=== PATIENT | male | born 1935 | race Caucasian/White ===

== ENCOUNTER 2016-09-17 16:28 | Inpatient (IN) | payer OTHER, MEDICARE ==
[~2016-09-17] VITALS: Ht 180.3 cm; Wt 75.0 kg
[~2016-09-17 16:28] MED LIST: ALLO100T PO; AMLO10TA2 PO; ATOR20TA15 PO; GLIP5 PO; HYDR50TA15 PO; ISOS30TA3 PO; OMEP20TA PO; POTA10TA2 PO; ULTR50TA5 PO
[2016-09-17 16:30] VITALS: BP 171/84; PULSE 65; RESP 15; TEMP 98.4; O2SAT 97
[2016-09-17] MEDS ORDERED: SODIUM CHLORID 0.9% 500 ML INJ 500 ML IV ONE (16:45)
[2016-09-17] MEDS ORDERED: ONDANSETRON HCL 4 MG/2 ML VIAL IVP ONE (16:45)
[2016-09-17] MEDS ORDERED: SODIUM CHLORIDE 0.9% FLUSH 5 ML FLUSH IVF PRN (16:45)
--- NOTE | 2016-09-17 16:53 | PD ---
HPI Chief Complaint: General Weakness Time Seen by Provider: 16:49 Travel History International Travel<30 days: No Contact w/Intl Traveler<30days: No Traveled to known affect area: No History of Present Illness HPI 80-year-old male presents to the emergency department via EMS for generalized weakness. He reports nausea, vomiting for the past week. However for the past 2 days, he has been so weak that he has been unable to get up. His states that he was able to get up use the bathroom this morning, but otherwise has been laying in bed for the past 3 days. 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 She states he has not vomited today was able to drink a boost shake this morning. However , he had vomiting yesterday and the day before. He did have one loose stool this morning. She states there was no blood in his stool. Patient also has a history of diabetes and is on glipizide. The patient denies any fevers. No headache. No chest pain or abdominal pain. No shortness of breath. Patient is hard of hearing. No syncope. No trauma. Patient has a PMH of HTN, DM, HLD , CKD, unilateral atrophic kidney, PAD with femoropopliteal bypass. PFSH Past Medical History Arthritis: Yes Blood Disorders: No Anxiety: No Depression: No Heart Rhythm Problems: No Cancer: No Cardiovascular Problems: Yes High Cholesterol: Yes Chemotherapy: No Chest Pain: No Cerebrovascular Accident: No Diabetes: Yes Diminished Hearing: No Endocrine: Yes Gastrointestinal Disorders: No Glaucoma: No Genitourinary: No Headaches: No Hepatitis: No Hiatal Hernia: No Hypertension: Yes Immune Disorder: No Implanted Vascular Access Dvce: Yes Musculoskeletal: No Neurologic: No Psychiatric: No Reproductive: No Respiratory: Yes (SOB THIS ADMISSION, DENIES PRIOR HX) Radiation Therapy: No Seizures: No Thyroid Disease: No Past Surgical History Abdominal Surgery: Yes AICD: No Arteriovenous Shunt: No Cardiac Surgery: No Cholecystectomy: Yes Ear Surgery: No Endocrine Surgery: No Eye Surgery: No Genitourinary Surgery: No Gynecologic Surgery: No Insulin Pump: No Joint Replacement: No Neurologic Surgery: No Oral Surgery: No Pacemaker: Yes Thoracic Surgery: No Other Surgery: Yes (Parish filters) Social History Alcohol Use: No Tobacco Use: Yes (QUIT 2 MONTHS) Substance Use: No Allergies-Medications (Allergen,Severity, Reaction): Coded Allergies: Hctz (Verified Allergy, Severe, Rash, 07/02/16) Lasix (Verified Allergy, Severe, RASH, 07/02/16) Nonsteroidal Anti-Inflammatory Agts (Verified Adverse Reaction, Severe, GI BLEED, 07/02/16) Reported Meds & Prescriptions Reported Meds & Active Scripts Active Glucotrol (Glipizide) 5 Mg Tab 5 Mg PO DAILYAC 30 Days Hydralazine (Hydralazine HCl) 50 Mg Tab 50 Mg PO Q8HR 30 Days Reported B-12 (Cyanocobalamin) Unknown Strength Tab Unknown Dose PO DAILY Vitamin D3 (Cholecalciferol) 5,000 Unit Cap 5,000 Units PO DAILY Aspirin 81 Mg Tabdr 81 Mg PO DAILY Isosorbide Mononitrate ER (Isosorbide Mononitrate) 30 Mg Jennifer 30 Mg PO DAILY Atorvastatin (Atorvastatin Calcium) 20 Mg Tab 20 Mg PO HS Amlodipine (Amlodipine Besylate) 10 Mg Tab 10 Mg PO DAILY Omeprazole 20 Mg Tab 20 Mg PO BID Allopurinol 100 Mg Tab 100 Mg PO DAILY Review of Systems Except as stated in HPI: all other systems reviewed are Neg Physical Exam Narrative GENERAL: Well-developed well-nourished elderly male patient, afebrile. SKIN: Warm and dry. HEAD: Normocephalic. Atraumatic. EYES: No scleral icterus. No injection or drainage. NECK: Supple, trachea midline. No JVD or lymphadenopathy. CARDIOVASCULAR: Regular rate and rhythm without murmurs, gallops, or rubs. RESPIRATORY: Breath sounds equal bilaterally. No accessory muscle use. Lungs sounds are clear to auscultation. GASTROINTESTINAL: Abdomen soft, non-tender, nondistended. MUSCULOSKELETAL: No cyanosis, or edema. Bilateral upper and lower extremity strength 5/5. All extremities are neurovascularly intact. BACK: Nontender without obvious deformity. No CVA tenderness. Data Data Last Documented VS Vital Signs Date Time Temp Pulse Resp B/P Pulse Ox O2 Delivery O2 Flow Rate FiO2 09/17/16 19:08 53 18 183/99 97 Room Air 09/17/16 16:30 98.4 Orders Electrocardiogram (09/17/16 16:39) Complete Blood Count With Diff (09/17/16 16:39) Comprehensive Metabolic Panel (09/17/16 16:39) Magnesium (Mg) (09/17/16 16:39) Ckmb (Isoenzyme) Profile (09/17/16 16:39) Troponin I (09/17/16 16:39) Act Partial Throm Time (Ptt) (09/17/16 16:39) Prothrombin Time / Inr (Pt) (09/17/16 16:39) Urinalysis - C+S If Indicated (09/17/16 16:39) Chest, Single Ap (09/17/16 16:39) Ecg Monitoring (09/17/16 16:39) Iv Access Insert/Monitor (09/17/16 16:39) Oximetry (09/17/16 16:39) Ondansetron Inj (Zofran Inj) (09/17/16 16:45) Sodium Chloride 0.9% Flush (Ns Flush) (09/17/16 16:45) Sodium Chlorid 0.9% 500 Ml Inj (Ns 500 M (09/17/16 16:45) Ct Abd/Pel W Iv Contrast(Rout) (09/17/16 ) Blood Culture (09/17/16 17:26) Lactic Acid Sepsis Protocol (09/17/16 17:26) Influenzae A/B Antigen (09/17/16 17:26) CKMB (09/17/16 16:50) CKMB% (09/17/16 16:50) Calcium Gluconate Inj (Calcium Gluconate (09/17/16 17:45) Magnesium Sulfate 1 Gm Premix (Magnesium (09/17/16 18:00) Cath For Specimen (09/17/16 17:54) Iohexol 350 Inj (Omnipaque 350 Inj) (09/17/16 18:40) Magnesium Sulfate 4 Gm Premix (Magnesium (09/17/16 19:30) Labs Laboratory Tests Test 09/17/16 09/17/16 16:50 17:43 White Blood Count 19.6 TH/MM3 Red Blood Count 3.79 MIL/MM3 Hemoglobin 10.5 GM/DL Hematocrit 31.8 % Mean Corpuscular Volume 84.0 FL Mean Corpuscular Hemoglobin 27.8 PG Mean Corpuscular Hemoglobin 33.1 % Concent Red Cell Distribution Width 17.2 % Platelet Count 247 TH/MM3 Mean Platelet Volume 7.8 FL Neutrophils (%) (Auto) 82.2 % Lymphocytes (%) (Auto) 12.9 % Monocytes (%) (Auto) 4.5 % Eosinophils (%) (Auto) 0.1 % Basophils (%) (Auto) 0.3 % Neutrophils # (Auto) 16.1 TH/MM3 Lymphocytes # (Auto) 2.5 TH/MM3 Monocytes # (Auto) 0.9 TH/MM3 Eosinophils # (Auto) 0.0 TH/MM3 Basophils # (Auto) 0.1 TH/MM3 CBC Comment DIFF FINAL Differential Comment Prothrombin Time 14.7 SEC Prothromb Time International 1.3 RATIO Ratio Activated Partial 33.3 SEC Thromboplast Time Sodium Level 139 MEQ/L Potassium Level 4.1 MEQ/L Chloride Level 104 MEQ/L Carbon Dioxide Level 26.6 MEQ/L Anion Gap 8 MEQ/L Blood Urea Nitrogen 24 MG/DL Creatinine 1.65 MG/DL Estimat Glomerular Filtration 41 ML/MIN Rate Random Glucose 179 MG/DL Calcium Level 5.5 MG/DL Protein Corrected Calcium 5.6 MG/DL Magnesium Level LESS THAN 0.3 MG/DL Total Bilirubin 0.4 MG/DL Aspartate Amino Transf 11 U/L (AST/SGOT) Alanine Aminotransferase 13 U/L (ALT/SGPT) Alkaline Phosphatase 85 U/L Total Creatine Kinase 156 U/L Creatine Kinase MB 1.5 NG/ML Troponin I 0.04 NG/ML Total Protein 7.0 GM/DL Albumin 2.2 GM/DL Lactic Acid Level 1.4 mmol/L [facility] Medical Decision Making Medical Screen Exam Complete: Yes Emergency Medical Condition: Yes Medical Record Reviewed: Yes Interpretation(s) Last Impressions Chest X-Ray 09/17/16 1639 Signed Impressions: Service Date/Time: September 16:56 - CONCLUSION: Normal examination. Myke De Leon MD Abdomen/Pelvis CT 09/17/16 0000 Signed Impressions: Service Date/Time: September 18:36 - CONCLUSION: 1. 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 2. 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 3. Right lower lung parenchymal density may be scar, repeat noncontrast chest CT is suggested in 6 months as a conservative follow up. KJono Gutierrez MD Differential Diagnosis Electrolyte abnormality versus urinary tract infection versus pneumonia versus ACS Narrative Course 80-year-old male presents to the emergency department for evaluation of generalized weakness, nausea, vomiting. EKG, CBC, CMP, magnesium, CK, troponin , PTT, PTT/INR, UA, chest x-ray are ordered and pending. Patient is given normal saline 500 bolus, Zofran 4 mg IV. CBC of the abdomen/pelvis, lactic acid , blood cultures 2, and influenza were added. EKG shows sinus rhythm with first-degree AV block, no acute ST changes. CBC shows leukocytosis of 19.6, hemoglobin 10.5, hematocrit 31.8. CMP shows B and 24, creatinine 1.65, protein corrected calcium 5.6. Magnesium is less than 0.3. CK is 156. Troponin is 0.04. Lactic acid is 1.4. PT is 14.7, INR 1.3, PTT 33.3. Influenza is negative. Chest x-ray is normal. CT abdomen/pelvis shows shrunken left kidney chronic in nature with an area of diminished enhancement involving the upper pole of the right kidney may be an infarction, however underlying mass is difficult to exclude; bosniak 3 cystic mass in the right kidney; 3. Right lower lung parenchymal density may be scar, repeat noncontrast chest CT is suggested in 6 months as a conservative follow up. [facility] is paged for admission. Dr. Sampson accepted admission. Diagnosis Primary Impression: Hypomagnesemia Additional Impressions: Hypocalcemia Leukocytosis Qualified Code: D72.829 - Leukocytosis, unspecified type Admitting Information Admitting Physician Requests: Admit Suzan Amaya Sep 17, 2016 16:52
--- NOTE | 2016-09-17 17:05 | RADRPT ---
EXAM DATE/TIME: 09/17/2016 16:56 [facility] COMPARISON: CHEST SINGLE AP, July 02, 2016, 10:54. INDICATIONS : Short of breath and weakness. MEDICAL HISTORY : Unobtainable. SURGICAL HISTORY : Unobtainable. ENCOUNTER: Initial ACUITY: 1 day PAIN SCORE: 0/10 LOCATION: Bilateral chest FINDINGS: A single view of the chest demonstrates the lungs to be symmetrically aerated without evidence of mas s, infiltrate or effusion. The cardiomediastinal contours are unremarkable. Osseous structures are intact. CONCLUSION: Normal examination. Myke De Leon MD on September 17, 2016 at 17:03 Board Certified Radiologist. This report was verified electronically.
[2016-09-17 17:16] LABS: AUTOMATED NEUTROPHIL # 16.1 TH/MM3 (1.8-7.7); BASOPHIL # 0.1 TH/MM3 (0-0.2); BASOPHIL % 0.3 % (0.0-2.0); EOSINOPHIL % 0.1 % (0.0-4.0); HEMATOCRIT 31.8 % (39.0-51.0); HEMO FLAGS DIFF FINAL; LYMPH % 12.9 % (9.0-44.0); LYMPHOCYTE # 2.5 TH/MM3 (1.0-4.8); MEAN CORPUSCULAR HEMOGLOBIN 27.8 PG (27.0-34.0); MEAN CORPUSCULAR HGB CONC 33.1 % (32.0-36.0); MONO % 4.5 % (0.0-8.0); NEUT % 82.2 % (16.0-70.0); PLATELET COUNT 247 TH/MM3 (150-450); RED BLOOD COUNT 3.79 MIL/MM3 (4.50-5.90); RED CELL DISTRIBUTION WIDTH 17.2 % (11.6-17.2); WHITE BLOOD COUNT 19.6 TH/MM3 (4.0-11.0)
[2016-09-17 17:26] VITALS: BP 173/81; PULSE 67; RESP 15; O2SAT 98
[2016-09-17 17:40] LABS: ALKALINE PHOSPHATASE 85 U/L (45-117); ALT (GPT) 13 U/L (12-78); ANION GAP 8 MEQ/L (5-15); AST (GOT) 11 U/L (15-37); BICARBONATE 26.6 MEQ/L (21.0-32.0); BLOOD UREA NITROGEN 24 MG/DL (7-18); CHLORIDE 104 MEQ/L (98-107); CREATINE KINASE 156 U/L (39-308); GLOMERULAR FILTRATION RATE 41 ML/MIN (>89); MAGNESIUM LESS THAN 0.3 MG/DL (1.5-2.5); POTASSIUM 4.1 MEQ/L (3.5-5.1); SODIUM (NA) 139 MEQ/L (136-145); TOTAL BILIRUBIN ADULT 0.4 MG/DL (0.2-1.0)
[2016-09-17 17:42] LABS: APTT (PATIENT) 33.3 SEC (24.3-30.1); INTERNATIONAL NORMALIZED RATIO 1.3 RATIO; PROTHROMBIN TIME - PATIENT 14.7 SEC (9.8-11.6)
[2016-09-17 17:43] LABS: CALCIUM-PROTEIN CORRECTED 5.6 MG/DL (8.5-10.1)
[2016-09-17] MEDS ORDERED: CALCIUM GLUCONATE INJ 1 GM in SODIUM CHLORIDE 0.9% INJ 100 ML IV ONE ×2 (17:45→22:15)
[2016-09-17] MEDS ORDERED: ASPI1TAB69 PO (18:03)
[2016-09-17] MEDS ORDERED: CHOL5000 PO (18:03)
[2016-09-17] MEDS ORDERED: [UNRECOGNIZED DRUG - CODE] PO (18:03)
[2016-09-17 18:13] LABS: CKMB 1.5 NG/ML (0.5-3.6)
[2016-09-17] MEDS ORDERED: IOHEXOL 350 MG/ML 10 ML VIAL (for RAD DIAG) IV ONE (18:40)
--- NOTE | 2016-09-17 19:00 | RADRPT ---
EXAM DATE/TIME: 09/17/2016 18:36 [facility] COMPARISON: No previous studies available for comparison. INDICATIONS : Abdominal pain with weakness. IV CONTRAST: 70 cc Omnipaque 350 (iohexol) IV ORAL CONTRAST: No oral contrast ingested. RADIATION DOSE: 9.37 CTDIvol (mGy) MEDICAL HISTORY : Cardiovascular disease. Hypertension. Congestive heart failure.Renal disease, DM SURGICAL HISTORY : Cholecystectomy. ENCOUNTER: Initial ACUITY: 1 week PAIN SCALE: 7/10 LOCATION: abdomen TECHNIQUE: Volumetric scanning of the abdomen and pelvis was performed. Using automated exposure control and ad justment of the mA and/or kV according to patient size, radiation dose was kept as low as reasonably achievable to obtain optimal diagnostic quality images. FINDINGS: CT Abdomen: The left kidney is small and shrunken chronic in nature and there is an approximate 3.1 c m many septated partially cystic mass in the right kidney measuring 3.1 cm in size. There is an area of diminished enhancement involving the right upper pole kidney medially maximum diameter of 3.2 cm c ould be a mass, however infarction could have this appearance. The liver, spleen, pancreas, adrenals are unremarkable. There is no evidence for any appreciable pathological adenopathy, free fluid, or shailesh wel obstruction. Approximate 1.8 cm parenchymal density is present in the right lower lobe laterally nonspecific could be scar, however early neoplasm is not excluded. CT pelvis: There is no evidence for mass, abscess formation, or any significant adenopathy within the pelvis. The prostate gland is inhomogeneous and measures 4.4 x 5.6 cm in AP and transverse diameters and nonspecific. There is an approximate 1.7 cm bone island in the left sacrum and a tiny one involv ing the L2 vertebrae. Aortobifem graft is identified and appears patent. CONCLUSION: 1. 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 2. 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 3. Right lower lung parenchymal density may be scar, repeat noncontrast chest CT is suggested in 6 mo nths as a conservative follow up. Jeimy Gutierrez MD on September 17, 2016 at 18:52 Board Certified Radiologist. This report was verified electronically.
[2016-09-17 19:08] VITALS: BP 183/99; PULSE 53; RESP 18; O2SAT 97
[2016-09-17] MEDS ORDERED: MAGNESIUM SULFATE 4 GM PREMIX 100 ML IV ONE (19:30)
[2016-09-17] MEDS: MAGNESIUM SULFATE 1 GM PREMIX 100 ML IV SCH ×2 (19:39→20:44)
[2016-09-17] MEDS ORDERED: NALOXONE HCL 0.4 MG/ML AMP IV PRN (19:45)
[2016-09-17] MEDS ORDERED: SODIUM CHLORIDE 0.9% FLUSH 5 ML FLUSH FLUSH PRN (19:45)
[2016-09-17 20:00] VITALS: BP 188/77; PULSE 58; RESP 18; TEMP 97.6; O2SAT 97
[2016-09-17 20:28] VITALS: BP_SYST 148; BP_SYST 178; BP_DIAS 78; BP_DIAS 86; PULSE 53; PULSE 76; RESP 18; O2SAT 98
[2016-09-17] MEDS ORDERED: CALCIUM GLUCONATE INJ 2 GM in DEXTROSE 5% IN WATER 100ML INJ 100 ML IV ONE ×2 (21:00)
--- NOTE | 2016-09-17 21:44 | HHI.HP ---
[facility] Service [facility] Primary [facility] Physician Rivera Frazier MD Admission Diagnosis hypocalcemia, hypomagnesia, leukocytosis, generalized weakness Diagnoses: Chief Complaint: Very weak, nausea, vomited Travel History International Travel<30 Days: No Contact w/Intl Traveler <30 Da: No Traveled to Known Affected Are: No History of Present Illness History from patient, ER physician communication, and review of medical records. Patient is extremely hard of hearing. However when I speak to him mild, he is able to understand and comprehend. He is able to give history. When asked about why he came to hospital, he stated that he was just extremely very weak at home. He just could not understand why he was weak. He denies any falling down episodes. Denies any syncope. Denies any associated chest pain/shortness of breath/palpitations/. Did report of some dizziness and nausea. He states he vomited about 3 times a day for the past 2 days. No blood in it. Also denies any blood in his stool or urine. Denies diarrhea. Denies fever. In the emergency room, patient's workup reveals severe hypocalcemia and hypomagnesemia. Patient denies drinking alcohol on a daily basis. Review of Systems Except as stated in HPI: all other systems reviewed are Neg Past Family Social History Past Medical History Hypertension Diabetes Hyperlipidemia CVAs 2 Denies history of COPD. However is a chronic smoker. Still smoking. PADwith aortofemoral bypass Past Surgical History Aortofemoral bypass Left wrist surgery Cholecystectomy and lysis of adhesions Reported Medications Patient's medications listed on EMRreviewed Allergies: Coded Allergies: Hctz (Verified Allergy, Severe, Rash, 07/02/16) Lasix (Verified Allergy, Severe, RASH, 07/02/16) Nonsteroidal Anti-Inflammatory Agts (Verified Adverse Reaction, Severe, GI BLEED, 07/02/16) Family History Patient denies any family history of any medical conditions Social History Denies alcohol abuse/drug abuse. However states that he still smoking. A pack a week or so. Physical Exam Vital Signs Vital Signs Date Time Temp Pulse Resp B/P Pulse Ox O2 Delivery O2 Flow Rate FiO2 09/17/16 20:28 76 18 148/78 98 09/17/16 19:08 53 18 183/99 97 Room Air 09/17/16 17:26 67 15 173/81 98 Room Air 09/17/16 16:36 15 98 09/17/16 16:30 98.4 65 15 171/84 97 Physical Exam GENERAL: This is a well-nourished, well-developed patient, in no apparent distress. Elderly gentleman, extremely hard of hearing. SKIN: No rashes, ecchymoses or lesions. Cool and dry. HEAD: Atraumatic. Normocephalic. No temporal or scalp tenderness. EYES: No scleral icterus. No injection or drainage. ENT: Nose without bleeding, purulent drainage or septal hematoma.. Airway patent. NECK: Trachea midline. No JVD CARDIOVASCULAR: Regular rate and rhythm without murmurs, gallops, or rubs. RESPIRATORY: Clear to auscultation. Breath sounds equal bilaterally. No wheezes , rales, or rhonchi. GASTROINTESTINAL: Abdomen soft, non-tender, nondistended. No guarding. MUSCULOSKELETAL: Extremities without clubbing, cyanosis, or edema. No calf tenderness. NEUROLOGICAL: Awake and alert. Motor and sensory grossly within normal limits. Normal speech. Laboratory Laboratory Tests Test 09/17/16 09/17/16 16:50 17:43 White Blood Count 19.6 Red Blood Count 3.79 Hemoglobin 10.5 Hematocrit 31.8 Mean Corpuscular Volume 84.0 Mean Corpuscular Hemoglobin 27.8 Mean Corpuscular Hemoglobin 33.1 Concent Red Cell Distribution Width 17.2 Platelet Count 247 Mean Platelet Volume 7.8 Neutrophils (%) (Auto) 82.2 Lymphocytes (%) (Auto) 12.9 Monocytes (%) (Auto) 4.5 Eosinophils (%) (Auto) 0.1 Basophils (%) (Auto) 0.3 Neutrophils # (Auto) 16.1 Lymphocytes # (Auto) 2.5 Monocytes # (Auto) 0.9 Eosinophils # (Auto) 0.0 Basophils # (Auto) 0.1 CBC Comment DIFF FINAL Differential Comment Prothrombin Time 14.7 Prothromb Time International 1.3 Ratio Activated Partial 33.3 Thromboplast Time Sodium Level 139 Potassium Level 4.1 Chloride Level 104 Carbon Dioxide Level 26.6 Anion Gap 8 Blood Urea Nitrogen 24 Creatinine 1.65 Estimat Glomerular Filtration 41 Rate Random Glucose 179 Calcium Level 5.5 Protein Corrected Calcium 5.6 Magnesium Level LESS THAN 0.3 Total Bilirubin 0.4 Aspartate Amino Transf 11 (AST/SGOT) Alanine Aminotransferase 13 (ALT/SGPT) Alkaline Phosphatase 85 Total Creatine Kinase 156 Creatine Kinase MB 1.5 Troponin I 0.04 Total Protein 7.0 Albumin 2.2 Lactic Acid Level 1.4 Date/Time Procedure Status Source Growth 09/17/16 17:45 Aerobic Blood Culture Received Blood Peripheral Pending 09/17/16 17:45 Anaerobic Blood Culture Received Blood Peripheral Pending 09/17/16 17:40 Influenza Types A,B Antigen ([facility]UCKY) - Final Complete Nasal Aspirate NEGATIVE FOR FLU A AND B ANTIGEN.... Result Diagram: 09/17/16 1650 09/17/16 1650 Imaging Last 48 hours Impressions Chest X-Ray 09/17/16 1639 Signed Impressions: Service Date/Time: September 16:56 - CONCLUSION: Normal examination. Myke De Leon MD Abdomen/Pelvis CT 09/17/16 0000 Signed Impressions: Service Date/Time: September 18:36 - CONCLUSION: 1. 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 2. 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 3. Right lower lung parenchymal density may be scar, repeat noncontrast chest CT is suggested in 6 months as a conservative follow up. Jeimy Gutierrez MD Assessment and Plan Problem List: (1) Hypocalcemia ICD Code: E83.51 Status: Acute (2) Hypomagnesemia ICD Code: E83.42 Status: Acute Assessment and Plan Impression: Generalized weaknesslikely due to severe electrolyte impairments. Severe electrolyte impairmentpossibly from nausea and vomiting. Although the frequency and the amount does not sound so severe. Severe hypocalcemia Severe hypomagnesemia UTI Hypertension Diabetes Hyperlipidemia CVAs 2 Denies history of COPD. However is a chronic smoker. Still smoking. PADwith aortofemoral bypass Plan: Give additional 2 g IV calcium gluconate. Also gave additional 4 g total of mag sulfate. We'll follow up the repeat labs now after the calcium is finished. We'll be drawing BMP, magnesium, every 4 hours and follow up during the night and replace as needed. Telemetry monitoring. From patient and nursing staff advised to be careful with ambulation in case patient is bradycardic from these severe electrolyte abnormalities. Monitor for episodes of nausea/vomiting/diarrhea. Patient was started on Rocephin 1 g IV every 24 hours for UTI. Will follow-up urine culture results. Physical therapy consult. Resume home meds. Hold hypoglycemic medications. We'll monitor fingersticks and cover with sliding scale coverage. DVT prophylaxiswith Lovenox. GI prophylaxison pantoprazole. Suspect lab error at 3:35 AM lab-drawwith hyper magnesium. Suspect customer account technician nellie blood from IV line where magnesium was being infused. Repeat labs pending. Discussed Condition With Patient, ER physician, patient's nurse Physician Certification 2 Midnight Certification Type: Admission for Inpatient Services Order for Inpatient Services The services are ordered in accordance with Medicare regulations or non- Medicare payer requirements, as applicable. In the case of services not specified as inpatient-only, they are appropriately provided as inpatient services in accordance with the 2-midnight benchmark. Estimated LOS (days): 2 days is the estimated time the patient will need to remain in the hospital, assuming treatment plan goals are met and no additional complications. Post-Hospital Plan: Home Tahir Sampson MD Sep 17, 2016 21:44
[2016-09-17] MEDS ORDERED: CALCIUM CARBONATE 1.25 GM (CA 500 MG) TAB PO ONE (22:00)
[2016-09-17] MEDS ORDERED: CALCIUM GLUCONATE 10% 1 GM/10 ML VIAL IV PUSH ONE (22:00)
[2016-09-17] MEDS ORDERED: MAGNESIUM OXIDE 400 MG TAB PO ONE (22:00)
[2016-09-17] MEDS: hydrALAZINE HCL 50 MG TAB PO SCH (22:07)
[2016-09-17] MEDS: SODIUM CHLORIDE 0.9% FLUSH 5 ML FLUSH FLUSH SCH (22:10)
[2016-09-17] MEDS: MAGNESIUM SULFAT 1 GM PREMIX 100 ML x2 bags IV SCH ×2 (22:10→23:16)
[2016-09-17 22:50] LABS: BICARBONATE 23.3 MEQ/L (21.0-32.0); MAGNESIUM 0.9 MG/DL (1.5-2.5)
[2016-09-17 23:32] LABS: CALCIUM-PROTEIN CORRECTED 6.3 MG/DL (8.5-10.1)
[2016-09-18] VITALS (7 sets, daily range): BP systolic 145–172; BP diastolic 67–84; PULSE 56–68; RESP 14–20; TEMP 97–98.2; O2SAT 94–97
[2016-09-18] MEDS: MAGNESIUM SULFAT 1 GM PREMIX 100 ML x2 bags IV SCH ×2 (00:50→02:19)
[2016-09-18 01:12] LABS: BICARBONATE 23.8 MEQ/L (21.0-32.0); MAGNESIUM 1.5 MG/DL (1.5-2.5); POTASSIUM 3.7 MEQ/L (3.5-5.1)
[2016-09-18 01:20] LABS: BACTERIA, URINE MOD /hpf; BLOOD, URINE TRACE (NEG); COMMENT (UR) CULTURE INDICATED; CULTURE IF INDICATED CULTURE INDICATED; GLUCOSE,URINE NEG (NEG); KETONE, URINE NEG (NEG); MUCUS URINE FEW /lpf (OCC); NITRITE,URINE NEG (NEG); PH, URINE 5.5 (5.0-8.5); URINE COLOR YELLOW (YELLW/STRAW)
[2016-09-18 01:45] LABS: CALCIUM-PROTEIN CORRECTED 6.8 MG/DL (8.5-10.1)
[2016-09-18] MEDS ORDERED: MAGNESIUM SULFATE 1 GM PREMIX 100 ML IV ONE (02:00)
[2016-09-18] MEDS ORDERED: CALCIUM GLUCONATE 10% 1 GM/10 ML VIAL IV PUSH ONE (02:00)
[2016-09-18] MEDS: cefTRIAXone INJ 1,000 MG in SODIUM CHLORIDE 0.9% INJ 100 ML IV SCH (02:19)
[2016-09-18] MEDS ORDERED: CALCIUM GLUCONATE INJ 2 GM in DEXTROSE 5% IN WATER 100ML INJ 100 ML IV ONE ×2 (03:30)
[2016-09-18 03:47] LABS: AUTOMATED NEUTROPHIL # 10.4 TH/MM3 (1.8-7.7); BASOPHIL % 0.4 % (0.0-2.0); EOSINOPHIL % 0.1 % (0.0-4.0); HEMO FLAGS DIFF FINAL; LYMPH % 13.6 % (9.0-44.0); LYMPHOCYTE # 1.7 TH/MM3 (1.0-4.8); MEAN CELL VOLUME 83.6 FL (80.0-100.0); MEAN CORPUSCULAR HEMOGLOBIN 27.6 PG (27.0-34.0); MONO % 3.9 % (0.0-8.0); PLATELET COUNT 232 TH/MM3 (150-450); RED BLOOD COUNT 3.35 MIL/MM3 (4.50-5.90); WHITE BLOOD COUNT 12.7 TH/MM3 (4.0-11.0)
[2016-09-18 04:12] LABS: MAGNESIUM 6.1 MG/DL (1.5-2.5); POTASSIUM 3.6 MEQ/L (3.5-5.1)
[2016-09-18] MEDS: hydrALAZINE HCL 50 MG TAB PO SCH ×3 (05:43→23:13)
[2016-09-18] MEDS: ISOSORBIDE MONONITRATE 30 MG TAB PO SCH (05:44)
[2016-09-18 07:55] LABS: BICARBONATE 23.5 MEQ/L (21.0-32.0); MAGNESIUM 2.5 MG/DL (1.5-2.5)
[2016-09-18 07:57] LABS: POTASSIUM 3.7 MEQ/L (3.5-5.1)
[2016-09-18] MEDS ORDERED: GLUCAGON 1 MG/ML VIAL OTHER PRN (08:00)
[2016-09-18] MEDS ORDERED: DEXTROSE 50% IN WATER 50 ML VIAL(D50) IV PUSH PRN (08:00)
--- NOTE | 2016-09-18 08:00 | HHI.PR ---
Subjective Remarks This is a pleasant 80 y/o Male who was admitted with Hypocalcemia, Hypomagnesemia, Leukocytosis Generalized weakness, Nausea and vomit, hard of hearing, has Hypertension, DM II , Hyperlipidemia CVA x 2, chronic smoker still smoking, Peripheral Artery disease, with diagnosis of Generalized weakness, Electrolyte derangement, Intractable nausea and vomit, Patient stable seen in the room in the presence of nurse Miss Rebekah herrera, no complaints, eating in the room , no shortness of breath walking in the room. Objective Vital Signs Date Time Temp Pulse Resp B/P Pulse Ox O2 Delivery O2 Flow Rate FiO2 09/18/16 04:00 97.4 56 20 160/72 97 09/18/16 00:00 97.8 61 18 158/75 97 09/17/16 20:28 76 18 148/78 98 09/17/16 20:00 97.6 58 18 188/77 97 09/17/16 19:08 53 18 183/99 97 Room Air 09/17/16 17:26 67 15 173/81 98 Room Air 09/17/16 16:36 15 98 09/17/16 16:30 98.4 65 15 171/84 97 I/O 09/17/16 09/17/16 09/17/16 09/18/16 09/18/16 09/18/16 07:00 15:00 23:00 07:00 15:00 23:00 Intake Total 754 ml 1023 ml Output Total 350 ml 400 ml Balance 404 ml 623 ml Intake Oral 360 ml 240 ml IV Total 394 ml 783 ml Output Urine Total 350 ml 400 ml # Bowel Movements 0 0 Result Diagram: 09/18/16 0335 09/18/16 0335 Imaging Last Impressions Chest X-Ray 09/17/16 1639 Signed Impressions: Service Date/Time: September 16:56 - CONCLUSION: Normal examination. Myke De Leon MD Abdomen/Pelvis CT 09/17/16 0000 Signed Impressions: Service Date/Time: September 18:36 - CONCLUSION: 1. 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 2. 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 3. Right lower lung parenchymal density may be scar, repeat noncontrast chest CT is suggested in 6 months as a conservative follow up. Jeimy Gutierrez MD Procedures No procedures performed to the patient. Other Results Laboratory Tests Test 09/17/16 09/17/16 09/18/16 09/18/16 16:50 17:43 00:45 03:35 Prothrombin Time 14.7 SEC Prothromb Time International 1.3 RATIO Ratio Activated Partial 33.3 SEC Thromboplast Time Total Bilirubin 0.4 MG/DL Aspartate Amino Transf 11 U/L (AST/SGOT) Alanine Aminotransferase 13 U/L (ALT/SGPT) Alkaline Phosphatase 85 U/L Total Creatine Kinase 156 U/L Creatine Kinase MB 1.5 NG/ML Troponin I 0.04 NG/ML Albumin 2.2 GM/DL Lactic Acid Level 1.4 mmol/L Urine Color YELLOW Urine Turbidity HAZY Urine pH 5.5 Urine Specific [place] 1.034 Urine Protein 100 mg/dL Urine Glucose (UA) NEG mg/dL Urine Ketones NEG mg/dL Urine Occult Blood TRACE Urine Nitrite NEG Urine Bilirubin NEG Urine Urobilinogen 2.0 MG/DL Urine Leukocyte Esterase LARGE Urine RBC 8 /hpf Urine WBC /hpf Urine WBC Clumps FEW Urine Bacteria MOD /hpf Urine Mucus FEW /lpf Microscopic Urinalysis Comment CULTURE INDICATED White Blood Count 12.7 TH/MM3 Red Blood Count 3.35 MIL/MM3 Hemoglobin 9.3 GM/DL Hematocrit 28.0 % Mean Corpuscular Volume 83.6 FL Mean Corpuscular Hemoglobin 27.6 PG Mean Corpuscular Hemoglobin 33.0 % Concent Red Cell Distribution Width 17.0 % Platelet Count 232 TH/MM3 Mean Platelet Volume 7.6 FL Neutrophils (%) (Auto) 82.0 % Lymphocytes (%) (Auto) 13.6 % Monocytes (%) (Auto) 3.9 % Eosinophils (%) (Auto) 0.1 % Basophils (%) (Auto) 0.4 % Neutrophils # (Auto) 10.4 TH/MM3 Lymphocytes # (Auto) 1.7 TH/MM3 Monocytes # (Auto) 0.5 TH/MM3 Eosinophils # (Auto) 0.0 TH/MM3 Basophils # (Auto) 0.0 TH/MM3 CBC Comment DIFF FINAL Differential Comment Sodium Level 133 MEQ/L Potassium Level 3.6 MEQ/L Chloride Level 98 MEQ/L Carbon Dioxide Level 24.0 MEQ/L Anion Gap 11 MEQ/L Blood Urea Nitrogen 22 MG/DL Creatinine 1.46 MG/DL Estimat Glomerular Filtration 47 ML/MIN Rate Random Glucose 317 MG/DL Calcium Level 6.5 MG/DL Protein Corrected Calcium 7.0 MG/DL Magnesium Level 6.1 MG/DL Total Protein 6.1 GM/DL Objective Remarks GENERAL: This is a well-nourished, well-developed patient, in no apparent distress. Elderly gentleman, extremely hard of hearing. SKIN: No rashes, ecchymoses on arms. HEAD: Atraumatic. Normocephalic. EYES: No scleral icterus. No injection or drainage. ENT: Nose without bleeding. NECK: Trachea midline. No JVD CARDIOVASCULAR: Regular rate and rhythm without murmurs, gallops, or rubs. RESPIRATORY: Clear to auscultation. Breath sounds equal bilaterally. No wheezes , rales, or rhonchi. GASTROINTESTINAL: Abdomen soft, non-tender, nondistended. No guarding. MUSCULOSKELETAL: Extremities without clubbing, cyanosis, or edema. No calf tenderness. NEUROLOGICAL: Awake and alert. Motor and sensory grossly within normal limits. Normal speech. Medications and IVs Current Medications Medications (Trade) Dose Ordered Sig/Fox Route Start Time Stop Time Status Last Admin (NS Flush) 2 ml UNSCH PRN FLUSH 09/17/16 19:45 (NS Flush) 2 ml BID FLUSH 09/17/16 21:00 09/17/16 22:10 (Lovenox Inj) 40 mg Q24H SQ 09/18/16 09:00 (Narcan Inj) 0.4 mg UNSCH PRN IV 09/17/16 19:45 (Zyloprim) 100 mg DAILY PO 09/18/16 09:00 (Norvasc) 10 mg DAILY PO 09/18/16 09:00 (Ecotrin Ec) 81 mg DAILY PO 09/18/16 09:00 (Lipitor) 20 mg HS PO 09/18/16 21:00 (Vitamin D3) 5,000 units DAILY PO 09/18/16 09:00 (Apresoline) 50 mg Q8HR PO 09/17/16 22:00 09/18/16 05:43 (Imdur) 30 mg DAILY@07 PO 09/18/16 07:00 09/18/16 05:44 (Protonix) 20 mg BID PO 09/18/16 09:00 Calcium Carbonate 1000 mg 1,000 mg Q12HR PO 09/18/16 09:00 (Rocephin Inj/NS Inj) 100 ml @ 200 mls/hr Q24H IV 09/18/16 02:00 09/18/16 02:19 A/P Assessment and Plan 1. Electrolyte derangement replaced and following, replace potassium today. today Potassium 3.7 given 20 meq now follow, asked for Ionized calcium continue present care. 2. Generalized weakness secondary to #1 Physical therapy consulted. 3. UTI continue Ceftriaxone. 4. Hypertension Uncontrolled anti hypertensives just given. 5. Hyperlipidemia continue statins 6. CVA x 2 no focal deficits. 7. Tobacco dependency strongly recommended to stop smoking. 8. PAD status post Aortofemoral bypass. 9. DM II uncontrolled. continue sliding scale. Hemoglobin A1C DVT prophylaxiswith Lovenox. GI prophylaxison pantoprazole. Discharge Planning expected in the next 24 hours. Attending Attestation Patient seen in the room in the presence of nurse Miss Rebekah herrera. Cody Nuñez MD Sep 18, 2016 08:00
[2016-09-18 08:26] LABS: CALCIUM-PROTEIN CORRECTED 7.1 MG/DL (8.5-10.1)
[2016-09-18] MEDS: PANTOPRAZOLE SOD 20 MG DELAYED RELEASE TAB PO SCH ×2 (08:31→23:11)
[2016-09-18] MEDS: CHOLECALCIFEROL (VIT D3) 5000 UNIT CAP PO SCH (08:31)
[2016-09-18] MEDS: CALCIUM CARBONATE 1.25 GM (CA 500 MG) TAB PO SCH ×2 (08:31→23:11)
[2016-09-18] MEDS: ASPIRIN EC 81 MG TABEC PO SCH (08:31)
[2016-09-18] MEDS: ALLOPURINOL 100 MG TAB PO SCH (08:31)
[2016-09-18] MEDS: ENOXAPARIN SODIUM 40 MG/0.4 ML SYRINGE SQ SCH (08:31)
[2016-09-18] MEDS: SODIUM CHLORIDE 0.9% FLUSH 5 ML FLUSH FLUSH SCH ×2 (08:32→23:10)
[2016-09-18] MEDS ORDERED: MAGNESIUM OXIDE 400 MG TAB PO SCH (09:00)
[2016-09-18] MEDS ORDERED: POTASSIUM CHLORIDE 20 MEQ CONTROLLED RELEASE TAB PO ONE (09:45)
[2016-09-18 11:07] LABS: BICARBONATE 25.4 MEQ/L (21.0-32.0); MAGNESIUM 2.1 MG/DL (1.5-2.5); POTASSIUM 3.9 MEQ/L (3.5-5.1)
[2016-09-18] MEDS: INSULIN ASPART SUPPLEMENTAL SCALE SQ SCH ×3 (11:24→21:00)
[2016-09-18 11:47] LABS: CALCIUM-PROTEIN CORRECTED 7.4 MG/DL (8.5-10.1)
[2016-09-18 12:52] LABS: BICARBONATE 24.4 MEQ/L (21.0-32.0); MAGNESIUM 2.1 MG/DL (1.5-2.5); POTASSIUM 3.7 MEQ/L (3.5-5.1)
[2016-09-18 13:09] LABS: CALCIUM-PROTEIN CORRECTED 7.1 MG/DL (8.5-10.1)
[2016-09-18 19:03] LABS: BICARBONATE 23.4 MEQ/L (21.0-32.0); MAGNESIUM 2.1 MG/DL (1.5-2.5); POTASSIUM 3.9 MEQ/L (3.5-5.1)
[2016-09-18 20:50] LABS: CALCIUM-PROTEIN CORRECTED 7.1 MG/DL (8.5-10.1)
[2016-09-18] MEDS ORDERED: CALCIUM GLUCONATE INJ 2 GM in SODIUM CHLORIDE 0.9% INJ 100 ML IV ONE (23:00)
[2016-09-18] MEDS: ATORVASTATIN 20 MG TAB PO SCH (23:10)
[2016-09-18 23:18] LABS: MAGNESIUM 1.8 MG/DL (1.5-2.5); POTASSIUM 4.1 MEQ/L (3.5-5.1)
--- NOTE | 2016-09-18 23:25 | EKG ---
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
[2016-09-18 23:34] LABS: CALCIUM-PROTEIN CORRECTED 7.3 MG/DL (8.5-10.1)
[2016-09-19] VITALS: BP 130/63; PULSE 57; RESP 18; TEMP 97.5; O2SAT 94
[2016-09-19] MEDS: cefTRIAXone INJ 1,000 MG in SODIUM CHLORIDE 0.9% INJ 100 ML IV SCH (01:48)
[2016-09-19 04:00] VITALS: BP 121/55; PULSE 59; RESP 18; TEMP 97.7; O2SAT 97
[2016-09-19] MEDS: hydrALAZINE HCL 50 MG TAB PO SCH ×3 (04:43→21:58)
[2016-09-19] MEDS: ISOSORBIDE MONONITRATE 30 MG TAB PO SCH (04:43)
[2016-09-19 06:13] LABS: BICARBONATE 22.3 MEQ/L (21.0-32.0)
[2016-09-19] MEDS: INSULIN ASPART SUPPLEMENTAL SCALE SQ SCH ×4 (07:00→21:57)
[2016-09-19 08:00] VITALS: BP 133/82; PULSE 67; RESP 16; TEMP 96.4; O2SAT 99
[2016-09-19] MEDS: ALLOPURINOL 100 MG TAB PO SCH (09:00)
[2016-09-19] MEDS: CALCIUM CARBONATE 1.25 GM (CA 500 MG) TAB PO SCH ×2 (09:49→21:56)
[2016-09-19] MEDS: ENOXAPARIN SODIUM 40 MG/0.4 ML SYRINGE SQ SCH (09:50)
[2016-09-19] MEDS: ASPIRIN EC 81 MG TABEC PO SCH (09:50)
[2016-09-19] MEDS: SODIUM CHLORIDE 0.9% FLUSH 5 ML FLUSH FLUSH SCH ×2 (09:50→21:56)
[2016-09-19] MEDS: CHOLECALCIFEROL (VIT D3) 5000 UNIT CAP PO SCH (09:50)
[2016-09-19] MEDS: PANTOPRAZOLE SOD 20 MG DELAYED RELEASE TAB PO SCH ×2 (09:50→21:56)
[2016-09-19 12:00] VITALS: BP 155/70; PULSE 66; RESP 18; TEMP 97.1; O2SAT 95
--- NOTE | 2016-09-19 14:32 | HHI.PR ---
Subjective Remarks This is a pleasant 80 y/o Male who was admitted with Hypocalcemia, Hypomagnesemia, Leukocytosis Generalized weakness, Nausea and vomit, hard of hearing, has Hypertension, DM II , Hyperlipidemia CVA x 2, chronic smoker still smoking, Peripheral Artery disease, with diagnosis of Generalized weakness, Electrolyte derangement, Intractable nausea and vomit, at this time asymptomatic patient improving condition. as per Physical therapy to discharge Home with [facility] for [facility]. Objective Vital Signs Date Time Temp Pulse Resp B/P Pulse Ox O2 Delivery O2 Flow Rate FiO2 09/19/16 12:00 97.1 66 18 155/70 95 09/19/16 08:00 96.4 67 16 133/82 99 09/19/16 04:00 97.7 59 18 121/55 97 09/19/16 00:00 97.5 57 18 130/63 94 09/18/16 21:15 66 09/18/16 20:00 98.2 63 18 154/79 94 09/18/16 16:00 97.9 68 14 152/76 96 I/O 09/18/16 09/18/16 09/18/16 09/19/16 09/19/16 09/19/16 07:00 15:00 23:00 07:00 15:00 23:00 Intake Total 1023 ml 800 ml 440 ml 480 ml Output Total 400 ml 450 ml 250 ml 300 ml Balance 623 ml 350 ml 190 ml 180 ml Intake Oral 240 ml 800 ml 240 ml 480 ml IV Total 783 ml 0 ml 200 ml Output Urine Total 400 ml 450 ml 250 ml 300 ml # Bowel Movements 0 0 Result Diagram: 09/18/16 0335 09/19/16 0407 Imaging Last Impressions Chest X-Ray 09/17/16 1639 Signed Impressions: Service Date/Time: September 16:56 - CONCLUSION: Normal examination. Myke De Leon MD Abdomen/Pelvis CT 09/17/16 0000 Signed Impressions: Service Date/Time: September 18:36 - CONCLUSION: 1. 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 2. 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 3. Right lower lung parenchymal density may be scar, repeat noncontrast chest CT is suggested in 6 months as a conservative follow up. Jeimy Gutierrez MD Procedures No procedures performed to the patient. Other Results Laboratory Tests Test 09/17/16 09/17/16 09/18/16 09/18/16 16:50 17:43 00:45 03:35 Prothrombin Time 14.7 SEC Prothromb Time International 1.3 RATIO Ratio Activated Partial 33.3 SEC Thromboplast Time Total Bilirubin 0.4 MG/DL Aspartate Amino Transf 11 U/L (AST/SGOT) Alanine Aminotransferase 13 U/L (ALT/SGPT) Alkaline Phosphatase 85 U/L Total Creatine Kinase 156 U/L Creatine Kinase MB 1.5 NG/ML Troponin I 0.04 NG/ML Albumin 2.2 GM/DL Lactic Acid Level 1.4 mmol/L Urine Color YELLOW Urine Turbidity HAZY Urine pH 5.5 Urine Specific [place] 1.034 Urine Protein 100 mg/dL Urine Glucose (UA) NEG mg/dL Urine Ketones NEG mg/dL Urine Occult Blood TRACE Urine Nitrite NEG Urine Bilirubin NEG Urine Urobilinogen 2.0 MG/DL Urine Leukocyte Esterase LARGE Urine RBC 8 /hpf Urine WBC /hpf Urine WBC Clumps FEW Urine Bacteria MOD /hpf Urine Mucus FEW /lpf Microscopic Urinalysis Comment CULTURE INDICATED White Blood Count 12.7 TH/MM3 Red Blood Count 3.35 MIL/MM3 Hemoglobin 9.3 GM/DL Hematocrit 28.0 % Mean Corpuscular Volume 83.6 FL Mean Corpuscular Hemoglobin 27.6 PG Mean Corpuscular Hemoglobin 33.0 % Concent Red Cell Distribution Width 17.0 % Platelet Count 232 TH/MM3 Mean Platelet Volume 7.6 FL Neutrophils (%) (Auto) 82.0 % Lymphocytes (%) (Auto) 13.6 % Monocytes (%) (Auto) 3.9 % Eosinophils (%) (Auto) 0.1 % Basophils (%) (Auto) 0.4 % Neutrophils # (Auto) 10.4 TH/MM3 Lymphocytes # (Auto) 1.7 TH/MM3 Monocytes # (Auto) 0.5 TH/MM3 Eosinophils # (Auto) 0.0 TH/MM3 Basophils # (Auto) 0.0 TH/MM3 CBC Comment DIFF FINAL Differential Comment Test 09/18/16 09/19/16 22:16 04:07 Protein Corrected Calcium 7.3 MG/DL Magnesium Level 1.8 MG/DL Total Protein 6.4 GM/DL Sodium Level 138 MEQ/L Potassium Level 4.0 MEQ/L Chloride Level 105 MEQ/L Carbon Dioxide Level 22.3 MEQ/L Anion Gap 11 MEQ/L Blood Urea Nitrogen 21 MG/DL Creatinine 1.52 MG/DL Estimat Glomerular Filtration 45 ML/MIN Rate Random Glucose 106 MG/DL Calcium Level 7.5 MG/DL Objective Remarks GENERAL: This is a well-nourished, well-developed patient, in no apparent distress. Elderly gentleman, extremely hard of hearing. SKIN: No rashes, ecchymoses on arms. HEAD: Atraumatic. Normocephalic. EYES: No scleral icterus. No injection or drainage. ENT: Nose without bleeding. NECK: Trachea midline. No JVD CARDIOVASCULAR: Regular rate and rhythm without murmurs, gallops, or rubs. RESPIRATORY: Clear to auscultation. Breath sounds equal bilaterally. No wheezes , rales, or rhonchi. GASTROINTESTINAL: Abdomen soft, non-tender, nondistended. No guarding. MUSCULOSKELETAL: Extremities without clubbing, cyanosis, or edema. No calf tenderness. NEUROLOGICAL: Awake and alert. Motor and sensory grossly within normal limits. Normal speech. Medications and IVs Current Medications Medications (Trade) Dose Ordered Sig/Fox Route Start Time Stop Time Status Last Admin (NS Flush) 2 ml UNSCH PRN FLUSH 09/17/16 19:45 (NS Flush) 2 ml BID FLUSH 09/17/16 21:00 09/19/16 09:50 (Lovenox Inj) 40 mg Q24H SQ 09/18/16 09:00 09/19/16 09:50 (Narcan Inj) 0.4 mg UNSCH PRN IV 09/17/16 19:45 (Zyloprim) 100 mg DAILY PO 09/18/16 09:00 09/19/16 09:00 (Norvasc) 10 mg DAILY PO 09/18/16 09:00 09/19/16 09:50 (Ecotrin Ec) 81 mg DAILY PO 09/18/16 09:00 09/19/16 09:50 (Lipitor) 20 mg HS PO 09/18/16 21:00 09/18/16 23:10 (Vitamin D3) 5,000 units DAILY PO 09/18/16 09:00 09/19/16 09:50 (Apresoline) 50 mg Q8HR PO 09/17/16 22:00 09/19/16 04:43 (Imdur) 30 mg DAILY@07 PO 09/18/16 07:00 09/19/16 04:43 (Protonix) 20 mg BID PO 09/18/16 09:00 09/19/16 09:50 Calcium Carbonate 1000 mg 1,000 mg Q12HR PO 09/18/16 09:00 09/19/16 09:49 (Rocephin Inj/NS Inj) 100 ml @ 200 mls/hr Q24H IV 09/18/16 02:00 09/19/16 01:48 (D50w (Vial) Inj) 25 ml UNSCH PRN IV PUSH 09/18/16 08:00 (Glucagon Inj) 1 mg UNSCH PRN OTHER 09/18/16 08:00 A/P Assessment and Plan 1. Electrolyte derangement replaced 2. Generalized weakness secondary to #1 Physical therapy consulted. recommended to discharge Home with [facility] for PT. 3. UTI continue Ceftriaxone. Microbiology giving Gram Negative Rods 4. Hypertension Mild uncontrol continue anti hypertensives. 5. Hyperlipidemia continue statins 6. CVA x 2 no focal deficits. 7. Tobacco dependency strongly recommended to stop smoking. 8. PAD status post Aortofemoral bypass. 9. DM II uncontrolled. continue sliding scale. Hemoglobin A1C DVT prophylaxiswith Lovenox. GI prophylaxison pantoprazole. Discharge Planning expected in the next 24 hours. Cody Nuñez MD Sep 19, 2016 14:32
[2016-09-19 16:00] VITALS: BP 173/75; PULSE 64; RESP 16; TEMP 97.8; O2SAT 96
[2016-09-19 20:00] VITALS: BP 145/68; PULSE 61; RESP 18; TEMP 97.2; O2SAT 96
[2016-09-19] MEDS: ATORVASTATIN 20 MG TAB PO SCH (21:56)
[2016-09-20] VITALS: BP 142/61; PULSE 67; RESP 18; TEMP 98.2; O2SAT 98
[2016-09-20] MEDS: cefTRIAXone INJ 1,000 MG in SODIUM CHLORIDE 0.9% INJ 100 ML IV SCH (01:23)
[2016-09-20 04:00] VITALS: BP 160/76; PULSE 62; RESP 18; TEMP 97.9; O2SAT 98
[2016-09-20] MEDS: ISOSORBIDE MONONITRATE 30 MG TAB PO SCH (06:05)
[2016-09-20] MEDS: INSULIN ASPART SUPPLEMENTAL SCALE SQ SCH ×2 (06:06→12:38)
[2016-09-20] MEDS: hydrALAZINE HCL 50 MG TAB PO SCH ×2 (06:06→12:37)
[2016-09-20 07:09] LABS: AUTOMATED NEUTROPHIL # 4.5 TH/MM3 (1.8-7.7); BASOPHIL # 0.1 TH/MM3 (0-0.2); BASOPHIL % 0.9 % (0.0-2.0); EOSINOPHIL % 0.2 % (0.0-4.0); HEMATOCRIT 27.3 % (39.0-51.0); HEMO FLAGS DIFF FINAL; LYMPH % 27.2 % (9.0-44.0); MEAN CELL VOLUME 84.2 FL (80.0-100.0); MEAN CORPUSCULAR HEMOGLOBIN 27.8 PG (27.0-34.0); MONO % 8.2 % (0.0-8.0); NEUT % 63.5 % (16.0-70.0); PLATELET COUNT 236 TH/MM3 (150-450); RED BLOOD COUNT 3.24 MIL/MM3 (4.50-5.90); RED CELL DISTRIBUTION WIDTH 17.1 % (11.6-17.2); WHITE BLOOD COUNT 7.2 TH/MM3 (4.0-11.0)
[2016-09-20 08:00] VITALS: BP 151/68; PULSE 64; RESP 17; TEMP 96.6; O2SAT 97
[2016-09-20] MEDS: ALLOPURINOL 100 MG TAB PO SCH (09:00)
[2016-09-20] MEDS: SODIUM CHLORIDE 0.9% FLUSH 5 ML FLUSH FLUSH SCH (09:00)
[2016-09-20 09:15] VITALS: PULSE 59
[2016-09-20] MEDS: ASPIRIN EC 81 MG TABEC PO SCH (09:16)
[2016-09-20] MEDS: CALCIUM CARBONATE 1.25 GM (CA 500 MG) TAB PO SCH (09:17)
[2016-09-20] MEDS: CHOLECALCIFEROL (VIT D3) 5000 UNIT CAP PO SCH (09:17)
[2016-09-20] MEDS: PANTOPRAZOLE SOD 20 MG DELAYED RELEASE TAB PO SCH (09:17)
[2016-09-20] MEDS: ENOXAPARIN SODIUM 40 MG/0.4 ML SYRINGE SQ SCH (09:17)
[2016-09-20 09:18] VITALS: BP 137/65; PULSE 68; RESP 18; TEMP 96.9; O2SAT 98
--- NOTE | 2016-09-20 10:52 | HHI.PR ---
Subjective Remarks This is a pleasant 80 y/o Male who was admitted with Hypocalcemia, Hypomagnesemia, Leukocytosis Generalized weakness, Nausea and vomit, hard of hearing, has Hypertension, DM II , Hyperlipidemia CVA x 2, chronic smoker still smoking, Peripheral Artery disease, with diagnosis of Generalized weakness, Electrolyte derangement replaced, no new Nausea vomit or diarrhea, asymptomatic as per Physical therapy to discharge Home with [facility] for PT. Seen and discussed with nurse Miss Jackson patient received antibiotic today and okay for discharge Home with [facility]. Objective Vital Signs Date Time Temp Pulse Resp B/P Pulse Ox O2 Delivery O2 Flow Rate FiO2 09/20/16 09:18 96.9 68 18 137/65 98 09/20/16 08:00 96.6 64 17 151/68 97 09/20/16 04:00 97.9 62 18 160/76 98 09/20/16 00:00 98.2 67 18 142/61 98 09/19/16 20:00 97.2 61 18 145/68 96 09/19/16 16:00 97.8 64 16 173/75 96 09/19/16 12:00 97.1 66 18 155/70 95 I/O 09/19/16 09/19/16 09/19/16 09/20/16 09/20/16 09/20/16 07:00 15:00 23:00 07:00 15:00 23:00 Intake Total 480 ml 1200 ml 368 ml 340 ml Output Total 300 ml 800 ml 250 ml 450 ml Balance 180 ml 400 ml 118 ml -110 ml Intake Oral 480 ml 1200 ml 240 ml 240 ml IV Total 128 ml 100 ml Output Urine Total 300 ml 800 ml 250 ml 450 ml # Bowel Movements 0 Result Diagram: 09/20/16 0627 09/19/16 0407 Imaging Last Impressions Chest X-Ray 09/17/16 1639 Signed Impressions: Service Date/Time: September 16:56 - CONCLUSION: Normal examination. Myke De Leon MD Abdomen/Pelvis CT 09/17/16 0000 Signed Impressions: Service Date/Time: September 18:36 - CONCLUSION: 1. 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 2. 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 3. Right lower lung parenchymal density may be scar, repeat noncontrast chest CT is suggested in 6 months as a conservative follow up. Jeimy Gutierrez MD Procedures No procedures performed to the patient. Other Results Laboratory Tests Test 09/17/16 09/17/16 09/18/16 09/18/16 16:50 17:43 00:45 10:04 Prothrombin Time 14.7 SEC Prothromb Time International 1.3 RATIO Ratio Activated Partial 33.3 SEC Thromboplast Time Total Bilirubin 0.4 MG/DL Aspartate Amino Transf 11 U/L (AST/SGOT) Alanine Aminotransferase 13 U/L (ALT/SGPT) Alkaline Phosphatase 85 U/L Total Creatine Kinase 156 U/L Creatine Kinase MB 1.5 NG/ML Troponin I 0.04 NG/ML Albumin 2.2 GM/DL Lactic Acid Level 1.4 mmol/L Urine Color YELLOW Urine Turbidity HAZY Urine pH 5.5 Urine Specific [place] 1.034 Urine Protein 100 mg/dL Urine Glucose (UA) NEG mg/dL Urine Ketones NEG mg/dL Urine Occult Blood TRACE Urine Nitrite NEG Urine Bilirubin NEG Urine Urobilinogen 2.0 MG/DL Urine Leukocyte Esterase LARGE Urine RBC 8 /hpf Urine WBC /hpf Urine WBC Clumps FEW Urine Bacteria MOD /hpf Urine Mucus FEW /lpf Microscopic Urinalysis Comment CULTURE INDICATED Ionized Calcium 4.0 mg/dL Test 09/18/16 09/19/16 09/20/16 22:16 04:07 06:27 Protein Corrected Calcium 7.3 MG/DL Magnesium Level 1.8 MG/DL Total Protein 6.4 GM/DL Sodium Level 138 MEQ/L Potassium Level 4.0 MEQ/L Chloride Level 105 MEQ/L Carbon Dioxide Level 22.3 MEQ/L Anion Gap 11 MEQ/L Blood Urea Nitrogen 21 MG/DL Creatinine 1.52 MG/DL Estimat Glomerular Filtration 45 ML/MIN Rate Random Glucose 106 MG/DL Calcium Level 7.5 MG/DL White Blood Count 7.2 TH/MM3 Red Blood Count 3.24 MIL/MM3 Hemoglobin 9.0 GM/DL Hematocrit 27.3 % Mean Corpuscular Volume 84.2 FL Mean Corpuscular Hemoglobin 27.8 PG Mean Corpuscular Hemoglobin 33.0 % Concent Red Cell Distribution Width 17.1 % Platelet Count 236 TH/MM3 Mean Platelet Volume 7.6 FL Neutrophils (%) (Auto) 63.5 % Lymphocytes (%) (Auto) 27.2 % Monocytes (%) (Auto) 8.2 % Eosinophils (%) (Auto) 0.2 % Basophils (%) (Auto) 0.9 % Neutrophils # (Auto) 4.5 TH/MM3 Lymphocytes # (Auto) 2.0 TH/MM3 Monocytes # (Auto) 0.6 TH/MM3 Eosinophils # (Auto) 0.0 TH/MM3 Basophils # (Auto) 0.1 TH/MM3 CBC Comment DIFF FINAL Differential Comment Objective Remarks GENERAL: This is a well-nourished, well-developed patient, in no apparent distress. Elderly gentleman, extremely hard of hearing. SKIN: No rashes, ecchymoses on arms. HEAD: Atraumatic. Normocephalic. EYES: No scleral icterus. No injection or drainage. ENT: Nose without bleeding. NECK: Trachea midline. No JVD CARDIOVASCULAR: Regular rate and rhythm without murmurs, gallops, or rubs. RESPIRATORY: Clear to auscultation. Breath sounds equal bilaterally. No wheezes , rales, or rhonchi. GASTROINTESTINAL: Abdomen soft, non-tender, nondistended. No guarding. MUSCULOSKELETAL: Extremities without clubbing, cyanosis, or edema. No calf tenderness. NEUROLOGICAL: Awake and alert. Motor and sensory grossly within normal limits. Normal speech. Medications and IVs Current Medications Medications (Trade) Dose Ordered Sig/Fox Route Start Time Stop Time Status Last Admin (NS Flush) 2 ml UNSCH PRN FLUSH 09/17/16 19:45 (NS Flush) 2 ml BID FLUSH 09/17/16 21:00 09/20/16 09:00 (Lovenox Inj) 40 mg Q24H SQ 09/18/16 09:00 09/20/16 09:17 (Narcan Inj) 0.4 mg UNSCH PRN IV 09/17/16 19:45 (Zyloprim) 100 mg DAILY PO 09/18/16 09:00 09/20/16 09:00 (Norvasc) 10 mg DAILY PO 09/18/16 09:00 09/20/16 09:17 (Ecotrin Ec) 81 mg DAILY PO 09/18/16 09:00 09/20/16 09:16 (Lipitor) 20 mg HS PO 09/18/16 21:00 09/19/16 21:56 (Vitamin D3) 5,000 units DAILY PO 09/18/16 09:00 09/20/16 09:17 (Apresoline) 50 mg Q8HR PO 09/17/16 22:00 09/20/16 06:06 (Imdur) 30 mg DAILY@07 PO 09/18/16 07:00 09/20/16 06:05 (Protonix) 20 mg BID PO 09/18/16 09:00 09/20/16 09:17 Calcium Carbonate 1000 mg 1,000 mg Q12HR PO 09/18/16 09:00 09/20/16 09:17 (Rocephin Inj/NS Inj) 100 ml @ 200 mls/hr Q24H IV 09/18/16 02:00 09/20/16 01:23 (D50w (Vial) Inj) 25 ml UNSCH PRN IV PUSH 09/18/16 08:00 (Glucagon Inj) 1 mg UNSCH PRN OTHER 09/18/16 08:00 A/P Problem List: (1) Hypokalemia ICD Code: E87.6 Assessment and Plan 1. Electrolyte derangement replaced new follow up within normal limits. 2. Generalized weakness secondary to #1 Physical therapy consulted. recommended to discharge Home with [facility] for PT. 3. UTI continue Ceftriaxone. Microbiology giving Gram Negative Rods, will continue Ciprofloxacin at home Not yet sensitivities will need to follow with PCP in two to three days. 4. Hypertension controlled continue home medicines. 5. Hyperlipidemia continue statins 6. CVA x 2 no focal deficits. 7. Tobacco dependency strongly recommended to stop smoking. 8. PAD status post Aortofemoral bypass. 9. DM II uncontrolled. continue sliding scale. continue Home medicines, last Hemoglobin A1C 7.9 Renny will need to follow with PCP 10. Rule out kidney neoplasia will need new CT scan in six months. Discussed with patient and his Mrs. Sandi Mcmahan, all questions answered to the best of my abilities. DVT prophylaxiswith Lovenox. GI prophylaxison pantoprazole. Discharge Planning Discharge home on [facility] for PT and skilled nurse. Cody Nuñez MD Sep 20, 2016 10:52
[2016-09-20] MEDS ORDERED: CIPR-9 PO (10:55)
--- NOTE | 2016-09-20 10:57 | HHI.DS ---
Discharge Summary Admission Date Sep 17, 2016 at 19:26 Discharge Date: Sep 20, 2016 Admitting Diagnosis hypocalcemia, hypomagnesia, leukocytosis, generalized weakness (1) Hypocalcemia ICD Code: E83.51 Diagnosis: Principal (2) Hypomagnesemia ICD Code: E83.42 Diagnosis: Principal (3) UTI (urinary tract infection) ICD Code: N39.0 Diagnosis: Principal Procedures No procedures performed to the patient Brief History - From Admission History from patient, ER physician communication, and review of medical records. Patient is extremely hard of hearing. However when I speak to him mild, he is able to understand and comprehend. He is able to give history. When asked about why he came to hospital, he stated that he was just extremely very weak at home. He just could not understand why he was weak. He denies any falling down episodes. Denies any syncope. Denies any associated chest pain/shortness of breath/palpitations/. Did report of some dizziness and nausea. He states he vomited about 3 times a day for the past 2 days. No blood in it. Also denies any blood in his stool or urine. Denies diarrhea. Denies fever. In the emergency room, patient's workup reveals severe hypocalcemia and hypomagnesemia. Patient denies drinking alcohol on a daily basis. CBC/BMP: 09/20/16 0627 09/19/16 0407 Significant Findings Laboratory Tests Test 09/17/16 09/17/16 09/18/16 09/18/16 16:50 21:43 00:30 00:45 Prothrombin Time 14.7 SEC (9.8-11.6) Activated Partial 33.3 SEC Thromboplast Time (24.3-30.1) Blood Urea Nitrogen 24 MG/DL (7-18) 25 MG/DL (7-18) 24 MG/DL (7-18) Creatinine 1.65 MG/DL 1.51 MG/DL 1.57 MG/DL (0.60-1.30) (0.60-1.30) (0.60-1.30) Estimat Glomerular Filtration 41 ML/MIN (>89) 45 ML/MIN (>89) 43 ML/MIN (>89) Rate Random Glucose 179 MG/DL 170 MG/DL 216 MG/DL (74-106) (74-106) (74-106) Calcium Level 5.5 MG/DL 6.1 MG/DL 6.4 MG/DL (8.5-10.1) (8.5-10.1) (8.5-10.1) Protein Corrected Calcium 5.6 MG/DL 6.3 MG/DL 6.8 MG/DL (8.5-10.1) (8.5-10.1) (8.5-10.1) Magnesium Level LESS THAN 0.3 0.9 MG/DL MG/DL (1.5-2.5) (1.5-2.5) Aspartate Amino Transf 11 U/L (15-37) (AST/SGOT) Albumin 2.2 GM/DL (3.4-5.0) White Blood Count 19.6 TH/MM3 (4.0-11.0) Red Blood Count 3.79 MIL/MM3 (4.50-5.90) Hemoglobin 10.5 GM/DL (13.0-17.0) Hematocrit 31.8 % (39.0-51.0) Neutrophils (%) (Auto) 82.2 % (16.0-70.0) Neutrophils # (Auto) 16.1 TH/MM3 (1.8-7.7) Total Protein 6.2 GM/DL (6.4-8.2) Urine Turbidity HAZY (CLEAR) Urine Protein 100 mg/dL (NEG-TRACE) Urine Occult Blood TRACE (NEG) Urine Leukocyte Esterase LARGE (NEG) Urine RBC 8 /hpf (0-3) Urine WBC Clumps FEW (NONE) Urine Bacteria MOD /hpf (NONE) Urine Mucus FEW /lpf (OCC) Test 09/18/16 09/18/16 09/18/16 09/18/16 03:35 05:36 10:04 12:20 White Blood Count 12.7 TH/MM3 (4.0-11.0) Red Blood Count 3.35 MIL/MM3 (4.50-5.90) Hemoglobin 9.3 GM/DL (13.0-17.0) Hematocrit 28.0 % (39.0-51.0) Neutrophils (%) (Auto) 82.0 % (16.0-70.0) Neutrophils # (Auto) 10.4 TH/MM3 (1.8-7.7) Sodium Level 133 MEQ/L 135 MEQ/L (136-145) (136-145) Blood Urea Nitrogen 22 MG/DL (7-18) 21 MG/DL (7-18) 20 MG/DL (7-18) 21 MG/DL (7- 18) Creatinine 1.46 MG/DL 1.52 MG/DL 1.53 MG/DL 1.74 MG/DL (0.60-1.30) (0.60-1.30) (0.60-1.30) (0.60-1.30) Estimat Glomerular Filtration 47 ML/MIN (>89) 45 ML/MIN (>89) 44 ML/MIN (>89) 38 ML/MIN (>89) Rate Random Glucose 317 MG/DL 173 MG/DL 188 MG/DL 204 MG/DL (74-106) (74-106) (74-106) (74-106) Calcium Level 6.5 MG/DL 6.7 MG/DL 7.1 MG/DL 7.1 MG/DL (8.5-10.1) (8.5-10.1) (8.5-10.1) (8.5-10.1) Protein Corrected Calcium 7.0 MG/DL 7.1 MG/DL 7.4 MG/DL 7.1 MG/DL (8.5-10.1) (8.5-10.1) (8.5-10.1) (8.5-10.1) Magnesium Level 6.1 MG/DL (1.5-2.5) Total Protein 6.1 GM/DL 6.3 GM/DL (6.4-8.2) (6.4-8.2) Ionized Calcium 4.0 mg/dL (4.8-5.6) Test 09/18/16 09/18/16 09/19/16 09/20/16 17:28 22:16 04:07 06:27 Sodium Level 135 MEQ/L 135 MEQ/L (136-145) (136-145) Blood Urea Nitrogen 23 MG/DL (7-18) 22 MG/DL (7-18) 21 MG/DL (7-18) Creatinine 1.83 MG/DL 1.63 MG/DL 1.52 MG/DL (0.60-1.30) (0.60-1.30) (0.60-1.30) Estimat Glomerular Filtration 36 ML/MIN (>89) 41 ML/MIN (>89) 45 ML/MIN (>89) Rate Random Glucose 124 MG/DL 110 MG/DL (74-106) (74-106) Calcium Level 7.1 MG/DL 6.9 MG/DL 7.5 MG/DL (8.5-10.1) (8.5-10.1) (8.5-10.1) Protein Corrected Calcium 7.1 MG/DL 7.3 MG/DL (8.5-10.1) (8.5-10.1) Red Blood Count 3.24 MIL/MM3 (4.50-5.90) Hemoglobin 9.0 GM/DL (13.0-17.0) Hematocrit 27.3 % (39.0-51.0) Monocytes (%) (Auto) 8.2 % (0.0-8.0) Imaging Last Impressions Chest X-Ray 09/17/16 1639 Signed Impressions: Service Date/Time: September 16:56 - CONCLUSION: Normal examination. Myke De Leon MD Abdomen/Pelvis CT 09/17/16 0000 Signed Impressions: Service Date/Time: September 18:36 - CONCLUSION: 1. 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 2. 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 3. Right lower lung parenchymal density may be scar, repeat noncontrast chest CT is suggested in 6 months as a conservative follow up. Jeimy Gutierrez MD PE at Discharge GENERAL: This is a well-nourished, well-developed patient, in no apparent distress. Elderly gentleman, extremely hard of hearing. SKIN: No rashes, ecchymoses on arms. HEAD: Atraumatic. Normocephalic. EYES: No scleral icterus. No injection or drainage. ENT: Nose without bleeding. NECK: Trachea midline. No JVD CARDIOVASCULAR: Regular rate and rhythm without murmurs, gallops, or rubs. RESPIRATORY: Clear to auscultation. Breath sounds equal bilaterally. No wheezes , rales, or rhonchi. GASTROINTESTINAL: Abdomen soft, non-tender, nondistended. No guarding. MUSCULOSKELETAL: Extremities without clubbing, cyanosis, or edema. No calf tenderness. NEUROLOGICAL: Awake and alert. Motor and sensory grossly within normal limits. Normal speech. GENERAL: This is a well-nourished, well-developed patient, in no apparent distress. Elderly gentleman, extremely hard of hearing. SKIN: No rashes, ecchymoses on arms. HEAD: Atraumatic. Normocephalic. EYES: No scleral icterus. No injection or drainage. ENT: Nose without bleeding. NECK: Trachea midline. No JVD CARDIOVASCULAR: Regular rate and rhythm without murmurs, gallops, or rubs. RESPIRATORY: Clear to auscultation. Breath sounds equal bilaterally. No wheezes , rales, or rhonchi. GASTROINTESTINAL: Abdomen soft, non-tender, nondistended. No guarding. MUSCULOSKELETAL: Extremities without clubbing, cyanosis, or edema. No calf tenderness. NEUROLOGICAL: Awake and alert. Motor and sensory grossly within normal limits. Normal speech Hospital Course This is a pleasant 80 y/o Male who was admitted with Hypocalcemia, Hypomagnesemia, Leukocytosis Generalized weakness, Nausea and vomit, hard of hearing, has Hypertension, DM II , Hyperlipidemia CVA x 2, chronic smoker still smoking, Peripheral Artery disease, with diagnosis of Generalized weakness, Electrolyte derangement replaced, no new Nausea vomit or diarrhea, asymptomatic as per Physical therapy to discharge Home with [facility] for PT. Seen and discussed with nurse Miss Jackson patient received antibiotic today and okay for discharge Home with C. A/P Problem List: (1) Hypokalemia ICD Code: E87.6 Assessment and Plan 1. Electrolyte derangement replaced new follow up within normal limits. 2. Generalized weakness secondary to #1 Physical therapy consulted. recommended to discharge Home with [facility] for PT. 3. UTI continue Ceftriaxone. Microbiology giving Gram Negative Rods, will continue Ciprofloxacin at home Not yet sensitivities will need to follow with PCP in two to three days. 4. Hypertension controlled continue home medicines. 5. Hyperlipidemia continue statins 6. CVA x 2 no focal deficits. 7. Tobacco dependency strongly recommended to stop smoking. 8. PAD status post Aortofemoral bypass. 9. DM II uncontrolled. continue sliding scale. continue Home medicines, last Hemoglobin A1C 7.9 June will need to follow with PCP 10. Rule out kidney neoplasia will need new CT scan in six months. Discussed with patient and his Mrs. Sandi Mcmahan, all questions answered to the best of my abilities. DVT prophylaxiswith Lovenox. GI prophylaxison pantoprazole. Discharge Planning Discharge home on [facility] for PT and skilled nurse. Pt Condition on Discharge: Good Discharge Disposition: Disch w/ Home Health Serv Discharge Time: <= 30 minutes Discharge Instructions DIET: Follow Instructions for: Heart Healthy Diet, Diabetic Diet Activities you can perform: Regular-No Restrictions Cody Nuñez MD Sep 20, 2016 10:57
--- NOTE | 2016-09-20 11:30 | HHI.FF ---
Face to Face Verification Diagnosis: (1) UTI (urinary tract infection) (2) Physical deconditioning Physical Therapy Order: Evaluate and Treat Home Health Nursing Order: Medical education Nursing assessment with vital signs I have seen patient Lee McmahanJr on 09/20/16. My clinical findings support the need for the requested home health care services because: Ltd mobility - disease progression Deconditioned w/ increased weakness I certify that my clinical findings support that this patient is homebound because: Unsafe to leave home unassisted Cody Nuñez MD Sep 20, 2016 11:30
[2016-09-20 12:00] VITALS: BP 143/68; PULSE 72; RESP 17; TEMP 97.2; O2SAT 98
== END 2016-09-20 14:57 | disposition home health service (06) | DRG 641 ==
LOC: NEPC 16:28 → NEDA 19:26 → N07A 20:54
PROVIDERS: ADMIT Internal Medicine; ATTEND Internal Medicine
DX: E83.42 Hypomagnesemia (principal); E11.65 Type 2 diabetes mellitus with hyperglycemia; N39.0 Urinary tract infection, site not specified; I10 Essential (primary) hypertension; H91.90 Unspecified hearing loss, unspecified ear; E83.51 Hypocalcemia; E78.5 Hyperlipidemia, unspecified; F17.210 Nicotine dependence, cigarettes, uncomplicated; I73.9 Peripheral vascular disease, unspecified; I44.0 Atrioventricular block, first degree; Z79.84 Long term (current) use of oral hypoglycemic drugs
CPT/HCPCS: 71010; 74177; 80048; 80053; 81001; 82330; 82550; 82552; 82948; 83605; 83735; 84155; 84484; 85025; 85610; 85730; 87040; 87077; 87086; 87186; 87804; 93005; 96365; 96375; J0610; J0696; J1650; J1815; J2405; J3475; J7040; Q9967

== ENCOUNTER 2017-03-12 18:37 | Inpatient (IN) | payer OTHER, MEDICARE ==
[2017-03-12] VITALS (7 sets, daily range): BP systolic 171–215; BP diastolic 77–99; PULSE 42–47; RESP 16–20; TEMP 98.5; O2SAT 96–99
[~2017-03-12] VITALS: Ht 172.7 cm; Wt 80.5 kg
[~2017-03-12 18:37] MED LIST changes: +ASPI1TAB69 PO; +CHOL5000 PO; +CIPR-9 PO; -POTA10TA2 PO; -ULTR50TA5 PO; +[UNRECOGNIZED DRUG - CODE] PO
[2017-03-12 19:46] LABS: AUTOMATED NEUTROPHIL # 5.8 TH/MM3 (1.8-7.7); BASOPHIL # 0.1 TH/MM3 (0-0.2); BASOPHIL % 0.8 % (0.0-2.0); EOSINOPHIL # 0.2 TH/MM3 (0-0.4); EOSINOPHIL % 1.8 % (0.0-4.0); HEMATOCRIT 39.6 % (39.0-51.0); HEMO FLAGS DIFF FINAL; LYMPH % 26.6 % (9.0-44.0); LYMPHOCYTE # 2.4 TH/MM3 (1.0-4.8); MEAN CELL VOLUME 91.3 FL (80.0-100.0); MEAN CORPUSCULAR HEMOGLOBIN 29.5 PG (27.0-34.0); MEAN CORPUSCULAR HGB CONC 32.3 % (32.0-36.0); MONO % 6.9 % (0.0-8.0); NEUT % 63.9 % (16.0-70.0); PLATELET COUNT 135 TH/MM3 (150-450); RED BLOOD COUNT 4.33 MIL/MM3 (4.50-5.90); RED CELL DISTRIBUTION WIDTH 16.1 % (11.6-17.2)
--- NOTE | 2017-03-12 19:55 | RADRPT ---
EXAM DATE/TIME: 03/12/2017 19:33 [facility] COMPARISON: CT BRAIN W/O CONTRAST, July 02, 2016, 11:18. INDICATIONS : Syncope. RADIATION DOSE: 56.35 CTDIvol (mGy) MEDICAL HISTORY : Cerebrovascular disease. Cardiovascular disease Hypertension.Congestive heart failure. SURGICAL HISTORY : None. ENCOUNTER: Initial ACUITY: 1 day PAIN SCALE: 0/10 LOCATION: cranial TECHNIQUE: Multiple contiguous axial images were obtained of the head. Using automated exposure control and adj ustment of the mA and/or kV according to patient size, radiation dose was kept as low as reasonably a chievable to obtain optimal diagnostic quality images. DICOM format image data is available electro nically for review and comparison. FINDINGS: CEREBRUM: The ventricles are normal for age. No evidence of midline shift, mass lesion, hemorrhage or acute in farction. No extra-axial fluid collections are seen. Old subcentimeter lacunar infarcts again seen o f the bilateral basal ganglia. Chronic low attenuation again noted in the periventricular white matte r. POSTERIOR FOSSA: The cerebellum and brainstem are intact. The 4th ventricle is midline. The cerebellopontine angle i s unremarkable. EXTRACRANIAL: The visualized portion of the orbits is intact. SKULL: The calvaria is intact. No evidence of skull fracture. CONCLUSION: No acute intracranial abnormality. Chronic ischemic changes of the basal ganglia and periventricular white matter. Ko Martines MD on March 12, 2017 at 19:52 Board Certified Radiologist. This report was verified electronically.
--- NOTE | 2017-03-12 19:57 | RADRPT ---
EXAM DATE/TIME: 03/12/2017 19:36 [facility] COMPARISON: CT ABDOMEN & PELVIS W CONTRAST, September 17, 2016, 18:36. CHEST SINGLE AP, September 17, 2016, 16:56. INDICATIONS : Patient fainted today. MEDICAL HISTORY : Cardiovascular disease. Hypertension Congestive heart failure. SURGICAL HISTORY : Cholecystectomy. ENCOUNTER: Initial ACUITY: 1 day PAIN SCORE: 0/10 LOCATION: Bilateral chest FINDINGS: Mild scarring seen of the left lung base. No infiltrate, effusion or pneumothorax demonstrated. Heart size stable, upper limits of normal. CONCLUSION: No evidence of acute cardiopulmonary disease. Ko Martines MD on March 12, 2017 at 19:54 Board Certified Radiologist. This report was verified electronically.
[2017-03-12 20:12] LABS: PROTHROMBIN TIME - PATIENT 11.6 SEC (9.8-11.6)
[2017-03-12 20:24] LABS: ALKALINE PHOSPHATASE 94 U/L (45-117); ALT (GPT) 27 U/L (12-78); ANION GAP 6 MEQ/L (5-15); AST (GOT) 17 U/L (15-37); BICARBONATE 19.1 MEQ/L (21.0-32.0); BLOOD UREA NITROGEN 52 MG/DL (7-18); CHLORIDE 113 MEQ/L (98-107); GLOMERULAR FILTRATION RATE 23 ML/MIN (>89); MAGNESIUM 1.7 MG/DL (1.5-2.5); SODIUM (NA) 138 MEQ/L (136-145); TOTAL BILIRUBIN ADULT 0.4 MG/DL (0.2-1.0)
[2017-03-12 20:25] LABS: CREATINE KINASE 61 U/L (39-308)
[2017-03-12 20:27] LABS: POTASSIUM 6.9 MEQ/L (3.5-5.1)
[2017-03-12] MEDS ORDERED: SODIUM CHLOR 0.9% 1000 ML INJ 1,000 ML IV SCH (20:29)
[2017-03-12] MEDS ORDERED: SODIUM BICARBONATE 8.4% SOLN 50 MEQ/50 ML VIAL SLOW IVP ONE (20:30)
[2017-03-12] MEDS ORDERED: CALCIUM GLUCONATE 10% 1 GM/10 ML VIAL SLOW IVP ONE (20:30)
[2017-03-12] MEDS ORDERED: SODIUM POLYSTYRENE SULFONATE SUSP 15 GM/60 ML CUP PO ONE (20:30)
--- NOTE | 2017-03-12 21:18 | PD ---
HPI Chief Complaint: Cardiac Complaint Time Seen by Provider: 19:14 Travel History International Travel<30 days: No Contact w/Intl Traveler<30days: No Traveled to known affect area: No History of Present Illness HPI 81-year-old male that presents to the ED for evaluation of possible syncope. Patient apparently had a syncopal episode today. Per patient he was at a restaurant he possibly passed off for a couple of minutes. He does not remember what happened but he continue his normal routine. Per patient his and himself when home and at home they noticed that his blood pressure was erratic and so his called the ambulance to bring him here. Patient denies any chest pain or shortness of breath. Patient states that he has no symptoms at this time other than his blood pressure being high. Ambulance reported that the patient was bradycardic. He appears to be asymptomatic at this time. Unclear if this is new or old as patient is really not a good historian. He doesn't really know what medications he takes. He tells me that he has a " heart Dr." but he cannot really tell me what the name of such doctor. He does not take any blood thinners. He denies any other medical issues. He states that his blood pressure usually is very stable in the 150s and this is the first time he has been going erratic. He does have a history of hypertension and diabetes and also high cholesterol PFSH Past Medical History Arthritis: Yes Blood Disorders: No Anxiety: No Depression: No Heart Rhythm Problems: No Cancer: No Cardiovascular Problems: Yes (bradycardia 8-25-17) High Cholesterol: Yes Chemotherapy: No Chest Pain: No Cerebrovascular Accident: Yes (07/03) Diabetes: Yes Patient Takes Glucophage: No Diminished Hearing: No Endocrine: Yes Gastrointestinal Disorders: No Glaucoma: No Genitourinary: No Headaches: No Hepatitis: No Hiatal Hernia: No Hypertension: Yes Immune Disorder: No Implanted Vascular Access Dvce: Yes Medical other: No Musculoskeletal: No Neurologic: No Psychiatric: No Reproductive: No Respiratory: Yes (SOB THIS ADMISSION, DENIES PRIOR HX) Radiation Therapy: No Seizures: No Thyroid Disease: No ?: Not Past Surgical History Abdominal Surgery: Yes AICD: No Arteriovenous Shunt: No Cardiac Surgery: No Cholecystectomy: Yes Ear Surgery: No Endocrine Surgery: No Eye Surgery: No Genitourinary Surgery: No Gynecologic Surgery: No Insulin Pump: No Joint Replacement: No Neurologic Surgery: No Oral Surgery: No Pacemaker: Yes Thoracic Surgery: No Other Surgery: Yes (Parish filters) Social History Alcohol Use: No Tobacco Use: Yes (1 pack every 3 days) Substance Use: No Allergies-Medications (Allergen,Severity, Reaction): Coded Allergies: furosemide (Unverified Allergy, Severe, RASH, 03/02/17) hydrochlorothiazide (Unverified Allergy, Severe, Rash, 03/02/17) diclofenac (Unverified Adverse Reaction, Severe, GI BLEED, 03/02/17) etodolac (Unverified Adverse Reaction, Severe, GI BLEED, 03/02/17) flurbiprofen (Unverified Adverse Reaction, Severe, GI BLEED, 03/02/17) ibuprofen (Unverified Adverse Reaction, Severe, GI BLEED, 03/02/17) indomethacin (Unverified Adverse Reaction, Severe, GI BLEED, 03/02/17) ketoprofen (Unverified Adverse Reaction, Severe, GI BLEED, 03/02/17) ketorolac (Unverified Adverse Reaction, Severe, GI BLEED, 03/02/17) naproxen (Unverified Adverse Reaction, Severe, GI BLEED, 03/02/17) oxaprozin (Unverified Adverse Reaction, Severe, GI BLEED, 03/02/17) Reported Meds & Prescriptions Reported Meds & Active Scripts Active Glucotrol (Glipizide) 5 Mg Tab 5 Mg PO DAILYAC 30 Days Hydralazine (Hydralazine HCl) 50 Mg Tab 50 Mg PO Q8HR 30 Days Reported Vitamin D3 (Cholecalciferol) 5,000 Unit Cap 5,000 Units PO DAILY Aspirin 81 Mg Tabdr 81 Mg PO DAILY Isosorbide Mononitrate ER (Isosorbide Mononitrate) 30 Mg Jennifer 30 Mg PO DAILY Atorvastatin (Atorvastatin Calcium) 20 Mg Tab 20 Mg PO HS Amlodipine (Amlodipine Besylate) 10 Mg Tab 10 Mg PO DAILY Omeprazole 20 Mg Tab 20 Mg PO BID Allopurinol 100 Mg Tab 100 Mg PO DAILY Review of Systems Except as stated in HPI: all other systems reviewed are Neg Physical Exam Narrative GENERAL: SKIN: Warm and dry. HEAD: Atraumatic. Normocephalic. EYES: Pupils equal and round. No scleral icterus. No injection or drainage. ENT: No nasal bleeding or discharge. Mucous membranes pink and moist. Tongue is midline. No Uvula deviation. NECK: Trachea midline. No JVD. CARDIOVASCULAR: bradycardic rate and rhythm. No murmurs, S3, S4. RESPIRATORY: No accessory muscle use. Clear to auscultation. Breath sounds equal bilaterally. GASTROINTESTINAL: Abdomen soft, non-tender, nondistended. Hepatic and splenic margins not palpable. MUSCULOSKELETAL: Extremities without clubbing, cyanosis, or edema. No obvious deformities. Full range of motion of the upper and lower extremity is bilaterally. 2+ pulses bilaterally. NEUROLOGICAL: Awake and alert. No obvious cranial nerve deficits. Motor grossly within normal limits. Five out of 5 muscle strength in the arms and legs. Normal speech. PSYCHIATRIC: Appropriate mood and affect; insight and judgment normal. Data Data Last Documented VS Vital Signs Date Time Temp Pulse Resp B/P (MAP) Pulse Ox O2 Delivery O2 Flow Rate FiO2 03/12/17 21:08 43 20 204/91 (128) 98 Room Air 03/12/17 19:04 2.00 03/12/17 19:03 98.5 Orders Orders Electrocardiogram (03/12/17 19:20) Complete Blood Count With Diff (03/12/17 19:20) Comprehensive Metabolic Panel (03/12/17 19:20) Ckmb (Isoenzyme) Profile (03/12/17 19:20) Troponin I (03/12/17 19:20) Prothrombin Time / Inr (Pt) (03/12/17 19:20) Act Partial Throm Time (Ptt) (03/12/17 19:20) Magnesium (Mg) (03/12/17 19:20) Thyroid Stimulating Hormone (03/12/17 19:20) Chest, Single Ap (03/12/17 19:20) Ct Brain W/O Iv Contrast(Rout) (03/12/17 19:20) Iv Access Insert/Monitor (03/12/17 19:20) Ecg Monitoring (03/12/17 19:20) Oximetry (03/12/17 19:20) Orthostatic Vital Signs (03/12/17 19:20) Potassium, Serum (K) (03/12/17 23:27) Ecg Monitoring (03/12/17 20:27) Oximetry (03/12/17 20:27) Calcium Gluconate Inj (Calcium Gluconate (03/12/17 20:30) Sodium Bicarbonate 8.4% Inj (Sodium Bica (03/12/17 20:30) Sodium Polysty Sulfate Liq (Kayexalate L (03/12/17 20:30) Sodium Chlor 0.9% 1000 Ml Inj (Ns 1000 M (03/12/17 20:29) Admit Order (Ed Use Only) (03/12/17 21:08) Labs Laboratory Tests Test 03/12/17 19:30 White Blood Count 9.0 TH/MM3 Red Blood Count 4.33 MIL/MM3 Hemoglobin 12.8 GM/DL Hematocrit 39.6 % Mean Corpuscular Volume 91.3 FL Mean Corpuscular Hemoglobin 29.5 PG Mean Corpuscular Hemoglobin Concent 32.3 % Red Cell Distribution Width 16.1 % Platelet Count 135 TH/MM3 Mean Platelet Volume 7.3 FL Neutrophils (%) (Auto) 63.9 % Lymphocytes (%) (Auto) 26.6 % Monocytes (%) (Auto) 6.9 % Eosinophils (%) (Auto) 1.8 % Basophils (%) (Auto) 0.8 % Neutrophils # (Auto) 5.8 TH/MM3 Lymphocytes # (Auto) 2.4 TH/MM3 Monocytes # (Auto) 0.6 TH/MM3 Eosinophils # (Auto) 0.2 TH/MM3 Basophils # (Auto) 0.1 TH/MM3 CBC Comment DIFF FINAL Differential Comment Prothrombin Time 11.6 SEC Prothromb Time International Ratio 1.0 RATIO Activated Partial Thromboplast Time 27.0 SEC Blood Urea Nitrogen 52 MG/DL Creatinine 2.68 MG/DL Random Glucose 188 MG/DL Total Protein 6.5 GM/DL Albumin 3.2 GM/DL Calcium Level 8.4 MG/DL Magnesium Level 1.7 MG/DL Alkaline Phosphatase 94 U/L Aspartate Amino Transf (AST/SGOT) 17 U/L Alanine Aminotransferase (ALT/SGPT) 27 U/L Total Bilirubin 0.4 MG/DL Sodium Level 138 MEQ/L Potassium Level 6.9 MEQ/L Chloride Level 113 MEQ/L Carbon Dioxide Level 19.1 MEQ/L Anion Gap 6 MEQ/L Estimat Glomerular Filtration Rate 23 ML/MIN Total Creatine Kinase 61 U/L Troponin I 0.02 NG/ML Thyroid Stimulating Hormone 3rd Gen 0.948 uIU/ML MDM Medical Decision Making Medical Screen Exam Complete: Yes Emergency Medical Condition: Yes Medical Record Reviewed: Yes Interpretation(s) CBC & BMP Diagram 03/12/17 19:30 Total Protein 6.5, Albumin 3.2 L, Calcium Level 8.4 L, Magnesium Level 1.7, Alkaline Phosphatase 94, Aspartate Amino Transf (AST/SGOT) 17, Alanine Aminotransferase (ALT/SGPT) 27, Total Bilirubin 0.4 EKG shows sinus bradycardia with 1st degree heart block. No sign of acute ischemia or arrhythmia. Last Impressions Head CT 03/12/17 1920 Signed Impressions: Service Date/Time: Sunday, March 12, 2017 19:33 - CONCLUSION: No acute intracranial abnormality. Chronic ischemic changes of the basal ganglia and periventricular white matter. Ko Martines MD Chest x-ray negative. Troponin and CK-MB negative. Differential Diagnosis Syncope versus electrolyte abnormality versus hyperkalemia versus ACS versus stroke versus diabetes versus kidney failure Narrative Course 81-year-old male that presents to the ED for evaluation of syncope. Patient was properly examined and was found to have signs and symptoms consistent with bradycardia. Labs and imaging were ordered. Labs and imaging show hyperkalemia as well as what appears to be acute kidney injury. Case was discussed with my attending Dr. Kumar who recommends that we treat the hyperkalemia with calcium, insulin, dextrose, bicarbonate, Kayexalate. Patient was told need for admission for further evaluation of the syncope as well as the arrhythmia and the hyperkalemia. Patient is in agreement with plan. Patient was admitted to Dr. Belle who agrees to admission. Diagnosis Primary Impression: Syncope Qualified Codes: R55 - Syncope and collapse Additional Impressions: Acute hyperkalemia SHAINA (acute kidney injury) Bradycardia Admitting Information Admitting Physician Requests: Admit Lee Garber Mar 12, 2017 21:18
[2017-03-12] MEDS ORDERED: BISACODYL 10 MG SUPP RECTAL PRN (21:30)
[2017-03-12] MEDS ORDERED: MAGNESIUM HYDROXIDE SUSP 30 ML CUP PO PRN (21:30)
[2017-03-12] MEDS ORDERED: ONDANSETRON HCL 4 MG/2 ML VIAL IVP PRN (21:30)
[2017-03-12] MEDS ORDERED: SODIUM CHLORIDE 0.9% FLUSH 10 ML FLUSH IV FLUSH PRN (21:30)
[2017-03-12] MEDS ORDERED: LACTULOSE SYRUP 20 GM/30 ML CUP PO PRN (21:30)
[2017-03-12] MEDS ORDERED: ACETAMINOPHEN 325 MG TAB PO PRN (21:30)
[2017-03-12] MEDS ORDERED: SENNOSIDES 8.6 MG TAB PO PRN (21:30)
--- NOTE | 2017-03-12 21:34 | HHI.HP ---
[facility] Rivera Frazier MD Admission Diagnosis syncope, severe hyperkalemia, acute kidney injury Diagnoses: (1) Syncope Diagnosis: Principal (2) Symptomatic bradycardia Diagnosis: Principal (3) Hyperkalemia Diagnosis: Principal (4) SHAINA (acute kidney injury) Diagnosis: Principal (5) HTN (hypertension) Diagnosis: Principal (6) DM (diabetes mellitus) Diagnosis: Principal (7) Tobacco abuse Diagnosis: Principal Travel History International Travel<30 Days: No Contact w/Intl Traveler <30 Da: No Traveled to Known Affected Are: No History of Present Illness This is a 81-year-old male with a PMH of HTN, Hyperlipidemia, DM and Tobacco Abuse who was brought to the ER secondary to syncopal event. Per 's report , patient had syncopal episode while out for dinner at a restaurant, states episode lasted approximately 1-2 min. Pt returned home following event, however reports BP elevated at which time she called EMS. Upon EMS arrival , pt noted to be bradycardic w/ HR 40's. Unclear if acute or chronic. On arrival, BP 230/93, HR 42, O2 sat 99% on 2L seek, Afebrile. CBC essentially unremarkable except for thrombocytopenia, platelets 135, previously 236 on . K+ 6.9, s/p Ca/Insulin/D50/Kayexalate in ER. Creatinine 2.68, previously 1.52 on 09/19/16. Trop negative. INR 1.0. CXR with no acute findings. CT Head with no acute findings. Review of Systems Except as stated in HPI: all other systems reviewed are Neg ROS: 14 point review of systems otherwise negative. Past Family Social History Past Medical History PMH: HTN, Hyperlipidemia, DM and Tobacco Abuse Past Surgical History PAST SURGICAL HISTORY: Cholecystectomy Allergies: Coded Allergies: furosemide (Unverified Allergy, Severe, RASH, 03/02/17) hydrochlorothiazide (Unverified Allergy, Severe, Rash, 03/02/17) diclofenac (Unverified Adverse Reaction, Severe, GI BLEED, 03/02/17) etodolac (Unverified Adverse Reaction, Severe, GI BLEED, 03/02/17) flurbiprofen (Unverified Adverse Reaction, Severe, GI BLEED, 03/02/17) ibuprofen (Unverified Adverse Reaction, Severe, GI BLEED, 03/02/17) indomethacin (Unverified Adverse Reaction, Severe, GI BLEED, 03/02/17) ketoprofen (Unverified Adverse Reaction, Severe, GI BLEED, 03/02/17) ketorolac (Unverified Adverse Reaction, Severe, GI BLEED, 03/02/17) naproxen (Unverified Adverse Reaction, Severe, GI BLEED, 03/02/17) oxaprozin (Unverified Adverse Reaction, Severe, GI BLEED, 03/02/17) Family History PAST FAMILY HISTORY: Reviewed. No h/o DM or CAD Social History PAST SOCIAL HISTORY: Negative for alcohol or drugs. Positive for tobacco. Physical Exam Vital Signs Vital Signs Date Time Temp Pulse Resp B/P (MAP) Pulse Ox O2 Delivery O2 Flow Rate FiO2 03/12/17 21:08 43 20 204/91 (128) 98 Room Air 03/12/17 20:05 42 16 185/82 (116) 49 16 171/77 (108) 46 16 187/78 (114) 03/12/17 19:34 96 Room Air 03/12/17 19:04 43 18 99 Nasal Cannula 2.00 03/12/17 19:03 98.5 42 18 213/93 (133) 99 Nasal Cannula 2.00 Physical Exam PE: GENERAL: Very pleasant elderly white male in no acute distress. HEENT: PERRLA, EOMI. No scleral icterus or conjunctival pallor. No lid lag or facial droop. CARDIOVASCULAR: Regular rate and rhythm. No obvious murmurs to auscultation. No chest tenderness to palpation. RESPIRATORY: No obvious rhonchi or wheezing. Clear to auscultation. Breath sounds equal bilaterally. GASTROINTESTINAL: Abdomen soft, non-tender, nondistended. BS normal. MUSCULOSKELETAL: Extremities without clubbing, cyanosis, or edema. No obvious deformities. NEUROLOGICAL: Awake, alert and oriented x4. No focal neurologic deficits. Moving both upper and lower extremities spontaneously. Laboratory Laboratory Tests Test 03/12/17 19:30 White Blood Count 9.0 Red Blood Count 4.33 Hemoglobin 12.8 Hematocrit 39.6 Mean Corpuscular Volume 91.3 Mean Corpuscular Hemoglobin 29.5 Mean Corpuscular Hemoglobin Concent 32.3 Red Cell Distribution Width 16.1 Platelet Count 135 Mean Platelet Volume 7.3 Neutrophils (%) (Auto) 63.9 Lymphocytes (%) (Auto) 26.6 Monocytes (%) (Auto) 6.9 Eosinophils (%) (Auto) 1.8 Basophils (%) (Auto) 0.8 Neutrophils # (Auto) 5.8 Lymphocytes # (Auto) 2.4 Monocytes # (Auto) 0.6 Eosinophils # (Auto) 0.2 Basophils # (Auto) 0.1 CBC Comment DIFF FINAL Differential Comment Prothrombin Time 11.6 Prothromb Time International Ratio 1.0 Activated Partial Thromboplast Time 27.0 Blood Urea Nitrogen 52 Creatinine 2.68 Random Glucose 188 Total Protein 6.5 Albumin 3.2 Calcium Level 8.4 Magnesium Level 1.7 Alkaline Phosphatase 94 Aspartate Amino Transf (AST/SGOT) 17 Alanine Aminotransferase (ALT/SGPT) 27 Total Bilirubin 0.4 Sodium Level 138 Potassium Level 6.9 Chloride Level 113 Carbon Dioxide Level 19.1 Anion Gap 6 Estimat Glomerular Filtration Rate 23 Total Creatine Kinase 61 Troponin I 0.02 Thyroid Stimulating Hormone 3rd Gen 0.948 Result Diagram: 03/12/17192903/12/171929 Caprini VTE Risk Assessment Caprini VTE Risk Assessment: Mod/High Risk (score >= 2) VTE Pharm Contraindication: High risk for bleeding Caprini Risk Assessment Model Point Value = 1 Point Value = 2 Point Value = 3 Point Value = 5 Age 41-60 Minor surgery BMI > 25 kg/m2 Swollen legs Varicose veins or History of unexplained or recurrent spontaneous Oral contraceptives or hormone replacement Sepsis (< 1 month) Serious lung disease, including pneumonia (< 1 month) Abnormal pulmonary function Acute myocardial infarction Congestive heart failure (< 1 month) History of inflammatory bowel disease Medical patient at bed rest Age 61-74 Arthroscopic surgery Major open surgery (> 45 min) Laparoscopic surgery (> 45 min) Malignancy Confined to bed (> 72 hours) Immobilizing plaster cast Central venous access Age >= 75 History of VTE Family history of VTE Factor V Leiden Prothrombin [id number] Lupus anticoagulant Anticardiolipin antibodies Elevated serum homocysteine Heparin-induced thrombocytopenia Other congenital or acquired thrombophilia Stroke (< 1 month) Elective arthroplasty Hip, pelvis, or leg fracture Acute spinal cord injury (< 1 month) Prophylaxis Regimen Total Risk Factor Score Risk Level Prophylaxis Regimen 0-1 Low Early ambulation 2 Moderate Order ONE of the following: *Sequential Compression Device (SCD) *Heparin 5000 units SQ BID 3-4 Higher Order ONE of the following medications: *Heparin 5000 units SQ TID *Enoxaparin/Lovenox 40 mg SQ daily (WT < 150 kg, CrCl > 30 mL/min) *Enoxaparin/Lovenox 30 mg SQ daily (WT < 150 kg, CrCl > 10-29 mL/min) *Enoxaparin/Lovenox 30 mg SQ BID (WT < 150 kg, CrCl > 30 mL/min) AND/OR *Sequential Compression Device (SCD) 5 or more Highest Order ONE of the following medications: *Heparin 5000 units SQ TID (Preferred with Epidurals) *Enoxaparin/Lovenox 40 mg SQ daily (WT < 150 kg, CrCl > 30 mL/min) *Enoxaparin/Lovenox 30 mg SQ daily (WT < 150 kg, CrCl > 10-29 mL/min) *Enoxaparin/Lovenox 30 mg SQ BID (WT < 150 kg, CrCl > 30 mL/min) AND *Sequential Compression Device (SCD) Physician Certification 2 Midnight Certification Type: Admission for Inpatient Services Order for Inpatient Services The services are ordered in accordance with Medicare regulations or non- Medicare payer requirements, as applicable. In the case of services not specified as inpatient-only, they are appropriately provided as inpatient services in accordance with the 2-midnight benchmark. Estimated LOS (days): 2 days is the estimated time the patient will need to remain in the hospital, assuming treatment plan goals are met and no additional complications. Post-Hospital Plan: Not yet determined Problem Qualifiers (1) Syncope: Qualified Codes: R55 - Syncope and collapse Hilda Belle MD Mar 12, 2017 21:34
[2017-03-12] MEDS ORDERED: hydrALAZINE HCL 20 MG/ML VIAL IV PUSH ONE (21:45)
[2017-03-12] MEDS: SODIUM CHLOR 0.9% 1000 ML INJ 1,000 ML IV SCH (22:32)
[2017-03-13] VITALS (24 sets, daily range): BP systolic 115–215; BP diastolic 67–91; PULSE 36–93; RESP 16–20; TEMP 97.6–98.4; O2SAT 94–99
[2017-03-13 00:06] LABS: POTASSIUM 5.7 MEQ/L (3.5-5.1)
[2017-03-13] MEDS ORDERED: ISOSORBIDE MONONITRATE 60 MG TAB PO ONE ×2 (00:15→02:30)
[2017-03-13] MEDS ORDERED: DEXTROSE 50% IN WATER 50 ML VIAL(D50) IV PRN (02:00)
[2017-03-13] MEDS ORDERED: GLUCAGON 1 MG/ML VIAL OTHER PRN (02:00)
[2017-03-13] MEDS ORDERED: hydrALAZINE HCL 20 MG/ML VIAL IV PUSH ONE (02:30)
[2017-03-13] MEDS: INSULIN ASPART SUPPLEMENTAL SCALE SQ SCH ×4 (05:55→21:00)
[2017-03-13] MEDS: SODIUM CHLOR 0.9% 1000 ML INJ 1,000 ML IV SCH ×3 (06:08→19:39)
[2017-03-13 08:37] LABS: AUTOMATED NEUTROPHIL # 6.1 TH/MM3 (1.8-7.7); BASOPHIL # 0.1 TH/MM3 (0-0.2); BASOPHIL % 0.8 % (0.0-2.0); EOSINOPHIL # 0.2 TH/MM3 (0-0.4); EOSINOPHIL % 1.8 % (0.0-4.0); HEMATOCRIT 37.4 % (39.0-51.0); HEMO FLAGS DIFF FINAL; LYMPH % 20.5 % (9.0-44.0); LYMPHOCYTE # 1.8 TH/MM3 (1.0-4.8); MEAN CELL VOLUME 90.5 FL (80.0-100.0); MEAN CORPUSCULAR HEMOGLOBIN 29.8 PG (27.0-34.0); MONO % 7.3 % (0.0-8.0); NEUT % 69.6 % (16.0-70.0); PLATELET COUNT 120 TH/MM3 (150-450); RED BLOOD COUNT 4.13 MIL/MM3 (4.50-5.90); RED CELL DISTRIBUTION WIDTH 16.4 % (11.6-17.2); WHITE BLOOD COUNT 8.8 TH/MM3 (4.0-11.0)
[2017-03-13] MEDS: SODIUM CHLORIDE 0.9% FLUSH 10 ML FLUSH IV FLUSH SCH ×2 (08:53→21:00)
[2017-03-13 09:00] LABS: ANION GAP 7 MEQ/L (5-15); AST (GOT) 12 U/L (15-37); BICARBONATE 18.7 MEQ/L (21.0-32.0); BLOOD UREA NITROGEN 42 MG/DL (7-18); CHLORIDE 112 MEQ/L (98-107); GLOMERULAR FILTRATION RATE 30 ML/MIN (>89); POTASSIUM 5.5 MEQ/L (3.5-5.1); SODIUM (NA) 138 MEQ/L (136-145)
[2017-03-13] MEDS: DOCUSATE SODIUM 50 MG/SENNA 8.6 MG TAB PO SCH ×2 (09:00→21:00)
[2017-03-13 09:07] LABS: ALKALINE PHOSPHATASE 88 U/L (45-117); ALT (GPT) 24 U/L (12-78); TOTAL BILIRUBIN ADULT 0.6 MG/DL (0.2-1.0)
--- NOTE | 2017-03-13 10:27 | PD.CONS ---
HPI Consult Requested By Primary Care Physician Rivera Frazier MD History of Present Illness 81-year-old male with a PMH of HTN, Hyperlipidemia, DM and Tobacco Abuse who was brought to the ER secondary to syncopal event. Per 's report, patient had syncopal episode while out for dinner at a restaurant, states episode lasted approximately 1-2 min. Upon EMS arrival, pt noted to be bradycardic w/ HR 40's. On arrival, BP 230/93, HR 42, O2 sat 99% on 2L seek, Afebrile. K+ 6.9 , s/p Ca/Insulin/D50/Kayexalate in ER. Creatinine 2.68, previously 1.52 on . Trop negative. INR 1.0. CXR with no acute findings. CT Head with no acute findings. He denies chest pain, palpitations, SOB, PND or leg edema. No hx of CAD. Cardiology consulted for bradycardia. Review of Systems Consitutional: DENIES: Fatigue, Fever, Chills, Weight gain, Weight loss Eyes: DENIES: Amaurosis Fugax, Change in vision HEENT: DENIES: Lightheadedness, Change in hearing Respiratory: DENIES: See HPI, Cough, Snoring, Shortness of breath, Wheezing, Sputum production Cardiovascular: DENIES: See HPI, Chest pain, Palpitations, Syncope, Tachycardia Gastrointestinal: DENIES: Nausea, Vomiting, Change in bowel habits, Reflux, Bloody stools, Melena Genitourinary: DENIES: Urinary incontinence, Difficulty voiding Integumentary: DENIES: Rash Neurologic: DENIES: Tingling or numbness, Memory problems, Poor Balance, Stroke symptoms Musculoskeletal: DENIES: Joint pain, Muscle pain, Limited range of motion, Back pain Psychiatric: DENIES: Anxiety, Depression, Sleep disturbances Hematologic: DENIES: Bruising tendencies, Bleeding tendencies Endocrine: DENIES: Weight gain, Weight loss, Thyroid disease Past Family Social History Allergies: Coded Allergies: furosemide (Unverified Allergy, Severe, RASH, 03/02/17) hydrochlorothiazide (Unverified Allergy, Severe, Rash, 03/02/17) diclofenac (Unverified Adverse Reaction, Severe, GI BLEED, 03/02/17) etodolac (Unverified Adverse Reaction, Severe, GI BLEED, 03/02/17) flurbiprofen (Unverified Adverse Reaction, Severe, GI BLEED, 03/02/17) ibuprofen (Unverified Adverse Reaction, Severe, GI BLEED, 03/02/17) indomethacin (Unverified Adverse Reaction, Severe, GI BLEED, 03/02/17) ketoprofen (Unverified Adverse Reaction, Severe, GI BLEED, 03/02/17) ketorolac (Unverified Adverse Reaction, Severe, GI BLEED, 03/02/17) naproxen (Unverified Adverse Reaction, Severe, GI BLEED, 03/02/17) oxaprozin (Unverified Adverse Reaction, Severe, GI BLEED, 03/02/17) Past Medical History HTN, Hyperlipidemia, DM Tobacco Abuse Past Surgical History Cholecystectomy Reported Medications Reported Meds & Active Scripts Active Glucotrol (Glipizide) 5 Mg Tab 5 Mg PO DAILYAC 30 Days Hydralazine (Hydralazine HCl) 50 Mg Tab 50 Mg PO Q8HR 30 Days Reported Vitamin D3 (Cholecalciferol) 5,000 Unit Cap 5,000 Units PO DAILY Aspirin 81 Mg Tabdr 81 Mg PO DAILY Isosorbide Mononitrate ER (Isosorbide Mononitrate) 30 Mg Jennifer 30 Mg PO DAILY Atorvastatin (Atorvastatin Calcium) 20 Mg Tab 20 Mg PO HS Amlodipine (Amlodipine Besylate) 10 Mg Tab 10 Mg PO DAILY Omeprazole 20 Mg Tab 20 Mg PO BID Allopurinol 100 Mg Tab 100 Mg PO DAILY Active Ordered Medications Current Medications Medications (Trade) Dose Ordered Sig/Fox Route Start Time Stop Time Status Last Admin Sodium Chloride 1,000 ml @ 100 mls/hr Q10H IV 03/12/17 21:27 03/12/17 22:32 (NS Flush) 2 ml UNSCH PRN IV FLUSH 03/12/17 21:30 (NS Flush) 2 ml BID IV FLUSH 03/13/17 09:00 (Zofran Inj) 4 mg Q6H PRN IVP 03/12/17 21:30 (Tylenol) 650 mg Q6H PRN PO 03/12/17 21:30 (Roxicodone) 10 mg Q4H PRN PO 03/12/17 21:30 (Roxicodone) 5 mg Q4H PRN PO 8/25/17 21:30 (Jina-Colace) 1 tab BID PO 03/13/17 09:00 (Milk Of Magnesia Liq) 30 ml Q12H PRN PO 03/12/17 21:30 (Senokot) 17.2 mg Q12H PRN PO 03/12/17 21:30 (Dulcolax Supp) 10 mg DAILY PRN RECTAL 03/12/17 21:30 (Lactulose Liq) 30 ml DAILY PRN PO 03/12/17 21:30 (D50w (Vial) Inj) 50 ml UNSCH PRN IV 03/13/17 02:00 (Glucagon Inj) 1 mg UNSCH PRN OTHER 03/13/17 02:00 (NovoLOG SUPPLEMENTAL SCALE) 1 ACHS SLIDING SCALE SQ 03/13/17 07:00 Physical Exam Vital Signs Vital Signs Date Time Temp Pulse Resp B/P (MAP) Pulse Ox O2 Delivery O2 Flow Rate FiO2 03/13/17 09:18 53 03/13/17 08:40 53 03/13/17 08:40 97.7 53 18 187/73 (111) 99 03/13/17 07:30 03/13/17 06:06 46 03/13/17 05:00 47 03/13/17 04:53 97.9 54 179/67 (104) 95 03/13/17 03:30 03/13/17 03:08 52 20 181/80 (113) 97 Room Air 03/13/17 02:00 49 18 215/91 (132) 98 03/13/17 01:00 55 20 206/91 (129) 98 Room Air 03/12/17 23:00 47 20 215/93 (133) 98 03/12/17 22:37 44 18 208/97 (134) 98 Room Air 03/12/17 22:00 47 20 215/99 (137) 97 Room Air 03/12/17 21:08 43 20 204/91 (128) 98 Room Air 03/12/17 20:05 42 16 185/82 (116) 49 16 171/77 (108) 46 16 187/78 (114) 03/12/17 19:34 96 Room Air 03/12/17 19:04 43 18 99 Nasal Cannula 2.00 03/12/17 19:03 98.5 42 18 213/93 (133) 99 Nasal Cannula 2.00 Physical Exam GENERAL: Well-nourished, well-developed patient. SKIN: Warm and dry. HEAD: Normocephalic. EYES: No scleral icterus. No injection or drainage. NECK: Supple, trachea midline. No JVD or lymphadenopathy. CARDIOVASCULAR: Regular rate and rhythm without murmurs, gallops, or rubs. RESPIRATORY: Breath sounds equal bilaterally. No accessory muscle use. GASTROINTESTINAL: Abdomen soft, non-tender, nondistended. EXTREMITIES: No cyanosis, or edema. NEUROLOGICAL: Awake, alert, and oriented x 3. Non-focal. Laboratory Laboratory Tests Test 03/12/17 19:30 03/12/17 23:25 03/13/17 08:15 White Blood Count 9.0 8.8 Red Blood Count 4.33 4.13 Hemoglobin 12.8 12.3 Hematocrit 39.6 37.4 Mean Corpuscular Volume 91.3 90.5 Mean Corpuscular Hemoglobin 29.5 29.8 Mean Corpuscular Hemoglobin Concent 32.3 33.0 Red Cell Distribution Width 16.1 16.4 Platelet Count 135 120 Mean Platelet Volume 7.3 6.8 Neutrophils (%) (Auto) 63.9 69.6 Lymphocytes (%) (Auto) 26.6 20.5 Monocytes (%) (Auto) 6.9 7.3 Eosinophils (%) (Auto) 1.8 1.8 Basophils (%) (Auto) 0.8 0.8 Neutrophils # (Auto) 5.8 6.1 Lymphocytes # (Auto) 2.4 1.8 Monocytes # (Auto) 0.6 0.6 Eosinophils # (Auto) 0.2 0.2 Basophils # (Auto) 0.1 0.1 CBC Comment DIFF FINAL DIFF FINAL Differential Comment Prothrombin Time 11.6 Prothromb Time International Ratio 1.0 Activated Partial Thromboplast Time 27.0 Blood Urea Nitrogen 52 42 Creatinine 2.68 2.15 Random Glucose 188 174 Total Protein 6.5 6.0 Albumin 3.2 2.9 Calcium Level 8.4 8.6 Magnesium Level 1.7 Alkaline Phosphatase 94 88 Aspartate Amino Transf (AST/SGOT) 17 12 Alanine Aminotransferase (ALT/SGPT) 27 24 Total Bilirubin 0.4 0.6 Sodium Level 138 138 Potassium Level 6.9 5.7 5.5 Chloride Level 113 112 Carbon Dioxide Level 19.1 18.7 Anion Gap 6 7 Estimat Glomerular Filtration Rate 23 30 Total Creatine Kinase 61 Troponin I 0.02 0.02 0.03 Thyroid Stimulating Hormone 3rd Gen 0.948 Result Diagram: 03/13/1715 03/13/17814 Imaging Last Impressions Head CT 03/12/171919 Signed Impressions: Service Date/Time: Sunday, March 12, 2017 19:33 - CONCLUSION: No acute intracranial abnormality. Chronic ischemic changes of the basal ganglia and periventricular white matter. Ko Martines MD Chest X-Ray 03/12/171919 Signed Impressions: Service Date/Time: Sunday, March 12, 2017 19:36 - CONCLUSION: No evidence of acute cardiopulmonary disease. Ko Martines MD Assessment and Plan Problem List: (1) Bradycardia ICD Codes: R00.1 - Bradycardia, unspecified Status: Acute Plan: 81 y/o M s/p syncope in the setting of bradycardia. EKG shows Mobitz I AV block in the setting of electrolytes abnormalities hyperkalemia and acute on chronic renal failure. Reversible causes must be excluded prior to PPM recommendation. TSH- WNL. CE negative. 2Decho pending. In no AV blocking agents at home. Recommendations: 1. Telemetry monitoring 2. 2Decho 3. MPI 4. ASA 81 mg PO daily 5. BP control 6. Lipid Profile 7. Avoid electrolytes abnormalities Thank you for the opportunity to participate in the care of this patient. Further management to be determine (2) Acute worsening of stage 3 chronic kidney disease ICD Codes: N18.3 - Chronic kidney disease, stage 3 (moderate) Status: Acute (3) Renal insufficiency ICD Codes: N28.9 - Disorder of kidney and ureter, unspecified Status: Acute (4) Acute on chronic renal failure ICD Codes: N17.9 - Acute kidney failure, unspecified; N18.9 - Chronic kidney disease, unspecified Status: Resolved (5) Acute hyperkalemia ICD Codes: E87.5 - Hyperkalemia Status: Acute (6) Syncope ICD Codes: R55 - Syncope and collapse Status: Acute (7) HTN (hypertension) ICD Codes: I10 - Essential (primary) hypertension (8) DM (diabetes mellitus) ICD Codes: E11.9 - Type 2 diabetes mellitus without complications Status: Chronic (9) Tobacco abuse ICD Codes: Z72.0 - Tobacco use Status: Chronic (10) Hypertension ICD Codes: I10 - Essential (primary) hypertension Status: Chronic Problem Qualifiers (1) Syncope: Qualified Codes: R55 - Syncope and collapse Lance Burnham MD Mar 13, 2017 10:27
--- NOTE | 2017-03-13 15:26 | EKG ---
Date Performed: 03/13/2017 Time Performed: 09:42:10 PTAGE: 81 years EKG: Sinus rhythm Type 1 second degree AV block Left anterior fascicular block Possible anteroseptal infarct - age und etermined Abnormal ECG PREVIOUS TRACING : 03/12/2017 18.48 Compared to the previous tracing second degree AV block pre sent DOCTOR: Sanjeev Harper Interpretating Date/Time 03/13/2017 15:24:54
--- NOTE | 2017-03-13 17:36 | ECHRPT ---
Indication: Cardiomyopathy, unspecified CONCLUSIONS The left ventricular systolic function is low normal with an estimated ejection fraction in the rang e of 50- 55%. Mild concentric left ventricular hypertrophy. Normal left ventricular size. Mild to moderate mitral valve regurgitation. No aortic valve regurgitation. No aortic valve stenosis. There is mild tricuspid valve regurgitation. There is estimated moderate pulmonary hypertension present (range 50-60 mmHg). The pulmonary valve is not well visualized. BP: / HR: Rhythm: MEASUREMENTS (Male / Female) Normal Values Technical Quality:Good 2D ECHO LV Diastolic Diameter PLAX 4.6 cm 4.2 - 5.9 / 3.9 - 5.3 cm LV Systolic Diameter PLAX 3.6 cm IVS Diastolic Thickness 1.3 cm 0.6 - 1.0 / 0.6 - 0.9 cm LVPW Diastolic Thickness 1.3 cm 0.6 - 1.0 / 0.6 - 0.9 cm LV Relative Wall Thickness 0.6 RV Internal Dim ED PLAX 3.4 cm M-MODE Aortic Root Diameter MM 3.4 cm LA Systolic Diameter MM 4.1 cm LA Ao Ratio MM 1.2 AV Cusp Separation MM 1.6 cm DOPPLER MV Area PHT 2.3 cm TR Peak Velocity 332.0 cm/s TR Peak Gradient 44.1 mmHg FINDINGS LEFT VENTRICLE The left ventricular systolic function is low normal with an estimated ejection fraction in the rang e of 50- 55%. Mild concentric left ventricular hypertrophy. Normal left ventricular size. RIGHT VENTRICLE Normal right ventricular size and systolic function. LEFT ATRIUM The left atrial size is normal. RIGHT ATRIUM The right atrial size is normal. ATRIAL SEPTUM Normal atrial septal thickness without atrial level shunting by limited color doppler interrogation. AORTA The aortic root and proximal ascending aorta are normal in size on limited imaging. MITRAL VALVE Structurally normal mitral valve. Mild mitral valve regurgitation. AORTIC VALVE Trileaflet aortic valve. No aortic valve regurgitation. No aortic valve stenosis. TRICUSPID VALVE Structurally normal tricuspid valve. There is mild tricuspid valve regurgitation. There is estimated moderate pulmonary hypertension present (range 50-60 mmHg). PULMONARY VALVE The pulmonary valve is not well visualized. VESSELS The inferior vena cava is normal in size. PERICARDIUM No pericardial effusion. Vernon Carballo MD, FACC, [facility] [place] (Electronically Signed) Final Date:13 March 2017 17:35
--- NOTE | 2017-03-13 18:26 | EKG ---
Date Performed: 03/12/2017 Time Performed: 18:48:49 PTAGE: 81 years EKG: SINUS BRADYCARDIA WITH FIRST DEGREE AV BLOCK LEFT ANTERIOR FASCICULAR BLOCK POSSIBLE ANTERI OR MYOCARDIAL INFARCTION ABNORMAL ECG Compared to the PREVIOUS TRACING rate slower and Q waves present DOCTOR: Sanjeev Harper Interpretating Date/Time 03/13/2017 18:25:57
[2017-03-13] MEDS: hydrALAZINE HCL 20 MG/ML VIAL IV PUSH PRN (18:30)
--- NOTE | 2017-03-13 19:16 | HHI.PR ---
Subjective Remarks Patient sitting on the edge of the bed he denied any dizziness or lightheadedness, no chest pain or short of breath No fever or chills, heart rate has been stable Objective Vitals Vital Signs Date Time Temp Pulse Resp B/P (MAP) Pulse Ox O2 Delivery O2 Flow Rate FiO2 03/13/17 18:03 39 03/13/17 17:13 45 03/13/17 16:00 46 03/13/17 15:54 97.6 50 18 182/78 (112) 98 03/13/17 15:54 38 03/13/17 14:23 57 03/13/17 13:01 42 03/13/17 12:00 46 03/13/17 11:42 46 03/13/17 11:42 97.8 54 18 150/70 (96) 99 Automatic Cuff 03/13/17 10:20 48 03/13/17 09:18 53 03/13/17 08:40 53 03/13/17 08:40 97.7 53 18 187/73 (111) 99 03/13/17 07:30 03/13/17 06:06 46 03/13/17 05:00 47 03/13/17 04:53 97.9 54 179/67 (104) 95 03/13/17 03:30 03/13/17 03:08 52 20 181/80 (113) 97 Room Air 03/13/17 02:00 49 18 215/91 (132) 98 03/13/17 01:00 55 20 206/91 (129) 98 Room Air 03/12/17 23:00 47 20 215/93 (133) 98 03/12/17 22:37 44 18 208/97 (134) 98 Room Air 03/12/17 22:00 47 20 215/99 (137) 97 Room Air 03/12/17 21:08 43 20 204/91 (128) 98 Room Air 03/12/17 20:05 42 16 185/82 (116) 49 16 171/77 (108) 46 16 187/78 (114) 03/12/17 19:34 96 Room Air I/O 03/12/17 03/12/17 03/12/17 03/13/17 03/13/17 03/13/17 06:59 14:59 22:59 06:59 14:59 22:59 Intake Total 1000 ml 540 ml 1600 ml Output Total 450 ml 710 ml Balance 1000 ml 90 ml 890 ml Intake Oral 240 ml 600 ml IV Total 1000 ml 300 ml 1000 ml Output Urine Total 450 ml 710 ml # Bowel Movements 1 Result Diagram: 03/13/1715 03/13/1715 Imaging Last Impressions Head CT 03/12/171919 Signed Impressions: Service Date/Time: Sunday, March 12, 2017 19:33 - CONCLUSION: No acute intracranial abnormality. Chronic ischemic changes of the basal ganglia and periventricular white matter. Ko Martines MD Chest X-Ray 03/12/171919 Signed Impressions: Service Date/Time: Sunday, March 12, 2017 19:36 - CONCLUSION: No evidence of acute cardiopulmonary disease. Ko Martines MD Objective Remarks GENERAL: This is a well-nourished, well-developed patient, in no apparent distress. SKIN: No rashes, warm and dry HEAD: Atraumatic. Normocephalic. EYES: Pupils equal round and reactive. Extraocular motions intact. No scleral icterus. ENT: Nose without bleeding, or drainage, Airway patent. NECK: Trachea midline. Supple CARDIOVASCULAR: Regular rate and rhythm without murmurs, gallops, or rubs. RESPIRATORY: Fair air entry bilaterally. No wheezes, rales, or rhonchi. GASTROINTESTINAL: Abdomen soft, non-tender, nondistended. Positive bowel sounds MUSCULOSKELETAL: Extremities without clubbing, cyanosis, or edema. Pedal pulses appreciated NEUROLOGICAL: Awake and alert. Moves all extremity. Normal speech.no focal neurological deficit A/P Problem List: (1) Syncope ICD Code: R55 - Syncope and collapse Status: Acute (2) Symptomatic bradycardia ICD Code: R00.1 - Bradycardia, unspecified (3) Hyperkalemia ICD Code: E87.5 - Hyperkalemia (4) SHAINA (acute kidney injury) ICD Code: N17.9 - Acute kidney failure, unspecified Status: Acute (5) HTN (hypertension) ICD Code: I10 - Essential (primary) hypertension (6) DM (diabetes mellitus) ICD Code: E11.9 - Type 2 diabetes mellitus without complications Status: Chronic (7) Tobacco abuse ICD Code: Z72.0 - Tobacco use Status: Chronic Assessment and Plan Syncopal episode Bradycardia with AV block Mobitz 1 Hyperkalemia>> trending down SHAINA>> creatinine trending down Diabetes mellitus type 2 Hypertension Tobacco abuse Plan: Continue telemetry monitoring Reviewed EKG and cardiac enzymes Appreciate cardiology consultation, continue Holter monitor Resume home at 4 hypertension diabetes mellitus Monitor electrolyte, avoid nephrotoxin BMP in a.m. Problem Qualifiers (1) Syncope: Qualified Codes: R55 - Syncope and collapse Melba Shaw MD Mar 13, 2017 19:15
[2017-03-13] MEDS: PANTOPRAZOLE SOD 20 MG DELAYED RELEASE TAB PO SCH (21:37)
[2017-03-13] MEDS: ATORVASTATIN 20 MG TAB PO SCH (21:38)
[2017-03-13 22:55] LABS: BACTERIA, URINE MOD /hpf; BLOOD, URINE TRACE (NEG); COMMENT (UR) CULTURE INDICATED; CULTURE IF INDICATED CULTURE INDICATED; GLUCOSE,URINE NEG (NEG); KETONE, URINE NEG (NEG); NITRITE,URINE NEG (NEG); SQUAMOUS EPITHELIAL CELL URINE <1 /hpf (0-5); URINE COLOR LIGHT-YELLOW (YELLW/STRAW)
[2017-03-13] MEDS: hydrALAZINE HCL 50 MG TAB PO SCH (23:39)
[2017-03-14] VITALS (23 sets, daily range): BP systolic 153–209; BP diastolic 51–96; PULSE 45–80; RESP 18; TEMP 98.2–99.3; O2SAT 94–98
[2017-03-14] MEDS: hydrALAZINE HCL 20 MG/ML VIAL IV PUSH PRN ×2 (04:00→21:45)
[2017-03-14] MEDS: SODIUM CHLOR 0.9% 1000 ML INJ 1,000 ML IV SCH (06:09)
[2017-03-14] MEDS: hydrALAZINE HCL 50 MG TAB PO SCH ×3 (06:15→21:41)
[2017-03-14] MEDS: INSULIN ASPART SUPPLEMENTAL SCALE SQ SCH ×4 (06:17→21:00)
[2017-03-14] MEDS: glipiZIDE 5 MG TAB PO SCH (08:00)
[2017-03-14] MEDS: DOCUSATE SODIUM 50 MG/SENNA 8.6 MG TAB PO SCH ×2 (08:32→21:00)
[2017-03-14] MEDS: PANTOPRAZOLE SOD 20 MG DELAYED RELEASE TAB PO SCH ×2 (08:32→21:41)
[2017-03-14] MEDS: SODIUM CHLORIDE 0.9% FLUSH 10 ML FLUSH IV FLUSH SCH ×2 (08:32→21:00)
[2017-03-14] MEDS: ALLOPURINOL 100 MG TAB PO SCH (08:32)
[2017-03-14] MEDS: ISOSORBIDE MONONITRATE 30 MG TAB PO SCH (08:32)
[2017-03-14] MEDS ORDERED: REGADENOSON INJ 0.4 MG/5 ML SYR ONE (09:50)
--- NOTE | 2017-03-14 10:43 | RADRPT ---
EXAM DATE/TIME: 03/14/2017 09:07 [place] COMPARISON: No previous studies available for comparison. INDICATIONS : Bradycardic. Coronary atherosclerosis. DOSE: 25.8 mCi Tc99m Myoview at stress. 8.1 mCi Tc99m Myoview at rest. 0.4 mg Lexiscan STRESS SYMPTOMS: Short of breath. EJECTION FRACTION: > 70% MEDICAL HISTORY : Diabetes mellitus type 2. Hypertension. Smoker. SURGICAL HISTORY : Pacemaker. Cholecystectomy. ENCOUNTER: Initial ACUITY: 1 day PAIN SCALE: 3/10 LOCATION: Bilateral chest TECHNIQUE: The patient underwent pharmacologic stress with infusion of prescribed dose. Continuous ECG tracing was monitored during stress. Gated SPECT imaging was performed after stress and conventional SPECT i maging was performed at rest. The examination was performed on a SPECT/CT scanner, both attenuation and non-corrected datasets were reviewed. FINDINGS: DISTRIBUTION: The maximum perfused segment at stress is in the anterior wall. PERFUSION STUDY: The pattern of perfusion at stress is within normal limits. GATED STUDY: There is intact wall motion and thickening without hypokinetic or dyskinetic segments. CONCLUSION: Normal examination. RISK CATEGORY: Normal risk Carolina Esteves MD on March 14, 2017 at 10:40 Board Certified Radiologist. This report was verified electronically.
--- NOTE | 2017-03-14 12:10 | PD.CARD.PN ---
Subjective Subjective Remarks No CV complaints Nausea/Vomiting overnight MPI unremarkable ECHO unremarkable Telemetry to tachy or bradyarrhythmias Objective Medications Current Medications Medications (Trade) Dose Ordered Sig/Fox Route Start Time Stop Time Status Last Admin Sodium Chloride 1,000 ml @ 100 mls/hr Q10H IV 03/12/17 21:27 03/14/17 06:09 (NS Flush) 2 ml UNSCH PRN IV FLUSH 03/12/17 21:30 (NS Flush) 2 ml BID IV FLUSH 03/13/17 09:00 (Zofran Inj) 4 mg Q6H PRN IVP 03/12/17 21:30 03/14/17 04:02 (Tylenol) 650 mg Q6H PRN PO 03/12/17 21:30 (Roxicodone) 10 mg Q4H PRN PO 03/12/17 21:30 (Roxicodone) 5 mg Q4H PRN PO 03/12/17 21:30 (Jina-Colace) 1 tab BID PO 03/13/17 09:00 03/14/17 08:32 (Milk Of Magnesia Liq) 30 ml Q12H PRN PO 03/12/17 21:30 (Senokot) 17.2 mg Q12H PRN PO 03/12/17 21:30 (Dulcolax Supp) 10 mg DAILY PRN RECTAL 03/12/17 21:30 (Lactulose Liq) 30 ml DAILY PRN PO 03/12/17 21:30 (D50w (Vial) Inj) 50 ml UNSCH PRN IV 03/13/17 02:00 (Glucagon Inj) 1 mg UNSCH PRN OTHER 03/13/17 02:00 (NovoLOG SUPPLEMENTAL SCALE) 1 ACHS SLIDING SCALE SQ 03/13/17 07:00 (Zyloprim) 100 mg DAILY PO 03/14/17 09:00 03/14/17 08:32 (Norvasc) 10 mg DAILY PO 03/14/17 09:00 03/14/17 08:32 (Lipitor) 20 mg HS PO 03/13/17 21:00 03/13/17 21:38 (Glucotrol) 5 mg DAILYAC PO 03/14/17 08:00 (Apresoline) 50 mg Q8HR PO 03/13/17 22:00 03/14/17 06:15 (Imdur) 30 mg DAILY PO 03/14/17 09:00 03/14/17 08:32 (Protonix) 20 mg BID PO 03/13/17 21:00 03/14/17 08:32 (Apresoline Inj) 10 mg Q4H PRN IV PUSH 03/13/17 18:00 03/14/17 04:00 Vital Signs / I&O Vital Signs Date Time Temp Pulse Resp B/P (MAP) Pulse Ox O2 Delivery O2 Flow Rate FiO2 03/14/17 12:04 71 03/14/17 11:26 72 03/14/17 11:26 98.2 66 18 157/67 (97) 96 03/14/17 08:09 65 03/14/17 08:09 98.8 70 18 190/77 (114) 96 Manual Cuff/Auscultation 03/14/17 06:26 67 03/14/17 05:10 68 03/14/17 04:15 77 03/14/17 03:25 99.3 77 18 209/96 (133) 94 03/14/17 03:25 71 03/14/17 02:17 80 03/14/17 01:14 80 03/14/17 00:52 69 03/13/17 23:40 98.3 64 18 153/80 (104) 96 03/13/17 23:02 53 03/13/17 22:00 47 03/13/17 21:05 36 03/13/17 20:15 45 03/13/17 19:20 98.3 58 16 170/72 (104) 98 03/13/17 19:20 47 03/13/17 18:03 39 03/13/17 17:13 45 03/13/17 16:00 46 03/13/17 15:54 97.6 50 18 182/78 (112) 98 03/13/17 15:54 38 03/13/17 14:23 57 03/13/17 13:01 42 I/O 03/13/17 03/13/17 03/13/17 03/14/17 03/14/17 03/14/17 07:00 15:00 23:00 07:00 15:00 23:00 Intake Total 540 ml 1600 ml 2158 ml Output Total 450 ml 710 ml 1025 ml Balance 90 ml 890 ml 1133 ml Intake Oral 240 ml 600 ml 240 ml IV Total 300 ml 1000 ml 1918 ml Output Urine Total 450 ml 710 ml 1025 ml # Bowel Movements 1 Physical Exam GENERAL: Well-nourished, well-developed patient. SKIN: Warm and dry. HEAD: Normocephalic. EYES: No scleral icterus. No injection or drainage. NECK: Supple, trachea midline. No JVD or lymphadenopathy. CARDIOVASCULAR: Regular rate and rhythm without murmurs, gallops, or rubs. RESPIRATORY: Breath sounds equal bilaterally. No accessory muscle use. GASTROINTESTINAL: Abdomen soft, non-tender, nondistended. EXTREMITIES: No cyanosis, or edema. NEUROLOGICAL: Awake, alert, and oriented x 3. Non-focal. Laboratory Laboratory Tests Test 03/13/17 21:52 Urine Color LIGHT-YELLOW Urine Turbidity HAZY Urine pH 6.0 Urine Specific [place] 1.011 Urine Protein TRACE mg/dL Urine Glucose (UA) NEG mg/dL Urine Ketones NEG mg/dL Urine Occult Blood TRACE Urine Nitrite NEG Urine Bilirubin NEG Urine Urobilinogen LESS THAN 2.0 MG/DL Urine Leukocyte Esterase LARGE Urine RBC 5 /hpf Urine WBC /hpf Urine Squamous Epithelial Cells <1 /hpf Urine Bacteria MOD /hpf Microscopic Urinalysis Comment CULTURE INDICATED Imaging Last Impressions Myocardial Perfusion Scan Nuc Med 03/14/17 0000 Signed Impressions: Service Date/Time: Tuesday, March 14, 2017 09:07 - CONCLUSION: Normal examination. RISK CATEGORY: Normal risk Carolina Esteves MD Head CT 03/12/171919 Signed Impressions: Service Date/Time: Sunday, March 12, 2017 19:33 - CONCLUSION: No acute intracranial abnormality. Chronic ischemic changes of the basal ganglia and periventricular white matter. Ko Martines MD Chest X-Ray 03/12/171919 Signed Impressions: Service Date/Time: Sunday, March 12, 2017 19:36 - CONCLUSION: No evidence of acute cardiopulmonary disease. Ko Martines MD Assessment and Plan Problem List: (1) Bradycardia ICD Codes: R00.1 - Bradycardia, unspecified Status: Acute Plan: 81 y/o M s/p syncope in the setting of bradycardia. EKG shows Mobitz I AV block in the setting of electrolytes abnormalities hyperkalemia and acute on chronic renal failure and UT. TSH- WNL. CE negative. 2Decho and Lexiscan Stress Test unremarkable. In no AV blocking agents at home. Recommendations: 1. Telemetry monitoring 2. Cont ASA 81 mg PO daily 3. BP control 4. Avoid electrolytes abnormalities 5. Tx UTI per primary team (2) Acute worsening of stage 3 chronic kidney disease ICD Codes: N18.3 - Chronic kidney disease, stage 3 (moderate) Status: Acute (3) Renal insufficiency ICD Codes: N28.9 - Disorder of kidney and ureter, unspecified Status: Acute (4) Acute on chronic renal failure ICD Codes: N17.9 - Acute kidney failure, unspecified; N18.9 - Chronic kidney disease, unspecified Status: Resolved (5) Acute hyperkalemia ICD Codes: E87.5 - Hyperkalemia Status: Acute (6) Syncope ICD Codes: R55 - Syncope and collapse Status: Acute (7) HTN (hypertension) ICD Codes: I10 - Essential (primary) hypertension (8) DM (diabetes mellitus) ICD Codes: E11.9 - Type 2 diabetes mellitus without complications Status: Chronic (9) Tobacco abuse ICD Codes: Z72.0 - Tobacco use Status: Chronic (10) Hypertension ICD Codes: I10 - Essential (primary) hypertension Status: Chronic Problem Qualifiers (1) Syncope: Qualified Codes: R55 - Syncope and collapse Lance Burnham MD Mar 14, 2017 12:10
[2017-03-14 13:28] LABS: ALKALINE PHOSPHATASE 89 U/L (45-117); ALT (GPT) 20 U/L (12-78); ANION GAP 9 MEQ/L (5-15); AST (GOT) 12 U/L (15-37); BLOOD UREA NITROGEN 31 MG/DL (7-18); CHLORIDE 114 MEQ/L (98-107); GLOMERULAR FILTRATION RATE 29 ML/MIN (>89); POTASSIUM 5.1 MEQ/L (3.5-5.1); SODIUM (NA) 142 MEQ/L (136-145)
--- NOTE | 2017-03-14 14:57 | HHI.PR ---
Subjective Remarks Patient resting in bed denied dizziness or lightheadedness, denied chest pain He also denied dysuria but he told me he had UTI in the past, he is not aware of having problem with his prostate Objective Vitals Vital Signs Date Time Temp Pulse Resp B/P (MAP) Pulse Ox O2 Delivery O2 Flow Rate FiO2 03/14/17 14:06 63 03/14/17 13:15 53 03/14/17 12:04 71 03/14/17 11:26 72 03/14/17 11:26 98.2 66 18 157/67 (97) 96 03/14/17 08:09 65 03/14/17 08:09 98.8 70 18 190/77 (114) 96 Manual Cuff/Auscultation 03/14/17 06:26 67 03/14/17 05:10 68 03/14/17 04:15 77 03/14/17 03:25 99.3 77 18 209/96 (133) 94 03/14/17 03:25 71 03/14/17 02:17 80 03/14/17 01:14 80 03/14/17 00:52 69 03/13/17 23:40 98.3 64 18 153/80 (104) 96 03/13/17 23:02 53 03/13/17 22:00 47 03/13/17 21:05 36 03/13/17 20:15 45 03/13/17 19:20 98.3 58 16 170/72 (104) 98 03/13/17 19:20 47 03/13/17 18:03 39 03/13/17 17:13 45 03/13/17 16:00 46 03/13/17 15:54 97.6 50 18 182/78 (112) 98 03/13/17 15:54 38 I/O 03/13/17 03/13/17 03/13/17 03/14/17 03/14/17 03/14/17 07:00 15:00 23:00 07:00 15:00 23:00 Intake Total 540 ml 1600 ml 2158 ml Output Total 450 ml 710 ml 1025 ml Balance 90 ml 890 ml 1133 ml Intake Oral 240 ml 600 ml 240 ml IV Total 300 ml 1000 ml 1918 ml Output Urine Total 450 ml 710 ml 1025 ml # Bowel Movements 1 Result Diagram: 03/13/17 0815 03/14/17 1152 Objective Remarks GENERAL: This is a well-nourished, well-developed patient, in no apparent distress. SKIN: No rashes, warm and dry HEAD: Atraumatic. Normocephalic. EYES: Pupils equal round and reactive. Extraocular motions intact. No scleral icterus. ENT: Nose without bleeding, or drainage, Airway patent. NECK: Trachea midline. Supple CARDIOVASCULAR: Regular rate and rhythm without murmurs, gallops, or rubs. RESPIRATORY: Fair air entry bilaterally. No wheezes, rales, or rhonchi. GASTROINTESTINAL: Abdomen soft, non-tender, nondistended. Positive bowel sounds MUSCULOSKELETAL: Extremities without clubbing, cyanosis, or edema. Pedal pulses appreciated NEUROLOGICAL: Awake and alert. Moves all extremity. Normal speech.no focal neurological deficit A/P Problem List: (1) Syncope ICD Code: R55 - Syncope and collapse Status: Acute (2) Symptomatic bradycardia ICD Code: R00.1 - Bradycardia, unspecified (3) Hyperkalemia ICD Code: E87.5 - Hyperkalemia (4) SHAINA (acute kidney injury) ICD Code: N17.9 - Acute kidney failure, unspecified Status: Acute (5) HTN (hypertension) ICD Code: I10 - Essential (primary) hypertension (6) DM (diabetes mellitus) ICD Code: E11.9 - Type 2 diabetes mellitus without complications Status: Chronic (7) Tobacco abuse ICD Code: Z72.0 - Tobacco use Status: Chronic Assessment and Plan Syncopal episode Bradycardia with AV block Mobitz 1 Positive UA, nonsymptomatic except for the syncope Hyperkalemia SHAINA>> creatinine trending down Diabetes mellitus type 2 Hypertension Tobacco abuse Plan: We'll start Rocephin Kayexalate and monitor BMP, get a set in a.m. Continue telemetry monitoring Reviewed EKG and cardiac enzymes, negative Appreciate cardiology consultation, continue Holter monitor, replace electrolytes Resume home at 4 hypertension diabetes mellitus Monitor electrolyte, avoid nephrotoxin Problem Qualifiers (1) Syncope: Qualified Codes: R55 - Syncope and collapse Melba Shaw MD Mar 14, 2017 14:56
[2017-03-14] MEDS ORDERED: SODIUM POLYSTYRENE SULFONATE SUSP 15 GM/60 ML CUP PO ONE (15:00)
[2017-03-14] MEDS: cefTRIAXone INJ 1,000 MG in SODIUM CHLORIDE 0.9% INJ 100 ML IV SCH (15:05)
[2017-03-14] MEDS: ATORVASTATIN 20 MG TAB PO SCH (21:41)
[2017-03-15] VITALS (22 sets, daily range): BP systolic 143–208; BP diastolic 57–85; PULSE 55–87; RESP 17–20; TEMP 96.6–100.2; O2SAT 95–97
[2017-03-15] MEDS: SODIUM CHLOR 0.9% 1000 ML INJ 1,000 ML IV SCH ×2 (03:26→09:50)
[2017-03-15] MEDS: hydrALAZINE HCL 20 MG/ML VIAL IV PUSH PRN ×2 (03:26→09:50)
[2017-03-15] MEDS: hydrALAZINE HCL 50 MG TAB PO SCH (06:33)
[2017-03-15] MEDS: INSULIN ASPART SUPPLEMENTAL SCALE SQ SCH ×3 (06:34→16:00)
[2017-03-15 07:30] LABS: BICARBONATE 17.8 MEQ/L (21.0-32.0); POTASSIUM 4.2 MEQ/L (3.5-5.1)
[2017-03-15] MEDS: ALLOPURINOL 100 MG TAB PO SCH (08:25)
[2017-03-15] MEDS: ISOSORBIDE MONONITRATE 30 MG TAB PO SCH (08:25)
[2017-03-15] MEDS: glipiZIDE 5 MG TAB PO SCH (08:26)
[2017-03-15] MEDS: PANTOPRAZOLE SOD 20 MG DELAYED RELEASE TAB PO SCH (08:26)
[2017-03-15] MEDS: SODIUM CHLORIDE 0.9% FLUSH 10 ML FLUSH IV FLUSH SCH (08:26)
[2017-03-15] MEDS: DOCUSATE SODIUM 50 MG/SENNA 8.6 MG TAB PO SCH (08:26)
[2017-03-15] MEDS ORDERED: CEFU1TAB20 PO (13:03)
[2017-03-15] MEDS ORDERED: CLON.1 PO (13:03)
--- NOTE | 2017-03-15 13:14 | HHI.DS ---
Discharge Summary Admission Date Mar 12, 2017 at 21:10 Discharge Date: Mar 15, 2017 Admitting Diagnosis syncope, severe hyperkalemia, acute kidney injury (1) Syncope ICD Code: R55 - Syncope and collapse Diagnosis: Principal Status: Acute (2) Symptomatic bradycardia ICD Code: R00.1 - Bradycardia, unspecified Diagnosis: Principal (3) Hyperkalemia ICD Code: E87.5 - Hyperkalemia Diagnosis: Principal (4) SHAINA (acute kidney injury) ICD Code: N17.9 - Acute kidney failure, unspecified Diagnosis: Principal Status: Acute (5) HTN (hypertension) ICD Code: I10 - Essential (primary) hypertension Diagnosis: Principal (6) DM (diabetes mellitus) ICD Code: E11.9 - Type 2 diabetes mellitus without complications Diagnosis: Principal Status: Chronic (7) Tobacco abuse ICD Code: Z72.0 - Tobacco use Diagnosis: Principal Status: Chronic Procedures Stress test Brief History - From Admission This is a 81-year-old male with a PMH of HTN, Hyperlipidemia, DM and Tobacco Abuse who was brought to the ER secondary to syncopal event. Per 's report , patient had syncopal episode while out for dinner at a restaurant, states episode lasted approximately 1-2 min. Pt returned home following event, however reports BP elevated at which time she called EMS. Upon EMS arrival , pt noted to be bradycardic w/ HR 40's. Unclear if acute or chronic. On arrival, BP 230/93, HR 42, O2 sat 99% on 2L seek, Afebrile. CBC essentially unremarkable except for thrombocytopenia, platelets 135, previously 236 on . K+ 6.9, s/p Ca/Insulin/D50/Kayexalate in ER. Creatinine 2.68, previously 1.52 on 09/19/16. Trop negative. INR 1.0. CXR with no acute findings. CT Head with no acute findings. CBC/BMP: 03/13/17 0815 03/15/17 0620 Significant Findings Laboratory Tests Test 03/12/17 19:30 03/12/17 23:25 03/13/17 08:15 03/13/17 21:52 Red Blood Count 4.33 MIL/MM3 (4.50-5.90) 4.13 MIL/MM3 (4.50-5.90) Hemoglobin 12.8 GM/DL (13.0-17.0) 12.3 GM/DL (13.0-17.0) Platelet Count 135 TH/MM3 (150-450) 120 TH/MM3 (150-450) Blood Urea Nitrogen 52 MG/DL (7-18) 42 MG/DL (7-18) Creatinine 2.68 MG/DL (0.60-1.30) 2.15 MG/DL (0.60-1.30) Random Glucose 188 MG/DL (74-106) 174 MG/DL (74-106) Albumin 3.2 GM/DL (3.4-5.0) 2.9 GM/DL (3.4-5.0) Calcium Level 8.4 MG/DL (8.5-10.1) Potassium Level 6.9 MEQ/L (3.5-5.1) 5.7 MEQ/L (3.5-5.1) 5.5 MEQ/L (3.5-5.1) Chloride Level 113 MEQ/L (98-107) 112 MEQ/L (98-107) Carbon Dioxide Level 19.1 MEQ/L (21.0-32.0) 18.7 MEQ/L (21.0-32.0) Estimat Glomerular Filtration Rate 23 ML/MIN (>89) 30 ML/MIN (>89) Hematocrit 37.4 % (39.0-51.0) Mean Platelet Volume 6.8 FL (7.0-11.0) Total Protein 6.0 GM/DL (6.4-8.2) Aspartate Amino Transf (AST/SGOT) 12 U/L (15-37) Urine Turbidity HAZY (CLEAR) Urine Occult Blood TRACE (NEG) Urine Leukocyte Esterase LARGE (NEG) Urine RBC 5 /hpf (0-3) Urine Bacteria MOD /hpf (NONE) Test 03/14/17 11:52 03/15/17 06:20 Blood Urea Nitrogen 31 MG/DL (7-18) 25 MG/DL (7-18) Creatinine 2.22 MG/DL (0.60-1.30) 1.94 MG/DL (0.60-1.30) Random Glucose 193 MG/DL (74-106) 114 MG/DL (74-106) Albumin 2.7 GM/DL (3.4-5.0) Calcium Level 8.3 MG/DL (8.5-10.1) 8.1 MG/DL (8.5-10.1) Aspartate Amino Transf (AST/SGOT) 12 U/L (15-37) Chloride Level 114 MEQ/L (98-107) 115 MEQ/L (98-107) Carbon Dioxide Level 19.0 MEQ/L (21.0-32.0) 17.8 MEQ/L (21.0-32.0) Estimat Glomerular Filtration Rate 29 ML/MIN (>89) 34 ML/MIN (>89) PE at Discharge GENERAL: This is a well-nourished, well-developed patient, in no apparent distress. SKIN: No rashes, warm and dry HEAD: Atraumatic. Normocephalic. EYES: Pupils equal round and reactive. Extraocular motions intact. No scleral icterus. ENT: Nose without bleeding, or drainage, Airway patent. NECK: Trachea midline. Supple CARDIOVASCULAR: Regular rate and rhythm without murmurs, gallops, or rubs. RESPIRATORY: Fair air entry bilaterally. No wheezes, rales, or rhonchi. GASTROINTESTINAL: Abdomen soft, non-tender, nondistended. Positive bowel sounds MUSCULOSKELETAL: Extremities without clubbing, cyanosis, or edema. Pedal pulses appreciated NEUROLOGICAL: Awake and alert. Moves all extremity. Normal speech.no focal neurological deficit Hospital Course 81 years old male admitted with syncopal episode bradycardia hyperkalemia, acute on chronic kidney injury, diabetes mellitus and hypertension, cardiology consulted patient was found to have AV block Mobitz 1, adjusting medication, stress test has been done was normal, 2-D echo also has been done showed ejection fraction 50-55% mild LVH mild to moderate MR, TR, moderate P hypertension 55 mmHg. Patient also found to have asymptomatic bacteriuria Patient cleared by cardio to be discharged and follow up as an outpatient Pt Condition on Discharge: Fair Discharge Disposition: Discharge Home Discharge Time: <= 30 minutes Discharge Instructions DIET: Follow Instructions for: Heart Healthy Diet, Diabetic Diet Activities you can perform: Weight Bearing as Rich Other Activity Instructions: no driving till seeing cardio Follow up Referrals: Cardiology - 1 Week with Cristobal Spears MD PCP Follow-up - 1 Week New Medications: Cefuroxime (Cefuroxime) 500 Mg Tab 500 MG PO BID for Infection, #10 TAB 0 Refills Clonidine (Catapres) 0.1 Mg Tab 0.1 MG PO Q8HR for htn, #90 TAB Continued Medications: Allopurinol (Allopurinol) 100 Mg Tab 100 MG PO DAILY for Gout, #30 TAB 0 Refills Amlodipine (Amlodipine) 10 Mg Tab 10 MG PO DAILY for Blood Pressure Management, #30 TAB 0 Refills Aspirin (Aspirin) 81 Mg Tabdr 81 MG PO DAILY, TAB Atorvastatin (Atorvastatin) 20 Mg Tab 20 MG PO HS for Cholesterol Management, #30 TAB 0 Refills Cholecalciferol (Vitamin D3) 5,000 Unit Cap 5000 UNITS PO DAILY for Nutritional Supplement, #1 BOTTLE 0 Refills Glipizide (Glucotrol) 5 Mg Tab 5 MG PO DAILYAC for 30 Days, TAB Hydralazine (Hydralazine) 50 Mg Tab 50 MG PO Q8HR for 30 Days, TAB Isosorbide Mononitrate ER (Isosorbide Mononitrate ER) 30 Mg Jennifer 30 MG PO DAILY for Prevent Chest Pain, #30 TAB 0 Refills Melba Shaw MD Mar 15, 2017 13:14
--- NOTE | 2017-03-15 13:30 | HHI.PR ---
Subjective Remarks Patient sitting on the edge of the bed denied chest pain or short of breath Blood pressure systolic still at the 200s I discussed with the nurse will increase hydralazine to every 6 hours and I will add clonidine 0.1 every 8 hours and monitor blood pressure I discussed with PT OT to assist the patient however he is refusing rehabilitation anyway Will plan on discharging him later on today blood pressure got under control Objective Vitals Vital Signs Date Time Temp Pulse Resp B/P (MAP) Pulse Ox O2 Delivery O2 Flow Rate FiO2 03/15/17 11:00 99.0 69 20 95 166/58 (94) 03/15/17 11:00 67 03/15/17 10:05 170/66 (100) 03/15/17 10:00 190/76 (114) 03/15/17 10:00 70 03/15/17 09:50 208/85 (126) 03/15/17 09:00 72 03/15/17 08:00 84 03/15/17 08:00 99.5 75 20 205/82 (123) 97 03/15/17 07:00 71 03/15/17 06:37 73 03/15/17 05:37 66 03/15/17 04:09 67 03/15/17 03:34 96.6 70 18 163/69 (100) 97 03/15/17 03:34 69 03/15/17 02:31 76 03/15/17 01:34 68 03/15/17 00:22 55 03/15/17 00:21 98.3 69 17 143/57 (85) 95 03/14/17 23:32 55 03/14/17 22:00 54 03/14/17 21:00 57 03/14/17 20:00 60 03/14/17 19:20 56 03/14/17 19:20 98.6 56 18 177/74 (108) 96 03/14/17 18:13 153/51 (85) 03/14/17 18:08 45 03/14/17 17:25 166/68 (100) 03/14/17 17:00 56 03/14/17 16:12 70 03/14/17 15:45 98.2 60 18 178/73 (108) 98 03/14/17 15:45 58 03/14/17 14:06 63 I/O 03/14/17 03/14/17 03/14/17 03/15/17 03/15/17 03/15/17 07:00 15:00 23:00 07:00 15:00 23:00 Intake Total 2158 ml 1640 ml 1280 ml Output Total 1025 ml 600 ml 425 ml Balance 1133 ml 1040 ml 855 ml Intake Oral 240 ml 540 ml 360 ml IV Total 1918 ml 1100 ml 920 ml Output Urine Total 1025 ml 600 ml 425 ml # Bowel Movements 1 Result Diagram: 03/13/17 0815 03/15/17 0620 Objective Remarks GENERAL: This is a well-nourished, well-developed patient, in no apparent distress. SKIN: No rashes, warm and dry HEAD: Atraumatic. Normocephalic. EYES: Pupils equal round and reactive. Extraocular motions intact. No scleral icterus. ENT: Nose without bleeding, or drainage, Airway patent. NECK: Trachea midline. Supple CARDIOVASCULAR: Regular rate and rhythm without murmurs, gallops, or rubs. RESPIRATORY: Fair air entry bilaterally. No wheezes, rales, or rhonchi. GASTROINTESTINAL: Abdomen soft, non-tender, nondistended. Positive bowel sounds MUSCULOSKELETAL: Extremities without clubbing, cyanosis, or edema. Pedal pulses appreciated NEUROLOGICAL: Awake and alert. Moves all extremity. Normal speech.no focal neurological deficit Procedures Stress test A/P Problem List: (1) Syncope ICD Code: R55 - Syncope and collapse Status: Acute (2) Symptomatic bradycardia ICD Code: R00.1 - Bradycardia, unspecified (3) Hyperkalemia ICD Code: E87.5 - Hyperkalemia (4) SHAINA (acute kidney injury) ICD Code: N17.9 - Acute kidney failure, unspecified Status: Acute (5) HTN (hypertension) ICD Code: I10 - Essential (primary) hypertension (6) DM (diabetes mellitus) ICD Code: E11.9 - Type 2 diabetes mellitus without complications Status: Chronic (7) Tobacco abuse ICD Code: Z72.0 - Tobacco use Status: Chronic Assessment and Plan Syncopal episode Bradycardia with AV block Mobitz 1 Accelerated hypertension systolic blood pressure 200 Positive UA, nonsymptomatic except for the syncope Hyperkalemia SHAINA>> creatinine trending down Diabetes mellitus type 2 Blood pressure Tobacco abuse Plan: Increase hydralazine to every 6 hours, will add clonidine 0.1 every 8 hours, monitor blood pressure, added to his amlodipine and isosorbide PT OT Continue Rocephin will switch to cefuroxime and discharged Kayexalate and monitor BMP, get a set in a.m. Stress test negative 2-D echo 50-55% with mild MR Continue telemetry monitoring Reviewed EKG and cardiac enzymes, negative Appreciate cardiology consultation, continue Holter monitor, replace electrolytes Resume diabetes mellitus Monitor electrolyte, avoid nephrotoxin Discharge Planning Later today blood pressure got under control, Problem Qualifiers (1) Syncope: Qualified Codes: R55 - Syncope and collapse Melba Shaw MD Mar 15, 2017 13:30
[2017-03-15] MEDS: cefTRIAXone INJ 1,000 MG in SODIUM CHLORIDE 0.9% INJ 100 ML IV SCH (13:47)
[2017-03-15] MEDS ORDERED: cloNIDine HCL 0.1 MG TAB PO SCH (14:00)
--- NOTE | 2017-03-15 15:14 | PD.CARD.PN ---
Subjective Subjective Remarks no complaints Objective Medications Current Medications Medications (Trade) Dose Ordered Sig/Fox Route Start Time Stop Time Status Last Admin Sodium Chloride 1,000 ml @ 100 mls/hr Q10H IV 03/12/17 21:27 03/15/17 09:50 (NS Flush) 2 ml UNSCH PRN IV FLUSH 03/12/17 21:30 (NS Flush) 2 ml BID IV FLUSH 03/13/17 09:00 (Zofran Inj) 4 mg Q6H PRN IVP 03/12/17 21:30 03/14/17 04:02 (Tylenol) 650 mg Q6H PRN PO 03/12/17 21:30 (Roxicodone) 10 mg Q4H PRN PO 03/12/17 21:30 (Roxicodone) 5 mg Q4H PRN PO 03/12/17 21:30 (Jina-Colace) 1 tab BID PO 03/13/17 09:00 03/15/17 08:26 (Milk Of Magnesia Liq) 30 ml Q12H PRN PO 03/12/17 21:30 (Senokot) 17.2 mg Q12H PRN PO 03/12/17 21:30 (Dulcolax Supp) 10 mg DAILY PRN RECTAL 03/12/17 21:30 (Lactulose Liq) 30 ml DAILY PRN PO 03/12/17 21:30 (D50w (Vial) Inj) 50 ml UNSCH PRN IV 03/13/17 02:00 (Glucagon Inj) 1 mg UNSCH PRN OTHER 03/13/17 02:00 (NovoLOG SUPPLEMENTAL SCALE) 1 ACHS SLIDING SCALE SQ 03/13/17 07:00 03/14/17 21:00 (Zyloprim) 100 mg DAILY PO 03/14/17 09:00 03/15/17 08:25 (Norvasc) 10 mg DAILY PO 03/14/17 09:00 03/15/17 08:26 (Lipitor) 20 mg HS PO 03/13/17 21:00 03/14/17 21:41 (Glucotrol) 5 mg DAILYAC PO 03/14/17 08:00 03/15/17 08:26 (Imdur) 30 mg DAILY PO 03/14/17 09:00 03/15/17 08:25 (Protonix) 20 mg BID PO 03/13/17 21:00 03/15/17 08:26 (Apresoline Inj) 10 mg Q4H PRN IV PUSH 03/13/17 18:00 03/15/17 09:50 Ceftriaxone Sodium 1000 mg/ Sodium Chloride 100 ml @ 200 mls/hr Q24H IV 03/14/17 15:00 03/15/17 13:47 (Catapres) 0.1 mg Q8HR PO 03/15/17 14:00 03/15/17 13:47 (Apresoline) 50 mg Q6HR PO 03/15/17 18:00 Vital Signs / I&O Vital Signs Date Time Temp Pulse Resp B/P (MAP) Pulse Ox O2 Delivery O2 Flow Rate FiO2 03/15/17 14:00 73 03/15/17 13:00 87 03/15/17 12:00 70 03/15/17 11:00 99.0 69 20 95 166/58 (94) 03/15/17 11:00 67 03/15/17 10:05 170/66 (100) 03/15/17 10:00 190/76 (114) 03/15/17 10:00 70 03/15/17 09:50 208/85 (126) 03/15/17 09:00 72 03/15/17 08:00 84 03/15/17 08:00 99.5 75 20 205/82 (123) 97 03/15/17 07:00 71 03/15/17 06:37 73 03/15/17 05:37 66 03/15/17 04:09 67 03/15/17 03:34 96.6 70 18 163/69 (100) 97 03/15/17 03:34 69 03/15/17 02:31 76 03/15/17 01:34 68 03/15/17 00:22 55 03/15/17 00:21 98.3 69 17 143/57 (85) 95 03/14/17 23:32 55 03/14/17 22:00 54 03/14/17 21:00 57 03/14/17 20:00 60 03/14/17 19:20 56 03/14/17 19:20 98.6 56 18 177/74 (108) 96 03/14/17 18:13 153/51 (85) 03/14/17 18:08 45 03/14/17 17:25 166/68 (100) 03/14/17 17:00 56 03/14/17 16:12 70 03/14/17 15:45 98.2 60 18 178/73 (108) 98 03/14/17 15:45 58 I/O 03/14/17 03/14/17 03/14/17 03/15/17 03/15/17 03/15/17 07:00 15:00 23:00 07:00 15:00 23:00 Intake Total 2158 ml 1640 ml 1280 ml 1000 ml Output Total 1025 ml 600 ml 425 ml Balance 1133 ml 1040 ml 855 ml 1000 ml Intake Oral 240 ml 540 ml 360 ml IV Total 1918 ml 1100 ml 920 ml 1000 ml Output Urine Total 1025 ml 600 ml 425 ml # Bowel Movements 1 Physical Exam GENERAL: Well-nourished, well-developed patient. SKIN: Warm and dry. HEAD: Normocephalic. EYES: No scleral icterus. No injection or drainage. NECK: Supple, trachea midline. No JVD or lymphadenopathy. CARDIOVASCULAR: Regular rate and rhythm without murmurs, gallops, or rubs. RESPIRATORY: Breath sounds equal bilaterally. No accessory muscle use. GASTROINTESTINAL: Abdomen soft, non-tender, nondistended. EXTREMITIES: No cyanosis, or edema. NEUROLOGICAL: Awake, alert, and oriented x 3. Non-focal. Laboratory Laboratory Tests Test 03/15/17 06:20 Blood Urea Nitrogen 25 MG/DL Creatinine 1.94 MG/DL Random Glucose 114 MG/DL Calcium Level 8.1 MG/DL Sodium Level 144 MEQ/L Potassium Level 4.2 MEQ/L Chloride Level 115 MEQ/L Carbon Dioxide Level 17.8 MEQ/L Anion Gap 11 MEQ/L Estimat Glomerular Filtration Rate 34 ML/MIN Imaging Last Impressions Myocardial Perfusion Scan Nuc Med 03/14/17 0000 Signed Impressions: Service Date/Time: Tuesday, March 14, 2017 09:07 - CONCLUSION: Normal examination. RISK CATEGORY: Normal risk Carolina Esteves MD Head CT 03/12/17 1920 Signed Impressions: Service Date/Time: Sunday, March 12, 2017 19:33 - CONCLUSION: No acute intracranial abnormality. Chronic ischemic changes of the basal ganglia and periventricular white matter. Ko Martines MD Chest X-Ray 03/12/17 1920 Signed Impressions: Service Date/Time: Sunday, March 12, 2017 19:36 - CONCLUSION: No evidence of acute cardiopulmonary disease. Ko Martines MD Assessment and Plan Problem List: (1) Bradycardia ICD Codes: R00.1 - Bradycardia, unspecified Status: Acute Plan: 81 y/o M s/p syncope in the setting of bradycardia. EKG shows Mobitz I AV block in the setting of electrolytes abnormalities hyperkalemia and acute on chronic renal failure and UT. TSH- WNL. CE negative. 2Decho and Lexiscan Stress Test unremarkable. In no AV blocking agents at home. Recommendations: 1. Telemetry monitoring 2. Cont ASA 81 mg PO daily 3. BP control 4. Avoid electrolytes abnormalities 5. BP control 5. Tx UTI per primary team Sign off (2) Acute worsening of stage 3 chronic kidney disease ICD Codes: N18.3 - Chronic kidney disease, stage 3 (moderate) Status: Acute (3) Renal insufficiency ICD Codes: N28.9 - Disorder of kidney and ureter, unspecified Status: Acute (4) Acute on chronic renal failure ICD Codes: N17.9 - Acute kidney failure, unspecified; N18.9 - Chronic kidney disease, unspecified Status: Resolved (5) Acute hyperkalemia ICD Codes: E87.5 - Hyperkalemia Status: Acute (6) Syncope ICD Codes: R55 - Syncope and collapse Status: Acute (7) HTN (hypertension) ICD Codes: I10 - Essential (primary) hypertension (8) DM (diabetes mellitus) ICD Codes: E11.9 - Type 2 diabetes mellitus without complications Status: Chronic (9) Tobacco abuse ICD Codes: Z72.0 - Tobacco use Status: Chronic (10) Hypertension ICD Codes: I10 - Essential (primary) hypertension Status: Chronic Problem Qualifiers (1) Syncope: Qualified Codes: R55 - Syncope and collapse Lance Burnham MD Mar 15, 2017 15:14
[2017-03-15] MEDS ORDERED: hydrALAZINE HCL 50 MG TAB PO SCH (18:00)
== END 2017-03-15 18:51 | disposition home or self-care (01) | DRG 309 ==
LOC: NEPE 18:37 → NEDA 21:10 → HCIN 03-13 03:51
PROVIDERS: ADMIT Hospitalist; ATTEND Hospitalist
DX: I44.30 Unspecified atrioventricular block (principal); N17.9 Acute kidney failure, unspecified; E87.5 Hyperkalemia; E11.22 Type 2 diabetes mellitus with diabetic chronic kidney disease; R00.1 Bradycardia, unspecified; R55 Syncope and collapse; F17.210 Nicotine dependence, cigarettes, uncomplicated; E78.00 Pure hypercholesterolemia, unspecified; M19.90 Unspecified osteoarthritis, unspecified site; N18.3 Chronic kidney disease, stage 3 (moderate); I12.9 Hypertensive chronic kidney disease with stage 1 through stage 4 chronic kidney disease, or unspecified chronic kidney disease; R82.71 Bacteriuria; Z79.84 Long term (current) use of oral hypoglycemic drugs; Z95.0 Presence of cardiac pacemaker; Z86.73 Personal history of transient ischemic attack (TIA), and cerebral infarction without residual deficits
CPT/HCPCS: 70450; 71010; 78452; 80048; 80053; 81001; 82550; 82948; 83735; 84132; 84443; 84484; 85025; 85610; 85730; 87077; 87086; 87186; 93005; 93017; 93306; 99285; A9502; J0360; J0610; J0696; J1815; J2405; J2785; J7030

== ENCOUNTER 2017-05-11 10:22 | Inpatient (IN) | payer OTHER, MEDICARE ==
[2017-05-11] VITALS (8 sets, daily range): BP systolic 162–223; BP diastolic 82–100; PULSE 47–60; RESP 16–18; TEMP 98.2–99.3; O2SAT 92–97
[~2017-05-11] VITALS: Ht 180.3 cm; Wt 86.5 kg
[~2017-05-11 10:22] MED LIST changes: +CEFU1TAB20 PO; -CIPR-9 PO; +CLON.1 PO; -[UNRECOGNIZED DRUG - CODE] PO
[2017-05-11] MEDS ORDERED: LISI10TA3 PO (10:43)
[2017-05-11] MEDS ORDERED: CARV6.252 PO (10:43)
--- NOTE | 2017-05-11 10:46 | PD ---
HPI Chief Complaint: Respiratory Symptoms Time Seen by Provider: 10:43 Travel History International Travel<30 days: No Contact w/Intl Traveler<30days: No Traveled to known affect area: No History of Present Illness HPI c/o sob, for several weeks, has been taking his medications and despite that continues to noticed gradual worsening of sob over the last 2 DAYS. STATES THAT IN PAST HIS SOB IS FROM PLEURAL EFFUSION AND HE GETS CHEST TUBES ON HIS BACK TO DRAIN FLUID. PATIENT BELIEVES THAT HE IS HAVING SIMILAR SYMPTOMS. PT STATES HE HAS HAD A DRY NONPROD COUGH, NO FEVER, NO SWEATS, AND DOES NOT USE OXYGEN AT HOME. pcp carlos enrique araiza) cardio:NONE kidney specialist:NONE chart and rn note reviewed pmhx: chf, ckd, htn, PLEURAL EFFUSION PFSH Past Medical History Arthritis: Yes Blood Disorders: No Anxiety: No Depression: No Heart Rhythm Problems: No Cancer: No Cardiovascular Problems: Yes High Cholesterol: Yes Chemotherapy: No Chest Pain: No Cerebrovascular Accident: Yes (07/03) Diabetes: Yes Diminished Hearing: No Endocrine: Yes Gastrointestinal Disorders: No Glaucoma: No Genitourinary: No Headaches: No Hepatitis: No Hiatal Hernia: No Hypertension: Yes Immune Disorder: No Implanted Vascular Access Dvce: Yes Musculoskeletal: No Neurologic: No Psychiatric: No Reproductive: No Respiratory: Yes Radiation Therapy: No Seizures: No Thyroid Disease: No Past Surgical History Abdominal Surgery: Yes AICD: No Arteriovenous Shunt: No Cardiac Surgery: No Cholecystectomy: Yes Ear Surgery: No Endocrine Surgery: No Eye Surgery: No Genitourinary Surgery: No Gynecologic Surgery: No Insulin Pump: No Joint Replacement: No Neurologic Surgery: No Oral Surgery: No Pacemaker: Yes Thoracic Surgery: No Other Surgery: Yes (Parish filters) Social History Alcohol Use: No Tobacco Use: Yes (1 pack every 3 days) Substance Use: No Allergies-Medications (Allergen,Severity, Reaction): Coded Allergies: furosemide (Unverified Allergy, Severe, RASH, 05/11/17) hydrochlorothiazide (Unverified Allergy, Severe, Rash, 05/11/17) diclofenac (Unverified Adverse Reaction, Severe, GI BLEED, 05/11/17) etodolac (Unverified Adverse Reaction, Severe, GI BLEED, 05/11/17) flurbiprofen (Unverified Adverse Reaction, Severe, GI BLEED, 05/11/17) ibuprofen (Unverified Adverse Reaction, Severe, GI BLEED, 05/11/17) indomethacin (Unverified Adverse Reaction, Severe, GI BLEED, 05/11/17) ketoprofen (Unverified Adverse Reaction, Severe, GI BLEED, 05/11/17) ketorolac (Unverified Adverse Reaction, Severe, GI BLEED, 05/11/17) naproxen (Unverified Adverse Reaction, Severe, GI BLEED, 05/11/17) oxaprozin (Unverified Adverse Reaction, Severe, GI BLEED, 05/11/17) Reported Meds & Prescriptions Reported Meds & Active Scripts Active Catapres (Clonidine) 0.1 Mg Tab 0.1 Mg PO Q8HR Glucotrol (Glipizide) 5 Mg Tab 5 Mg PO DAILYAC 30 Days Hydralazine (Hydralazine HCl) 50 Mg Tab 50 Mg PO Q8HR 30 Days Reported Lisinopril 10 Mg Tab 10 Mg PO DAILY Carvedilol 6.25 Mg Tab 6.25 Mg PO BID Vitamin D3 (Cholecalciferol) 5,000 Unit Cap 5,000 Units PO DAILY Isosorbide Mononitrate ER (Isosorbide Mononitrate) 30 Mg Jennifer 30 Mg PO DAILY Atorvastatin (Atorvastatin Calcium) 20 Mg Tab 20 Mg PO HS Omeprazole 20 Mg Tab 20 Mg PO BID Allopurinol 100 Mg Tab 100 Mg PO DAILY Review of Systems Except as stated in HPI: all other systems reviewed are Neg General / Constitutional: No: Fever Eyes: No: Visual changes HENT: No: Headaches Cardiovascular: No: Chest Pain or Discomfort Respiratory: Positive: Shortness of Breath Gastrointestinal: No: Abdominal Pain Genitourinary: No: Dysuria Musculoskeletal: No: Pain Skin: No Rash Neurologic: No: Weakness Psychiatric: No: Depression Endocrine: No: Polydipsia Hematologic/Lymphatic: No: Easy Bruising Physical Exam Narrative GENERAL: SKIN: Warm and dry. HEAD: Atraumatic. Normocephalic. EYES: Pupils equal and round. No scleral icterus. No injection or drainage. ENT: No nasal bleeding or discharge. Mucous membranes pink and moist. NECK: Trachea midline. No JVD. CARDIOVASCULAR: Regular rate and rhythm. RESPIRATORY: No accessory muscle use. good tidal volume but bilateral crackles present GASTROINTESTINAL: Abdomen soft, non-tender, nondistended. MUSCULOSKELETAL: Extremities without clubbing, cyanosis, or edema. No obvious deformities. NEUROLOGICAL: Awake and alert. No obvious cranial nerve deficits. Motor grossly within normal limits. Five out of 5 muscle strength in the arms and legs. Normal speech. PSYCHIATRIC: Appropriate mood and affect; insight and judgment normal. Data Data Last Documented VS Vital Signs Date Time Temp Pulse Resp B/P (MAP) Pulse Ox O2 Delivery O2 Flow Rate FiO2 05/11/17 13:06 47 18 177/90 (119) 97 Room Air 05/11/17 10:24 98.2 Orders Orders Complete Blood Count With Diff (05/11/17 10:46) Comprehensive Metabolic Panel (05/11/17 10:46) B-Type Natriuretic Peptide (05/11/17 10:46) Act Partial Throm Time (Ptt) (05/11/17 10:46) Prothrombin Time / Inr (Pt) (05/11/17 10:46) Ckmb (Isoenzyme) Profile (05/11/17 10:46) Troponin I (05/11/17 10:46) Iv Access Insert/Monitor (05/11/17 10:46) Electrocardiogram (05/11/17 10:46) Ecg Monitoring (05/11/17 10:46) Oximetry (05/11/17 10:46) Oxygen Administration (05/11/17 10:46) Chest, Single Ap (05/11/17 10:46) Sodium Chloride 0.9% Flush (Ns Flush) (05/11/17 11:00) Ceftriaxone Inj (Rocephin Inj) (05/11/17 12:00) Azithromycin Inj (Zithromax Inj) (05/11/17 12:00) CKMB (05/11/17 12:10) CKMB% (05/11/17 12:10) Admit Order (Ed Use Only) (05/11/17 16:23) Material Control Associate / Telemetry CACHORRO.Q8H (05/11/17 16:23) Activity Oob With Assistance (05/11/17 16:23) Notify Dr: Other (05/11/17 16:23) Admit To Inpatient (05/11/17 ) Vital Signs (Adult) Q4H (05/11/17 16:22) Activity Oob With Assistance (05/11/17 16:22) Material Control Associate / Telemetry .CONTINUOUS (05/11/17 16:22) Intake + Output CACHORRO.QSHIFT (05/11/17 16:22) Sodium Chloride 0.9% Flush (Ns Flush) (05/11/17 16:30) Sodium Chloride 0.9% Flush (Ns Flush) (05/11/17 21:00) Scd Bilateral/Knee High CACHORRO.BID (05/11/17 16:22) Naloxone Inj (Narcan Inj) (05/11/17 16:30) Docusate Sodium-Senna (Jina-Colace) (05/11/17 21:00) Magnesium Hydroxide Liq (Milk Of Magnesi (05/11/17 16:30) Sennosides (Senokot) (05/11/17 16:30) Bisacodyl Supp (Dulcolax Supp) (05/11/17 16:30) Lactulose Liq (Lactulose Liq) (05/11/17 16:30) Inpatient Certification (05/11/17 ) Ceftriaxone Inj (Rocephin Inj) (05/12/17 12:00) Azithromycin Inj (Zithromax Inj) (05/12/17 12:00) Labs Laboratory Tests Test 05/11/17 12:10 White Blood Count 8.6 TH/MM3 Red Blood Count 4.36 MIL/MM3 Hemoglobin 13.2 GM/DL Hematocrit 38.9 % Mean Corpuscular Volume 89.1 FL Mean Corpuscular Hemoglobin 30.3 PG Mean Corpuscular Hemoglobin Concent 34.0 % Red Cell Distribution Width 15.4 % Platelet Count 123 TH/MM3 Mean Platelet Volume 7.9 FL Neutrophils (%) (Auto) 64.3 % Lymphocytes (%) (Auto) 24.6 % Monocytes (%) (Auto) 8.0 % Eosinophils (%) (Auto) 2.3 % Basophils (%) (Auto) 0.8 % Neutrophils # (Auto) 5.5 TH/MM3 Lymphocytes # (Auto) 2.1 TH/MM3 Monocytes # (Auto) 0.7 TH/MM3 Eosinophils # (Auto) 0.2 TH/MM3 Basophils # (Auto) 0.1 TH/MM3 CBC Comment DIFF FINAL Differential Comment Prothrombin Time 12.7 SEC Prothromb Time International Ratio 1.1 RATIO Activated Partial Thromboplast Time 31.2 SEC Blood Urea Nitrogen 19 MG/DL Creatinine 1.97 MG/DL Random Glucose 220 MG/DL Total Protein 6.6 GM/DL Albumin 2.6 GM/DL Calcium Level 6.2 MG/DL Alkaline Phosphatase 135 U/L Aspartate Amino Transf (AST/SGOT) 15 U/L Alanine Aminotransferase (ALT/SGPT) 15 U/L Total Bilirubin 0.7 MG/DL Sodium Level 143 MEQ/L Potassium Level 3.6 MEQ/L Chloride Level 110 MEQ/L Carbon Dioxide Level 24.2 MEQ/L Anion Gap 9 MEQ/L Estimat Glomerular Filtration Rate 33 ML/MIN Protein Corrected Calcium 6.4 MG/DL Total Creatine Kinase 162 U/L Creatine Kinase MB 3.3 NG/ML Troponin I 0.05 NG/ML B-Type Natriuretic Peptide 1276 PG/ML MDM Medical Decision Making Medical Screen Exam Complete: Yes Emergency Medical Condition: Yes Medical Record Reviewed: Yes Interpretation(s) AFIB WITH SLOW VENTR RATE, TWAVE INVERSION LATERALLY NOTED Differential Diagnosis PULM EDEMA V PNA V PTX V CHF V CKD V STEMI V NONSTEMI Narrative Course upon evaluation foound to have xr findingsc/w pna, iv abx given, hypocalcemia provided some calcium replacement. elev bnp may be more related to ckd, but there likely is an aspect of pulm edema a well but admitting physician will manage that aspect. Critical Care Narrative CRITICAL CARE NOTE: With evaluation of the patient, labs, EKG, receipt of radiologic studies, administration of medications, reevaluation the patient and discussion of the patient with the admitting physicians, the total critical care time was [30] minutes. Time to perform other separately billable procedures was not included in the critical care time. Diagnosis Primary Impression: LLL pneumonia Qualified Codes: J18.1 - Lobar pneumonia, unspecified organism Additional Impressions: Hypocalcemia Hyperglycemia ACUTE ON CHRONIC KIDNEY DISEASE Yuri Serrano MD May 11, 2017 10:46
[2017-05-11] MEDS ORDERED: SODIUM CHLORIDE 0.9% FLUSH 10 ML FLUSH IVF PRN (11:00)
--- NOTE | 2017-05-11 11:40 | RADRPT ---
EXAM DATE/TIME: 05/11/2017 11:04 [facility] COMPARISON: CHEST SINGLE AP, March 12, 2017, 19:36. INDICATIONS : Shortness of breath. MEDICAL HISTORY : Diabetes mellitus type II. Hypertension SURGICAL HISTORY : Pacemaker. Cholecystectomy. ENCOUNTER: Initial ACUITY: 2 days PAIN SCORE: 0/10 LOCATION: Bilateral chest FINDINGS: Partially consolidated infiltrate in the left lower lung causing loss of delineation of the medial tw o thirds of left hemidiaphragm. The right lungs clear. Heart is normal in size. No evidence of pne umothorax. CONCLUSION: Partially consolidated infiltrate left lower lobe. Gomez Palacios MD on May 11, 2017 at 11:38 Board Certified Radiologist. This report was verified electronically.
[2017-05-11] MEDS ORDERED: AZITHROMYCIN INJ 500 MG in SODIUM CHLOR 0.9% 250 ML INJ 250 ML IV ONE (12:00)
[2017-05-11] MEDS ORDERED: cefTRIAXone INJ 1,000 MG in SODIUM CHLORIDE 0.9% INJ 100 ML IV ONE (12:00)
[2017-05-11 14:31] LABS: AUTOMATED NEUTROPHIL # 5.5 TH/MM3 (1.8-7.7); BASOPHIL # 0.1 TH/MM3 (0-0.2); BASOPHIL % 0.8 % (0.0-2.0); EOSINOPHIL # 0.2 TH/MM3 (0-0.4); EOSINOPHIL % 2.3 % (0.0-4.0); HEMATOCRIT 38.9 % (39.0-51.0); HEMO FLAGS DIFF FINAL; LYMPH % 24.6 % (9.0-44.0); LYMPHOCYTE # 2.1 TH/MM3 (1.0-4.8); MEAN CELL VOLUME 89.1 FL (80.0-100.0); MEAN CORPUSCULAR HEMOGLOBIN 30.3 PG (27.0-34.0); NEUT % 64.3 % (16.0-70.0); PLATELET COUNT 123 TH/MM3 (150-450); RED BLOOD COUNT 4.36 MIL/MM3 (4.50-5.90); RED CELL DISTRIBUTION WIDTH 15.4 % (11.6-17.2); WHITE BLOOD COUNT 8.6 TH/MM3 (4.0-11.0)
[2017-05-11 14:49] LABS: APTT (PATIENT) 31.2 SEC (24.3-30.1); INTERNATIONAL NORMALIZED RATIO 1.1 RATIO; PROTHROMBIN TIME - PATIENT 12.7 SEC (9.8-11.6)
[2017-05-11 15:25] LABS: ALKALINE PHOSPHATASE 135 U/L (45-117); ALT (GPT) 15 U/L (12-78); ANION GAP 9 MEQ/L (5-15); AST (GOT) 15 U/L (15-37); BICARBONATE 24.2 MEQ/L (21.0-32.0); BLOOD UREA NITROGEN 19 MG/DL (7-18); CHLORIDE 110 MEQ/L (98-107); CREATINE KINASE 162 U/L (39-308); GLOMERULAR FILTRATION RATE 33 ML/MIN (>89); POTASSIUM 3.6 MEQ/L (3.5-5.1); SODIUM (NA) 143 MEQ/L (136-145); TOTAL BILIRUBIN ADULT 0.7 MG/DL (0.2-1.0)
[2017-05-11 15:34] LABS: CALCIUM-PROTEIN CORRECTED 6.4 MG/DL (8.5-10.1)
[2017-05-11 16:02] LABS: CKMB 3.3 NG/ML (0.5-3.6)
[2017-05-11] MEDS ORDERED: SENNOSIDES 8.6 MG TAB PO PRN (16:30)
[2017-05-11] MEDS ORDERED: CALCIUM GLUCONATE INJ 1 GM in SODIUM CHLORIDE 0.9% INJ 90 ML IV ONE (16:30)
[2017-05-11] MEDS ORDERED: LACTULOSE SYRUP 20 GM/30 ML CUP PO PRN ×2 (16:30→16:45)
[2017-05-11] MEDS ORDERED: BISACODYL 10 MG SUPP RECTAL PRN ×2 (16:30→16:45)
[2017-05-11] MEDS ORDERED: SODIUM CHLORIDE 0.9% FLUSH 10 ML FLUSH IV FLUSH PRN ×2 (16:30→16:45)
[2017-05-11] MEDS ORDERED: NALOXONE HCL 0.4 MG/ML AMP IV PUSH PRN ×2 (16:30→16:45)
[2017-05-11] MEDS ORDERED: MAGNESIUM HYDROXIDE SUSP 30 ML CUP PO PRN (16:30)
[2017-05-11] MEDS ORDERED: MORPHINE SULFATE 4 MG/ML INJ IV PUSH PRN ×2 (16:45)
[2017-05-11] MEDS ORDERED: GLUCAGON 1 MG/ML VIAL OTHER PRN (16:45)
[2017-05-11] MEDS ORDERED: ONDANSETRON HCL 4 MG/2 ML VIAL IVP PRN (16:45)
[2017-05-11] MEDS ORDERED: oxyCODONE/ACETAMINOPHEN 10 MG/325 MG TAB PO PRN (16:45)
[2017-05-11] MEDS ORDERED: PROCHLORPERAZINE 25 MG SUPP RECTAL PRN (16:45)
[2017-05-11] MEDS ORDERED: ACETAMINOPHEN 325 MG TAB PO PRN ×2 (16:45)
[2017-05-11] MEDS ORDERED: DEXTROSE 50% IN WATER 50 ML VIAL(D50) IV PUSH PRN (16:45)
[2017-05-11] MEDS ORDERED: oxyCODONE/ACETAMINOPHEN 5 MG/325 MG TAB PO PRN (16:45)
[2017-05-11] MEDS ORDERED: RESP: ALBUTEROL 2.5 MG/IPRATROPIUM 0.5 MG NEB (PRN) NEB (16:45)
[2017-05-11] MEDS: INSULIN ASPART SUPPLEMENTAL SCALE SQ SCH ×2 (17:00→21:57)
[2017-05-11] MEDS ORDERED: POTASSIUM CHLORIDE 20 MEQ CONTROLLED RELEASE TAB PO ONE (17:00)
--- NOTE | 2017-05-11 17:11 | HHI.HP ---
[facility] Primary Care Physician Rivera Frazier MD Admission Diagnosis LLL PNA, HYPOCALCEMIA, HYPERGLYCEMIA Diagnoses: Chief Complaint: Respiratory symptoms Travel History International Travel<30 Days: No Contact w/Intl Traveler <30 Da: No Traveled to Known Affected Are: No History of Present Illness Patient is a 81-year-old gentleman. Who presented to the emergency department today with shortness of breath for several weeks. He has been taking his medications by discontinuing noticed gradual worsening of shortness of breath over the last few days. States that in the past shortness of breath is from a pleural effusion and has gets chest tubes on his back to drain the fluid. Patient believes that he is having similar symptoms. States he has had a dry nonproductive cough, no fevers, no sweats, and does not use oxygen at home Patient has an extensive medical history including congestive heart failure chronic kidney disease hypertension and pleural effusions. He will be admitted for pneumonia and dyspnea and congestive heart failure. And will be placed on antibiotics and diuresed Review of Systems Constitutional: COMPLAINS OF: Fatigue, Weight gain, DENIES: Diaphoretic episodes, Fever, Weight loss, Chills, Dizziness, Change in appetite Endocrine: DENIES: Heat/cold intolerance, Polydipsia, Polyuria, Polyphagia Eyes: DENIES: Blurred vision, Diplopia, Eye inflammation, Eye pain, Vision loss Ears, nose, mouth, throat: COMPLAINS OF: Hearing loss, DENIES: Tinnitus, Vertigo, Nasal discharge, Oral lesions, Throat pain, Hoarseness Respiratory: COMPLAINS OF: Cough, Sputum production, Shortness of breath, DENIES: Apneas, Snoring, Wheezing, Hemoptysis Cardiovascular: COMPLAINS OF: Dyspnea on Exertion, Lower Extremity Edema, DENIES: Chest pain, Palpitations, Syncope, PND, Orthopnea, Claudication Gastrointestinal: DENIES: Abdominal pain, Black stools, Bloody stools, Constipation, Diarrhea, Nausea, Vomiting Musculoskeletal: COMPLAINS OF: Joint pain, DENIES: Muscle aches, Stiffness, Joint Swelling, Back pain, Neck pain Integumentary: DENIES: Abnormal pigmentation, Nail changes Hematologic/lymphatic: DENIES: Bruising, Lymphadenopathy Immunologic/allergic: DENIES: Eczema, Urticaria Neurologic: DENIES: Abnormal gait, Headache, Localized weakness, Paresthesias, Seizures, Speech Problems, Tremor Psychiatric: DENIES: Anxiety, Confusion, Mood changes, Depression, Hallucinations, Agitation, Suicidal Ideation, Homicidal Ideation, Delusions Past Family Social History Past Medical History Congestive heart failure. Chronic kidney disease. Hypertension. History of pleural effusions. Diabetes. History of cerebrovascular accident. History of arthritis. History of hyperlipidemia. Chronic eye issues Vascular bypass lower extremities Heartburn Osteoarthritis Past Surgical History Abdominal surgery Cholecystectomy Left hand surgery Vascular bypass surgery lower extremities Bilateral filters Reported Medications Reported Meds & Active Scripts Active Catapres (Clonidine) 0.1 Mg Tab 0.1 Mg PO Q8HR Glucotrol (Glipizide) 5 Mg Tab 5 Mg PO DAILYAC 30 Days Hydralazine (Hydralazine HCl) 50 Mg Tab 50 Mg PO Q8HR 30 Days Reported Lisinopril 10 Mg Tab 10 Mg PO DAILY Carvedilol 6.25 Mg Tab 6.25 Mg PO BID Vitamin D3 (Cholecalciferol) 5,000 Unit Cap 5,000 Units PO DAILY Isosorbide Mononitrate ER (Isosorbide Mononitrate) 30 Mg Jennifer 30 Mg PO DAILY Atorvastatin (Atorvastatin Calcium) 20 Mg Tab 20 Mg PO HS Omeprazole 20 Mg Tab 20 Mg PO BID Allopurinol 100 Mg Tab 100 Mg PO DAILY Allergies: Coded Allergies: furosemide (Unverified Allergy, Severe, RASH, 05/11/17) hydrochlorothiazide (Unverified Allergy, Severe, Rash, 05/11/17) diclofenac (Unverified Adverse Reaction, Severe, GI BLEED, 05/11/17) etodolac (Unverified Adverse Reaction, Severe, GI BLEED, 05/11/17) flurbiprofen (Unverified Adverse Reaction, Severe, GI BLEED, 05/11/17) ibuprofen (Unverified Adverse Reaction, Severe, GI BLEED, 05/11/17) indomethacin (Unverified Adverse Reaction, Severe, GI BLEED, 05/11/17) ketoprofen (Unverified Adverse Reaction, Severe, GI BLEED, 05/11/17) ketorolac (Unverified Adverse Reaction, Severe, GI BLEED, 05/11/17) naproxen (Unverified Adverse Reaction, Severe, GI BLEED, 05/11/17) oxaprozin (Unverified Adverse Reaction, Severe, GI BLEED, 05/11/17) Active Ordered Medications Current Medications Sodium Chloride (NS Flush) 2 ml UNSCH PRN IVF FLUSH AFTER USING IV ACCESS; Start 05/11/17 at 11:00 Ceftriaxone Sodium 1000 mg/ Sodium Chloride 100 ml @ 200 mls/hr ONCE ONCE IV Last administered on 05/11/17 13:04; Start 05/11/17 at 12:00; Stop 05/11/17 at 12:29; Status DC Azithromycin 500 mg/Sodium Chloride 250 ml @ 250 mls/hr ONCE ONCE IV Last administered on 05/11/17 13:25; Start 05/11/17 at 12:00; Stop 05/11/17 at 12 :59; Status DC Sodium Chloride (NS Flush) 2 ml UNSCH PRN IV FLUSH FLUSH AFTER USING IV ACCESS ; Start 05/11/17 at 16:30; Status UNV Sodium Chloride (NS Flush) 2 ml BID IV FLUSH ; Start 05/11/17 at 21:00; Status UNV Naloxone HCl (Narcan Inj) 0.4 mg UNSCH PRN IV PUSH SEE LABEL COMMENTS; Start 05/11/17 at 16:30; Status UNV Senna/Docusate Sodium (Jina-Colace) 1 tab BID PO ; Start 05/11/17 at 21:00; Status UNV Magnesium Hydroxide (Milk Of Magnesia Liq) 30 ml Q12H PRN PO Mild constipation ; Start 05/11/17 at 16:30; Status UNV Sennosides (Senokot) 17.2 mg Q12H PRN PO Moderate constipation; Start at 16:30; Status UNV Bisacodyl (Dulcolax Supp) 10 mg DAILY PRN RECTAL SEVERE CONSITIPATION; Start 05/11/17 at 16:30; Status UNV Lactulose (Lactulose Liq) 30 ml DAILY PRN PO SEVERE CONSITIPATION; Start 05/11 at 16:30; Status UNV Ceftriaxone Sodium 1000 mg/ Sodium Chloride 100 ml @ 200 mls/hr Q24H IV ; Start 05/12/17 at 12:00; Status UNV Azithromycin 500 mg/Sodium Chloride 250 ml @ 250 mls/hr Q24H IV ; Start at 12:00; Status UNV Calcium Gluconate 1 gm/Sodium Chloride 100 ml @ 100 mls/hr ONCE ONCE IV ; Start 05/11/17 at 16:30; Stop 05/11/17 at 17:29 Bumetanide (Bumex Inj) 1 mg DAILY IV PUSH ; Start 05/11/17 at 16:45 Dextrose (D50w (Vial) Inj) 50 ml UNSCH PRN IV PUSH HYPOGLYCEMIA-SEE COMMENTS; Start 05/11/17 at 16:45; Status UNV Glucagon (Glucagon Inj) 1 mg UNSCH PRN OTHER HYPOGLYCEMIA-SEE COMMENTS; Start 05/11/17 at 16:45; Status UNV Insulin Aspart (NovoLOG SUPPLEMENTAL SCALE) 1 ACHS SLIDING SCALE SQ ; Start at 17:00; Status UNV Allopurinol (Zyloprim) 100 mg DAILY PO ; Start 05/12/17 at 09:00 Atorvastatin Calcium (Lipitor) 20 mg HS PO ; Start 05/11/17 at 21:00; Status UNV Carvedilol (Coreg) 6.25 mg BID PO ; Start 05/11/17 at 21:00 Cholecalciferol (Vitamin D3) 5,000 units DAILY PO ; Start 05/12/17 at 09:00; Status UNV Clonidine (Catapres) 0.1 mg Q8HR PO ; Start 05/11/17 at 22:00 Hydralazine HCl (Apresoline) 50 mg Q8HR PO ; Start 05/11/17 at 22:00 Isosorbide Mononitrate (Imdur) 30 mg DAILY PO ; Start 05/12/17 at 09:00; Status UNV Non-Formulary Medication 20 mg BID PO ; Start 05/11/17 at 21:00; Status UNV Potassium Chloride (KCl) 40 meq ONCE ONCE PO ; Start 05/11/17 at 17:00; Stop 05/11/17 at 17:01; Status UNV Potassium Chloride (KCl) 20 meq Q12HR PO ; Start 05/11/17 at 21:00; Status UNV Family History Tobacco abuse Both parents Social History Tobacco abuse still actively smoking daily Denies any alcohol or illicits Physical Exam Vital Signs Vital Signs Date Time Temp Pulse Resp B/P (MAP) Pulse Ox O2 Delivery O2 Flow Rate FiO2 05/11/17 13:06 47 18 177/90 (119) 97 Room Air 05/11/17 10:52 96 Room Air 05/11/17 10:52 97 Room Air 05/11/17 10:24 98.2 60 16 223/100 (141) 97 Physical Exam GENERAL: This is a well-nourished, well-developed patient, in no apparent distress. SKIN: No rashes, ecchymoses or lesions. Cool and dry. HEAD: Atraumatic. Normocephalic. No temporal or scalp tenderness. EYES: Pupils equal round and reactive. Extraocular motions intact. No scleral icterus. No injection or drainage. ENT: Nose without bleeding, purulent drainage or septal hematoma. Throat without erythema, tonsillar hypertrophy or exudate. Uvula midline. Airway patent. NECK: Trachea midline. Some JVD or lymphadenopathy. Supple, nontender, no meningeal signs. CARDIOVASCULAR: IRRegular rate and rhythm without murmurs, gallops, or rubs. S1 and S2 no S3 or S4 no heave or thrill or rub or gallop RESPIRATORY: Decreased Breath sounds equal bilaterally. No wheezes, few basilar rales/rhonchi GASTROINTESTINAL: Abdomen soft, non-tender, nondistended. No hepato-splenomegaly , or palpable masses. No guarding. MUSCULOSKELETAL: Extremities without clubbing, cyanosis, +1-2 lower extremity edema. No joint tenderness, effusion, or +1-2 lower extremity edema. No calf tenderness. Negative Homans sign bilaterally. NEUROLOGICAL: Awake and alert. Cranial nerves II through XII intact. Motor and sensory grossly within normal limits. Five out of 5 muscle strength in all muscle groups. Normal speech. Patient has hearing loss Insight and judgment is good mood and behavior somewhat appropriate Laboratory Laboratory Tests Test 05/11/17 12:10 White Blood Count 8.6 Red Blood Count 4.36 Hemoglobin 13.2 Hematocrit 38.9 Mean Corpuscular Volume 89.1 Mean Corpuscular Hemoglobin 30.3 Mean Corpuscular Hemoglobin Concent 34.0 Red Cell Distribution Width 15.4 Platelet Count 123 Mean Platelet Volume 7.9 Neutrophils (%) (Auto) 64.3 Lymphocytes (%) (Auto) 24.6 Monocytes (%) (Auto) 8.0 Eosinophils (%) (Auto) 2.3 Basophils (%) (Auto) 0.8 Neutrophils # (Auto) 5.5 Lymphocytes # (Auto) 2.1 Monocytes # (Auto) 0.7 Eosinophils # (Auto) 0.2 Basophils # (Auto) 0.1 CBC Comment DIFF FINAL Differential Comment Prothrombin Time 12.7 Prothromb Time International Ratio 1.1 Activated Partial Thromboplast Time 31.2 Blood Urea Nitrogen 19 Creatinine 1.97 Random Glucose 220 Total Protein 6.6 Albumin 2.6 Calcium Level 6.2 Alkaline Phosphatase 135 Aspartate Amino Transf (AST/SGOT) 15 Alanine Aminotransferase (ALT/SGPT) 15 Total Bilirubin 0.7 Sodium Level 143 Potassium Level 3.6 Chloride Level 110 Carbon Dioxide Level 24.2 Anion Gap 9 Estimat Glomerular Filtration Rate 33 Protein Corrected Calcium 6.4 Total Creatine Kinase 162 Creatine Kinase MB 3.3 Troponin I 0.05 B-Type Natriuretic Peptide 1276 Result Diagram: 05/11/17 1210 05/11/17 1210 Imaging Last Impressions Chest X-Ray 05/11/17 1046 Signed Impressions: Service Date/Time: Thursday, May 11, 2017 11:04 - CONCLUSION: Partially consolidated infiltrate left lower lobe. Gomez Palacios MD Caphusseini VTE Risk Assessment Caprini VTE Risk Assessment: Mod/High Risk (score >= 2) Caprini Risk Assessment Model Point Value = 1 Point Value = 2 Point Value = 3 Point Value = 5 Age 41-60 Minor surgery BMI > 25 kg/m2 Swollen legs Varicose veins or History of unexplained or recurrent spontaneous Oral contraceptives or hormone replacement Sepsis (< 1 month) Serious lung disease, including pneumonia (< 1 month) Abnormal pulmonary function Acute myocardial infarction Congestive heart failure (< 1 month) History of inflammatory bowel disease Medical patient at bed rest Age 61-74 Arthroscopic surgery Major open surgery (> 45 min) Laparoscopic surgery (> 45 min) Malignancy Confined to bed (> 72 hours) Immobilizing plaster cast Central venous access Age >= 75 History of VTE Family history of VTE Factor V Leiden Prothrombin [id number] Lupus anticoagulant Anticardiolipin antibodies Elevated serum homocysteine Heparin-induced thrombocytopenia Other congenital or acquired thrombophilia Stroke (< 1 month) Elective arthroplasty Hip, pelvis, or leg fracture Acute spinal cord injury (< 1 month) Prophylaxis Regimen Total Risk Factor Score Risk Level Prophylaxis Regimen 0-1 Low Early ambulation 2 Moderate Order ONE of the following: *Sequential Compression Device (SCD) *Heparin 5000 units SQ BID 3-4 Higher Order ONE of the following medications: *Heparin 5000 units SQ TID *Enoxaparin/Lovenox 40 mg SQ daily (WT < 150 kg, CrCl > 30 mL/min) *Enoxaparin/Lovenox 30 mg SQ daily (WT < 150 kg, CrCl > 10-29 mL/min) *Enoxaparin/Lovenox 30 mg SQ BID (WT < 150 kg, CrCl > 30 mL/min) AND/OR *Sequential Compression Device (SCD) 5 or more Highest Order ONE of the following medications: *Heparin 5000 units SQ TID (Preferred with Epidurals) *Enoxaparin/Lovenox 40 mg SQ daily (WT < 150 kg, CrCl > 30 mL/min) *Enoxaparin/Lovenox 30 mg SQ daily (WT < 150 kg, CrCl > 10-29 mL/min) *Enoxaparin/Lovenox 30 mg SQ BID (WT < 150 kg, CrCl > 30 mL/min) AND *Sequential Compression Device (SCD) Assessment and Plan Assessment and Plan Congestive heart failure Will diurese with Bumex since he is not allergic to that we'll replace potassium Hypokalemia Will replace with potassium Pneumonia left lower lobe continue on Zithromax and Rocephin as well as duo nebs and Mucinex Diabetes continue on sliding scale and Accu-Cheks before meals and at bedtime GERD/heartburn continue on PPI History of CVA History of cardiac disorders Hypertension continue home medications Hyperlipidemia continue home medications Smoking cessation recommended continue on NicoDerm patch We'll get physical therapy and occupational therapy to eval and treat We'll diuresis and treat with antibiotics will continue on incentive spirometry and Mucinex Continue his home medications Last physical therapy and occupational therapy to eval and treat Continue on GI and DVT prophylaxis continue on heparin subcutaneous Code Status Full code Discussed Condition With ER PHYSICIAN AND patient and RN Physician Certification 2 Midnight Certification Type: Admission for Inpatient Services Order for Inpatient Services The services are ordered in accordance with Medicare regulations or non- Medicare payer requirements, as applicable. In the case of services not specified as inpatient-only, they are appropriately provided as inpatient services in accordance with the 2-midnight benchmark. Estimated LOS (days): 3 3 days is the estimated time the patient will need to remain in the hospital, assuming treatment plan goals are met and no additional complications. Post-Hospital Plan: Not yet determined Jeff Castro DO May 11, 2017 17:11
[2017-05-11] MEDS: NICOTINE 7 MG/24 HR PATCH T-DERMAL SCH (18:00)
[2017-05-11] MEDS: ENOXAPARIN SODIUM 30 MG/0.3 ML SYRINGE SQ SCH (18:00)
[2017-05-11] MEDS: BUMETANIDE INJ 1 MG/4 ML VIAL IV PUSH SCH (18:02)
[2017-05-11] MEDS ORDERED: SODIUM CHLORIDE 0.9% FLUSH 10 ML FLUSH IV FLUSH SCH (21:00)
[2017-05-11] MEDS: DOCUSATE SODIUM 50 MG/SENNA 8.6 MG TAB PO SCH (21:00)
[2017-05-11] MEDS ORDERED: NON-FORMULARY DRUG (Omeprazole 20 MG) PO SCH (21:00)
[2017-05-11] MEDS: guaiFENesin E.R. 600 MG TAB PO SCH (21:55)
[2017-05-11] MEDS: ATORVASTATIN 20 MG TAB PO SCH (21:55)
[2017-05-11] MEDS: PANTOPRAZOLE SOD 20 MG DELAYED RELEASE TAB PO SCH (21:56)
[2017-05-11] MEDS: CARVEDILOL 6.25 MG TAB PO SCH (21:56)
[2017-05-11] MEDS: POTASSIUM CHLORIDE 20 MEQ CONTROLLED RELEASE TAB PO SCH (21:56)
[2017-05-11] MEDS: cloNIDine HCL 0.1 MG TAB PO SCH (21:59)
[2017-05-11] MEDS: hydrALAZINE HCL 50 MG TAB PO SCH (21:59)
[2017-05-11] MEDS: SODIUM CHLORIDE 0.9% FLUSH 10 ML FLUSH IV FLUSH SCH (22:08)
[2017-05-12] VITALS (15 sets, daily range): BP systolic 157–229; BP diastolic 70–108; PULSE 48–64; RESP 9–24; TEMP 97.5–98.4; O2SAT 91–100
[2017-05-12 04:13] LABS: AUTOMATED NEUTROPHIL # 4.9 TH/MM3 (1.8-7.7); BASOPHIL # 0.1 TH/MM3 (0-0.2); BASOPHIL % 1.2 % (0.0-2.0); EOSINOPHIL # 0.2 TH/MM3 (0-0.4); EOSINOPHIL % 2.3 % (0.0-4.0); HEMATOCRIT 36.8 % (39.0-51.0); HEMO FLAGS DIFF FINAL; LYMPH % 30.9 % (9.0-44.0); LYMPHOCYTE # 2.6 TH/MM3 (1.0-4.8); MEAN CELL VOLUME 88.1 FL (80.0-100.0); MEAN CORPUSCULAR HEMOGLOBIN 30.2 PG (27.0-34.0); MEAN CORPUSCULAR HGB CONC 34.3 % (32.0-36.0); MONO % 8.2 % (0.0-8.0); NEUT % 57.4 % (16.0-70.0); PLATELET COUNT 115 TH/MM3 (150-450); RED BLOOD COUNT 4.17 MIL/MM3 (4.50-5.90); RED CELL DISTRIBUTION WIDTH 15.1 % (11.6-17.2); WHITE BLOOD COUNT 8.6 TH/MM3 (4.0-11.0)
[2017-05-12] MEDS: cloNIDine HCL 0.1 MG TAB PO SCH ×3 (04:51→21:45)
[2017-05-12] MEDS: hydrALAZINE HCL 50 MG TAB PO SCH ×3 (04:51→21:44)
[2017-05-12 04:55] LABS: ALKALINE PHOSPHATASE 113 U/L (45-117); ALT (GPT) 11 U/L (12-78); ANION GAP 10 MEQ/L (5-15); AST (GOT) 17 U/L (15-37); BICARBONATE 23.4 MEQ/L (21.0-32.0); BLOOD UREA NITROGEN 19 MG/DL (7-18); CHLORIDE 112 MEQ/L (98-107); CREATINE KINASE 145 U/L (39-308); FREE T4 1.43 NG/DL (0.76-1.46); GLOMERULAR FILTRATION RATE 37 ML/MIN (>89); MAGNESIUM 0.4 MG/DL (1.5-2.5); POTASSIUM 3.5 MEQ/L (3.5-5.1); SODIUM (NA) 145 MEQ/L (136-145); TOTAL BILIRUBIN ADULT 0.8 MG/DL (0.2-1.0)
[2017-05-12] MEDS ORDERED: hydrALAZINE HCL 50 MG TAB PO ONE (05:15)
[2017-05-12] MEDS ORDERED: CALCIUM GLUCONATE INJ 1 GM in DEXTROSE 5% IN WATER 100ML INJ 100 ML IV ONE ×4 (05:15→06:00)
[2017-05-12] MEDS: MAGNESIUM SULFATE 1 GM PREMIX 100 ML IV SCH ×4 (05:46→11:02)
--- NOTE | 2017-05-12 07:38 | EKG ---
Date Performed: 05/11/2017 Time Performed: 11:15:28 PTAGE: 81 years EKG: ATRIAL FIBRILLATION WITH SLOW VENTRICULAR RESPONSE LEFT ANTERIOR FASCICULAR BLOCK POSSIBLE ANTERIOR MYOCARDIAL INFARCTION MODERATE T-WAVE ABNORMALITY, CONSIDER LATERAL ISCHEMIA ABNORMAL ECG PREVIOUS TRACING : 03/13/2017 09.42 DOCTOR: Vernon Carballo Interpretating Date/Time 05/12/2017 07:36:44
[2017-05-12] MEDS: INSULIN ASPART SUPPLEMENTAL SCALE SQ SCH ×3 (08:00→21:00)
[2017-05-12] MEDS: REMOVE OLD PATCH T-DERMAL SCH (09:00)
[2017-05-12] MEDS: ALLOPURINOL 100 MG TAB PO SCH (09:29)
[2017-05-12] MEDS: CHOLECALCIFEROL (VIT D3) 5000 UNIT CAP PO SCH (09:30)
[2017-05-12] MEDS: DOCUSATE SODIUM 50 MG/SENNA 8.6 MG TAB PO SCH ×2 (09:30→21:00)
[2017-05-12] MEDS: guaiFENesin E.R. 600 MG TAB PO SCH ×2 (09:30→21:19)
[2017-05-12] MEDS: POTASSIUM CHLORIDE 20 MEQ CONTROLLED RELEASE TAB PO SCH ×2 (09:31→21:20)
[2017-05-12] MEDS: CARVEDILOL 6.25 MG TAB PO SCH (09:31)
[2017-05-12] MEDS: ISOSORBIDE MONONITRATE 30 MG TAB PO SCH (09:31)
[2017-05-12] MEDS: PANTOPRAZOLE SOD 20 MG DELAYED RELEASE TAB PO SCH ×2 (09:32→21:20)
[2017-05-12] MEDS: BUMETANIDE INJ 1 MG/4 ML VIAL IV PUSH SCH (09:32)
[2017-05-12] MEDS: SODIUM CHLORIDE 0.9% FLUSH 10 ML FLUSH IV FLUSH SCH ×2 (09:36→21:21)
[2017-05-12 10:20] LABS: HEMOGLOBIN Ao 81.9 %; HEMOGLOBIN LA1C 2.2 %; HEMOGLOBIN P3 6.3 %
[2017-05-12] MEDS ORDERED: ASPIRIN 81 MG CHEW TAB CHEW ONE (12:00)
[2017-05-12] MEDS: cefTRIAXone INJ 1,000 MG in SODIUM CHLORIDE 0.9% INJ 100 ML IV SCH (12:25)
[2017-05-12] MEDS ORDERED: CLEVIDIPINE INJ 50 ML IV PRN (12:30)
--- NOTE | 2017-05-12 12:38 | HHI.PR ---
Subjective Remarks I came to see the patient to find his blood pressure is 229/108 with a heart rate reaching down to 35 with pauses EKG showed A. fib with slow response anterior left fascicular block with inverted T-wave Patient clinically was stable in bed awake alert he did not report any chest pain or tightness any palpitation or dizziness or lightheadedness, he has a history of bradycardia he had a heart catheter which was unremarkable He has a history of CHF and now came with pneumonia, also patient told me he is a smoker since he was 17 years old with 2 pack a day Objective Vitals Vital Signs Date Time Temp Pulse Resp B/P (MAP) Pulse Ox O2 Delivery O2 Flow Rate FiO2 05/12/17 10:35 96 21 05/12/17 08:00 97.6 61 20 229/108 (148) 96 05/12/17 05:58 96 05/12/17 04:00 98.4 58 18 226/96 (139) 91 05/12/17 00:00 98.3 53 18 193/100 (131) 93 05/11/17 20:24 49 05/11/17 20:00 99.3 57 18 220/98 (138) 92 05/11/17 19:54 94 05/11/17 18:14 47 18 162/82 (108) 98 05/11/17 17:25 97 05/11/17 13:06 47 18 177/90 (119) 97 Room Air I/O 05/11/17 05/11/17 05/11/17 05/12/17 05/12/17 05/12/17 07:00 15:00 23:00 07:00 15:00 23:00 Intake Total 350 ml 100 ml 110 ml 110 ml Balance 350 ml 100 ml 110 ml 110 ml Intake IV Total 350 ml 100 ml 110 ml 110 ml # Bowel Movements 1 Result Diagram: 05/12/17 0354 05/12/17 0354 Imaging Last Impressions Chest X-Ray 05/11/17 1046 Signed Impressions: Service Date/Time: Thursday, May 11, 2017 11:04 - CONCLUSION: Partially consolidated infiltrate left lower lobe. Gomez Palacios MD Objective Remarks - GENERAL: This is a well-nourished, well-developed patient, in no apparent distress. CARDIOVASCULAR: Irregularly irregular bradycardia rhythm without murmurs, gallops, or rubs. RESPIRATORY: Bilateral basilar crackles equal bilaterally. No wheezes, rales, or rhonchi. GASTROINTESTINAL: Abdomen soft, non-tender, nondistended. Normal, active bowel sounds MUSCULOSKELETAL: Extremities without clubbing, cyanosis, or edema. NEURO: Alert & Oriented x4 to person, place, time, situation. Moves all ext x4 Procedures EKG A. fib with slow ventricular response, left anterior fascicular block can't rule out anterior infarct A/P Assessment and Plan Community-acquired pneumonia Bradycardia nonsymptomatic with pauses A. fib with slow ventricular response Hypertensive urgency Increase troponin CHF Tobacco abuse Hypocalcemia AST of stroke CVA in the past Diabetes mellitus DVT prophylaxis Plan: Stat EKG, stat cardiac enzymes, aspirin one dose to be given Start Cardene drip it will help to increase heart rate, I personally reviewed EKG as mentioned above No beta miki Consult cardiology Sayed for bradycardia with pauses Transfer patient to ICU Consult therapist physical I discussed with Dr. Sandoval he agreed with starting Cardene drip, cardiac enzymes, Patient has been on hydralazine and clonidine, Bumex iv will continue Bumex monitor closely in the ICU Follow cardiac enzyme will defer starting in the coagulation to therapist physical Patient received calcium gluconate Critical care time 60 minutes Melba Shaw MD May 12, 2017 12:38
[2017-05-12] MEDS: AZITHROMYCIN INJ 500 MG in SODIUM CHLOR 0.9% 250 ML INJ 250 ML IV SCH (13:09)
[2017-05-12 13:10] LABS: CREATINE KINASE 128 U/L (39-308)
[2017-05-12 13:22] LABS: CKMB 2.9 NG/ML (0.5-3.6)
[2017-05-12] MEDS ORDERED: POTASSIUM CHLORIDE 25 MEQ EFFERVESCENT TAB PO PRN (14:00)
[2017-05-12] MEDS ORDERED: POTASSIUM CHLOR 40 MEQ PREMIX 100 ML IV PRN ×2 (14:00)
[2017-05-12] MEDS ORDERED: MAGNESIUM OXIDE 400 MG TAB PO PRN (14:00)
[2017-05-12] MEDS ORDERED: SODIUM PHOSPHATE INJ 30 MMOL in SODIUM CHLOR 0.9% 250 ML INJ 240 ML IV PRN (14:00)
[2017-05-12] MEDS ORDERED: POTASSIUM CHLOR 20 MEQ PREMIX 100 ML IV PRN ×2 (14:00)
[2017-05-12] MEDS ORDERED: MAGNESIUM SULFATE INJ 4 GM in SODIUM CHLORIDE 0.9% INJ 92 ML IV PRN (14:00)
[2017-05-12] MEDS ORDERED: POTASSIUM PHOSPHATE INJ 30 MMOL in SODIUM CHLOR 0.9% 250 ML INJ 250 ML IV PRN (14:00)
[2017-05-12] MEDS ORDERED: POTASSIUM PHOSPHATE MONOBASIC 500 MG TAB PO/TUBE PRN (14:00)
[2017-05-12] MEDS ORDERED: MAGNESIUM SULFATE INJ 2 GM in SODIUM CHLORIDE 0.9% INJ 96 ML IV PRN (14:00)
[2017-05-12] MEDS ORDERED: POTASSIUM PHOSPHATE MONOBASIC 500 MG TAB PO PRN (14:00)
[2017-05-12] MEDS: niCARdipine INJ 25 MG in SODIUM CHLOR 0.9% 250 ML INJ 240 ML IV PRN (14:12)
--- NOTE | 2017-05-12 14:32 | RADRPT ---
EXAM DATE/TIME: 05/12/2017 14:00 [facility] COMPARISON: CHEST SINGLE AP, May 11, 2017, 11:04. INDICATIONS : Short of breath. MEDICAL HISTORY : Congestive heart failure. Cerebrovascular disease. Cardiovascular disease Hypertension SURGICAL HISTORY : None. ENCOUNTER: Subsequent ACUITY: 2 days PAIN SCORE: 0/10 LOCATION: Bilateral chest FINDINGS: Redemonstration of retrocardiac opacity with slight increased interstitial prominence likely due to d ecreased lung volume. Cardiomediastinal contours are stable. Remainder of the exam is unchanged. CONCLUSION: 1. Redemonstration of left lower lobe airspace consolidation. 2. Mild positive fluid balance. Alex Stinson MD on May 12, 2017 at 14:28 Board Certified Radiologist. This report was verified electronically.
--- NOTE | 2017-05-12 14:38 | MB ---
cc: TOMAS ELY M.D. DATE OF CONSULTATION: 05/12/2017 DATE OF : 1935 HISTORY OF PRESENT ILLNESS The patient is a 81-year-old male with a past medical history of CHF, hypertension, chronic kidney disease, diabetes mellitus, hyperlipidemia, CVA and peripheral vascular disease. He was admitted to [facility] on May 11 under the hospitalist service for CHF decompensation and hypertensive urgency. On arrival the patient had a systolic blood pressure in the 170s to 200s. A chest x-ray showed a partially consolidated infiltrate in the left lower lobe. His laboratory data was significant for acute on chronic kidney disease with creatinine of 1.97 which improved to 1.77 today. His BNP was elevated at 1276. The patient was placed on diuretics and multiple antihypertensive meds. In addition he was on Rocephin and Zithromax for the left lower lobe infiltrate. The patient was afebrile and there was no evidence of any leukocytosis. Due to uncontrolled hypertension and systolic blood pressure over 200 he was transferred [place] [facility] [place] and critical care medicine was consulted for critical care management. He is currently on 2 liters of oxygen with a saturation of 98% and blood pressure of 222/107. A Cardene drip was ordered by the primary team prior to transfer to the ICU. The patient states that his breathing is better. He is on diuretics for CHF. He denies any chest pain, orthopnea, PND or edema of his lower extremities. In addition he denies any cough or constitutional symptoms. The patient denies any nausea, vomiting or abdominal pain. PAST MEDICAL HISTORY 1. CHF. 2. Chronic kidney disease. 3. Hypertension. 4. Diabetes mellitus. 5. CVA. 6. Hyperlipidemia. 7. Peripheral vascular disease. 8. Osteoarthritis. PAST SURGICAL HISTORY 1. Previous cholecystectomy. 2. Previous vascular bypass surgery on the lower extremities. 3. Left hand surgery. ALLERGIES 1. NAPROXEN. 2. INDOMETHACIN. 3. IBUPROFEN. 4. HYDROCHLOROTHIAZIDE. 5. LASIX. SOCIAL HISTORY The patient is an active smoker where he smokes one pack of cigarettes a week and has been a smoker for 50 years. He quit drinking about four or five years ago. MEDICATIONS Current medications: 1. DuoNeb. 2. Ceftriaxone. 3. Azithromycin. 4. Aspirin. 5. Lovenox subcu. 6. Hydralazine. 7. Coreg. 8. Imdur. REVIEW OF SYSTEMS As per HPI. The rest of the review of systems is unremarkable. PHYSICAL EXAMINATION GENERAL: A 81-year-old male lying in bed in no acute respiratory distress, hypertensive. VITAL SIGNS: Temperature 97.6, pulse 55, blood pressure 222/107, saturation 98% on 2 liter oxygen. HEENT: Atraumatic, normocephalic. Pupils equal, round and reactive to light and accommodation. Extraocular muscles intact. Conjunctiva pink. Non-icteric sclera. Oral mucosa within normal. NECK: Supple. No JVD. No adenopathy. No thyromegaly. Trachea in the midline. CARDIOVASCULAR: Regular rate and rhythm. Normal S1, S2. No murmurs, rubs or gallops noted. PULMONARY: Bilateral equal air entry. No rales or wheezing. ABDOMEN: Soft, nontender, no distension. Positive bowel sounds. EXTREMITIES: No cyanosis, clubbing or edema. NEUROLOGIC: No focal sensory deficit. LABORATORY DATA WBC 8.6, hemoglobin 12.6, hematocrit 36, platelet count 115. Sodium 145, potassium 3.5, chloride 112, CO2 23, BUN 19, creatinine 1.77, glucose 116, corrected calcium 7.0, magnesium 0.4. Troponin 0.06 x2 sets. BNP 917. RADIOGRAPHIC STUDIES Chest x-ray from yesterday showed partially consolidated infiltrate in the left lower lobe. IMPRESSION 1. Hypertensive urgency. 2. Respiratory insufficiency. 3. Left lower lobe infiltrate. 4. Acute on chronic kidney disease. 5. CHF. 6. Diabetes mellitus. 7. History of CVA. PLAN/RECOMMENDATIONS 1. Monitor neuro status closely and avoid any sedatives. 2. Continue with oxygen and maintain sats above 92%. 3. Bronchodilators in the form of DuoNeb q.4h. p.r.n. for shortness of breath. 4. Will check a chest x-ray now. 5. The patient will be started on a Cardene drip for BP control, continued on antihypertensive meds. He is currently on Coreg 6.25 mg b.i.d., hydralazine 50 mg q.8h., Imdur 30 mg daily, clonidine 0.1 mg q.8h. An echocardiogram from February showed an EF of 50-55% and moderate pulmonary hypertension with a PA pressure of 50-60 mmHg. His troponin is 0.06 x2 sets. 6. Continue with diuretics. Will check a BMP now. 7. Monitor renal function, I's and O's, and avoid nephrotoxins. Electrolyte replacement per protocol. His renal function is improving, creatinine is down to 1.77 from 1.97 on admission. He will need magnesium replacement today. 8. Continue with a p.o. diet. The patient is on Protonix 20 mg p.o. b.i.d. 9. Continue with diuretics. He is on Bumex 1 mg IV daily and KCl 20 mEq p.o. q.12h. 10.Continue with antibiotics in the form of Rocephin and Zithromax and monitor for signs of infections. Will obtain a sputum culture with a Gram stain and will repeat the chest x-ray today. 11.Continue with sliding scale insulin and Accu-Chek for glycemic control. 12.GI prophylaxis with Protonix 20 mg b.i.d., and DVT prophylaxis with SCDs and Lovenox 30 mg subcu daily. 13.Will repeat labs now which include CBC and BMP. 14.Further recommendations will be based on the hospital course. MD ASUNCION Kang/MARY ELLEN /1:44 PM /2:11 PM
[2017-05-12] MEDS: ENOXAPARIN SODIUM 30 MG/0.3 ML SYRINGE SQ SCH (17:31)
[2017-05-12 17:32] LABS: AUTOMATED NEUTROPHIL # 6.6 TH/MM3 (1.8-7.7); BASOPHIL # 0.1 TH/MM3 (0-0.2); BASOPHIL % 0.9 % (0.0-2.0); EOSINOPHIL # 0.2 TH/MM3 (0-0.4); EOSINOPHIL % 2.4 % (0.0-4.0); HEMATOCRIT 41.5 % (39.0-51.0); HEMO FLAGS DIFF FINAL; LYMPHOCYTE # 2.2 TH/MM3 (1.0-4.8); MEAN CORPUSCULAR HEMOGLOBIN 29.8 PG (27.0-34.0); MEAN CORPUSCULAR HGB CONC 33.9 % (32.0-36.0); NEUT % 65.7 % (16.0-70.0); PLATELET COUNT 126 TH/MM3 (150-450); RED BLOOD COUNT 4.72 MIL/MM3 (4.50-5.90)
[2017-05-12 17:57] LABS: BICARBONATE 20.6 MEQ/L (21.0-32.0); MAGNESIUM 0.9 MG/DL (1.5-2.5); POTASSIUM 3.8 MEQ/L (3.5-5.1)
[2017-05-12 18:29] LABS: CALCIUM-PROTEIN CORRECTED 7.4 MG/DL (8.5-10.1)
[2017-05-12 18:33] LABS: CREATINE KINASE 137 U/L (39-308)
[2017-05-12 18:45] LABS: CKMB 3.6 NG/ML (0.5-3.6)
[2017-05-12] MEDS: ATORVASTATIN 20 MG TAB PO SCH (21:19)
[2017-05-12] MEDS ORDERED: CALCIUM GLUCONATE INJ 2 GM in DEXTROSE 5% IN WATER 100ML INJ 100 ML IV ONE ×2 (22:00)
[2017-05-12] MEDS ORDERED: CHLORHEXIDINE GLUCONATE 2 % 1 PACK (2 CLOTHS)(extra cloths) TOPICAL PRN (22:30)
[2017-05-13] VITALS (12 sets, daily range): BP systolic 141–208; BP diastolic 65–87; PULSE 45–64; RESP 14–19; TEMP 97.4–98; O2SAT 91–96
[2017-05-13] MEDS: niCARdipine INJ 25 MG in SODIUM CHLOR 0.9% 250 ML INJ 240 ML IV PRN ×2 (00:09→12:06)
[2017-05-13 02:44] LABS: BASOPHIL # 0.1 TH/MM3 (0-0.2); BASOPHIL % 0.7 % (0.0-2.0); EOSINOPHIL # 0.3 TH/MM3 (0-0.4); EOSINOPHIL % 2.9 % (0.0-4.0); HEMATOCRIT 41.8 % (39.0-51.0); HEMO FLAGS DIFF FINAL; LYMPH % 21.7 % (9.0-44.0); MEAN CELL VOLUME 88.3 FL (80.0-100.0); MEAN CORPUSCULAR HEMOGLOBIN 30.3 PG (27.0-34.0); MEAN CORPUSCULAR HGB CONC 34.3 % (32.0-36.0); NEUT % 65.7 % (16.0-70.0); PLATELET COUNT 127 TH/MM3 (150-450); RED BLOOD COUNT 4.73 MIL/MM3 (4.50-5.90); RED CELL DISTRIBUTION WIDTH 15.3 % (11.6-17.2); WHITE BLOOD COUNT 9.1 TH/MM3 (4.0-11.0)
[2017-05-13 03:01] LABS: ANION GAP 11 MEQ/L (5-15); BICARBONATE 22.1 MEQ/L (21.0-32.0); BLOOD UREA NITROGEN 20 MG/DL (7-18); CHLORIDE 110 MEQ/L (98-107); GLOMERULAR FILTRATION RATE 34 ML/MIN (>89); POTASSIUM 3.7 MEQ/L (3.5-5.1); SODIUM (NA) 143 MEQ/L (136-145)
[2017-05-13 03:06] LABS: CREATINE KINASE 135 U/L (39-308)
[2017-05-13 03:18] LABS: CKMB 3.6 NG/ML (0.5-3.6)
[2017-05-13] MEDS: CHLORHEXIDINE GLUCONATE 2 % 1 PACK (2 CLOTHS)(taper/protocol) TOPICAL SCH (04:00)
[2017-05-13] MEDS: hydrALAZINE HCL 50 MG TAB PO SCH ×4 (06:00→20:14)
[2017-05-13] MEDS: cloNIDine HCL 0.1 MG TAB PO SCH ×3 (06:00→20:15)
--- NOTE | 2017-05-13 06:24 | MB ---
cc: DELROY SHANKS DO DATE OF CONSULTATION May 12, 2017 REASON FOR CONSULTATION Accelerated hypertension, bradycardia. HISTORY OF PRESENT ILLNESS Lee Mcmahan is a pleasant 81-year-old male who originally presented to [facility] emergency room on May 11, 2017 due to shortness of breath. He states that his shortness of breath was increasing over the past few days and similar to previous symptoms when he had a pleural effusion so he presented to the emergency room. He was admitted to the floor and then he was noted to have blood pressures around 200/100. There was also concern as his heart rates are in the upper 40s/low 50s. Because this he was transferred to the ICU and placed on a Cardene drip. In seeing him he states that he is currently without chest pain or shortness of breath. He is currently on a Cardene drip and blood pressures have stabilized. PAST MEDICAL HISTORY 1. Congestive heart failure, most likely diastolic in nature with an ejection fraction of 50-55% by echocardiogram (March 13, 2017). 2. Hypertension. 3. Chronic kidney disease. 4. Diabetes mellitus. 5. History of CVA. 6. Hyperlipidemia. 7. Peripheral vascular disease. 8. Osteoarthritis. PAST SURGICAL HISTORY 1. Previous cholecystectomy. 2. Previous vascular bypass surgery of the lower extremities. 3. Left hand surgery. ALLERGIES 4. DICLOFENAC. 5. ETODOLAC. 6. FLURBIPROFEN. 7. LASIX. 8. HYDROCHLOROTHIAZIDE. 9. IBUPROFEN 10. INDOMETHACIN 11. KETOPROFEN. 12. KETOROLAC. 13. NAPROSYN 14. OXAPROZIN. MEDICATIONS 1. Lipitor 20 mg every night. 2. Catapres 0.1 mg every 8 hours. 3. Hydralazine 50 mg every 8 hours. 4. Isosorbide mononitrate 30 mg daily. 5. Coreg 6.25 mg b.i.d. 6. Lisinopril 10 mg daily 7. Omeprazole 20 mg b.i.d. 8. Glipizide 5 mg daily. 9. Allopurinol 100 mg daily. FAMILY HISTORY Denies premature coronary artery disease or sudden cardiac within the family. SOCIAL HISTORY The patient is an active smoker, smoking one pack of cigarettes a week for 50 years. He quit drinking around 4-5 years ago. REVIEW OF SYSTEMS 14-systems were reviewed including osteopathic pertinent positives and negatives above, otherwise negative. PHYSICAL EXAMINATION VITAL SIGNS: Temperature 98.1, heart rate 56, blood pressure 160/71, respirations 18, pulse ox 94% on 2 liters. IN GENERAL: The patient appears well, in no acute distress, Alert, awake and oriented x3. Extraocular muscles intact. Mucous membranes moist. NECK: Supple. No JVD at 45 degrees. No carotid bruits heard bilaterally. Carotid upstroke is brisk in nature. HEART: Irregularly regular. Positive first and second heart sounds with no noted murmurs, gallops or rubs. LUNGS: Decreased breath sounds at the bilateral bases but no overt wheezes, rales or rhonchi. ABDOMEN: Soft, nontender, nondistended. No organomegaly noted. EXTREMITIES: No clubbing, cyanosis or edema. Femoral and distal pulses intact bilaterally. NEUROLOGICALLY: No focal deficits. SKIN: Warm, dry and intact. OSTEOPATHIC: No kyphoscoliosis, lordosis or paraspinal tender points. LABORATORY FINDINGS Hemoglobin 14.1, hematocrit 41.5, platelets 126. Potassium 3.8, BUN 20, creatinine 1.83, magnesium 0.9. Troponin 0.06. BNP 1298. TSH 1.87. IMPRESSIONS 1. Hypertensive urgency. 2. Respiratory insufficiency. 3. Acute on chronic kidney disease. 4. History of congestive heart failure. 5. Diabetes mellitus. 6. History of CVA. RECOMMENDATIONS 1. Mr. Mcmahan will be watched in the ICU for now on a Cardene drip for blood pressure control. 2. We will attempt to control his blood pressure but not significantly drop it because of possible ischemia over the first 24 hours. 3. His heart rate appears slow but with no pauses noted. Most likely will need to hold his Coreg for now and avoid AV niraj blocking agents at this time. 4. We will continue to diurese him. 5. I spoke to him for greater than 3 minutes about tobacco cessation. Further recommendations will be made based on the hospital course. Thank you for allowing me to see Lee Mcmahan. If there are any questions, please do not hesitate to call. Delroy Shanks DO VGP/SSB /11:48 PM /6:02 AM [email or web address]
--- NOTE | 2017-05-13 08:41 | HHI.CCPN ---
Subjective Remarks/Hospital Course The patient is a 81-year-old male with a past medical history of CHF, hypertension, chronic kidney disease, diabetes mellitus, hyperlipidemia, CVA and peripheral vascular disease. He was admitted to [facility] on May 11 under the hospitalist service for CHF decompensation and hypertensive urgency. On arrival the patient had a systolic blood pressure in the 170s to 200s. A chest x-ray showed a partially consolidated infiltrate in the left lower lobe. His laboratory data was significant for acute on chronic kidney disease with creatinine of 1.97 which improved to 1.77 today. His BNP was elevated at 1276. The patient was placed on diuretics and multiple antihypertensive meds. In addition he was on Rocephin and Zithromax for the left lower lobe infiltrate. The patient was afebrile and there was no evidence of any leukocytosis. Due to uncontrolled hypertension and systolic blood pressure over 200 he was transferred to [facility] for close observation and critical care medicine was consulted for critical care management. He is currently on 2 liters of oxygen with a saturation of 98% and blood pressure of 222/107. A Cardene drip was ordered by the primary team prior to transfer to the ICU. The patient states that his breathing is better. He is on diuretics for CHF. He denies any chest pain, orthopnea, PND or edema of his lower extremities. In addition he denies any cough or constitutional symptoms. The patient denies any nausea, vomiting or abdominal pain. 05/13 Patient is awake, alert lying in bed in NAD. On Cardene drip 5mg/hr. Denies any CP or SOB Objective Vital Signs Date Time Temp Pulse Resp B/P (MAP) Pulse Ox O2 Delivery O2 Flow Rate FiO2 05/13/17 06:45 77 207/93 05/13/17 04:00 97.8 19 91 05/12/17 20:50 Nasal Cannula 2.00 05/12/17 10:35 21 Intake and Output 05/13/17 05/13/17 05/14/17 08:00 16:00 00:00 Intake Total 650 ml Output Total 425 ml Balance 225 ml Result Diagram: 05/13/17 0223 05/13/17 0223 Other Results Laboratory Tests Test 05/12/17 12:30 05/12/17 13:50 05/12/17 17:00 05/13/17 02:23 Total Creatine Kinase 128 U/L 137 U/L 135 U/L Creatine Kinase MB 2.9 NG/ML 3.6 NG/ML 3.6 NG/ML Troponin I 0.06 NG/ML 0.05 NG/ML 0.05 NG/ML Nasal Screen MRSA (PCR) MRSA NOT DETECTED White Blood Count 10.0 TH/MM3 9.1 TH/MM3 Red Blood Count 4.72 MIL/MM3 4.73 MIL/MM3 Hemoglobin 14.1 GM/DL 14.3 GM/DL Hematocrit 41.5 % 41.8 % Mean Corpuscular Volume 88.0 FL 88.3 FL Mean Corpuscular Hemoglobin 29.8 PG 30.3 PG Mean Corpuscular Hemoglobin Concent 33.9 % 34.3 % Red Cell Distribution Width 15.0 % 15.3 % Platelet Count 126 TH/MM3 127 TH/MM3 Mean Platelet Volume 8.0 FL 7.9 FL Neutrophils (%) (Auto) 65.7 % 65.7 % Lymphocytes (%) (Auto) 22.0 % 21.7 % Monocytes (%) (Auto) 9.0 % 9.0 % Eosinophils (%) (Auto) 2.4 % 2.9 % Basophils (%) (Auto) 0.9 % 0.7 % Neutrophils # (Auto) 6.6 TH/MM3 6.0 TH/MM3 Lymphocytes # (Auto) 2.2 TH/MM3 2.0 TH/MM3 Monocytes # (Auto) 0.9 TH/MM3 0.8 TH/MM3 Eosinophils # (Auto) 0.2 TH/MM3 0.3 TH/MM3 Basophils # (Auto) 0.1 TH/MM3 0.1 TH/MM3 CBC Comment DIFF FINAL DIFF FINAL Differential Comment Blood Urea Nitrogen 20 MG/DL 20 MG/DL Creatinine 1.83 MG/DL 1.94 MG/DL Random Glucose 200 MG/DL 165 MG/DL Total Protein 6.8 GM/DL Calcium Level 7.2 MG/DL 7.6 MG/DL Magnesium Level 0.9 MG/DL 1.9 MG/DL Sodium Level 140 MEQ/L 143 MEQ/L Potassium Level 3.8 MEQ/L 3.7 MEQ/L Chloride Level 108 MEQ/L 110 MEQ/L Carbon Dioxide Level 20.6 MEQ/L 22.1 MEQ/L Anion Gap 11 MEQ/L 11 MEQ/L Estimat Glomerular Filtration Rate 36 ML/MIN 34 ML/MIN Protein Corrected Calcium 7.4 MG/DL B-Type Natriuretic Peptide 1298 PG/ML Phosphorus Level 3.4 MG/DL Imaging Last Impressions Chest X-Ray 05/12/17 0000 Signed Impressions: Service Date/Time: Friday, May 12, 2017 14:00 - CONCLUSION: 1. Redemonstration of left lower lobe airspace consolidation. 2. Mild positive fluid balance. Alex Stinson MD Objective Remarks GENERAL: Patient is 81 yo lying in bed in NAD. Hypertensive SKIN: Warm and dry. HEAD: Normocephalic. EYES: No scleral icterus. No injection or drainage. NECK: Supple, trachea midline. No JVD or lymphadenopathy. CARDIOVASCULAR: Regular rate and rhythm without murmurs, gallops, or rubs. RESPIRATORY: Breath sounds equal bilaterally. No accessory muscle use. GASTROINTESTINAL: Abdomen soft, non-tender, nondistended. MUSCULOSKELETAL: No cyanosis, or edema. Neuro: Awake and alert. Procedures EKG A. fib with slow ventricular response, left anterior fascicular block can't rule out anterior infarct A/P Assessment and Plan 1. Hypertensive urgency. 2. Respiratory insufficiency. 3. Left lower lobe infiltrate. 4. Acute on chronic kidney disease. 5. CHF. 6. Diabetes mellitus. 7. History of CVA. 8 Afib with slow ventricular response. Plan Neuro: Monitor neuro status and avoid any sedatives. Pulm: Continue with oxygen and maintain sats >92%. Bronchodilators CV: On Cardene drip for BP control, Continue with BP meds- Increase Hydralazine 100 mg q.8h., Imdur 30 mg daily, clonidine 0.1 mg q.8h. Coreg on hold for bradycardia. Cards is following- Dr. Lee Echo from February showed an EF of 50-55% and moderate pulmonary hypertension with PA pressure of 50-60 mmHg. : Monitor renal function, I's and O's, and avoid nephrotoxins. Electrolyte replacement per protocol. H Cr: 1.94 from 1.83. On Bumex 1mg daily GI: On p.o. diet, Protonix 20 mg p.o. b.i.d. ID: Continue with abx (Rocephin and Zithromax) monitor for signs of infections. Check sputum cx Endo: SSI with Accu-Chek for glycemic control. GI prophylaxis with Protonix 20 mg b.i.d., and DVT prophylaxis with SCDs and Lovenox 30 mg subcu daily. Level 3 Danni Montemayor MD May 13, 2017 08:41
[2017-05-13] MEDS: REMOVE OLD PATCH T-DERMAL SCH (09:00)
[2017-05-13] MEDS: CHOLECALCIFEROL (VIT D3) 5000 UNIT CAP PO SCH (09:51)
[2017-05-13] MEDS: ISOSORBIDE MONONITRATE 30 MG TAB PO SCH (09:51)
[2017-05-13] MEDS: ALLOPURINOL 100 MG TAB PO SCH (09:51)
[2017-05-13] MEDS: BUMETANIDE INJ 1 MG/4 ML VIAL IV PUSH SCH (09:51)
[2017-05-13] MEDS: guaiFENesin E.R. 600 MG TAB PO SCH ×2 (09:51→20:14)
[2017-05-13] MEDS: NICOTINE 7 MG/24 HR PATCH T-DERMAL SCH (09:52)
[2017-05-13] MEDS: SODIUM CHLORIDE 0.9% FLUSH 10 ML FLUSH IV FLUSH SCH ×2 (09:52→20:13)
[2017-05-13] MEDS: DOCUSATE SODIUM 50 MG/SENNA 8.6 MG TAB PO SCH ×2 (09:53→20:15)
[2017-05-13] MEDS: PANTOPRAZOLE SOD 20 MG DELAYED RELEASE TAB PO SCH ×2 (09:53→20:14)
[2017-05-13] MEDS: cefTRIAXone INJ 1,000 MG in SODIUM CHLORIDE 0.9% INJ 100 ML IV SCH (12:00)
[2017-05-13] MEDS: INSULIN ASPART SUPPLEMENTAL SCALE SQ SCH ×3 (12:00→20:18)
[2017-05-13] MEDS: AZITHROMYCIN INJ 500 MG in SODIUM CHLOR 0.9% 250 ML INJ 250 ML IV SCH (12:08)
--- NOTE | 2017-05-13 16:47 | EKG ---
Date Performed: 05/12/2017 Time Performed: 09:48:48 PTAGE: 81 years EKG: Sinus rhythm probably with sinus pauses although some of the pauses are from blocked premature atrial contraction s. Prolonged QT interval Left anterior fascicular block Cannot rule out anteroseptal infarct - age un determined Left ventricular hypertrophy Inferior/lateral ST-T changes are probably due to ventricular hypertrophy Since the prior tracing patient no longer shows AV wenckebach conduction. The prior trac ing was read as atrial fibrillation, but thats not correct. Patients has evience of significant AV n odal conduction disease. Clinical correlation is recommended Abnormal ECG PREVIOUS TRACING 05/11/2017 @ 11.15.28 DOCTOR: Brianna Carlin Interpretating Date/Time 05/13/2017 16:46:06
--- NOTE | 2017-05-13 16:58 | PD.CARD.PN ---
Subjective Subjective Remarks Patient was seen earlier today No chest pain/SOB Blood pressure volatile overnight, but currently on Cardene at 5mg/hr Patient keeps bending his arms, unsure if getting constant dose of Cardene, nurse to place a new IV Objective Medications Current Medications Medications (Trade) Dose Ordered Sig/Fox Route Start Time Stop Time Status Last Admin (Jina-Colace) 1 tab BID PO 05/11/17 21:00 05/13/17 09:53 (Milk Of Magnesia Liq) 30 ml Q12H PRN PO 05/11/17 16:30 (Senokot) 17.2 mg Q12H PRN PO 05/11/17 16:30 Ceftriaxone Sodium 1000 mg/ Sodium Chloride 100 ml @ 200 mls/hr Q24H IV 05/12/17 12:00 05/13/17 12:00 Azithromycin 500 mg/Sodium Chloride 250 ml @ 250 mls/hr Q24H IV 05/12/17 12:00 05/13/17 12:08 (Bumex Inj) 1 mg DAILY IV PUSH 05/11/17 16:45 05/13/17 09:51 (D50w (Vial) Inj) 50 ml UNSCH PRN IV PUSH 05/11/17 16:45 (Glucagon Inj) 1 mg UNSCH PRN OTHER 05/11/17 16:45 (NovoLOG SUPPLEMENTAL SCALE) 1 ACHS SLIDING SCALE SQ 05/11/17 17:00 05/13/17 12:00 (Zyloprim) 100 mg DAILY PO 05/12/17 09:00 05/13/17 09:51 (Lipitor) 20 mg HS PO 05/11/17 21:00 05/12/17 21:19 (Coreg) 6.25 mg BID PO 05/11/17 21:00 Future Hold 05/12/17 09:31 (Vitamin D3) 5,000 units DAILY PO 05/12/17 09:00 05/13/17 09:51 (Catapres) 0.1 mg Q8HR PO 05/11/17 22:00 05/13/17 12:41 (Imdur) 30 mg DAILY PO 05/12/17 09:00 05/13/17 09:51 (Protonix) 20 mg BID PO 05/11/17 21:00 05/13/17 09:53 (Mucinex Er) 600 mg BID PO 05/11/17 21:00 05/13/17 09:51 (Duoneb Neb) 1 ampule Q4HR NEB PRN NEB 05/11/17 16:45 05/12/17 05:57 (NS Flush) 2 ml UNSCH PRN IV FLUSH 05/11/17 16:45 (NS Flush) 2 ml BID IV FLUSH 05/11/17 21:00 05/13/17 09:52 (Tylenol) 650 mg Q4H PRN PO 05/11/17 16:45 (Zofran Inj) 4 mg Q6H PRN IVP 05/11/17 16:45 (Compazine Supp) 25 mg Q12H PRN RECTAL 05/11/17 16:45 (Lovenox Inj) 30 mg Q24H SQ 05/11/17 18:00 05/12/17 17:31 (Tylenol) 650 mg Q6H PRN PO 05/11/17 16:45 (Percocet 5-325 Mg) 1 tab Q6H PRN PO 05/11/17 16:45 (Percocet 10-325 Mg) 1 tab Q6H PRN PO 05/11/17 16:45 (Morphine Inj) 2 mg Q3H PRN IV PUSH 05/11/17 16:45 (Morphine Inj) 4 mg Q3H PRN IV PUSH 05/11/17 16:45 (Narcan Inj) 0.4 mg UNSCH PRN IV PUSH 05/11/17 16:45 (Dulcolax Supp) 10 mg DAILY PRN RECTAL 05/11/17 16:45 (Lactulose Liq) 30 ml DAILY PRN PO 05/11/17 16:45 (Habitrol 7 Mg Patch.24 Hr) 1 patch DAILY T-DERMAL 05/11/17 18:00 05/13/17 09:52 Miscellaneous Information 1 DAILY T-DERMAL 05/12/17 09:00 Nicardipine HCl 25 mg/Sodium Chloride 250 ml @ 50 mls/hr TITRATE PRN IV 05/12/17 12:30 05/13/17 12:06 Clevidipine 50 ml @ 2 mls/hr TITRATE PRN IV 05/12/17 12:30 (Apresoline Inj) 20 mg Q3H PRN IV PUSH 05/12/17 12:45 Potassium Chloride 100 ml @ 50 mls/hr Q2H PRN IV 05/12/17 14:00 Potassium Chloride 100 ml @ 50 mls/hr Q2H PRN IV 05/12/17 14:00 (K-Lyte Cl Eff) 50 meq UNSCH PRN PO 05/12/17 14:00 Potassium Chloride 100 ml @ 25 mls/hr UNSCH PRN IV 05/12/17 14:00 Potassium Chloride 100 ml @ 50 mls/hr Q2H PRN IV 05/12/17 14:00 Magnesium Sulfate 4 gm/Sodium Chloride 100 ml @ 50 mls/hr UNSCH PRN IV 05/12/17 14:00 05/12/17 18:45 (Mag-Ox) 800 mg UNSCH PRN PO 05/12/17 14:00 Magnesium Sulfate 2 gm/Sodium Chloride 100 ml @ 50 mls/hr UNSCH PRN IV 05/12/17 14:00 (K-Phos) 2,000 mg Q4H PRN PO 05/12/17 14:00 Sodium Phosphate 30 mmol/Sodium Chloride 250 ml @ 42 mls/hr UNSCH PRN IV 05/12/17 14:00 (K-Phos) 2,000 mg UNSCH PRN PO/TUBE 05/12/17 14:00 Potassium Phosphate 30 mmol/ Sodium Chloride 260 ml @ 42 mls/hr UNSCH PRN IV 05/12/17 14:00 Miscellaneous Information Patient in critical care unit? Ass... [id number] .XX 05/12/17 22:30 (Chlorhexidine 2% Cloth) 3 pack DAILY@04 TOPICAL 05/13/17 04:00 05/17/17 04:01 05/13/17 04:00 (Chlorhexidine 2% Cloth) 3 pack UNSCH PRN TOPICAL 05/12/17 22:30 05/17/17 22:21 (Apresoline) 100 mg Q8HR PO 05/13/17 10:00 05/13/17 12:41 Vital Signs / I&O Vital Signs Date Time Temp Pulse Resp B/P (MAP) Pulse Ox O2 Delivery O2 Flow Rate FiO2 05/13/17 16:00 52 05/13/17 16:00 97.9 48 18 150/70 (96) 93 05/13/17 14:00 45 05/13/17 12:06 66 165/74 05/13/17 12:00 98.0 45 19 141/65 (90) 96 05/13/17 12:00 55 05/13/17 10:00 60 05/13/17 08:00 97.9 56 18 190/86 (120) 95 05/13/17 08:00 56 05/13/17 06:45 77 207/93 05/13/17 06:00 55 05/13/17 04:00 97.8 64 19 169/77 (107) 91 05/13/17 04:00 64 05/13/17 03:30 62 162/73 05/13/17 02:45 62 194/84 05/13/17 02:15 58 174/79 05/13/17 02:00 57 05/13/17 02:00 57 190/82 05/13/17 00:30 59 166/75 05/13/17 00:15 62 172/80 05/13/17 00:09 62 208/87 05/13/17 00:00 54 05/13/17 00:00 97.9 54 14 208/87 (127) 96 05/12/17 22:00 55 05/12/17 20:50 93 Nasal Cannula 2.00 05/12/17 20:00 56 05/12/17 20:00 98.1 56 18 160/71 (100) 94 05/12/17 19:00 60 166/75 05/12/17 18:00 56 17 200/93 (128) 97 05/12/17 17:00 57 24 194/90 (124) 94 I/O 05/12/17 05/12/17 05/12/17 05/13/17 05/13/17 05/13/17 07:00 15:00 23:00 07:00 15:00 23:00 Intake Total 110 ml 360 ml 516 ml 650 ml Output Total 650 ml 425 ml Balance 110 ml 360 ml -134 ml 225 ml Intake Oral 416 ml 300 ml IV Total 110 ml 360 ml 100 ml 350 ml Output Urine Total 650 ml 425 ml # Bowel Movements 1 0 Physical Exam GENERAL: NAD, AAOx3 SKIN: Warm and dry. HEAD: Atraumatic. Normocephalic. EYES: Pupils equal and round. No scleral icterus. No injection or drainage. ENT: No nasal bleeding or discharge. Mucous membranes pink and moist. NECK: Trachea midline. No JVD. CARDIOVASCULAR: Regular rate and rhythm. RESPIRATORY: No accessory muscle use. Clear to auscultation. Breath sounds equal bilaterally. GASTROINTESTINAL: Abdomen soft, non-tender, nondistended. Hepatic and splenic margins not palpable. MUSCULOSKELETAL: Extremities without clubbing, cyanosis, or edema. No obvious deformities. NEUROLOGICAL: Awake and alert. No obvious cranial nerve deficits. Motor grossly within normal limits. Five out of 5 muscle strength in the arms and legs. Normal speech. PSYCHIATRIC: Appropriate mood and affect; insight and judgment normal. Laboratory Laboratory Tests Test 05/12/17 17:00 05/13/17 02:23 White Blood Count 10.0 TH/MM3 9.1 TH/MM3 Red Blood Count 4.72 MIL/MM3 4.73 MIL/MM3 Hemoglobin 14.1 GM/DL 14.3 GM/DL Hematocrit 41.5 % 41.8 % Mean Corpuscular Volume 88.0 FL 88.3 FL Mean Corpuscular Hemoglobin 29.8 PG 30.3 PG Mean Corpuscular Hemoglobin Concent 33.9 % 34.3 % Red Cell Distribution Width 15.0 % 15.3 % Platelet Count 126 TH/MM3 127 TH/MM3 Mean Platelet Volume 8.0 FL 7.9 FL Neutrophils (%) (Auto) 65.7 % 65.7 % Lymphocytes (%) (Auto) 22.0 % 21.7 % Monocytes (%) (Auto) 9.0 % 9.0 % Eosinophils (%) (Auto) 2.4 % 2.9 % Basophils (%) (Auto) 0.9 % 0.7 % Neutrophils # (Auto) 6.6 TH/MM3 6.0 TH/MM3 Lymphocytes # (Auto) 2.2 TH/MM3 2.0 TH/MM3 Monocytes # (Auto) 0.9 TH/MM3 0.8 TH/MM3 Eosinophils # (Auto) 0.2 TH/MM3 0.3 TH/MM3 Basophils # (Auto) 0.1 TH/MM3 0.1 TH/MM3 CBC Comment DIFF FINAL DIFF FINAL Differential Comment Blood Urea Nitrogen 20 MG/DL 20 MG/DL Creatinine 1.83 MG/DL 1.94 MG/DL Random Glucose 200 MG/DL 165 MG/DL Total Protein 6.8 GM/DL Calcium Level 7.2 MG/DL 7.6 MG/DL Magnesium Level 0.9 MG/DL 1.9 MG/DL Sodium Level 140 MEQ/L 143 MEQ/L Potassium Level 3.8 MEQ/L 3.7 MEQ/L Chloride Level 108 MEQ/L 110 MEQ/L Carbon Dioxide Level 20.6 MEQ/L 22.1 MEQ/L Anion Gap 11 MEQ/L 11 MEQ/L Estimat Glomerular Filtration Rate 36 ML/MIN 34 ML/MIN Protein Corrected Calcium 7.4 MG/DL Total Creatine Kinase 137 U/L 135 U/L Creatine Kinase MB 3.6 NG/ML 3.6 NG/ML Troponin I 0.05 NG/ML 0.05 NG/ML B-Type Natriuretic Peptide 1298 PG/ML Phosphorus Level 3.4 MG/DL Assessment and Plan Problem List: (1) High degree atrioventricular block ICD Codes: I44.39 - Other atrioventricular block (2) Accelerated hypertension ICD Codes: I10 - Essential (primary) hypertension Status: Acute (3) Congestive heart failure (CHF) ICD Codes: I50.9 - Heart failure, unspecified Status: Acute (4) Acute on chronic renal failure ICD Codes: N17.9 - Acute kidney failure, unspecified; N18.9 - Chronic kidney disease, unspecified Status: Resolved (5) DM (diabetes mellitus) ICD Codes: E11.9 - Type 2 diabetes mellitus without complications Status: Chronic (6) HTN (hypertension) ICD Codes: I10 - Essential (primary) hypertension (7) Symptomatic bradycardia ICD Codes: R00.1 - Bradycardia, unspecified Assessment and Plan 1) Accelerated HTN/HTN urgency Con't Cardene drip Hydralazine increased 2) Reviewed previous EKGs, appears to have high degree AV block noted Patient was asymptomatic at the time and on Coreg Coreg held, con't to follow on telemetry 3) SOB Most likely secondary to diastolic dysfunction with accelerated HTN Delroy Lee DO May 13, 2017 16:58
--- NOTE | 2017-05-13 17:01 | EKG ---
Date Performed: 05/13/2017 Time Performed: 08:19:12 PTAGE: 81 years EKG: Sinus rhythm WITH FIRST DEGREE AV BLOCK LEFT ANTERIOR FASCICULAR BLOCK MODERATE T-WAVE ABNORMALITY, CONSIDER LATE RAL ISCHEMIA SINCE PRIOR TRACING THE AV BLOCK HAS IMPROVED AND THE PATIENT IS NOW SHOWING 1 -1 CONUCT ION, BUT THERE IS NO OTHER SIGNIFICANT SERIAL CHANGE. ABNORMAL ECG PREVIOUS TRACING : 05/12/2017 09.48 DOCTOR: Brianna Carlin Interpretating Date/Time 05/13/2017 16:59:26
[2017-05-13] MEDS: ENOXAPARIN SODIUM 30 MG/0.3 ML SYRINGE SQ SCH (17:50)
[2017-05-13] MEDS: ATORVASTATIN 20 MG TAB PO SCH (20:14)
[2017-05-13] MEDS: hydrALAZINE HCL 20 MG/ML VIAL IV PUSH PRN (23:07)
[2017-05-14] VITALS (14 sets, daily range): BP systolic 147–208; BP diastolic 67–98; PULSE 48–67; RESP 14–23; TEMP 97.6–98.1; O2SAT 92–97
[2017-05-14] MEDS: hydrALAZINE HCL 20 MG/ML VIAL IV PUSH PRN ×3 (03:11→19:54)
[2017-05-14] MEDS: CHLORHEXIDINE GLUCONATE 2 % 1 PACK (2 CLOTHS)(taper/protocol) TOPICAL SCH (04:00)
[2017-05-14 05:55] LABS: AUTOMATED NEUTROPHIL # 5.7 TH/MM3 (1.8-7.7); BASOPHIL # 0.1 TH/MM3 (0-0.2); BASOPHIL % 0.9 % (0.0-2.0); EOSINOPHIL # 0.2 TH/MM3 (0-0.4); EOSINOPHIL % 2.4 % (0.0-4.0); HEMATOCRIT 37.3 % (39.0-51.0); HEMO FLAGS DIFF FINAL; MEAN CELL VOLUME 88.3 FL (80.0-100.0); MEAN CORPUSCULAR HEMOGLOBIN 29.5 PG (27.0-34.0); MEAN CORPUSCULAR HGB CONC 33.5 % (32.0-36.0); MONO % 9.9 % (0.0-8.0); NEUT % 63.8 % (16.0-70.0); PLATELET COUNT 134 TH/MM3 (150-450); RED BLOOD COUNT 4.23 MIL/MM3 (4.50-5.90); RED CELL DISTRIBUTION WIDTH 15.4 % (11.6-17.2); WHITE BLOOD COUNT 8.9 TH/MM3 (4.0-11.0)
[2017-05-14] MEDS: hydrALAZINE HCL 50 MG TAB PO SCH ×3 (05:55→22:25)
[2017-05-14] MEDS: cloNIDine HCL 0.1 MG TAB PO SCH ×3 (05:55→22:24)
[2017-05-14 06:25] LABS: BICARBONATE 19.7 MEQ/L (21.0-32.0); POTASSIUM 3.4 MEQ/L (3.5-5.1)
--- NOTE | 2017-05-14 08:16 | HHI.CCPN ---
Subjective Remarks/Hospital Course The patient is a 81-year-old male with a past medical history of CHF, hypertension, chronic kidney disease, diabetes mellitus, hyperlipidemia, CVA and peripheral vascular disease. He was admitted to [facility] on May 11 under the hospitalist service for CHF decompensation and hypertensive urgency. On arrival the patient had a systolic blood pressure in the 170s to 200s. A chest x-ray showed a partially consolidated infiltrate in the left lower lobe. His laboratory data was significant for acute on chronic kidney disease with creatinine of 1.97 which improved to 1.77 today. His BNP was elevated at 1276. The patient was placed on diuretics and multiple antihypertensive meds. In addition he was on Rocephin and Zithromax for the left lower lobe infiltrate. The patient was afebrile and there was no evidence of any leukocytosis. Due to uncontrolled hypertension and systolic blood pressure over 200 he was [place] [facility] [place] and critical care medicine was consulted for critical care management. He is currently on 2 liters of oxygen with a saturation of 98% and blood pressure of 222/107. A Cardene drip was ordered by the primary team prior to transfer to the ICU. The patient states that his breathing is better. He is on diuretics for CHF. He denies any chest pain, orthopnea, PND or edema of his lower extremities. In addition he denies any cough or constitutional symptoms. The patient denies any nausea, vomiting or abdominal pain. 05/13 Patient is awake, alert lying in bed in NAD. On Cardene drip 5mg/hr. Denies any CP or SOB 05/14 No events overnight. Off Cardene drip. SBP's 160-170's. Objective Vital Signs Date Time Temp Pulse Resp B/P (MAP) Pulse Ox O2 Delivery O2 Flow Rate FiO2 05/14/17 06:00 60 05/14/17 04:00 98.0 20 176/74 (108) 96 05/13/17 08:00 Room Air 05/13/17 07:15 2.00 05/12/17 10:35 21 Intake and Output 05/14/17 05/14/17 05/15/17 08:00 16:00 00:00 Intake Total 240 ml Output Total 400 ml Balance -160 ml Result Diagram: 05/14/17 0518 05/14/17 0518 Other Results Laboratory Tests Test 05/14/17 05:18 White Blood Count 8.9 TH/MM3 Red Blood Count 4.23 MIL/MM3 Hemoglobin 12.5 GM/DL Hematocrit 37.3 % Mean Corpuscular Volume 88.3 FL Mean Corpuscular Hemoglobin 29.5 PG Mean Corpuscular Hemoglobin Concent 33.5 % Red Cell Distribution Width 15.4 % Platelet Count 134 TH/MM3 Mean Platelet Volume 7.8 FL Neutrophils (%) (Auto) 63.8 % Lymphocytes (%) (Auto) 23.0 % Monocytes (%) (Auto) 9.9 % Eosinophils (%) (Auto) 2.4 % Basophils (%) (Auto) 0.9 % Neutrophils # (Auto) 5.7 TH/MM3 Lymphocytes # (Auto) 2.0 TH/MM3 Monocytes # (Auto) 0.9 TH/MM3 Eosinophils # (Auto) 0.2 TH/MM3 Basophils # (Auto) 0.1 TH/MM3 CBC Comment DIFF FINAL Differential Comment Blood Urea Nitrogen 23 MG/DL Creatinine 2.11 MG/DL Random Glucose 145 MG/DL Calcium Level 7.8 MG/DL Sodium Level 143 MEQ/L Potassium Level 3.4 MEQ/L Chloride Level 112 MEQ/L Carbon Dioxide Level 19.7 MEQ/L Anion Gap 11 MEQ/L Estimat Glomerular Filtration Rate 30 ML/MIN Imaging Last Impressions Chest X-Ray 05/12/17 0000 Signed Impressions: Service Date/Time: Friday, May 12, 2017 14:00 - CONCLUSION: 1. Redemonstration of left lower lobe airspace consolidation. 2. Mild positive fluid balance. Alex Stinson MD Objective Remarks GENERAL: Patient is 81 yo lying in bed in NAD. Hypertensive SKIN: Warm and dry. HEAD: Normocephalic. EYES: No scleral icterus. No injection or drainage. NECK: Supple, trachea midline. No JVD or lymphadenopathy. CARDIOVASCULAR: Regular rate and rhythm without murmurs, gallops, or rubs. RESPIRATORY: Breath sounds equal bilaterally. No accessory muscle use. GASTROINTESTINAL: Abdomen soft, non-tender, nondistended. MUSCULOSKELETAL: No cyanosis, or edema. Neuro: Awake and alert. Procedures EKG A. fib with slow ventricular response, left anterior fascicular block can't rule out anterior infarct A/P Assessment and Plan 1. Hypertensive urgency. 2. Respiratory insufficiency. 3. Left lower lobe infiltrate. 4. Acute on chronic kidney disease. 5. CHF. 6. Diabetes mellitus. 7. History of CVA. 8 Afib with slow ventricular response. Plan Neuro: Monitor neuro status and avoid any sedatives. Pulm: Continue with oxygen and maintain sats >92%. Bronchodilators CV: Monitor HR and BP keep MAP>65mmHg Continue with BP meds-On Hydralazine 100 mg q.8h., Imdur 30 mg daily, clonidine 0.1 mg q.8h. Coreg on hold for bradycardia. Cards is following EKG's shows high degree AV block ? need for pacer discussed with Dr. Lee Echo from February showed an EF of 50-55% and moderate pulmonary hypertension with PA pressure of 50-60 mmHg. : Monitor renal function, I's and O's, and avoid nephrotoxins. Electrolyte replacement per protocol. H Cr: 2.11 from 1.94. On Bumex 1mg daily. Check renal US GI: On p.o. diet, Protonix 20 mg p.o. b.i.d. ID: Continue with abx (Rocephin and Zithromax) monitor for signs of infections. Check sputum cx Endo: SSI with Accu-Chek for glycemic control. GI prophylaxis with Protonix 20 mg b.i.d., and DVT prophylaxis with SCDs and Lovenox 30 mg subcu daily. Level 3 Danni Montemayor MD May 14, 2017 08:16
[2017-05-14] MEDS: SODIUM CHLORIDE 0.9% FLUSH 10 ML FLUSH IV FLUSH SCH ×2 (08:20→20:20)
[2017-05-14] MEDS: DOCUSATE SODIUM 50 MG/SENNA 8.6 MG TAB PO SCH ×3 (08:20→20:22)
[2017-05-14] MEDS: ISOSORBIDE MONONITRATE 30 MG TAB PO SCH (08:20)
[2017-05-14] MEDS: BUMETANIDE INJ 1 MG/4 ML VIAL IV PUSH SCH (08:20)
[2017-05-14] MEDS: ALLOPURINOL 100 MG TAB PO SCH (08:20)
[2017-05-14] MEDS: PANTOPRAZOLE SOD 20 MG DELAYED RELEASE TAB PO SCH ×2 (08:20→20:19)
[2017-05-14] MEDS: CHOLECALCIFEROL (VIT D3) 5000 UNIT CAP PO SCH (08:20)
[2017-05-14] MEDS: guaiFENesin E.R. 600 MG TAB PO SCH ×2 (08:20→20:19)
[2017-05-14] MEDS: NICOTINE 7 MG/24 HR PATCH T-DERMAL SCH (09:00)
[2017-05-14] MEDS: AZITHROMYCIN INJ 500 MG in SODIUM CHLOR 0.9% 250 ML INJ 250 ML IV SCH (12:00)
[2017-05-14] MEDS: INSULIN ASPART SUPPLEMENTAL SCALE SQ SCH ×3 (12:00→20:16)
--- NOTE | 2017-05-14 12:15 | RADRPT ---
EXAM DATE/TIME: 05/14/2017 10:15 [facility] COMPARISON: CT ABDOMEN & PELVIS W CONTRAST, September 17, 2016, 18:36. US KIDNEY/RENAL/BLADDER, January 22, 2016, 13:52 . INDICATIONS : Acute kidney injury. MEDICAL HISTORY : Stroke. Congestive heart failure. Hypercholesterolemia. Hypertension. Dyspnea. Renal disease. Arthrit is. Diabetes. Tobacco use. SURGICAL HISTORY : Pacemaker. Cholecystectomy. Left hand surgery. ENCOUNTER: Subsequent ACUITY: 1 day PAIN SCORE: 1/10 LOCATION: Bilateral flank MEASUREMENTS: RIGHT KIDNEY: 12.0 x 5.4 x 6.4 cm LEFT KIDNEY: 7.9 x 4.6 x 4.2 cm FINDINGS: RIGHT KIDNEY: Renal cortex is normal in thickness and echotexture. No hydronephrosis. There is a small simple cyst in the lateral portion of the kidney measuring 9 x 10 x 7 mm. There is a larger complex cystic lesio n along the mid lateral kidney measuring up to 2.6 x 2.3 x 2.4 cm. This contains low level internal e chogenicity and apparent septations. There is no definite internal color-flow. LEFT KIDNEY: The right kidney remains small and atrophic in appearance with no hydronephrosis. There is a small ap parent cyst in the mid kidney without change measuring 1.3 x 1.1 cm. BLADDER: Within normal limits given the degree of distension. The prostate gland is enlarged. Small accessory spleen is incidentally noted and there was a small ri ght pleural effusion. CONCLUSION: 1. Complex cystic lesion again noted in the right kidney most likely representing a complex cyst lennon darcie this is indeterminate and requires further evaluation or followup. This is not a significant saez ge from the 09/17/[address] would be recommended in 6 months. 2. Small atrophic left kidney with small simple cysts. Zuhair Benitez MD on May 14, 2017 at 12:08 Board Certified Radiologist. This report was verified electronically.
[2017-05-14] MEDS: cefTRIAXone INJ 1,000 MG in SODIUM CHLORIDE 0.9% INJ 100 ML IV SCH (12:45)
--- NOTE | 2017-05-14 12:55 | PD.CARD.PN ---
Subjective Subjective Remarks Patient was seen earlier today No chest pain/SOB Blood pressure volatile overnight, but currently off Cardene drip Objective Medications Current Medications Medications (Trade) Dose Ordered Sig/Fox Route Start Time Stop Time Status Last Admin (Jina-Colace) 1 tab BID PO 05/11/17 21:00 05/14/17 08:20 (Senokot) 17.2 mg Q12H PRN PO 05/11/17 16:30 Ceftriaxone Sodium 1000 mg/ Sodium Chloride 100 ml @ 200 mls/hr Q24H IV 05/12/17 12:00 05/14/17 12:45 Azithromycin 500 mg/Sodium Chloride 250 ml @ 250 mls/hr Q24H IV 05/12/17 12:00 05/14/17 12:00 (Bumex Inj) 1 mg DAILY IV PUSH 05/11/17 16:45 05/14/17 08:20 (D50w (Vial) Inj) 50 ml UNSCH PRN IV PUSH 05/11/17 16:45 (Glucagon Inj) 1 mg UNSCH PRN OTHER 05/11/17 16:45 (NovoLOG SUPPLEMENTAL SCALE) 1 ACHS SLIDING SCALE SQ 05/11/17 17:00 05/14/17 12:00 (Zyloprim) 100 mg DAILY PO 05/12/17 09:00 05/14/17 08:20 (Lipitor) 20 mg HS PO 05/11/17 21:00 05/13/17 20:14 (Coreg) 6.25 mg BID PO 05/11/17 21:00 Future Hold 05/12/17 09:31 (Vitamin D3) 5,000 units DAILY PO 05/12/17 09:00 05/14/17 08:20 (Catapres) 0.1 mg Q8HR PO 05/11/17 22:00 05/14/17 12:45 (Imdur) 30 mg DAILY PO 05/12/17 09:00 05/14/17 08:20 (Protonix) 20 mg BID PO 05/11/17 21:00 05/14/17 08:20 (Mucinex Er) 600 mg BID PO 05/11/17 21:00 05/14/17 08:20 (Duoneb Neb) 1 ampule Q4HR NEB PRN NEB 05/11/17 16:45 05/12/17 05:57 (NS Flush) 2 ml UNSCH PRN IV FLUSH 05/11/17 16:45 (NS Flush) 2 ml BID IV FLUSH 05/11/17 21:00 05/14/17 08:20 (Tylenol) 650 mg Q4H PRN PO 05/11/17 16:45 (Zofran Inj) 4 mg Q6H PRN IVP 05/11/17 16:45 (Compazine Supp) 25 mg Q12H PRN RECTAL 05/11/17 16:45 (Lovenox Inj) 30 mg Q24H SQ 05/11/17 18:00 05/13/17 17:50 (Tylenol) 650 mg Q6H PRN PO 05/11/17 16:45 (Percocet 5-325 Mg) 1 tab Q6H PRN PO 05/11/17 16:45 (Percocet 10-325 Mg) 1 tab Q6H PRN PO 05/11/17 16:45 (Morphine Inj) 2 mg Q3H PRN IV PUSH 05/11/17 16:45 (Morphine Inj) 4 mg Q3H PRN IV PUSH 05/11/17 16:45 (Narcan Inj) 0.4 mg UNSCH PRN IV PUSH 05/11/17 16:45 (Dulcolax Supp) 10 mg DAILY PRN RECTAL 05/11/17 16:45 (Lactulose Liq) 30 ml DAILY PRN PO 05/11/17 16:45 (Habitrol 7 Mg Patch.24 Hr) 1 patch DAILY T-DERMAL 05/11/17 18:00 05/13/17 09:52 Miscellaneous Information 1 DAILY T-DERMAL 05/12/17 09:00 Nicardipine HCl 25 mg/Sodium Chloride 250 ml @ 50 mls/hr TITRATE PRN IV 05/12/17 12:30 05/13/17 12:06 Clevidipine 50 ml @ 2 mls/hr TITRATE PRN IV 05/12/17 12:30 (Apresoline Inj) 20 mg Q3H PRN IV PUSH 05/12/17 12:45 05/14/17 07:08 (K-Lyte Cl Eff) 50 meq UNSCH PRN PO 05/12/17 14:00 Miscellaneous Information Patient in critical care unit? Ass... Q361D .XX 05/12/17 22:30 (Chlorhexidine 2% Cloth) 3 pack DAILY@04 TOPICAL 05/13/17 04:00 05/17/17 04:01 05/14/17 04:00 (Chlorhexidine 2% Cloth) 3 pack UNSCH PRN TOPICAL 05/12/17 22:30 05/17/17 22:21 (Apresoline) 100 mg Q8HR PO 05/13/17 10:00 05/14/17 12:45 Vital Signs / I&O Vital Signs Date Time Temp Pulse Resp B/P (MAP) Pulse Ox O2 Delivery O2 Flow Rate FiO2 05/14/17 12:00 98.0 55 16 187/85 (119) 96 05/14/17 12:00 55 05/14/17 10:00 55 05/14/17 08:00 97.7 65 14 163/98 (119) 96 05/14/17 08:00 96 Room Air 05/14/17 08:00 65 05/14/17 06:00 60 05/14/17 04:00 62 05/14/17 04:00 98.0 62 20 176/74 (108) 96 05/14/17 02:00 63 05/14/17 00:00 59 05/14/17 00:00 97.6 59 18 147/67 (93) 97 05/13/17 22:00 58 05/13/17 20:00 64 05/13/17 20:00 97.4 64 19 167/72 (103) 95 05/13/17 18:00 51 05/13/17 16:00 52 05/13/17 16:00 97.9 48 18 150/70 (96) 93 05/13/17 14:00 45 I/O 05/13/17 05/13/17 05/13/17 05/14/17 05/14/17 05/14/17 07:00 15:00 23:00 07:00 15:00 23:00 Intake Total 650 ml 350 ml 720 ml 240 ml Output Total 425 ml 500 ml 400 ml Balance 225 ml 350 ml 220 ml -160 ml Intake Oral 300 ml 720 ml 240 ml IV Total 350 ml 350 ml Output Urine Total 425 ml 500 ml 400 ml # Bowel Movements 0 Physical Exam GENERAL: NAD, AAOx3 SKIN: Warm and dry. HEAD: Atraumatic. Normocephalic. EYES: Pupils equal and round. No scleral icterus. No injection or drainage. ENT: No nasal bleeding or discharge. Mucous membranes pink and moist. NECK: Trachea midline. No JVD. CARDIOVASCULAR: Regular rate and rhythm. RESPIRATORY: No accessory muscle use. Clear to auscultation. Breath sounds equal bilaterally. GASTROINTESTINAL: Abdomen soft, non-tender, nondistended. Hepatic and splenic margins not palpable. MUSCULOSKELETAL: Extremities without clubbing, cyanosis, or edema. No obvious deformities. NEUROLOGICAL: Awake and alert. No obvious cranial nerve deficits. Motor grossly within normal limits. Five out of 5 muscle strength in the arms and legs. Normal speech. PSYCHIATRIC: Appropriate mood and affect; insight and judgment normal. Laboratory Laboratory Tests Test 05/14/17 05:18 White Blood Count 8.9 TH/MM3 Red Blood Count 4.23 MIL/MM3 Hemoglobin 12.5 GM/DL Hematocrit 37.3 % Mean Corpuscular Volume 88.3 FL Mean Corpuscular Hemoglobin 29.5 PG Mean Corpuscular Hemoglobin Concent 33.5 % Red Cell Distribution Width 15.4 % Platelet Count 134 TH/MM3 Mean Platelet Volume 7.8 FL Neutrophils (%) (Auto) 63.8 % Lymphocytes (%) (Auto) 23.0 % Monocytes (%) (Auto) 9.9 % Eosinophils (%) (Auto) 2.4 % Basophils (%) (Auto) 0.9 % Neutrophils # (Auto) 5.7 TH/MM3 Lymphocytes # (Auto) 2.0 TH/MM3 Monocytes # (Auto) 0.9 TH/MM3 Eosinophils # (Auto) 0.2 TH/MM3 Basophils # (Auto) 0.1 TH/MM3 CBC Comment DIFF FINAL Differential Comment Blood Urea Nitrogen 23 MG/DL Creatinine 2.11 MG/DL Random Glucose 145 MG/DL Calcium Level 7.8 MG/DL Sodium Level 143 MEQ/L Potassium Level 3.4 MEQ/L Chloride Level 112 MEQ/L Carbon Dioxide Level 19.7 MEQ/L Anion Gap 11 MEQ/L Estimat Glomerular Filtration Rate 30 ML/MIN Imaging Last 24 hours Impressions Renal Ultrasound 05/14/17 0000 Signed Impressions: Service Date/Time: Sunday, May 14, 2017 10:15 - CONCLUSION: 1. Complex cystic lesion again noted in the right kidney most likely representing a complex cyst however this is indeterminate and requires further evaluation or followup. This is not a significant change from the 09/17/[address] would be recommended in 6 months. 2. Small atrophic left kidney with small simple cysts. Zuhair Benitez MD Assessment and Plan Problem List: (1) High degree atrioventricular block ICD Codes: I44.39 - Other atrioventricular block (2) Accelerated hypertension ICD Codes: I10 - Essential (primary) hypertension Status: Acute (3) Congestive heart failure (CHF) ICD Codes: I50.9 - Heart failure, unspecified Status: Acute (4) Acute on chronic renal failure ICD Codes: N17.9 - Acute kidney failure, unspecified; N18.9 - Chronic kidney disease, unspecified Status: Resolved (5) DM (diabetes mellitus) ICD Codes: E11.9 - Type 2 diabetes mellitus without complications Status: Chronic (6) HTN (hypertension) ICD Codes: I10 - Essential (primary) hypertension (7) Symptomatic bradycardia ICD Codes: R00.1 - Bradycardia, unspecified Assessment and Plan 1) Accelerated HTN/HTN urgency Cardene drip currently stopped Will plan to add Norvasc, if still more anti-hypertensive need, can be changed to Procardia 2) Reviewed previous EKGs, appears to have high degree AV block noted Patient was asymptomatic at the time and on Coreg Coreg held, con't to follow on telemetry Currently sinus and sinus bradycardia, overnight a few episodes of Mobitz Type 1 AV block Will hold off on PPM consideration for now Avoid AV niraj blocking agents 3) SOB Most likely secondary to diastolic dysfunction with accelerated HTN Currently not SOB Delroy Lee DO May 14, 2017 12:54
[2017-05-14] MEDS: ENOXAPARIN SODIUM 30 MG/0.3 ML SYRINGE SQ SCH (16:48)
[2017-05-14] MEDS: ATORVASTATIN 20 MG TAB PO SCH (20:19)
[2017-05-15] VITALS (14 sets, daily range): BP systolic 151–181; BP diastolic 70–82; PULSE 48–98; RESP 11–38; TEMP 97.6–98.4; O2SAT 93–96
[2017-05-15] MEDS: CHLORHEXIDINE GLUCONATE 2 % 1 PACK (2 CLOTHS)(taper/protocol) TOPICAL SCH (03:46)
--- NOTE | 2017-05-15 04:51 | RADRPT ---
EXAM DATE/TIME: 05/15/2017 04:00 [facility] COMPARISON: CHEST SINGLE AP, May 12, 2017, 14:00. INDICATIONS : Shortness of breath, possible pulmonary disease. MEDICAL HISTORY : Stroke. Congestive heart failure. Hypercholesterolemia. Hypertension Renal disease Diabetes SURGICAL HISTORY : Pacemaker. Cholecystectomy. ENCOUNTER: Subsequent ACUITY: 4 - 6 days PAIN SCORE: Non-responsive. LOCATION: Left chest FINDINGS: Mild bibasilar atelectasis again noted, not significantly changed. No large effusion. No pneumothorax . Heart size stable, upper limits of normal. CONCLUSION: No significant change. Ko Martines MD on May 15, 2017 at 4:49 Board Certified Radiologist. This report was verified electronically.
[2017-05-15] MEDS: hydrALAZINE HCL 50 MG TAB PO SCH ×3 (05:30→20:36)
[2017-05-15] MEDS: cloNIDine HCL 0.1 MG TAB PO SCH ×3 (05:30→20:36)
[2017-05-15 06:34] LABS: AUTOMATED NEUTROPHIL # 4.4 TH/MM3 (1.8-7.7); BASOPHIL # 0.1 TH/MM3 (0-0.2); BASOPHIL % 1.1 % (0.0-2.0); EOSINOPHIL # 0.2 TH/MM3 (0-0.4); EOSINOPHIL % 3.2 % (0.0-4.0); HEMATOCRIT 37.1 % (39.0-51.0); HEMO FLAGS DIFF FINAL; LYMPH % 26.6 % (9.0-44.0); MEAN CELL VOLUME 89.8 FL (80.0-100.0); MEAN CORPUSCULAR HEMOGLOBIN 30.3 PG (27.0-34.0); MEAN CORPUSCULAR HGB CONC 33.8 % (32.0-36.0); NEUT % 59.1 % (16.0-70.0); PLATELET COUNT 120 TH/MM3 (150-450); RED BLOOD COUNT 4.13 MIL/MM3 (4.50-5.90); RED CELL DISTRIBUTION WIDTH 15.2 % (11.6-17.2); WHITE BLOOD COUNT 7.5 TH/MM3 (4.0-11.0)
[2017-05-15 06:51] LABS: POTASSIUM 3.5 MEQ/L (3.5-5.1)
[2017-05-15] MEDS: INSULIN ASPART SUPPLEMENTAL SCALE SQ SCH ×4 (08:00→20:35)
[2017-05-15] MEDS: DOCUSATE SODIUM 50 MG/SENNA 8.6 MG TAB PO SCH ×2 (09:00→20:43)
[2017-05-15] MEDS: CHOLECALCIFEROL (VIT D3) 5000 UNIT CAP PO SCH (09:00)
[2017-05-15] MEDS: ALLOPURINOL 100 MG TAB PO SCH (09:00)
[2017-05-15] MEDS: PANTOPRAZOLE SOD 20 MG DELAYED RELEASE TAB PO SCH ×2 (09:00→20:35)
[2017-05-15] MEDS: guaiFENesin E.R. 600 MG TAB PO SCH ×2 (09:00→20:34)
[2017-05-15] MEDS: NICOTINE 7 MG/24 HR PATCH T-DERMAL SCH (09:00)
[2017-05-15] MEDS: ISOSORBIDE MONONITRATE 30 MG TAB PO SCH (09:00)
[2017-05-15] MEDS: BUMETANIDE INJ 1 MG/4 ML VIAL IV PUSH SCH (09:01)
[2017-05-15] MEDS: SODIUM CHLORIDE 0.9% FLUSH 10 ML FLUSH IV FLUSH SCH ×2 (09:02→20:34)
[2017-05-15] MEDS: AZITHROMYCIN INJ 500 MG in SODIUM CHLOR 0.9% 250 ML INJ 250 ML IV SCH (12:00)
[2017-05-15] MEDS: cefTRIAXone INJ 1,000 MG in SODIUM CHLORIDE 0.9% INJ 100 ML IV SCH (12:32)
--- NOTE | 2017-05-15 13:41 | HHI.PR ---
Subjective Remarks "When am I going home" Objective Vital Signs Date Time Temp Pulse Resp B/P (MAP) Pulse Ox O2 Delivery O2 Flow Rate FiO2 05/15/17 10:00 53 05/15/17 08:00 60 05/15/17 08:00 98.3 60 35 172/74 (106) 96 05/15/17 07:00 95 Room Air 05/15/17 06:00 53 05/15/17 04:01 98 38 179/82 (114) 93 05/15/17 04:00 64 05/15/17 02:00 56 05/15/17 00:03 48 11 181/81 (114) 95 05/15/17 00:00 52 05/14/17 22:00 60 05/14/17 21:06 67 23 168/74 (105) 94 05/14/17 20:01 98.1 59 18 208/84 (125) 95 05/14/17 20:00 56 05/14/17 19:00 95 Room Air 05/14/17 18:00 50 05/14/17 16:00 48 05/14/17 16:00 97.9 48 17 150/67 (94) 92 05/14/17 14:00 50 I/O 05/14/17 05/14/17 05/14/17 05/15/17 05/15/17 05/15/17 07:00 15:00 23:00 07:00 15:00 23:00 Intake Total 240 ml 350 ml 480 ml 240 ml Output Total 400 ml 350 ml 250 ml Balance -160 ml 350 ml 130 ml -10 ml Intake Oral 240 ml 480 ml 240 ml IV Total 350 ml Output Urine Total 400 ml 350 ml 250 ml Result Diagram: 05/15/1730 05/15/17 0530 Imaging Alert, fully oriented , hard hearing lungs: ventilated Heart: s1, S2 regular, no gallop Abdomen: soft, no mass Ext: no edema Current Medications Medications (Trade) Dose Ordered Sig/Fox Route Start Time Stop Time Status Last Admin (Jina-Colace) 1 tab BID PO 05/11/17 21:00 05/14/17 08:20 (Senokot) 17.2 mg Q12H PRN PO 05/11/17 16:30 Ceftriaxone Sodium 1000 mg/ Sodium Chloride 100 ml @ 200 mls/hr Q24H IV 05/12/17 12:00 05/15/17 12:32 Azithromycin 500 mg/Sodium Chloride 250 ml @ 250 mls/hr Q24H IV 05/12/17 12:00 05/15/17 12:00 (Bumex Inj) 1 mg DAILY IV PUSH 05/11/17 16:45 05/15/17 09:01 (D50w (Vial) Inj) 50 ml UNSCH PRN IV PUSH 05/11/17 16:45 (Glucagon Inj) 1 mg UNSCH PRN OTHER 05/11/17 16:45 (NovoLOG SUPPLEMENTAL SCALE) 1 ACHS SLIDING SCALE SQ 05/11/17 17:00 05/15/17 12:00 (Zyloprim) 100 mg DAILY PO 05/12/17 09:00 05/15/17 09:00 (Lipitor) 20 mg HS PO 05/11/17 21:00 05/14/17 20:19 (Coreg) 6.25 mg BID PO 05/11/17 21:00 Future Hold 05/12/17 09:31 (Vitamin D3) 5,000 units DAILY PO 05/12/17 09:00 05/15/17 09:00 (Catapres) 0.1 mg Q8HR PO 05/11/17 22:00 05/15/17 05:30 (Imdur) 30 mg DAILY PO 05/12/17 09:00 05/15/17 09:00 (Protonix) 20 mg BID PO 05/11/17 21:00 05/15/17 09:00 (Mucinex Er) 600 mg BID PO 05/11/17 21:00 05/15/17 09:00 (Duoneb Neb) 1 ampule Q4HR NEB PRN NEB 05/11/17 16:45 05/12/17 05:57 (NS Flush) 2 ml UNSCH PRN IV FLUSH 05/11/17 16:45 (NS Flush) 2 ml BID IV FLUSH 05/11/17 21:00 05/15/17 09:02 (Tylenol) 650 mg Q4H PRN PO 05/11/17 16:45 (Zofran Inj) 4 mg Q6H PRN IVP 05/11/17 16:45 (Compazine Supp) 25 mg Q12H PRN RECTAL 05/11/17 16:45 (Lovenox Inj) 30 mg Q24H SQ 05/11/17 18:00 05/14/17 16:48 (Tylenol) 650 mg Q6H PRN PO 05/11/17 16:45 (Percocet 5-325 Mg) 1 tab Q6H PRN PO 05/11/17 16:45 (Percocet 10-325 Mg) 1 tab Q6H PRN PO 05/11/17 16:45 (Morphine Inj) 2 mg Q3H PRN IV PUSH 05/11/17 16:45 (Morphine Inj) 4 mg Q3H PRN IV PUSH 05/11/17 16:45 (Narcan Inj) 0.4 mg UNSCH PRN IV PUSH 05/11/17 16:45 (Dulcolax Supp) 10 mg DAILY PRN RECTAL 05/11/17 16:45 (Lactulose Liq) 30 ml DAILY PRN PO 05/11/17 16:45 (Habitrol 7 Mg Patch.24 Hr) 1 patch DAILY T-DERMAL 05/11/17 18:00 05/13/17 09:52 Miscellaneous Information 1 DAILY T-DERMAL 05/12/17 09:00 Nicardipine HCl 25 mg/Sodium Chloride 250 ml @ 50 mls/hr TITRATE PRN IV 05/12/17 12:30 05/13/17 12:06 Clevidipine 50 ml @ 2 mls/hr TITRATE PRN IV 05/12/17 12:30 (Apresoline Inj) 20 mg Q3H PRN IV PUSH 05/12/17 12:45 05/14/17 19:54 (K-Lyte Cl Eff) 50 meq UNSCH PRN PO 05/12/17 14:00 Miscellaneous Information Patient in critical care unit? Ass... Q361D .XX 05/12/17 22:30 (Chlorhexidine 2% Cloth) 3 pack DAILY@04 TOPICAL 05/13/17 04:00 05/17/17 04:01 05/14/17 04:00 (Chlorhexidine 2% Cloth) 3 pack UNSCH PRN TOPICAL 05/12/17 22:30 05/17/17 22:21 (Apresoline) 100 mg Q8HR PO 05/13/17 10:00 05/15/17 05:30 (Norvasc) 10 mg DAILY PO 05/14/17 13:00 05/15/17 09:00 Assessment and Plan Problem List: (1) Hypertension ICD Codes: I10 - Essential (primary) hypertension Status: Chronic Plan: SBP 160 now. Was as low as 138. Not on any IV drip. No PRN med was given in the last 12 hrs Continue with current management (2) High degree atrioventricular block ICD Codes: I44.39 - Other atrioventricular block Plan: In sinus with some Mobitz type I block No need for pacing for now Mihir Ward MD May 15, 2017 13:41
[2017-05-15] MEDS: ENOXAPARIN SODIUM 30 MG/0.3 ML SYRINGE SQ SCH (17:21)
--- NOTE | 2017-05-15 17:44 | HHI.CCPN ---
Subjective Remarks/Hospital Course The patient is a 81-year-old male with a past medical history of CHF, hypertension, chronic kidney disease, diabetes mellitus, hyperlipidemia, CVA and peripheral vascular disease. He was admitted to [facility] on May 11 under the hospitalist service for CHF decompensation and hypertensive urgency. On arrival the patient had a systolic blood pressure in the 170s to 200s. A chest x-ray showed a partially consolidated infiltrate in the left lower lobe. His laboratory data was significant for acute on chronic kidney disease with creatinine of 1.97 which improved to 1.77 today. His BNP was elevated at 1276. The patient was placed on diuretics and multiple antihypertensive meds. In addition he was on Rocephin and Zithromax for the left lower lobe infiltrate. The patient was afebrile and there was no evidence of any leukocytosis. Due to uncontrolled hypertension and systolic blood pressure over 200 he was transferred to [facility] for close observation and critical care medicine was consulted for critical care management. He is currently on 2 liters of oxygen with a saturation of 98% and blood pressure of 222/107. A Cardene drip was ordered by the primary team prior to transfer to the ICU. The patient states that his breathing is better. He is on diuretics for CHF. He denies any chest pain, orthopnea, PND or edema of his lower extremities. In addition he denies any cough or constitutional symptoms. The patient denies any nausea, vomiting or abdominal pain. 05/13 Patient is awake, alert lying in bed in NAD. On Cardene drip 5mg/hr. Denies any CP or SOB 05/14 No events overnight. Off Cardene drip. SBP's 160-170's. Subjective: 05/15 Off nicardipine but SBP 185's now. Denies CP and SOB and is hoping to go home soon. Creatinine up to 2.2 Objective Vital Signs Date Time Temp Pulse Resp B/P (MAP) Pulse Ox O2 Delivery O2 Flow Rate FiO2 05/15/17 16:00 49 05/15/17 12:00 98.4 14 163/77 (105) 96 05/15/17 07:00 Room Air 05/13/17 07:15 2.00 05/12/17 10:35 21 Intake and Output 05/15/17 05/15/17 05/16/17 08:00 16:00 00:00 Intake Total 240 ml Output Total 250 ml Balance -10 ml Result Diagram: 05/15/17 0530 05/15/17 0530 Imaging Last Impressions Chest X-Ray 05/12/17 0000 Signed Impressions: Service Date/Time: Friday, May 12, 2017 14:00 - CONCLUSION: 1. Redemonstration of left lower lobe airspace consolidation. 2. Mild positive fluid balance. Alex Stinson MD Objective Remarks GENERAL: Patient is 81 yo sitting up in bed, extremely hard of hearing. SKIN: Warm and dry. HEAD: Normocephalic. EYES: No scleral icterus. No injection or drainage. NECK: Supple, trachea midline. No JVD or lymphadenopathy. CARDIOVASCULAR: Regular rate and rhythm without murmurs, gallops, or rubs. RESPIRATORY: Breath sounds equal bilaterally. No accessory muscle use. GASTROINTESTINAL: Abdomen soft, non-tender, nondistended. On RA MUSCULOSKELETAL: No cyanosis, or edema. Neuro: Awake and alert. Moves all extremities with no focal deficit. Procedures EKG A. fib with slow ventricular response, left anterior fascicular block can't rule out anterior infarct A/P Assessment and Plan 1. Hypertensive urgency. 2. Respiratory insufficiency. 3. Left lower lobe infiltrate. 4. Acute on chronic kidney disease. 5. CHF. 6. Diabetes mellitus. 7. History of CVA. 8 Afib with slow ventricular response. Plan Neuro: Monitor neuro status and avoid any sedatives. Pulm: On RA. Bronchodilators CV: Continue with BP meds-On Hydralazine 100 mg q.8h., Imdur 30 mg daily, clonidine 0.1 mg q.8h. Hydralazine prn SBP >150. Coreg on hold for bradycardia and high grade AVB. Avoiding AVN blocking agents. Holding off on pacer at this time, cardiology following, Dr. Blackwood. . Lisinopril on hold due to SHAINA. Remains hypertensive despite Norvasc. Start procardia XL 60 po daily. HAs been diuresing with BUmex 1 mg IV daily. Will hold bumex for now in view of increased creatinine, though will likely need some low dose bumex po while on hydralazine. Repeat BMP in am. Echo from February showed an EF of 50-55% and moderate pulmonary hypertension with PA pressure of 50-60 mmHg. : Monitor renal function, I's and O's, and avoid nephrotoxins. Cr: 2.21. Voiding. REnal U/s - 05/14 complex cystic lesion R kidney, indeterminate, requires followup. Per radiology, stable from CT 09/17/[address] in 6 month. GI: On p.o. diet, Protonix 20 mg p.o. b.i.d. ID: community acquired pneumonia with left lower lobe infiltrate. On rocephin and azithromycin since 05/11 #5. D/c azithromycin. Endo: SSI with Accu-Chek for glycemic control. GI prophylaxis with Protonix 20 mg b.i.d., and DVT prophylaxis with SCDs and Lovenox 30 mg subcu daily. Transfer to floor. Hospitalist consult to assume care 05/16. Level 2 Kayli Padilla MD May 15, 2017 17:44
[2017-05-15] MEDS: hydrALAZINE HCL 20 MG/ML VIAL IV PUSH PRN (18:13)
[2017-05-15] MEDS: ATORVASTATIN 20 MG TAB PO SCH (20:34)
[2017-05-16] VITALS (18 sets, daily range): BP systolic 128–188; BP diastolic 60–135; PULSE 46–74; RESP 13–27; TEMP 96.1–98.3; O2SAT 92–96
[2017-05-16] MEDS: hydrALAZINE HCL 20 MG/ML VIAL IV PUSH PRN (00:16)
[2017-05-16] MEDS: CHLORHEXIDINE GLUCONATE 2 % 1 PACK (2 CLOTHS)(taper/protocol) TOPICAL SCH ×2 (04:00→21:25)
[2017-05-16] MEDS: cloNIDine HCL 0.1 MG TAB PO SCH ×3 (04:41→21:23)
[2017-05-16] MEDS: hydrALAZINE HCL 50 MG TAB PO SCH ×3 (04:42→21:23)
[2017-05-16] MEDS: INSULIN ASPART SUPPLEMENTAL SCALE SQ SCH ×4 (08:00→21:00)
[2017-05-16] MEDS: ALLOPURINOL 100 MG TAB PO SCH (08:25)
[2017-05-16] MEDS: NIFEdipine 60 MG SUSTAINED RELEASE TAB PO SCH (08:25)
[2017-05-16] MEDS: guaiFENesin E.R. 600 MG TAB PO SCH ×2 (08:25→19:30)
[2017-05-16] MEDS: CHOLECALCIFEROL (VIT D3) 5000 UNIT CAP PO SCH (08:25)
[2017-05-16] MEDS: ISOSORBIDE MONONITRATE 30 MG TAB PO SCH (08:25)
[2017-05-16] MEDS: PANTOPRAZOLE SOD 20 MG DELAYED RELEASE TAB PO SCH ×2 (08:25→19:31)
[2017-05-16] MEDS: DOCUSATE SODIUM 50 MG/SENNA 8.6 MG TAB PO SCH ×2 (08:26→19:31)
[2017-05-16] MEDS: SODIUM CHLORIDE 0.9% FLUSH 10 ML FLUSH IV FLUSH SCH ×2 (08:26→19:30)
[2017-05-16] MEDS: NICOTINE 7 MG/24 HR PATCH T-DERMAL SCH (08:26)
[2017-05-16] MEDS: REMOVE OLD PATCH T-DERMAL SCH (09:00)
--- NOTE | 2017-05-16 09:20 | HHI.PR ---
Subjective Remarks The patient wanted to go home. He said that his blood pressure was better controlled at home than it is here. He says the food is bad. He denies any pain. Discussed with nursing at the bedside. Objective Vitals Vital Signs Date Time Temp Pulse Resp B/P (MAP) Pulse Ox O2 Delivery O2 Flow Rate FiO2 05/16/17 08:21 96 05/16/17 06:00 52 05/16/17 04:00 55 05/16/17 04:00 98.3 55 27 170/73 (105) 95 05/16/17 02:00 62 05/16/17 00:00 50 05/16/17 00:00 97.9 48 13 96 05/15/17 22:00 53 05/15/17 20:00 62 05/15/17 20:00 97.8 52 19 167/70 (102) 95 05/15/17 19:00 95 Room Air 05/15/17 18:00 60 05/15/17 16:00 49 05/15/17 16:00 97.6 49 19 151/70 (97) 94 05/15/17 14:00 56 05/15/17 12:00 98.4 57 14 163/77 (105) 96 05/15/17 12:00 57 05/15/17 10:00 53 I/O 05/15/17 05/15/17 05/15/17 05/16/17 05/16/17 05/16/17 07:00 15:00 23:00 07:00 15:00 23:00 Intake Total 240 ml 650 ml 200 ml Output Total 250 ml 250 ml 0 ml Balance -10 ml 400 ml 200 ml Intake Oral 240 ml 300 ml 200 ml IV Total 350 ml Output Urine Total 250 ml 250 ml 0 ml # Bowel Movements 0 Result Diagram: 05/15/17 0530 05/15/17 0530 Imaging Last Impressions Chest X-Ray 05/15/17 0600 Signed Impressions: Service Date/Time: Monday, May 15, 2017 04:00 - CONCLUSION: No significant change. Ko Martines MD Renal Ultrasound 05/14/17 0000 Signed Impressions: Service Date/Time: Sunday, May 14, 2017 10:15 - CONCLUSION: 1. Complex cystic lesion again noted in the right kidney most likely representing a complex cyst however this is indeterminate and requires further evaluation or followup. This is not a significant change from the 09/17/[address] would be recommended in 6 months. 2. Small atrophic left kidney with small simple cysts. Zuhair Benitez MD Objective Remarks GENERAL: Hard of hearing, in NAD. SKIN: Warm and dry. HEAD: Normocephalic. EYES: No scleral icterus. No injection or drainage. NECK: Supple, trachea midline. No JVD or lymphadenopathy. CARDIOVASCULAR: Bradycardic without murmurs, gallops, or rubs. RESPIRATORY: Breath sounds equal bilaterally. No accessory muscle use. GASTROINTESTINAL: Abdomen soft, non-tender, nondistended. MUSCULOSKELETAL: No cyanosis, or edema. NEURO: Awake and alert. Moves all extremities with no focal deficit. Medications and IVs Current Medications Medications (Trade) Dose Ordered Sig/Fox Route Start Time Stop Time Status Last Admin (Jina-Colace) 1 tab BID PO 05/11/17 21:00 05/14/17 08:20 (Senokot) 17.2 mg Q12H PRN PO 05/11/17 16:30 Ceftriaxone Sodium 1000 mg/ Sodium Chloride 100 ml @ 200 mls/hr Q24H IV 05/12/17 12:00 05/15/17 12:32 (Bumex Inj) 1 mg DAILY IV PUSH 05/11/17 16:45 Future Hold 05/15/17 09:01 (D50w (Vial) Inj) 50 ml UNSCH PRN IV PUSH 05/11/17 16:45 (Glucagon Inj) 1 mg UNSCH PRN OTHER 05/11/17 16:45 (NovoLOG SUPPLEMENTAL SCALE) 1 ACHS SLIDING SCALE SQ 05/11/17 17:00 05/16/17 08:00 (Zyloprim) 100 mg DAILY PO 05/12/17 09:00 05/16/17 08:25 (Lipitor) 20 mg HS PO 05/11/17 21:00 05/15/17 20:34 (Coreg) 6.25 mg BID PO 05/11/17 21:00 Future Hold 05/12/17 09:31 (Vitamin D3) 5,000 units DAILY PO 05/12/17 09:00 05/16/17 08:25 (Catapres) 0.1 mg Q8HR PO 05/11/17 22:00 05/16/17 04:41 (Imdur) 30 mg DAILY PO 05/12/17 09:00 05/16/17 08:25 (Protonix) 20 mg BID PO 05/11/17 21:00 05/16/17 08:25 (Mucinex Er) 600 mg BID PO 05/11/17 21:00 05/16/17 08:25 (Duoneb Neb) 1 ampule Q4HR NEB PRN NEB 05/11/17 16:45 05/12/17 05:57 (NS Flush) 2 ml UNSCH PRN IV FLUSH 05/11/17 16:45 05/16/17 00:16 (NS Flush) 2 ml BID IV FLUSH 05/11/17 21:00 05/16/17 08:26 (Tylenol) 650 mg Q4H PRN PO 05/11/17 16:45 (Zofran Inj) 4 mg Q6H PRN IVP 05/11/17 16:45 (Compazine Supp) 25 mg Q12H PRN RECTAL 05/11/17 16:45 (Lovenox Inj) 30 mg Q24H SQ 05/11/17 18:00 05/15/17 17:21 (Tylenol) 650 mg Q6H PRN PO 05/11/17 16:45 (Percocet 5-325 Mg) 1 tab Q6H PRN PO 05/11/17 16:45 (Percocet 10-325 Mg) 1 tab Q6H PRN PO 05/11/17 16:45 (Morphine Inj) 2 mg Q3H PRN IV PUSH 05/11/17 16:45 (Morphine Inj) 4 mg Q3H PRN IV PUSH 05/11/17 16:45 (Narcan Inj) 0.4 mg UNSCH PRN IV PUSH 05/11/17 16:45 (Dulcolax Supp) 10 mg DAILY PRN RECTAL 05/11/17 16:45 (Lactulose Liq) 30 ml DAILY PRN PO 05/11/17 16:45 (Habitrol 7 Mg Patch.24 Hr) 1 patch DAILY T-DERMAL 05/11/17 18:00 05/13/17 09:52 Miscellaneous Information 1 DAILY T-DERMAL 05/12/17 09:00 (K-Lyte Cl Eff) 50 meq UNSCH PRN PO 05/12/17 14:00 Miscellaneous Information Patient in critical care unit? Ass... Q361D .XX 05/12/17 22:30 (Chlorhexidine 2% Cloth) 3 pack DAILY@04 TOPICAL 05/13/17 04:00 05/17/17 04:01 05/16/17 04:00 (Chlorhexidine 2% Cloth) 3 pack UNSCH PRN TOPICAL 05/12/17 22:30 05/17/17 22:21 (Apresoline) 100 mg Q8HR PO 05/13/17 10:00 05/16/17 04:42 (Procardia Xl) 60 mg DAILY PO 05/16/17 09:00 05/16/17 08:25 A/P Assessment and Plan Hypertensive urgency/ Bradycardia Coreg on hold for bradycardia and high grade AVB. - Avoiding AVN blocking agents. Holding off on pacer at this time per cardiology. - Continue with BP meds-On Hydralazine 100 mg q.8h., Imdur 30 mg daily, clonidine 0.1 mg q.8h. Procardia 60 mg added 05/16. Increase clonidine if needed. - Lisinopril on hold due to SHAINA. CHF Echo from February showed an EF of 50-55% and moderate pulmonary hypertension with PA pressure of 50-60 mmHg. - has been diuresing with Bumex 1 mg IV daily. Will hold Bumex for now in view of increased creatinine, though will likely need some low dose Bumex po while on hydralazine. Repeat BMP in am. - Coreg and lisinopril held as above. Acute on chronic renal failure Creatinine has been increasing while on Bumex. - Monitor renal function, I's and O's, and avoid nephrotoxins. - hold Bumex for now. Complex renal cyst Renal U/s - 05/14 complex cystic lesion R kidney, indeterminate. - Per radiology cyst is stable from CT 09/17/[address] in 6 months. Community acquired pneumonia Left lower lobe infiltrate. - On Rocephin and azithromycin since 05/11. D/c azithromycin. - oxygen and nebs as needed. PPx: Lovenox Discharge Planning Transfer to the floor. Zuhair Renteria DO May 16, 2017 09:20
[2017-05-16 13:17] LABS: BICARBONATE 21.5 MEQ/L (21.0-32.0); POTASSIUM 3.6 MEQ/L (3.5-5.1)
[2017-05-16] MEDS: cefTRIAXone INJ 1,000 MG in SODIUM CHLORIDE 0.9% INJ 100 ML IV SCH (14:04)
[2017-05-16] MEDS: ENOXAPARIN SODIUM 30 MG/0.3 ML SYRINGE SQ SCH (18:13)
[2017-05-16] MEDS: ATORVASTATIN 20 MG TAB PO SCH (19:31)
[2017-05-17 04:53] VITALS: BP 149/67; PULSE 56; RESP 18; TEMP 97.5; O2SAT 94
[2017-05-17] MEDS: hydrALAZINE HCL 50 MG TAB PO SCH ×2 (05:20→13:59)
[2017-05-17] MEDS: cloNIDine HCL 0.1 MG TAB PO SCH ×2 (05:20→13:59)
[2017-05-17] MEDS: INSULIN ASPART SUPPLEMENTAL SCALE SQ SCH ×3 (07:45→17:46)
[2017-05-17 08:00] VITALS: BP 164/73; PULSE 50; RESP 20; TEMP 97.8; O2SAT 94
[2017-05-17] MEDS: CHOLECALCIFEROL (VIT D3) 5000 UNIT CAP PO SCH (08:37)
[2017-05-17] MEDS: ISOSORBIDE MONONITRATE 30 MG TAB PO SCH (08:37)
[2017-05-17] MEDS: NIFEdipine 60 MG SUSTAINED RELEASE TAB PO SCH (08:37)
[2017-05-17] MEDS: DOCUSATE SODIUM 50 MG/SENNA 8.6 MG TAB PO SCH (08:37)
[2017-05-17] MEDS: PANTOPRAZOLE SOD 20 MG DELAYED RELEASE TAB PO SCH (08:37)
[2017-05-17] MEDS: REMOVE OLD PATCH T-DERMAL SCH (08:37)
[2017-05-17] MEDS: guaiFENesin E.R. 600 MG TAB PO SCH (08:37)
[2017-05-17] MEDS: SODIUM CHLORIDE 0.9% FLUSH 10 ML FLUSH IV FLUSH SCH (08:37)
[2017-05-17] MEDS: ALLOPURINOL 100 MG TAB PO SCH (08:37)
[2017-05-17] MEDS: NICOTINE 7 MG/24 HR PATCH T-DERMAL SCH (08:38)
--- NOTE | 2017-05-17 11:00 | PD.CARD.PN ---
Subjective Subjective Remarks No chest pain/SOB Feels great, up and ambulating to the restroom Telemetry showing sinus rhythm/sinus bradycardia, no high degree AV block, occasional Mobitz Type 1 Patient asymptomatic Objective Medications Current Medications Medications (Trade) Dose Ordered Sig/Fox Route Start Time Stop Time Status Last Admin (Jina-Colace) 1 tab BID PO 05/11/17 21:00 05/17/17 08:37 (Senokot) 17.2 mg Q12H PRN PO 05/11/17 16:30 Ceftriaxone Sodium 1000 mg/ Sodium Chloride 100 ml @ 200 mls/hr Q24H IV 05/12/17 12:00 05/16/17 14:04 (Bumex Inj) 1 mg DAILY IV PUSH 05/11/17 16:45 Future Hold 05/15/17 09:01 (D50w (Vial) Inj) 50 ml UNSCH PRN IV PUSH 05/11/17 16:45 (Glucagon Inj) 1 mg UNSCH PRN OTHER 05/11/17 16:45 (NovoLOG SUPPLEMENTAL SCALE) 1 ACHS SLIDING SCALE SQ 05/11/17 17:00 05/16/17 21:00 (Zyloprim) 100 mg DAILY PO 05/12/17 09:00 05/17/17 08:37 (Lipitor) 20 mg HS PO 05/11/17 21:00 05/16/17 19:31 (Coreg) 6.25 mg BID PO 05/11/17 21:00 Future Hold 05/12/17 09:31 (Vitamin D3) 5,000 units DAILY PO 05/12/17 09:00 05/17/17 08:37 (Catapres) 0.1 mg Q8HR PO 05/11/17 22:00 05/17/17 05:20 (Imdur) 30 mg DAILY PO 05/12/17 09:00 05/17/17 08:37 (Protonix) 20 mg BID PO 05/11/17 21:00 05/17/17 08:37 (Mucinex Er) 600 mg BID PO 05/11/17 21:00 05/17/17 08:37 (Duoneb Neb) 1 ampule Q4HR NEB PRN NEB 05/11/17 16:45 05/12/17 05:57 (NS Flush) 2 ml UNSCH PRN IV FLUSH 05/11/17 16:45 05/16/17 00:16 (NS Flush) 2 ml BID IV FLUSH 05/11/17 21:00 05/17/17 08:37 (Tylenol) 650 mg Q4H PRN PO 05/11/17 16:45 (Zofran Inj) 4 mg Q6H PRN IVP 05/11/17 16:45 (Compazine Supp) 25 mg Q12H PRN RECTAL 05/11/17 16:45 (Lovenox Inj) 30 mg Q24H SQ 05/11/17 18:00 05/16/17 18:13 (Tylenol) 650 mg Q6H PRN PO 05/11/17 16:45 (Percocet 5-325 Mg) 1 tab Q6H PRN PO 05/11/17 16:45 (Percocet 10-325 Mg) 1 tab Q6H PRN PO 05/11/17 16:45 (Morphine Inj) 2 mg Q3H PRN IV PUSH 05/11/17 16:45 (Morphine Inj) 4 mg Q3H PRN IV PUSH 05/11/17 16:45 (Narcan Inj) 0.4 mg UNSCH PRN IV PUSH 05/11/17 16:45 (Dulcolax Supp) 10 mg DAILY PRN RECTAL 05/11/17 16:45 (Lactulose Liq) 30 ml DAILY PRN PO 05/11/17 16:45 (Habitrol 7 Mg Patch.24 Hr) 1 patch DAILY T-DERMAL 05/11/17 18:00 05/13/17 09:52 Miscellaneous Information 1 DAILY T-DERMAL 05/12/17 09:00 (K-Lyte Cl Eff) 50 meq UNSCH PRN PO 05/12/17 14:00 Miscellaneous Information Patient in critical care unit? Ass... Q361D .XX 05/12/17 22:30 (Chlorhexidine 2% Cloth) 3 pack UNSCH PRN TOPICAL 05/12/17 22:30 05/17/17 22:21 (Apresoline) 100 mg Q8HR PO 05/13/17 10:00 05/17/17 05:20 (Procardia Xl) 60 mg DAILY PO 05/16/17 09:00 05/17/17 08:37 Vital Signs / I&O Vital Signs Date Time Temp Pulse Resp B/P (MAP) Pulse Ox O2 Delivery O2 Flow Rate FiO2 05/17/17 08:00 97.8 50 20 164/73 (103) 94 05/17/17 04:53 97.5 56 18 149/67 (94) 94 05/16/17 23:47 98.0 52 18 128/60 (82) 96 05/16/17 20:26 96.7 52 19 141/63 (89) 92 05/16/17 20:15 Room Air 05/16/17 20:08 46 05/16/17 18:18 96 21 05/16/17 18:00 50 05/16/17 16:00 54 05/16/17 16:00 97.7 53 16 173/86 (115) 96 05/16/17 12:00 57 05/16/17 12:00 96.1 55 16 166/87 (113) 96 I/O 05/16/17 05/16/17 05/16/17 05/17/17 05/17/17 05/17/17 07:00 15:00 23:00 07:00 15:00 23:00 Intake Total 200 ml 100 ml 480 ml Output Total 0 ml Balance 200 ml 100 ml 480 ml Intake Oral 200 ml 480 ml IV Total 100 ml Output Urine Total 0 ml # Voids 2 # Bowel Movements 0 Physical Exam GENERAL: NAD, AAOx3 SKIN: Warm and dry. HEAD: Atraumatic. Normocephalic. EYES: Pupils equal and round. No scleral icterus. No injection or drainage. ENT: No nasal bleeding or discharge. Mucous membranes pink and moist. NECK: Trachea midline. No JVD. CARDIOVASCULAR: Regular rate and rhythm. Bradycardic RESPIRATORY: No accessory muscle use. Clear to auscultation. Breath sounds equal bilaterally. GASTROINTESTINAL: Abdomen soft, non-tender, nondistended. Hepatic and splenic margins not palpable. MUSCULOSKELETAL: Extremities without clubbing, cyanosis, or edema. No obvious deformities. NEUROLOGICAL: Awake and alert. No obvious cranial nerve deficits. Motor grossly within normal limits. Five out of 5 muscle strength in the arms and legs. Normal speech. PSYCHIATRIC: Appropriate mood and affect; insight and judgment normal. Laboratory Laboratory Tests Test 05/16/17 12:19 Blood Urea Nitrogen 22 MG/DL Creatinine 2.07 MG/DL Random Glucose 238 MG/DL Calcium Level 7.8 MG/DL Sodium Level 139 MEQ/L Potassium Level 3.6 MEQ/L Chloride Level 110 MEQ/L Carbon Dioxide Level 21.5 MEQ/L Anion Gap 8 MEQ/L Estimat Glomerular Filtration Rate 31 ML/MIN Assessment and Plan Problem List: (1) High degree atrioventricular block ICD Codes: I44.39 - Other atrioventricular block (2) Accelerated hypertension ICD Codes: I10 - Essential (primary) hypertension Status: Acute (3) Congestive heart failure (CHF) ICD Codes: I50.9 - Heart failure, unspecified Status: Acute (4) Acute on chronic renal failure ICD Codes: N17.9 - Acute kidney failure, unspecified; N18.9 - Chronic kidney disease, unspecified Status: Resolved (5) DM (diabetes mellitus) ICD Codes: E11.9 - Type 2 diabetes mellitus without complications Status: Chronic (6) HTN (hypertension) ICD Codes: I10 - Essential (primary) hypertension (7) Symptomatic bradycardia ICD Codes: R00.1 - Bradycardia, unspecified Assessment and Plan 1) Accelerated HTN/HTN urgency Procardia/Hydralazine/Imdur/Clonidine Blood pressure relatively stable 2) Reviewed previous EKGs, appears to have high degree AV block noted Patient was asymptomatic at the time and on Coreg Coreg held, no further episodes Will hold off on PPM consideration for now Avoid AV niraj blocking agents Follow up with Dr. Sifuentes on discharge 3) SOB resolved Most likely secondary to diastolic dysfunction with accelerated HTN 4) Appears cardiovascularly stable for discharge Follow up with Dr. Sifuentes on discharge Delroy Lee DO May 17, 2017 11:00
[2017-05-17 12:00] VITALS: BP 150/69; PULSE 53; RESP 17; TEMP 96.2; O2SAT 93
[2017-05-17] MEDS: cefTRIAXone INJ 1,000 MG in SODIUM CHLORIDE 0.9% INJ 100 ML IV SCH (12:17)
[2017-05-17 15:52] VITALS: BP 139/65; PULSE 51; RESP 18; TEMP 96.1; O2SAT 91
[2017-05-17] MEDS ORDERED: NIFE60TA8 PO (16:46)
[2017-05-17] MEDS ORDERED: HYDR-3800 PO (16:46)
--- NOTE | 2017-05-17 16:50 | HHI.DS ---
Discharge Summary Admission Date May 11, 2017 at 16:25 Discharge Date: May 17, 2017 Admitting Diagnosis LLL PNA, HYPOCALCEMIA, HYPERGLYCEMIA (1) Hypertension ICD Code: I10 - Essential (primary) hypertension Status: Chronic (2) Congestive heart failure (CHF) ICD Code: I50.9 - Heart failure, unspecified Status: Acute (3) Symptomatic bradycardia ICD Code: R00.1 - Bradycardia, unspecified (4) High degree atrioventricular block ICD Code: I44.39 - Other atrioventricular block (5) Acute on chronic renal failure ICD Code: N17.9 - Acute kidney failure, unspecified; N18.9 - Chronic kidney disease, unspecified Status: Resolved (6) DM (diabetes mellitus) ICD Code: E11.9 - Type 2 diabetes mellitus without complications Status: Chronic Procedures See below Brief History - From Admission Patient is a 81-year-old gentleman. Who presented to the emergency department today with shortness of breath for several weeks. He has been taking his medications by discontinuing noticed gradual worsening of shortness of breath over the last few days. States that in the past shortness of breath is from a pleural effusion and has gets chest tubes on his back to drain the fluid. Patient believes that he is having similar symptoms. States he has had a dry nonproductive cough, no fevers, no sweats, and does not use oxygen at home Patient has an extensive medical history including congestive heart failure chronic kidney disease hypertension and pleural effusions. He will be admitted for pneumonia and dyspnea and congestive heart failure. And will be placed on antibiotics and diuresed CBC/BMP: 05/15/17 0530 05/16/17 1219 Significant Findings Laboratory Tests Test 05/15/17 05:30 05/16/17 12:19 Red Blood Count 4.13 MIL/MM3 (4.50-5.90) Hemoglobin 12.5 GM/DL (13.0-17.0) Hematocrit 37.1 % (39.0-51.0) Platelet Count 120 TH/MM3 (150-450) Monocytes (%) (Auto) 10.0 % (0.0-8.0) Blood Urea Nitrogen 23 MG/DL (7-18) 22 MG/DL (7-18) Creatinine 2.21 MG/DL (0.60-1.30) 2.07 MG/DL (0.60-1.30) Random Glucose 145 MG/DL (74-106) 238 MG/DL (74-106) Calcium Level 7.8 MG/DL (8.5-10.1) 7.8 MG/DL (8.5-10.1) Chloride Level 112 MEQ/L (98-107) 110 MEQ/L (98-107) Carbon Dioxide Level 20.0 MEQ/L (21.0-32.0) Estimat Glomerular Filtration Rate 29 ML/MIN (>89) 31 ML/MIN (>89) PE at Discharge GENERAL: Hard of hearing, in NAD. SKIN: Warm and dry. HEAD: Normocephalic. EYES: No scleral icterus. No injection or drainage. NECK: Supple, trachea midline. No JVD or lymphadenopathy. CARDIOVASCULAR: Bradycardic without murmurs, gallops, or rubs. RESPIRATORY: Breath sounds equal bilaterally. No accessory muscle use. GASTROINTESTINAL: Abdomen soft, non-tender, nondistended. MUSCULOSKELETAL: No cyanosis, or edema. NEURO: Awake and alert. Moves all extremities with no focal deficit. Hospital Course Patient admitted for hypertensive urgency bradycardia CHF acute on chronic renal failure and community-acquired pneumonia, patient started on oxygen DuoNeb antibiotic, heart failure medication regimen, she was found to have AV block so AV not locking agent placed on hold, cardiology has been consulted from the beginning at admission, IRLANDA inhibitor has been on hold for a [employer]. Patient cleared by cardiology, by discussed with the patient staying to monitor her creatinine and resuming her diuretic however she insists on being discharged, so will discharge the patient to check a BMP and follow up with her primary care physician within 1-2 days in order to resume her diuretic [id number] encounter performed with the patient on discharge day, as well as physical exam, summary of hospitalization course and postdischarge plan has been D/W the patient. D/W nurse D/W patient case manager. Discharge medications reviewed and printed and signed, post discharge follow up visit with PCP and other specialist as well as Brief hospital course and discharge summary has been placed. Pt Condition on Discharge: Stable Discharge Disposition: Discharge Home Discharge Time: > 30 minutes Discharge Instructions DIET: Follow Instructions for: Heart Healthy Diet, Diabetic Diet Activities you can perform: Weight Bearing as Rich Follow up Referrals: Cardiology - 1 Week with Delroy Lee DO PCP Follow-up - 2-3 Days New Orders: BASIC METABOLIC PROF - 2-3 Days New Medications: Hydralazine HCl (Hydralazine HCl) 50 Mg Tablet 100 MG PO Q8HR for htn, #90 TAB Nifedipine ER 24 HR (Nifedipine ER 24 HR) 60 Mg Tab 60 MG PO DAILY for htn, #30 TAB Continued Medications: Allopurinol (Allopurinol) 100 Mg Tab 100 MG PO DAILY for Gout, #30 TAB 0 Refills Atorvastatin (Atorvastatin) 20 Mg Tab 20 MG PO HS for Cholesterol Management, #30 TAB 0 Refills Cholecalciferol (Vitamin D3) 5,000 Unit Cap 5000 UNITS PO DAILY for Nutritional Supplement, #1 BOTTLE 0 Refills Clonidine (Catapres) 0.1 Mg Tab 0.1 MG PO Q8HR for htn, #90 TAB Glipizide (Glucotrol) 5 Mg Tab 5 MG PO DAILYAC for 30 Days, TAB Isosorbide Mononitrate ER (Isosorbide Mononitrate ER) 30 Mg Jennifer 30 MG PO DAILY for Prevent Chest Pain, #30 TAB 0 Refills Omeprazole (Omeprazole) 20 Mg Tab 20 MG PO BID, #30 TAB 0 Refills Melba Shaw MD May 17, 2017 16:50
[2017-05-17] MEDS: ENOXAPARIN SODIUM 30 MG/0.3 ML SYRINGE SQ SCH (17:10)
== END 2017-05-17 18:13 | disposition home or self-care (01) | DRG 291 ==
LOC: NEPE 10:22 → NEDA 16:25 → N04A 18:05 → HIMW 05-12 12:56 → N07B 05-16 09:50
PROVIDERS: ADMIT Hospitalist; ATTEND Hospitalist
DX: I13.0 Hypertensive heart and chronic kidney disease with heart failure and stage 1 through stage 4 chronic kidney disease, or unspecified chronic kidney disease (principal); J18.1 Lobar pneumonia, unspecified organism; N17.9 Acute kidney failure, unspecified; E11.22 Type 2 diabetes mellitus with diabetic chronic kidney disease; I27.20 Pulmonary hypertension, unspecified; R00.1 Bradycardia, unspecified; I44.1 Atrioventricular block, second degree; E83.51 Hypocalcemia; I48.91 Unspecified atrial fibrillation; I50.32 Chronic diastolic (congestive) heart failure; N18.9 Chronic kidney disease, unspecified; I73.9 Peripheral vascular disease, unspecified; E78.5 Hyperlipidemia, unspecified; E87.6 Hypokalemia; I16.0 Hypertensive urgency; K21.9 Gastro-esophageal reflux disease without esophagitis; N28.1 Cyst of kidney, acquired; F17.200 Nicotine dependence, unspecified, uncomplicated; Z86.73 Personal history of transient ischemic attack (TIA), and cerebral infarction without residual deficits
CPT/HCPCS: 71010; 76775; 80048; 80053; 82550; 82552; 82948; 83036; 83735; 83880; 84100; 84155; 84439; 84443; 84484; 85025; 85610; 85730; 87641; 93005; 94150; 94664; 96365; 96367; C9248; J0360; J0456; J0610; J0696; J1650; J1815; J3475; J7050

== ENCOUNTER 2017-05-19 08:46 | Observation (INO) | payer MEDICARE, OTHER ==
[~2017-05-19] VITALS: Ht 180.3 cm; Wt 77.0 kg
[2017-05-19] VITALS (11 sets, daily range): BP systolic 147–168; BP diastolic 65–74; PULSE 48–61; RESP 16–22; TEMP 97.2–98.2; O2SAT 90–95
[~2017-05-19 08:46] MED LIST changes: -AMLO10TA2 PO; -ASPI1TAB69 PO; +CARV6.252 PO; -CEFU1TAB20 PO; +HYDR-3800 PO; +LISI10TA3 PO; +NIFE60TA8 PO; -OMEP20TA PO; +OMEP20TA93 PO
--- NOTE | 2017-05-19 09:44 | PD ---
HPI Chief Complaint: Respiratory Symptoms Time Seen by Provider: 09:14 Travel History International Travel<30 days: No Contact w/Intl Traveler<30days: No Traveled to known affect area: No History of Present Illness HPI 81-year-old man who presents to the emergency department complaining of shortness of breath. He is a history of CHF, chronic kidney disease, was recently hospitalized for shortness of breath and pneumonia. He was discharged 2 days ago. States he was doing well at that time but then during the night last night developed again significant shortness of breath. No chest pain. No fevers or chills. No leg swelling. Been compliant with all his medications. No other complaints. History Past Medical History Narrative Medical CHF CJD, creatinine baseline about 2 or so Hypertension Diabetes History of CVA Arthritis Hyperlipidemia PAD, history of bypass in the lower extremities Heartburn Osteoarthritis History of pleural effusions Influenza Vaccination: Yes Social History Alcohol Use: No Tobacco Use: Yes (1 pack every 3 days) Allergies-Medications (Allergen,Severity, Reaction): Coded Allergies: hydrochlorothiazide (Unverified Allergy, Severe, Rash, 05/19/17) diclofenac (Unverified Adverse Reaction, Severe, GI BLEED, 05/19/17) etodolac (Unverified Adverse Reaction, Severe, GI BLEED, 05/19/17) flurbiprofen (Unverified Adverse Reaction, Severe, GI BLEED, 05/19/17) ibuprofen (Unverified Adverse Reaction, Severe, GI BLEED, 05/19/17) indomethacin (Unverified Adverse Reaction, Severe, GI BLEED, 05/19/17) ketoprofen (Unverified Adverse Reaction, Severe, GI BLEED, 05/19/17) ketorolac (Unverified Adverse Reaction, Severe, GI BLEED, 05/19/17) naproxen (Unverified Adverse Reaction, Severe, GI BLEED, 05/19/17) oxaprozin (Unverified Adverse Reaction, Severe, GI BLEED, 05/19/17) Reported Meds & Prescriptions Reported Meds & Active Scripts Active Nifedipine ER 24 HR (Nifedipine) 60 Mg Tab 60 Mg PO DAILY Hydralazine HCl 50 Mg Tablet 100 Mg PO Q8HR Catapres (Clonidine) 0.1 Mg Tab 0.1 Mg PO Q8HR Glucotrol (Glipizide) 5 Mg Tab 5 Mg PO DAILYAC 30 Days Reported Lisinopril 10 Mg Tab 10 Mg PO DAILY Carvedilol 6.25 Mg Tab 6.25 Mg PO BID Vitamin D3 (Cholecalciferol) 5,000 Unit Cap 5,000 Units PO DAILY Isosorbide Mononitrate ER (Isosorbide Mononitrate) 30 Mg Jennifer 30 Mg PO DAILY Atorvastatin (Atorvastatin Calcium) 20 Mg Tab 20 Mg PO HS Omeprazole 20 Mg Tab 20 Mg PO BID Allopurinol 100 Mg Tab 100 Mg PO DAILY Review of Systems Except as stated in HPI: all other systems reviewed are Neg Physical Exam Narrative GENERAL: Well-appearing 81-year-old man, no acute distress. SKIN: Focused skin assessment warm/dry. HEAD: Atraumatic. Normocephalic. EYES: Pupils equal and round. No scleral icterus. No injection or drainage. ENT: No nasal bleeding or discharge. Mucous membranes pink and moist. NECK: Trachea midline. No JVD. CARDIOVASCULAR: Heart rate slow, little bit irregular. No murmur appreciated. RESPIRATORY: No accessory muscle use. Clear to auscultation. Breath sounds equal bilaterally. GASTROINTESTINAL: Abdomen soft, non-tender, nondistended. Hepatic and splenic margins not palpable. MUSCULOSKELETAL: No obvious deformities. No significant edema. NEUROLOGICAL: Awake and alert. No obvious cranial nerve deficits. Motor grossly within normal limits. Normal speech. PSYCHIATRIC: Appropriate mood and affect; insight and judgment normal. Data Data Last Documented VS Vital Signs Date Time Temp Pulse Resp B/P (MAP) Pulse Ox O2 Delivery O2 Flow Rate FiO2 05/19/17 11:03 59 16 147/65 (92) 95 Nasal Cannula 2.00 05/19/17 08:48 97.9 Orders Orders Complete Blood Count With Diff (05/19/17:23) Comprehensive Metabolic Panel (05/19/17:23) B-Type Natriuretic Peptide (05/19/17:23) Magnesium (Mg) (05/19/17:23) Troponin I (05/19/17:23) Iv Access Insert/Monitor (05/19/17:23) Electrocardiogram (05/19/17:23) Ecg Monitoring (05/19/17:23) Oximetry (05/19/17:23) Oxygen Administration (11/1/17 09:23) Chest, Pa & Lat (05/19/17 09:23) Sodium Chloride 0.9% Flush (Ns Flush) (05/19/17 09:30) Labs Laboratory Tests Test 05/19/17 09:40 White Blood Count 8.8 TH/MM3 Red Blood Count 4.08 MIL/MM3 Hemoglobin 12.3 GM/DL Hematocrit 36.6 % Mean Corpuscular Volume 89.6 FL Mean Corpuscular Hemoglobin 30.1 PG Mean Corpuscular Hemoglobin Concent 33.6 % Red Cell Distribution Width 15.4 % Platelet Count 177 TH/MM3 Mean Platelet Volume 8.1 FL Neutrophils (%) (Auto) 64.2 % Lymphocytes (%) (Auto) 24.9 % Monocytes (%) (Auto) 7.9 % Eosinophils (%) (Auto) 2.0 % Basophils (%) (Auto) 1.0 % Neutrophils # (Auto) 5.6 TH/MM3 Lymphocytes # (Auto) 2.2 TH/MM3 Monocytes # (Auto) 0.7 TH/MM3 Eosinophils # (Auto) 0.2 TH/MM3 Basophils # (Auto) 0.1 TH/MM3 CBC Comment DIFF FINAL Differential Comment Blood Urea Nitrogen 32 MG/DL Creatinine 2.57 MG/DL Random Glucose 210 MG/DL Total Protein 6.8 GM/DL Albumin 2.7 GM/DL Calcium Level 7.7 MG/DL Magnesium Level 1.2 MG/DL Alkaline Phosphatase 126 U/L Aspartate Amino Transf (AST/SGOT) 27 U/L Alanine Aminotransferase (ALT/SGPT) 29 U/L Total Bilirubin 0.5 MG/DL Sodium Level 141 MEQ/L Potassium Level 3.3 MEQ/L Chloride Level 109 MEQ/L Carbon Dioxide Level 19.6 MEQ/L Anion Gap 12 MEQ/L Estimat Glomerular Filtration Rate 24 ML/MIN Troponin I 0.04 NG/ML B-Type Natriuretic Peptide 585 PG/ML [facility] Medical Decision Making Medical Screen Exam Complete: Yes Emergency Medical Condition: Yes Interpretation(s) LABS: CBC is unremarkable, mild anemia. CMP is remarkable for elevated BUN and creatinine, consistent with baseline BNP is 585 Chest x-ray: Hyperinflation, increasing peribronchial thickening Review of EKG: Atrial fibrillation, slow ventricular response, leftward axis, possible anterior TN, lateral T wave inversions. Compared to previous EKG from 05/13, no significant change. Differential Diagnosis A. fib, volume overload, pleural effusions, PE, ACS, other Narrative Course Medical decision making INITIAL: 81-year-old male presents to the emergency department complaining of shortness of breath started over time. This could be PND. May be some component of anxiety. is getting chemotherapy. Recent admission for pneumonia and CHF. Also chronic kidney disease with hyperkalemia and pleural effusions in the past. We'll check x-ray, labs, EKG, reassess. FINAL: Patient with new onset A. fib. Previous concerns for CHF, bradycardia, with heart block. Unclear if this is related to the patient's shortness of breath from last night or not. He has diastolic heart failure could have flash pulmonary edema or paroxysmal nocturnal dyspnea. Nonetheless given the concern previously for his heart rate/rhythm problems, worsening shortness of breath symptoms, new A. fib, they wish to bring him into the hospital for monitoring and further evaluation. I spoke with . we will admit the patient. Placed routine consult for cardiology. Diagnosis Primary Impression: Acute diastolic congestive heart failure Additional Impression: A-fib Myke Grijalva MD May 19, 2017 09:44
--- NOTE | 2017-05-19 09:53 | RADRPT ---
EXAM DATE/TIME: 05/19/2017 09:32 [facility] COMPARISON: CHEST PA & LAT, January 22, 2016, 9:08. INDICATIONS : Shortness of breath with wheezing, x2 days. MEDICAL HISTORY : Stroke. Congestive heart failure. Hypercholesterolemia. Hypertension Renal SURGICAL HISTORY : None. ENCOUNTER: Initial ACUITY: 2 days PAIN SCORE: 0/10 LOCATION: Bilateral chest FINDINGS: Lungs are hyperinflated with mild peribronchial thickening and bibasilar nonspecific parenchymal saez ges. There is minimal blunting of the left costophrenic sulcus stable from 01/22/16. There is no bob estive failure. CONCLUSION: Hyperinflation, increasing peribronchial thickening. Jeff Gallegos MD FACR on May 19, 2017 at 9:51 Board Certified Radiologist. This report was verified electronically.
[2017-05-19 10:08] LABS: AUTOMATED NEUTROPHIL # 5.6 TH/MM3 (1.8-7.7); BASOPHIL # 0.1 TH/MM3 (0-0.2); EOSINOPHIL # 0.2 TH/MM3 (0-0.4); HEMATOCRIT 36.6 % (39.0-51.0); HEMOGLOBIN 12.3 GM/DL (13.0-17.0); LYMPH % 24.9 % (9.0-44.0); LYMPHOCYTE # 2.2 TH/MM3 (1.0-4.8); MEAN CELL VOLUME 89.6 FL (80.0-100.0); MEAN CORPUSCULAR HEMOGLOBIN 30.1 PG (27.0-34.0); MEAN CORPUSCULAR HGB CONC 33.6 % (32.0-36.0); MEAN PLATELET VOLUME 8.1 FL (7.0-11.0); MONO % 7.9 % (0.0-8.0); MONOCYTE # 0.7 TH/MM3 (0-0.9); NEUT % 64.2 % (16.0-70.0); PLATELET COUNT 177 TH/MM3 (150-450); RED BLOOD COUNT 4.08 MIL/MM3 (4.50-5.90); RED CELL DISTRIBUTION WIDTH 15.4 % (11.6-17.2); WHITE BLOOD COUNT 8.8 TH/MM3 (4.0-11.0)
[2017-05-19 10:29] LABS: ALBUMIN 2.7 GM/DL (3.4-5.0); ALT (GPT) 29 U/L (12-78); AST (GOT) 27 U/L (15-37); BICARBONATE 19.6 MEQ/L (21.0-32.0); BLOOD UREA NITROGEN 32 MG/DL (7-18); CALCIUM 7.7 MG/DL (8.5-10.1); CHLORIDE 109 MEQ/L (98-107); CREATININE 2.57 MG/DL (0.60-1.30); GLOMERULAR FILTRATION RATE 24 ML/MIN (>89); GLUCOSE,RANDOM 210 MG/DL (74-106); MAGNESIUM 1.2 MG/DL (1.5-2.5); SODIUM (NA) 141 MEQ/L (136-145)
[2017-05-19 10:33] LABS: ALKALINE PHOSPHATASE 126 U/L (45-117); TOTAL BILIRUBIN ADULT 0.5 MG/DL (0.2-1.0); TOTAL PROTEIN 6.8 GM/DL (6.4-8.2); TROPONIN I 0.04 NG/ML (0.02-0.05)
[2017-05-19] MEDS ORDERED: DEXTROSE 50% IN WATER 50 ML VIAL(D50) IV PUSH PRN (12:30)
[2017-05-19] MEDS ORDERED: GLUCAGON 1 MG/ML VIAL OTHER PRN ×2 (12:30)
--- NOTE | 2017-05-19 12:35 | HHI.HP ---
[facility] Primary [facility] Physician Lois Joshi MD Admission Diagnosis Shortness of Breath, new Onset a-fib Diagnoses: (1) A-fib Diagnosis: Principal (2) Congestive heart failure (CHF) Diagnosis: Principal Chief Complaint: shortness of breath Travel History International Travel<30 Days: No Contact w/Intl Traveler <30 Da: No Traveled to Known Affected Are: No History of Present Illness patient is a 81 y/o male with history of CHF, hypertension, diabetes, CKD and dyslipidemia who presented to ER with shortness of breath. he was recently discharged from the hospital after he was admitted with pneumonia and hypertension. during that admission he was noted to have high-grade block and bradycardia; his coreg was discontinued with no plan for pacemaker placement at the time. he says that he was fine till last night when he started to have sob again. he denies any associated chest pain, fever, chills, cough. at the time of my evaluation he was resting comfortably, stating that his sob had already improved. he says that he had an episode like this a year ago when he had ' some fluid in the lungs' when he had thoracentesis. Review of Systems Constitutional: DENIES: Fever, Weight loss, Chills, Night Sweats Eyes: DENIES: Blurred vision, Diplopia, Vision loss, Double Vision Ears, nose, mouth, throat: DENIES: Tinnitus, Vertigo, Throat pain, Epistaxis Respiratory: COMPLAINS OF: Shortness of breath, DENIES: Apneas, Cough, Snoring , Wheezing, Hemoptysis, Sputum production Cardiovascular: DENIES: Chest pain, Palpitations, Syncope, Dyspnea on Exertion , PND, Lower Extremity Edema, Orthopnea, Claudication Gastrointestinal: DENIES: Abdominal pain, Black stools, Bloody stools, Constipation, Diarrhea, Nausea, Vomiting, Difficulty Swallowing, Anorexia Genitourinary: DENIES: Urinary frequency, Urgency, Hematuria, Dysuria Musculoskeletal: DENIES: Joint pain, Muscle aches, Stiffness, Joint Swelling Integumentary: DENIES: Rash Neurologic: DENIES: Abnormal gait, Headache, Localized weakness, Paresthesias, Seizures, Speech Problems, Tremor, Poor Balance Psychiatric: DENIES: Anxiety, Confusion, Mood changes, Depression, Hallucinations, Agitation, Suicidal Ideation, Homicidal Ideation, Delusions Past Family Social History Past Medical History CHF hypertension diabetes mellitus dyslipidemia PVD CKD CVA Past Surgical History bypass surgery on lower extremity Reported Medications Nifedipine ER 24 HR (Nifedipine) 60 Mg Tab 60 Mg PO DAILY Hydralazine HCl 50 Mg Tablet 100 Mg PO Q8HR Catapres (Clonidine) 0.1 Mg Tab 0.1 Mg PO Q8HR Glucotrol (Glipizide) 5 Mg Tab 5 Mg PO DAILYAC 30 Days Reported Lisinopril 10 Mg Tab 10 Mg PO DAILY Carvedilol 6.25 Mg Tab 6.25 Mg PO BID Vitamin D3 (Cholecalciferol) 5,000 Unit Cap 5,000 Units PO DAILY Isosorbide Mononitrate ER (Isosorbide Mononitrate) 30 Mg Jennifer 30 Mg PO DAILY Atorvastatin (Atorvastatin Calcium) 20 Mg Tab 20 Mg PO HS Omeprazole 20 Mg Tab 20 Mg PO BID Allopurinol 100 Mg Tab 100 Mg PO ROBER Allergies: Coded Allergies: hydrochlorothiazide (Unverified Allergy, Severe, Rash, 05/19/17) diclofenac (Unverified Adverse Reaction, Severe, GI BLEED, 05/19/17) etodolac (Unverified Adverse Reaction, Severe, GI BLEED, 05/19/17) flurbiprofen (Unverified Adverse Reaction, Severe, GI BLEED, 05/19/17) ibuprofen (Unverified Adverse Reaction, Severe, GI BLEED, 05/19/17) indomethacin (Unverified Adverse Reaction, Severe, GI BLEED, 05/19/17) ketoprofen (Unverified Adverse Reaction, Severe, GI BLEED, 05/19/17) ketorolac (Unverified Adverse Reaction, Severe, GI BLEED, 05/19/17) naproxen (Unverified Adverse Reaction, Severe, GI BLEED, 05/19/17) oxaprozin (Unverified Adverse Reaction, Severe, GI BLEED, 05/19/17) Active Ordered Medications Current Medications Sodium Chloride (NS Flush) 2 ml UNSCH PRN IVF FLUSH AFTER USING IV ACCESS; Start 05/19/17 at 09:30 Social History smokes a few cigarettes a day. Physical Exam Vital Signs Vital Signs Date Time Temp Pulse Resp B/P (MAP) Pulse Ox O2 Delivery O2 Flow Rate FiO2 05/19/17 11:03 59 16 147/65 (92) 95 Nasal Cannula 2.00 05/19/17 09:53 95 Nasal Cannula 2.00 05/19/17 09:08 57 16 159/70 (99) 92 Nasal Cannula 2.00 05/19/17 08:48 97.9 61 20 159/72 (101) 94 Room Air Physical Exam GENERAL: This is a well-nourished, well-developed patient, in no apparent distress. SKIN: No rashes, ecchymoses or lesions. Cool and dry. HEAD: Atraumatic. Normocephalic. No temporal or scalp tenderness. EYES: Pupils equal round and reactive. Extraocular motions intact. No scleral icterus. No injection or drainage. ENT: Nose without bleeding, purulent drainage or septal hematoma. Throat without erythema, tonsillar hypertrophy or exudate. Uvula midline. Airway patent. NECK: Trachea midline. No JVD or lymphadenopathy. Supple, nontender, no meningeal signs. CARDIOVASCULAR: Regular rate and rhythm without murmurs, gallops, or rubs. RESPIRATORY: Clear to auscultation. Breath sounds equal bilaterally. No wheezes , rales, or rhonchi. GASTROINTESTINAL: Abdomen soft, non-tender, nondistended. No hepato-splenomegaly , or palpable masses. No guarding. MUSCULOSKELETAL: Extremities without clubbing, cyanosis, or edema. No joint tenderness, effusion, or edema noted. No calf tenderness. Negative Homans sign bilaterally. NEUROLOGICAL: Awake and alert. Cranial nerves II through XII intact. Motor and sensory grossly within normal limits. Five out of 5 muscle strength in all muscle groups. Normal speech. Laboratory Laboratory Tests Test 05/19/17 09:40 White Blood Count 8.8 Red Blood Count 4.08 Hemoglobin 12.3 Hematocrit 36.6 Mean Corpuscular Volume 89.6 Mean Corpuscular Hemoglobin 30.1 Mean Corpuscular Hemoglobin Concent 33.6 Red Cell Distribution Width 15.4 Platelet Count 177 Mean Platelet Volume 8.1 Neutrophils (%) (Auto) 64.2 Lymphocytes (%) (Auto) 24.9 Monocytes (%) (Auto) 7.9 Eosinophils (%) (Auto) 2.0 Basophils (%) (Auto) 1.0 Neutrophils # (Auto) 5.6 Lymphocytes # (Auto) 2.2 Monocytes # (Auto) 0.7 Eosinophils # (Auto) 0.2 Basophils # (Auto) 0.1 CBC Comment DIFF FINAL Differential Comment Blood Urea Nitrogen 32 Creatinine 2.57 Random Glucose 210 Total Protein 6.8 Albumin 2.7 Calcium Level 7.7 Magnesium Level 1.2 Alkaline Phosphatase 126 Aspartate Amino Transf (AST/SGOT) 27 Alanine Aminotransferase (ALT/SGPT) 29 Total Bilirubin 0.5 Sodium Level 141 Potassium Level 3.3 Chloride Level 109 Carbon Dioxide Level 19.6 Anion Gap 12 Estimat Glomerular Filtration Rate 24 Troponin I 0.04 B-Type Natriuretic Peptide 585 Result Diagram: 05/19/1793905/19/17939 Imaging Last Impressions Chest X-Ray 05/19/17922 Signed Impressions: Service Date/Time: Wednesday, May 19, 2017 09:32 - CONCLUSION: Hyperinflation, increasing peribronchial thickening. Jeff Gallegos MD FACR EKG; atrial fibrillation Caprini VTE Risk Assessment Caprini VTE Risk Assessment: Mod/High Risk (score >= 2) Caprini Risk Assessment Model Point Value = 1 Point Value = 2 Point Value = 3 Point Value = 5 Age 41-60 Minor surgery BMI > 25 kg/m2 Swollen legs Varicose veins or History of unexplained or recurrent spontaneous Oral contraceptives or hormone replacement Sepsis (< 1 month) Serious lung disease, including pneumonia (< 1 month) Abnormal pulmonary function Acute myocardial infarction Congestive heart failure (< 1 month) History of inflammatory bowel disease Medical patient at bed rest Age 61-74 Arthroscopic surgery Major open surgery (> 45 min) Laparoscopic surgery (> 45 min) Malignancy Confined to bed (> 72 hours) Immobilizing plaster cast Central venous access Age >= 75 History of VTE Family history of VTE Factor V Leiden Prothrombin [id number] Lupus anticoagulant Anticardiolipin antibodies Elevated serum homocysteine Heparin-induced thrombocytopenia Other congenital or acquired thrombophilia Stroke (< 1 month) Elective arthroplasty Hip, pelvis, or leg fracture Acute spinal cord injury (< 1 month) Prophylaxis Regimen Total Risk Factor Score Risk Level Prophylaxis Regimen 0-1 Low Early ambulation 2 Moderate Order ONE of the following: *Sequential Compression Device (SCD) *Heparin 5000 units SQ BID 3-4 Higher Order ONE of the following medications: *Heparin 5000 units SQ TID *Enoxaparin/Lovenox 40 mg SQ daily (WT < 150 kg, CrCl > 30 mL/min) *Enoxaparin/Lovenox 30 mg SQ daily (WT < 150 kg, CrCl > 10-29 mL/min) *Enoxaparin/Lovenox 30 mg SQ BID (WT < 150 kg, CrCl > 30 mL/min) AND/OR *Sequential Compression Device (SCD) 5 or more Highest Order ONE of the following medications: *Heparin 5000 units SQ TID (Preferred with Epidurals) *Enoxaparin/Lovenox 40 mg SQ daily (WT < 150 kg, CrCl > 30 mL/min) *Enoxaparin/Lovenox 30 mg SQ daily (WT < 150 kg, CrCl > 10-29 mL/min) *Enoxaparin/Lovenox 30 mg SQ BID (WT < 150 kg, CrCl > 30 mL/min) AND *Sequential Compression Device (SCD) Assessment and Plan Assessment and Plan A/P - SOB- due to acute on chronic diastolic CHF will start on diuretics- monitor I/O and renal function closely. -atrial fibrillation- new;y diagnosed- bradycardic- will hold BB and clonidine at time- consult cardiology -CKD- at his baseline- will monitor closely -hypertension; resume Nifedipine,imdur and hydralazine- coreg and lisinopril on hold -diabetes mellitus; accu-check with SSI- hold Glipizide -dyslipidemia; resume statin. -hypokalemia/ hypomagnesemia; will replace cautiously and monitor -DVT prophylaxis with subq Heparin Discussed Condition With the patient and ER physician. Problem Qualifiers (1) Congestive heart failure (CHF): Qualified Codes: I50.33 - Acute on chronic diastolic (congestive) heart failure Jim Gonzalez MD May 19, 2017 12:34
[2017-05-19] MEDS ORDERED: RESP: ALBUTEROL 0.63 MG/3 ML NEB (PRN) NEB (12:45)
--- NOTE | 2017-05-19 13:34 | MB ---
cc: JOSE AUGUST M.D. DATE OF CONSULTATION: 05/19/2017 REASON FOR CONSULTATION Shortness of breath. HISTORY OF PRESENT ILLNESS The patient is a 81-year-old white male with a history of multiple medical problems including COPD, chronic renal insufficiency, diabetes, hyperlipidemia, hypertension, peripheral vascular disease, status post a very recent admission for shortness of breath and possible pneumonia, as well as, poorly controlled hypertension, who presented once again to the hospital with shortness of breath. The patient states the dyspnea began again last night. This morning with oxygen therapy he states the dyspnea has now completely resolved. He denies wheezing, cough, chest pain, dizziness, syncope, near-syncope, palpitations, pedal edema, paroxysmal nocturnal dyspnea, orthopnea, fevers. The patient has had cardiac workup in the last 2 months here at [place] including a normal nuclear stress test February of 2017 and a recent echo showing normal left ventricular function with estimated ejection fraction of 55%. PAST MEDICAL HISTORY 1. History of left wrist septic arthritis March 2006. 2. Chronic renal insufficiency. 3. COPD. 4. Second-degree AV block type 1 noted on EKG last admission after which beta miki therapy was discontinued. 5. Diabetes. 6. Gout. 7. Hyperlipidemia. 8. Hypertension. 9. Peripheral vascular disease status post aortobifemoral bypass 02/10/2005. 10. History of bilateral pleural effusions January of 2016 necessitating right-sided thoracentesis, unclear etiology. At that time he also had an unremarkable echo. MEDICATIONS His cardiac medications at home: 1. Atorvastatin 20 mg q.h.s. 2. Isosorbide mononitrate 30 mg daily. 3. Catapres 0.1 mg q.8 hours. 4. Hydralazine 100 mg q.8 hours. 5. Procardia XL 60 mg daily. 6. As noted above his Carvedilol was supposed to have been discontinued last admission. FAMILY HISTORY Noncontributory. SOCIAL HISTORY The patient smokes a pack of cigarettes every week. He denies alcohol abuse. REVIEW OF SYSTEMS Review of systems as in the history of present illness, otherwise negative or noncontributory. He also denies headache, visual changes, abdominal pain, melena, dyspepsia, bright red blood per rectum. PHYSICAL EXAMINATION VITAL SIGNS: Blood pressure is 147/65 with a pulse of 54, respirations 18. GENERAL: In general he is a well-developed, well-nourished white male in no acute distress HEENT: Jugular venous pressure is 7 cm of water. Carotid pulses are 2+ bilaterally and without bruits. CHEST: Examination of the chest reveals clear lung [place]. CARDIAC: On cardiac examination he has a bradycardic regular rhythm without S3-S4 or murmur. ABDOMEN: On abdominal examination he has a soft, nontender abdomen. Bowel sounds are present. There is no definite hepatosplenomegaly. EXTREMITIES: Examination of the extremities reveals no clubbing, cyanosis or edema. EKG Shows probable sinus bradycardia with second-degree AV block type 1, lateral T-wave abnormality, consider ischemia. IMAGING STUDIES Chest x-ray shows hyperinflation, increasing peribronchial thickening. LABORATORY DATA Laboratory data includes WBC 8.8, hemoglobin 12.3, platelets 177, potassium 3.3, BUN 32, creatinine 2.57, glucose 210. IMPRESSION Increased shortness of breath in this 81-year-old white male with a history of multiple medical problems including COPD, chronic renal insufficiency, diabetes, hyperlipidemia, peripheral vascular disease, sick sinus syndrome. The etiology of his shortness of breath overall does not appear to be cardiac in origin. He has had an echo 03/13/2017 showing normal left ventricular function with ejection fraction of 50-55% with no significant valvular disease, as well as, nuclear stress test 03/14/2017 which was normal. His EKGs from previous admission have been reviewed. There does appear to be intermittent second-degree AV block type 1. Today's EKG appears to have also been misread by the computer. It does not appear to be atrial fibrillation but rather sinus rhythm with second-degree AV block type 1. The second degree AV block does not appear to result in excessive bradycardia. The patient does have increased peribronchial thickening on chest x-ray, although overall I doubt it is from congestive heart failure. All in all, there is no compelling evidence that his dyspnea is cardiac in origin. He seems to have improved significantly with simply oxygen therapy here in the emergency department. RECOMMENDATIONS 1. Continue his usual home cardiac medications and monitor his blood pressure. 2. Consider pulmonary evaluation. MD SANDRA Acuna/MARCY Roque: 05/19/2017/12:54 PM /1:10 PM EBER
[2017-05-19] MEDS ORDERED: POTASSIUM CHLORIDE 10 MEQ CAP PO ONE (15:00)
[2017-05-19] MEDS: hydrALAZINE HCL 50 MG TAB PO SCH ×2 (15:14→22:26)
[2017-05-19] MEDS: MAGNESIUM OXIDE 400 MG TAB PO SCH ×2 (15:15→22:26)
[2017-05-19] MEDS: cloNIDine HCL 0.1 MG TAB PO SCH ×2 (16:31→23:59)
[2017-05-19] MEDS ORDERED: INSULIN ASPART SUPPLEMENTAL SCALE SQ SCH (17:00)
[2017-05-19] MEDS: INSULIN ASPART SUPPLEMENTAL SCALE SQ SCH ×2 (17:00→21:00)
[2017-05-19] MEDS ORDERED: NON-FORMULARY DRUG (Omeprazole 20 MG) PO SCH (21:00)
[2017-05-19] MEDS: PANTOPRAZOLE SOD 20 MG DELAYED RELEASE TAB PO SCH (22:26)
[2017-05-19] MEDS: ATORVASTATIN 20 MG TAB PO SCH (22:26)
[2017-05-19] MEDS: HEPARIN SODIUM - SQ 10,000 UNITS/ML VIAL SQ SCH (22:27)
[2017-05-20] VITALS (12 sets, daily range): BP systolic 136–179; BP diastolic 54–87; PULSE 50–65; RESP 16–21; TEMP 95.9–97.9; O2SAT 87–96
[2017-05-20] MEDS: hydrALAZINE HCL 50 MG TAB PO SCH ×3 (06:32→22:23)
[2017-05-20 07:04] LABS: BICARBONATE 21.3 MEQ/L (21.0-32.0); CALCIUM 7.7 MG/DL (8.5-10.1); CREATININE 2.34 MG/DL (0.60-1.30); MAGNESIUM 1.2 MG/DL (1.5-2.5)
--- NOTE | 2017-05-20 07:45 | PD.CARD.PN ---
Subjective Subjective Remarks Mildly dyspneic this morning. No CP, PND, orthopnea, dizziness, palpitations. Objective Medications Item Value Date Time Isosorbide 30 mg 05/20/17 0900 Mononitrate DAILY/PO (Imdur) Nifedipine 60 mg 05/20/17 0900 (Procardia Xl) DAILY/PO Furosemide 20 mg 05/20/17 0900 (Lasix Inj) DAILY/IV PUSH Aspirin 81 mg 05/20/17 0900 (Ecotrin Ec) DAILY/PO Atorvastatin 20 mg 05/19/17 2100 Calcium HS/PO 05/19/17 2226 (Lipitor) Heparin Sodium 5,000 units 05/19/17 2100 (Porcine) Q12HR/SQ 05/19/17 2227 (Heparin Inj) Clonidine 0.1 mg 05/19/17 1600 (Catapres) Q8H/PO Hydralazine HCl 100 mg 05/19/17 1400 (Apresoline) Q8HR/PO 05/20/17 0632 Current Medications Medications (Trade) Dose Ordered Sig/Fox Route Start Time Stop Time Status Last Admin (NS Flush) 2 ml UNSCH PRN IVF 05/19/17 09:30 (Zyloprim) 100 mg DAILY PO 05/20/17 09:00 (Lipitor) 20 mg HS PO 05/19/17 21:00 05/19/17 22:26 (Apresoline) 100 mg Q8HR PO 05/19/17 14:00 05/20/17 06:32 (Imdur) 30 mg DAILY PO 05/20/17 09:00 (Procardia Xl) 60 mg DAILY PO 05/20/17 09:00 (D50w (Vial) Inj) 50 ml UNSCH PRN IV PUSH 05/19/17 12:30 (Glucagon Inj) 1 mg UNSCH PRN OTHER 05/19/17 12:30 (NovoLOG SUPPLEMENTAL SCALE) 1 ACHS SLIDING SCALE SQ 05/19/17 17:00 05/19/17 21:00 (Mag-Ox) 400 mg BID PO 05/19/17 12:45 05/19/17 22:26 (Heparin Inj) 5,000 units Q12HR SQ 05/19/17 21:00 05/19/17 22:27 (Lasix Inj) 20 mg DAILY IV PUSH 05/20/17 09:00 (Albuterol Neb) 0.63 mg Q4HR NEB PRN NEB 05/19/17 12:45 (Catapres) 0.1 mg Q8H PO 05/19/17 16:00 05/19/17 16:31 (Ecotrin Ec) 81 mg DAILY PO 05/20/17 09:00 (Protonix) 20 mg BID PO 05/19/17 21:00 05/19/17 22:26 Vital Signs / I&O Vital Signs Date Time Temp Pulse Resp B/P (MAP) Pulse Ox O2 Delivery O2 Flow Rate FiO2 05/20/17 07:25 96.6 50 18 90 05/20/17 06:23 60 179/87 (117) 94 05/20/17 05:56 3.00 05/20/17 03:45 97.2 60 20 152/64 (93) 91 05/20/17 00:41 54 05/20/17 00:03 57 16 96 05/19/17 23:12 97.2 57 20 154/69 (97) 90 05/19/17 22:30 57 92 05/19/17 20:42 98.0 58 19 168/73 (104) 92 05/19/17 16:06 48 05/19/17 16:05 98.2 52 22 155/66 (95) 92 05/19/17 12:49 166/74 (104) 05/19/17 12:43 05/19/17 12:40 97.7 54 18 94 05/19/17 11:03 59 16 147/65 (92) 95 Nasal Cannula 2.00 05/19/17 09:53 95 Nasal Cannula 2.00 05/19/17 09:08 57 16 159/70 (99) 92 Nasal Cannula 2.00 05/19/17 08:48 97.9 61 20 159/72 (101) 94 Room Air Physical Exam GENERAL: Well developed, well nourished. No acute distress. HEENT: Jugular venous pressure is normal. CHEST: Lungs clear to auscultation bilaterally. Unlabored respiratory effort. CARDIAC: Regular rate and rhythm without S3, S4, or murmur. ABDOMEN: Soft, nontender, no hepatosplenomegaly. Bowel sounds present. EXTREMITIES: No clubbing, cyanosis, or edema. Laboratory Laboratory Tests Test 05/19/17 09:40 05/20/17 06:15 White Blood Count 8.8 TH/MM3 Red Blood Count 4.08 MIL/MM3 Hemoglobin 12.3 GM/DL Hematocrit 36.6 % Mean Corpuscular Volume 89.6 FL Mean Corpuscular Hemoglobin 30.1 PG Mean Corpuscular Hemoglobin Concent 33.6 % Red Cell Distribution Width 15.4 % Platelet Count 177 TH/MM3 Mean Platelet Volume 8.1 FL Neutrophils (%) (Auto) 64.2 % Lymphocytes (%) (Auto) 24.9 % Monocytes (%) (Auto) 7.9 % Eosinophils (%) (Auto) 2.0 % Basophils (%) (Auto) 1.0 % Neutrophils # (Auto) 5.6 TH/MM3 Lymphocytes # (Auto) 2.2 TH/MM3 Monocytes # (Auto) 0.7 TH/MM3 Eosinophils # (Auto) 0.2 TH/MM3 Basophils # (Auto) 0.1 TH/MM3 CBC Comment DIFF FINAL Differential Comment Blood Urea Nitrogen 32 MG/DL 30 MG/DL Creatinine 2.57 MG/DL 2.34 MG/DL Random Glucose 210 MG/DL 122 MG/DL Total Protein 6.8 GM/DL Albumin 2.7 GM/DL Calcium Level 7.7 MG/DL 7.7 MG/DL Magnesium Level 1.2 MG/DL 1.2 MG/DL Alkaline Phosphatase 126 U/L Aspartate Amino Transf (AST/SGOT) 27 U/L Alanine Aminotransferase (ALT/SGPT) 29 U/L Total Bilirubin 0.5 MG/DL Sodium Level 141 MEQ/L 143 MEQ/L Potassium Level 3.3 MEQ/L 3.3 MEQ/L Chloride Level 109 MEQ/L 110 MEQ/L Carbon Dioxide Level 19.6 MEQ/L 21.3 MEQ/L Anion Gap 12 MEQ/L 12 MEQ/L Estimat Glomerular Filtration Rate 24 ML/MIN 27 ML/MIN Troponin I 0.04 NG/ML B-Type Natriuretic Peptide 585 PG/ML Imaging Last 24 hours Impressions Chest X-Ray 05/19/17 0923 Signed Impressions: Service Date/Time: Wednesday, May 19, 2017 09:32 - CONCLUSION: Hyperinflation, increasing peribronchial thickening. Jeff Gallegos MD FACR Assessment and Plan Problem List: (1) Dyspnea ICD Codes: R06.00 - Dyspnea, unspecified Status: Acute Plan: Cardiac status overall stable. No compelling evidence his dyspnea is primarily due to cardiac etiology. Normal nuclear stress test in past 8 weeks. Echo recently showed normal EF, no severe valvular disease. He remains in second degree AV block, Type I, occasional HR drops into the 40's while asleep. Doubt the dyspnea is due to this dysrhythmia as he is SOB now with HR 50-60. REC no additional recommendations from cardiac standpoint, consider pulmonary evaluation or increase bronchodilator therapy (2) second degree AV block, Type I Status: Chronic Plan: Remains in second degree AV block, Type I, occasional HR drops into the 40's while asleep. Doubt the dyspnea is due to this dysrhythmia as he is SOB now with HR 50-60. No evidence for high degree AV block. REC keep off AV niraj suppressing drugs (3) Hypertension ICD Codes: I10 - Essential (primary) hypertension Status: Chronic Plan: Suboptimal BP control. Rec increase Procardia dosing. Code Status full code Discussed Condition With patient Problem Qualifiers (1) Dyspnea: Qualified Codes: R06.09 - Other forms of dyspnea (2) Hypertension: Qualified Codes: I10 - Essential (primary) hypertension Drew Sifuentes MD May 20, 2017 07:45
[2017-05-20] MEDS: INSULIN ASPART SUPPLEMENTAL SCALE SQ SCH ×4 (08:00→22:22)
[2017-05-20] MEDS ORDERED: NIFEdipine 60 MG SUSTAINED RELEASE TAB PO SCH (09:00)
[2017-05-20] MEDS: SODIUM CHLORIDE 0.9% FLUSH 10 ML FLUSH IVF PRN (10:05)
[2017-05-20] MEDS: FUROSEMIDE 20 MG/2 ML VIAL IV PUSH SCH (10:06)
[2017-05-20] MEDS: ASPIRIN EC 81 MG TABEC PO SCH (10:07)
[2017-05-20] MEDS: cloNIDine HCL 0.1 MG TAB PO SCH ×2 (10:07→16:00)
[2017-05-20] MEDS: ALLOPURINOL 100 MG TAB PO SCH (10:07)
[2017-05-20] MEDS: ISOSORBIDE MONONITRATE 30 MG TAB PO SCH (10:07)
[2017-05-20] MEDS: MAGNESIUM OXIDE 400 MG TAB PO SCH ×2 (10:07→22:25)
[2017-05-20] MEDS: HEPARIN SODIUM - SQ 10,000 UNITS/ML VIAL SQ SCH ×2 (10:07→22:25)
[2017-05-20] MEDS: PANTOPRAZOLE SOD 20 MG DELAYED RELEASE TAB PO SCH ×2 (10:07→22:25)
[2017-05-20] MEDS: NIFEdipine 90 MG SUSTAINED RELEASE TAB PO SCH (10:08)
--- NOTE | 2017-05-20 10:44 | HHI.PR ---
Subjective Remarks Follow-up for shortness of breath. Patient reports persistent shortness of breath. Denies any chest pain, fever or chills. Objective Vitals Vital Signs Date Time Temp Pulse Resp B/P (MAP) Pulse Ox O2 Delivery O2 Flow Rate FiO2 05/20/17 09:50 172/68 (102) 05/20/17 08:14 95 Nasal Cannula 3.00 05/20/17 06:23 60 179/87 (117) 94 05/20/17 05:56 3.00 05/20/17 03:45 97.2 60 20 152/64 (93) 91 05/20/17 00:41 54 05/20/17 00:03 57 16 96 05/19/17 23:12 97.2 57 20 154/69 (97) 90 05/19/17 22:30 57 92 05/19/17 20:42 98.0 58 19 168/73 (104) 92 05/19/17 16:06 48 05/19/17 16:05 98.2 52 22 155/66 (95) 92 05/19/17 12:49 166/74 (104) 05/19/17 12:43 05/19/17 12:40 97.7 54 18 94 05/19/17 11:03 59 16 147/65 (92) 95 Nasal Cannula 2.00 Result Diagram: 05/19/17 0940 05/20/17 0615 Imaging Last Impressions Chest X-Ray 05/19/17 09 Signed Impressions: Service Date/Time: Friday, May 19, 2017 09:32 - CONCLUSION: Hyperinflation, increasing peribronchial thickening. Jeff Gallegos MD FACR Objective Remarks GENERAL: Alert, oriented 3, NAD. SKIN: Warm and dry. HEAD: Normocephalic. EYES: No scleral icterus. No injection or drainage. NECK: Supple, trachea midline. No JVD or lymphadenopathy. CARDIOVASCULAR: Regular rate and rhythm without murmurs, gallops, or rubs. RESPIRATORY: Breath sounds equal bilaterally. No accessory muscle use. GASTROINTESTINAL: Abdomen soft, non-tender, nondistended. MUSCULOSKELETAL: No cyanosis, or edema. BACK: Nontender without obvious deformity. No CVA tenderness. A/P Problem List: (1) A-fib ICD Code: I48.91 - Unspecified atrial fibrillation Status: Acute (2) Congestive heart failure (CHF) ICD Code: I50.9 - Heart failure, unspecified Status: Acute Assessment and Plan Mr. Mcmahan is a 81-year-old male with a history of COPD, diabetes, hyperlipidemia, hypertension who presented to the emergency department on 2016 due to shortness of breath. His shortness of breath has been worsening over a month or so. Denies any chest pain, fever or chills. - Acute COPD exacerbation - We'll start patient on scheduled DuoNeb treatments - Start Levaquin 750 mg every 48 hours. - Start prednisone 20 mg twice a day - Supplemental oxygen to keep O2 saturation above 90% - Hypertension - Gout - Continue allopurinol 100 mg daily - Continue hydralazine 100 mg every 8 hours, nifedipine 90 mg daily, clonidine 0.1 mg by mouth every 8 hours. - Second-degree AV block type I - Cardiology evaluated patient. Cardiology does not think patient's dyspnea is related to second-degree heart block. - Continue to monitor. No further action needed at this point. Avoid AV niraj blockers. Full code. Heparin subcutaneous. Problem Qualifiers (1) Congestive heart failure (CHF): Qualified Codes: I50.33 - Acute on chronic diastolic (congestive) heart failure Dieter Nguyen DO May 20, 2017 10:44 am
[2017-05-20] MEDS ORDERED: RESP: ALBUTEROL 2.5 MG/IPRATROPIUM 0.5 MG NEB (PRN) NEB (10:45)
[2017-05-20] MEDS ORDERED: predniSONE 20 MG TAB PO ONE (11:15)
[2017-05-20] MEDS: RESP: ALBUTEROL 2.5 MG/IPRATROPIUM 0.5 MG NEB (SCH) NEB ×3 (11:29→19:14)
[2017-05-20] MEDS ORDERED: LEVOFLOXACIN 750 MG TAB PO ONE (11:30)
[2017-05-20] MEDS: BUDESONIDE-FORMOTEROL 160/4.5 MCG INHALER INH SCH ×2 (11:49→22:25)
--- NOTE | 2017-05-20 13:31 | EKG ---
Date Performed: 05/19/2017 Time Performed: 09:55:28 PTAGE: 81 years EKG: ATRIAL FIBRILLATION WITH SLOW VENTRICULAR RESPONSE MARKED LEFT AXIS DEVIATION POSSIBLE ANTE RIOR MYOCARDIAL INFARCTION MODERATE T-WAVE ABNORMALITY, CONSIDER LATERAL ISCHEMIA ABNORMAL ECG Compar ed to prior tracing no significant change PREVIOUS TRACING : 05/13/2017 08.19 DOCTOR: Lee Helm Interpretating Date/Time 05/20/2017 13:28:21
[2017-05-20] MEDS: ATORVASTATIN 20 MG TAB PO SCH (22:24)
[2017-05-20] MEDS: predniSONE 20 MG TAB PO SCH (22:29)
[2017-05-21] MEDS: cloNIDine HCL 0.1 MG TAB PO SCH ×3 (01:00→08:43)
[2017-05-21 02:15] VITALS: BP 154/70; PULSE 52; RESP 16; TEMP 97.9; O2SAT 92
[2017-05-21 05:06] VITALS: BP 172/76; PULSE 55; RESP 15; TEMP 98; O2SAT 92
[2017-05-21] MEDS: hydrALAZINE HCL 50 MG TAB PO SCH (05:58)
[2017-05-21 07:51] VITALS: BP 171/78; PULSE 64; RESP 20; TEMP 98.2; O2SAT 94
[2017-05-21] MEDS: RESP: ALBUTEROL 2.5 MG/IPRATROPIUM 0.5 MG NEB (SCH) NEB (08:19)
[2017-05-21 08:21] VITALS: O2SAT 92
[2017-05-21] MEDS ORDERED: LEVA750T9 PO (08:38)
[2017-05-21] MEDS ORDERED: PRED20 PO (08:38)
[2017-05-21] MEDS ORDERED: NIFE90TA2 PO (08:38)
[2017-05-21] MEDS ORDERED: ASPI1TAB56 PO (08:38)
[2017-05-21] MEDS ORDERED: SYMB160A INH (08:39)
[2017-05-21] MEDS ORDERED: VENTAER INH (08:39)
[2017-05-21] MEDS: BUDESONIDE-FORMOTEROL 160/4.5 MCG INHALER INH SCH (08:40)
[2017-05-21] MEDS: FUROSEMIDE 20 MG/2 ML VIAL IV PUSH SCH (08:41)
[2017-05-21] MEDS: INSULIN ASPART SUPPLEMENTAL SCALE SQ SCH (08:42)
[2017-05-21] MEDS: SODIUM CHLORIDE 0.9% FLUSH 10 ML FLUSH IVF PRN (08:42)
[2017-05-21] MEDS: HEPARIN SODIUM - SQ 10,000 UNITS/ML VIAL SQ SCH (08:42)
[2017-05-21] MEDS: predniSONE 20 MG TAB PO SCH (08:43)
[2017-05-21] MEDS: ALLOPURINOL 100 MG TAB PO SCH (08:43)
[2017-05-21] MEDS: NIFEdipine 90 MG SUSTAINED RELEASE TAB PO SCH (08:43)
[2017-05-21] MEDS: PANTOPRAZOLE SOD 20 MG DELAYED RELEASE TAB PO SCH (08:43)
[2017-05-21] MEDS: ASPIRIN EC 81 MG TABEC PO SCH (08:44)
[2017-05-21] MEDS: ISOSORBIDE MONONITRATE 30 MG TAB PO SCH (08:44)
[2017-05-21] MEDS: MAGNESIUM OXIDE 400 MG TAB PO SCH (08:44)
--- NOTE | 2017-05-21 08:51 | HHI.DS ---
Discharge Summary Admission Date May 19, 2017 at 11:52 am Discharge Date: May 21, 2017 Admitting Diagnosis Shortness of Breath, new Onset a-fib (1) Congestive heart failure (CHF) ICD Code: I50.9 - Heart failure, unspecified Status: Acute (2) COPD exacerbation ICD Code: J44.1 - Chronic obstructive pulmonary disease with (acute) exacerbation Diagnosis: Principal (3) second degree AV block, Type I Status: Chronic Procedures None. Brief History - From Admission patient is a 81 y/o male with history of CHF, hypertension, diabetes, CKD and dyslipidemia who presented to ER with shortness of breath. he was recently discharged from the hospital after he was admitted with pneumonia and hypertension. during that admission he was noted to have high-grade block and bradycardia; his coreg was discontinued with no plan for pacemaker placement at the time. he says that he was fine till last night when he started to have sob again. he denies any associated chest pain, fever, chills, cough. at the time of my evaluation he was resting comfortably, stating that his sob had already improved. he says that he had an episode like this a year ago when he had ' some fluid in the lungs' when he had thoracentesis. CBC/BMP: 05/19/17 0940 05/20/17 0615 Significant Findings Laboratory Tests Test 05/19/17 09:40 05/20/17 06:15 Red Blood Count 4.08 MIL/MM3 (4.50-5.90) Hemoglobin 12.3 GM/DL (13.0-17.0) Hematocrit 36.6 % (39.0-51.0) Blood Urea Nitrogen 32 MG/DL (7-18) 30 MG/DL (7-18) Creatinine 2.57 MG/DL (0.60-1.30) 2.34 MG/DL (0.60-1.30) Random Glucose 210 MG/DL (74-106) 122 MG/DL (74-106) Albumin 2.7 GM/DL (3.4-5.0) Calcium Level 7.7 MG/DL (8.5-10.1) 7.7 MG/DL (8.5-10.1) Magnesium Level 1.2 MG/DL (1.5-2.5) 1.2 MG/DL (1.5-2.5) Alkaline Phosphatase 126 U/L (45-117) Potassium Level 3.3 MEQ/L (3.5-5.1) 3.3 MEQ/L (3.5-5.1) Chloride Level 109 MEQ/L (98-107) 110 MEQ/L (98-107) Carbon Dioxide Level 19.6 MEQ/L (21.0-32.0) Estimat Glomerular Filtration Rate 24 ML/MIN (>89) 27 ML/MIN (>89) B-Type Natriuretic Peptide 585 PG/ML (0-100) PE at Discharge GENERAL: Alert, oriented 3, NAD. SKIN: Warm and dry. HEAD: Normocephalic. EYES: No scleral icterus. No injection or drainage. NECK: Supple, trachea midline. No JVD or lymphadenopathy. CARDIOVASCULAR: Regular rate and rhythm without murmurs, gallops, or rubs. RESPIRATORY: Breath sounds equal bilaterally. No accessory muscle use. GASTROINTESTINAL: Abdomen soft, non-tender, nondistended. MUSCULOSKELETAL: No cyanosis, or edema. BACK: Nontender without obvious deformity. No CVA tenderness. Pt update on day of discharge Patient is feeling much better today. Breathing well. Walk test indicated no need for home oxygen. Hospital Course Mr. Mcmahan is a 81-year-old male with a history of COPD, diabetes, hyperlipidemia, hypertension who presented to the emergency department on 2016 due to shortness of breath. His shortness of breath has been worsening over a month or so. Denies any chest pain, fever or chills. - Acute COPD exacerbation - We'll start patient on scheduled DuoNeb treatments - Started Levaquin 750 mg every 48 hours. - Started prednisone 20 mg twice a day - Supplemental oxygen to keep O2 saturation above 90%. Walk test ---> no need for home O2. - Hypertension - Gout - Continue allopurinol 100 mg daily - Continue hydralazine 100 mg every 8 hours, nifedipine 90 mg daily, clonidine 0.1 mg by mouth every 8 hours. - Second-degree AV block type I - Cardiology evaluated patient. Cardiology does not think patient's dyspnea is related to second-degree heart block. - Continue to monitor. No further action needed at this point. Avoid AV niraj blockers. Full code. Pt Condition on Discharge: Good Discharge Disposition: Discharge Home Discharge Time: > 30 minutes Discharge Instructions DIET: Follow Instructions for: Heart Healthy Diet Activities you can perform: Regular-No Restrictions Follow up Referrals: PCP Follow-up - 3-5 Days New Medications: Albuterol 18 GM Inh (Ventolin Hfa 18 GM Inh) 90 Mcg/Act Aer 2 PUFF INH Q4-6H PRN for SHORTNESS OF BREATH, #1 INHALER 0 Refills Budesonide-Formoterol Inh (Symbicort Inh) 160-4.5 Mcg/Act Aero 1 PUFF INH Q12HR, #1 INHALER [address] (Adult Aspirin EC Low Strength) 81 Mg Tabec 81 MG PO DAILY for Blood Clot Prevention, #90 TAB 3 Refills Levofloxacin (Levaquin) 750 Mg Tablet 750 MG PO Q48H for Infection, #3 TAB START on 05/22/2017 Nifedipine (Nifedipine ER) 90 Mg Tab 90 MG PO DAILY for Blood Pressure Management, #90 TAB 3 Refills Prednisone (Prednisone) 20 Mg Tab 20 MG PO BID for Inflammation, #10 TAB Continued Medications: Allopurinol (Allopurinol) 100 Mg Tab 100 MG PO DAILY for Gout, #30 TAB 0 Refills Atorvastatin (Atorvastatin) 20 Mg Tab 20 MG PO HS for Cholesterol Management, #30 TAB 0 Refills Cholecalciferol (Vitamin D3) 5,000 Unit Cap 5000 UNITS PO DAILY for Nutritional Supplement, #1 BOTTLE 0 Refills Clonidine (Catapres) 0.1 Mg Tab 0.1 MG PO Q8HR for htn, #90 TAB Glipizide (Glucotrol) 5 Mg Tab 5 MG PO DAILYAC for 30 Days, TAB Hydralazine HCl (Hydralazine HCl) 50 Mg Tablet 100 MG PO Q8HR for htn, #90 TAB Isosorbide Mononitrate ER (Isosorbide Mononitrate ER) 30 Mg Jennifer 30 MG PO DAILY for Prevent Chest Pain, #30 TAB 0 Refills Omeprazole (Omeprazole) 20 Mg Tab 20 MG PO BID, #30 TAB 0 Refills Discontinued Medications: Carvedilol (Carvedilol) 6.25 Mg Tab 6.25 MG PO BID, #60 TAB 0 Refills Lisinopril (Lisinopril) 10 Mg Tab 10 MG PO DAILY, #30 TAB 0 Refills Nifedipine ER 24 HR (Nifedipine ER 24 HR) 60 Mg Tab 60 MG PO DAILY for htn, #30 TAB Dieter Nguyen DO May 21, 2017 08:51
[2017-05-21] MEDS ORDERED: OXYGENDME NAS.CANULA (08:52)
[2017-05-22] MEDS ORDERED: LEVOFLOXACIN 750 MG TAB PO SCH (09:00)
== END 2017-05-21 11:35 | disposition home or self-care (01) ==
LOC: NEPC 08:46 → NEDA 11:52 → NEPGCP 12:40
PROVIDERS: ADMIT Hospitalist; ATTEND Hospitalist
DX: I50.33 Acute on chronic diastolic (congestive) heart failure (principal); J44.1 Chronic obstructive pulmonary disease with (acute) exacerbation; I44.1 Atrioventricular block, second degree; I48.91 Unspecified atrial fibrillation; I13.0 Hypertensive heart and chronic kidney disease with heart failure and stage 1 through stage 4 chronic kidney disease, or unspecified chronic kidney disease; N18.9 Chronic kidney disease, unspecified; E11.22 Type 2 diabetes mellitus with diabetic chronic kidney disease; I73.9 Peripheral vascular disease, unspecified; E83.42 Hypomagnesemia; E87.6 Hypokalemia; E78.5 Hyperlipidemia, unspecified; M10.9 Gout, unspecified; F17.210 Nicotine dependence, cigarettes, uncomplicated; Z86.73 Personal history of transient ischemic attack (TIA), and cerebral infarction without residual deficits; Z79.84 Long term (current) use of oral hypoglycemic drugs
CPT/HCPCS: 71020; 80048; 80053; 82948; 83735; 83880; 84484; 85025; 93005; 94620; 94640; 94664; 96372; 96374; 96376; 99285; G0378; J1644; J1815; J1940; J7512

== ENCOUNTER 2017-09-09 11:21 | Inpatient (IN) | payer OTHER, MEDICARE ==
[2017-09-09] VITALS (13 sets, daily range): BP systolic 114–194; BP diastolic 77–101; PULSE 56–76; RESP 19–26; TEMP 98.1–99; O2SAT 96–98
[~2017-09-09] VITALS: Ht 182.9 cm; Wt 86.9 kg
[~2017-09-09 11:21] MED LIST changes: +ASPI1TAB56 PO; -CARV6.252 PO; -HYDR50TA15 PO; +LEVA750T9 PO; -LISI10TA3 PO; -NIFE60TA8 PO; +NIFE90TA2 PO; +PRED20 PO; +SYMB160A INH; +VENTAER INH
--- NOTE | 2017-09-09 11:40 | PD ---
HPI Chief Complaint: GI Complaint Time Seen by Provider: 11:36 Travel History International Travel<30 days: No Contact w/Intl Traveler<30days: No Traveled to known affect area: No History of Present Illness HPI 81-year-old male with history of CHF, hypertension, diabetes, chronic kidney disease, dyslipidemia, presents via EMS for evaluation of abdominal pain, nausea , vomiting, diarrhea. Started yesterday evening. He points at the mid abdominal region as the area of the pain and he says that it is constant. He is unable to characterize the quality of the pain. He reports "just a little bit" of nausea, vomiting and diarrhea since yesterday evening as well. He denies chest pain or dyspnea, fevers or chills, flank pain, changes in diet. Denies any recent antibiotic use. He received Zofran prior to arrival via EMS and his nausea is currently resolved. He has no other complaints at this time. PFSH Past Medical History Arthritis: Yes Asthma: No Blood Disorders: No Anxiety: No Depression: No Heart Rhythm Problems: Yes (AFIB) Cancer: No Cardiovascular Problems: Yes High Cholesterol: Yes Chemotherapy: No Chest Pain: No Congestive Heart Failure: Yes COPD: No Cerebrovascular Accident: Yes (07/03) Diabetes: Yes Diminished Hearing: No Endocrine: Yes Gastrointestinal Disorders: No GERD: No Glaucoma: No Gout: Yes Genitourinary: No Headaches: No Hepatitis: No Hiatal Hernia: No Hypertension: Yes Immune Disorder: No Implanted Vascular Access Dvce: Yes Kidney Stones: No Musculoskeletal: No Neurologic: Yes (STROKE 2016) Psychiatric: No Reproductive: No Respiratory: No Radiation Therapy: No Renal Failure: No Seizures: No Sleep Apnea: No Thyroid Disease: No Ulcer: No Past Surgical History Abdominal Surgery: Yes (STENT IN KIDNEY) AICD: No Arteriovenous Shunt: No Cardiac Surgery: No Cholecystectomy: Yes Ear Surgery: No Endocrine Surgery: No Eye Surgery: No Genitourinary Surgery: No Gynecologic Surgery: No Insulin Pump: No Joint Replacement: No Neurologic Surgery: No Oral Surgery: No Pacemaker: Yes Thoracic Surgery: No Other Surgery: Yes (Parish filters) Social History Alcohol Use: No Tobacco Use: Yes (1 pack every 3 days) Substance Use: No Allergies-Medications (Allergen,Severity, Reaction): Coded Allergies: hydrochlorothiazide (Unverified Allergy, Severe, Rash, 09/09/17) diclofenac (Unverified Adverse Reaction, Severe, GI BLEED, 09/09/17) etodolac (Unverified Adverse Reaction, Severe, GI BLEED, 09/09/17) flurbiprofen (Unverified Adverse Reaction, Severe, GI BLEED, 09/09/17) ibuprofen (Unverified Adverse Reaction, Severe, GI BLEED, 09/09/17) indomethacin (Unverified Adverse Reaction, Severe, GI BLEED, 09/09/17) ketoprofen (Unverified Adverse Reaction, Severe, GI BLEED, 09/09/17) ketorolac (Unverified Adverse Reaction, Severe, GI BLEED, 09/09/17) naproxen (Unverified Adverse Reaction, Severe, GI BLEED, 09/09/17) oxaprozin (Unverified Adverse Reaction, Severe, GI BLEED, 09/09/17) Reported Meds & Prescriptions Reported Meds & Active Scripts Active Ventolin Hfa 18 GM Inh (Albuterol Sulfate) 90 Mcg/Act Aer 2 Puff INH Q4-6H PRN Symbicort Inh (Budesonide/Formoterol Fumarate) 160-4.5 Mcg/Act Aero 1 Puff INH Q12HR Adult Aspirin EC Low Strength (Aspirin) 81 Mg Tabec 81 Mg PO DAILY Hydralazine HCl 50 Mg Tablet 100 Mg PO Q8HR Catapres (Clonidine) 0.1 Mg Tab 0.1 Mg PO Q8HR Glucotrol (Glipizide) 5 Mg Tab 5 Mg PO DAILYAC 30 Days Reported Potassium Chloride ER (Potassium Chloride) 10 Meq Cap 10 Meq PO DAILY Furosemide 40 Mg Tab 40 Mg PO DAILY Vitamin D3 (Cholecalciferol) 5,000 Unit Cap 5,000 Units PO DAILY Isosorbide Mononitrate ER (Isosorbide Mononitrate) 30 Mg Jennifer 30 Mg PO DAILY Atorvastatin (Atorvastatin Calcium) 20 Mg Tab 20 Mg PO HS Omeprazole 20 Mg Tab 20 Mg PO BID Allopurinol 100 Mg Tab 100 Mg PO DAILY Review of Systems Except as stated in HPI: all other systems reviewed are Neg Physical Exam Narrative GENERAL: Well-developed well-nourished male in no acute distress SKIN: Warm and dry. HEAD: Atraumatic. Normocephalic. EYES: Pupils equal and round. No scleral icterus. No injection or drainage. ENT: No nasal bleeding or discharge. Mucous membranes pink and moist. NECK: Trachea midline. No JVD. CARDIOVASCULAR: Regular rate and rhythm. No murmur appreciated. RESPIRATORY: No accessory muscle use. Clear to auscultation. Breath sounds equal bilaterally. GASTROINTESTINAL: Abdomen soft, non-tender, nondistended. There is no guarding. No CVA tenderness. MUSCULOSKELETAL: No obvious deformities. No clubbing. No cyanosis. No edema. NEUROLOGICAL: Awake and alert. No obvious cranial nerve deficits. Motor grossly within normal limits. Normal speech. Data Data Last Documented VS Vital Signs Date Time Temp Pulse Resp B/P (MAP) Pulse Ox O2 Delivery O2 Flow Rate FiO2 09/09/17 13:06 56 22 160/84 (109) 98 Room Air 09/09/17 11:27 98.1 Orders Orders Complete Blood Count With Diff (09/09/17 11:37) Comprehensive Metabolic Panel (09/09/17 11:37) Lipase (09/09/17 11:37) Lactic Acid (09/09/17 11:37) Urinalysis - C+S If Indicated (09/09/17 11:37) Iv Access Insert/Monitor (09/09/17 11:37) Ecg Monitoring (09/09/17 11:37) Oximetry (09/09/17 11:37) Ondansetron Inj (Zofran Inj) (09/09/17 11:45) Sodium Chloride 0.9% Flush (Ns Flush) (09/09/17 11:45) Electrocardiogram (09/09/17 11:37) Act Partial Throm Time (Ptt) (09/09/17 11:37) Prothrombin Time / Inr (Pt) (09/09/17 11:37) Abdomen, Upright Only (09/09/17 11:41) Ct Abd/Pel W/O Iv Contrast (09/09/17 11:44) Sodium Chlorid 0.9% 500 Ml Inj (Ns 500 M (09/09/17 12:45) Labetalol Inj (Trandate Inj) (09/09/17 12:51) Potassium Chloride (Kcl) (09/09/17 13:15) Potassium Chlor 10 Meq Premix (Kcl 10 Me (09/09/17 13:15) Magnesium (Mg) (09/09/17 13:44) Calcium Gluconate Inj (Calcium Gluconate (09/09/17 13:45) Magnesium Sulfate Inj (Magnesium Sulfate (09/09/17 14:00) Admit Order (Ed Use Only) (09/09/17 14:07) C Diff Toxin Pcr (09/09/17 14:07) Enteric Path (Stool) (09/09/17 14:07) Labs Laboratory Tests Test 09/09/17 11:45 09/09/17 14:09 White Blood Count 13.4 TH/MM3 Red Blood Count 4.46 MIL/MM3 Hemoglobin 13.1 GM/DL Hematocrit 38.7 % Mean Corpuscular Volume 86.9 FL Mean Corpuscular Hemoglobin 29.5 PG Mean Corpuscular Hemoglobin Concent 33.9 % Red Cell Distribution Width 14.6 % Platelet Count 229 TH/MM3 Mean Platelet Volume 8.4 FL Neutrophils (%) (Auto) 77.9 % Lymphocytes (%) (Auto) 14.8 % Monocytes (%) (Auto) 6.6 % Eosinophils (%) (Auto) 0.2 % Basophils (%) (Auto) 0.5 % Neutrophils # (Auto) 10.4 TH/MM3 Lymphocytes # (Auto) 2.0 TH/MM3 Monocytes # (Auto) 0.9 TH/MM3 Eosinophils # (Auto) 0.0 TH/MM3 Basophils # (Auto) 0.1 TH/MM3 CBC Comment DIFF FINAL Differential Comment Prothrombin Time 14.1 SEC Prothromb Time International Ratio 1.4 RATIO Activated Partial Thromboplast Time 27.8 SEC Blood Urea Nitrogen 17 MG/DL Creatinine 2.19 MG/DL Random Glucose 154 MG/DL Total Protein 7.0 GM/DL Albumin 2.5 GM/DL Calcium Level LESS THAN 5.0 MG/DL Alkaline Phosphatase 131 U/L Aspartate Amino Transf (AST/SGOT) 26 U/L Alanine Aminotransferase (ALT/SGPT) 11 U/L Total Bilirubin 0.7 MG/DL Sodium Level 143 MEQ/L Potassium Level 2.7 MEQ/L Chloride Level 106 MEQ/L Carbon Dioxide Level 24.1 MEQ/L Anion Gap 13 MEQ/L Estimat Glomerular Filtration Rate 29 ML/MIN Lactic Acid Level 3.9 mmol/L Protein Corrected Calcium 5.1 MG/DL Magnesium Level 0.4 MG/DL Lipase 46 U/L MDM Medical Decision Making Medical Screen Exam Complete: Yes Emergency Medical Condition: Yes Medical Record Reviewed: Yes Differential Diagnosis Obstruction, gastritis, gastroenteritis, AAA, mesenteric ischemia, diverticulitis Narrative Course The patient's arrived shortly after the patient. She reports that he has been having a decreased appetite and some diarrhea over the past few days. The patient was pleasant he sees Raymon and pulse oximetry. Twelve-lead EKG will be obtained. Lab work, abdominal x-ray, CT abdomen and pelvis 7 ordered. The patient has a history of chronic kidney disease and therefore noncontrast CT will be obtained. Lab work notable for WBC count of 13.4, potassium 2.7, GFR 29 which is near his baseline, protein corrected calcium 5.1, lactic acid 2.9, magnesium 0.4. The patient will be given 4 mg IV magnesium sulfate, 1 mg calcium gluconate, 10 mEq potassium chloride IV, 40 mEq oral potassium and chloride, 500 mL bolus of normal saline. CT abdomen and pelvis reveals moderate size left pleural effusion. No other acute abnormalities. Discussed with Dr. Shaw who is agreeable with admission, would like the patient to be admitted to the critical-care unit. Diagnosis Primary Impression: Hypomagnesemia Additional Impressions: Leukocytosis Hypokalemia Hypocalcemia Admitting Information Admitting Physician Requests: Admit Shayan Hankins Sep 09, 2017 11:39
[2017-09-09] MEDS ORDERED: SODIUM CHLORIDE 0.9% FLUSH 10 ML FLUSH IV FLUSH PRN (11:45)
[2017-09-09] MEDS ORDERED: ONDANSETRON HCL 4 MG/2 ML VIAL IVP ONE (11:45)
[2017-09-09] MEDS ORDERED: POTA10CA PO (11:48)
[2017-09-09] MEDS ORDERED: FURO40TA PO (11:48)
[2017-09-09 12:15] LABS: AUTOMATED NEUTROPHIL # 10.4 TH/MM3 (1.8-7.7); BASOPHIL # 0.1 TH/MM3 (0-0.2); BASOPHIL % 0.5 % (0.0-2.0); EOSINOPHIL % 0.2 % (0.0-4.0); HEMATOCRIT 38.7 % (39.0-51.0); HEMOGLOBIN 13.1 GM/DL (13.0-17.0); LYMPH % 14.8 % (9.0-44.0); MEAN CELL VOLUME 86.9 FL (80.0-100.0); MEAN CORPUSCULAR HEMOGLOBIN 29.5 PG (27.0-34.0); MEAN CORPUSCULAR HGB CONC 33.9 % (32.0-36.0); MEAN PLATELET VOLUME 8.4 FL (7.0-11.0); MONO % 6.6 % (0.0-8.0); MONOCYTE # 0.9 TH/MM3 (0-0.9); NEUT % 77.9 % (16.0-70.0); PLATELET COUNT 229 TH/MM3 (150-450); RED BLOOD COUNT 4.46 MIL/MM3 (4.50-5.90); RED CELL DISTRIBUTION WIDTH 14.6 % (11.6-17.2); WHITE BLOOD COUNT 13.4 TH/MM3 (4.0-11.0)
[2017-09-09 12:21] LABS: INTERNATIONAL NORMALIZED RATIO 1.4 RATIO; PROTHROMBIN TIME - PATIENT 14.1 SEC (9.8-11.6)
--- NOTE | 2017-09-09 12:36 | RADRPT ---
EXAM DATE/TIME: 09/09/2017 11:54 [facility] COMPARISON: No previous studies available for comparison. INDICATIONS : Abdominal pain. MEDICAL HISTORY : Stroke. Congestive heart failure. Hypercholesterolemia. Hypertension. SURGICAL HISTORY : None. ENCOUNTER: Initial ACUITY: 1 day PAIN SCORE: 6/10 LOCATION: Bilateral abdomen FINDINGS: A single erect view of the abdomen demonstrates the lower lungs to be clear. No evidence of free int raperitoneal gas. The visualized bowel loops are unremarkable. CONCLUSION: 1. No acute findings. No free air. Cristobal Spears MD on September 09, 2017 at 12:33 Board Certified Radiologist. This report was verified electronically.
[2017-09-09] MEDS ORDERED: SODIUM CHLORID 0.9% 500 ML INJ 500 ML IV ONE (12:45)
[2017-09-09] MEDS ORDERED: LABETALOL HCL 100 MG/20 ML VIAL IV PUSH STA (12:51)
[2017-09-09 12:53] LABS: ALBUMIN 2.5 GM/DL (3.4-5.0); ALKALINE PHOSPHATASE 131 U/L (45-117); ALT (GPT) 11 U/L (12-78); AST (GOT) 26 U/L (15-37); BICARBONATE 24.1 MEQ/L (21.0-32.0); BLOOD UREA NITROGEN 17 MG/DL (7-18); CHLORIDE 106 MEQ/L (98-107); CREATININE 2.19 MG/DL (0.60-1.30); GLOMERULAR FILTRATION RATE 29 ML/MIN (>89); GLUCOSE,RANDOM 154 MG/DL (74-106); SODIUM (NA) 143 MEQ/L (136-145); TOTAL BILIRUBIN ADULT 0.7 MG/DL (0.2-1.0)
[2017-09-09] MEDS ORDERED: POTASSIUM CHLOR 10 MEQ PREMIX 100 ML IV ONE (13:15)
[2017-09-09] MEDS ORDERED: POTASSIUM CHLORIDE 20 MEQ CONTROLLED RELEASE TAB PO ONE (13:15)
[2017-09-09 13:43] LABS: CALCIUM LESS THAN 5.0 MG/DL (8.5-10.1)
[2017-09-09 13:44] LABS: CALCIUM-PROTEIN CORRECTED 5.1 MG/DL (8.5-10.1)
[2017-09-09] MEDS ORDERED: CALCIUM GLUCONATE INJ 1 GM in SODIUM CHLORIDE 0.9% INJ 90 ML IV ONE ×2 (13:45→23:00)
--- NOTE | 2017-09-09 13:49 | RADRPT ---
EXAM DATE/TIME: 09/09/2017 12:50 [place] COMPARISON: CT ABDOMEN & PELVIS W CONTRAST, September 17, 2016, 18:36. US KIDNEY/RENAL/BLADDER, May 14, 2017, 10 :15. INDICATIONS : Nausea, vomiting, diarrhea for the past 12 hours. ORAL CONTRAST: No oral contrast ingested. RADIATION DOSE: 7.50 CTDIvol (mGy) MEDICAL HISTORY : Hypertension. Cerebrovascular disease. Diabetes mellitus type 2.Cardiac disease. SURGICAL HISTORY : Cholecystectomy. ENCOUNTER: Initial ACUITY: 1 day PAIN SCALE: 8/10 LOCATION: abdomen TECHNIQUE: Volumetric scanning of the abdomen and pelvis was performed. Using automated exposure control and ad justment of the mA and/or kV according to patient size, radiation dose was kept as low as reasonably achievable to obtain optimal diagnostic quality images. DICOM format image data is available electro nically for review and comparison. FINDINGS: LOWER LUNGS: The visualized lower lungs are clear. Moderate-sized left pleural effusion measures 2.3 cm. LIVER: Homogeneous density without lesion for noncontrast technique. There is no dilation of the biliary tr ee. Cholecystectomy. SPLEEN: Normal size without lesion. PANCREAS: Within normal limits. KIDNEYS: Atrophy left kidney, stable in appearance. No evidence of hydronephrosis on either side. Prior cont rast enhanced CT in September 2016 and followup ultrasound had demonstrated a complex cystic lesion in th e lateral right midpole and a focal area of heterogeneous enhancement in the medial upper pole. On t emily's noncontrast images, the lesions are poorly delineated; it may be some contrast in bowel in the area of both abnormalities. If we considered an incomplete interval examination of these known find ings. ADRENAL GLANDS: Stable hypertrophy left adrenal gland. No nodules are seen on either side. 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 BOWEL/MESENTERY: No dilated loops of small bowel. No diverticula in the sigmoid colon without radiographic evidence o f diverticulitis. ABDOMINAL WALL: Within normal limits. RETROPERITONEUM: There is no lymphadenopathy. BLADDER: No wall thickening or mass. REPRODUCTIVE: Within normal limits. INGUINAL: There is no lymphadenopathy or hernia. Small fat-containing inguinal hernias similar to prior. MUSCULOSKELETAL: Stable sclerotic region lesion in the left medial body of S1 and stable scattered small bone islands in the lumbar vertebral bodies. CONCLUSION: 1. No dilated loops of small or large bowel. Sigmoid diverticulosis without radiographic evidence of diverticulitis. 2. There is a new moderate size left pleural effusion. 3. Please note that prior imaging studies had evaluated 2 lesions in the right kidney, only discernib le on contrast enhanced images. Today's noncontrast CT does not provide interval assessment of these known lesions. Gomez Palacios MD on September 09, 2017 at 13:37 Board Certified Radiologist. This report was verified electronically.
[2017-09-09] MEDS ORDERED: MAGNESIUM SULFATE INJ 4 GM in DEXTROSE 5% IN WATER 100ML INJ 92 ML IV SCH ×2 (14:00)
[2017-09-09] MEDS ORDERED: GLUCAGON 1 MG/ML VIAL OTHER PRN (15:00)
[2017-09-09] MEDS ORDERED: DEXTROSE 50% IN WATER 50 ML VIAL(D50) IV PUSH PRN (15:00)
[2017-09-09] MEDS ORDERED: ACETAMINOPHEN 325 MG TAB PO PRN (15:00)
[2017-09-09] MEDS ORDERED: D5-1/2 NS + KCL 40 MEQ INJ 1,000 ML IV SCH (15:00)
[2017-09-09] MEDS ORDERED: CALCIUM GLUCONATE INJ 1 GM in DEXTROSE 5% IN WATER 100ML INJ 100 ML IV ONE ×4 (15:00)
[2017-09-09] MEDS ORDERED: ONDANSETRON HCL 4 MG/2 ML VIAL IVP PRN (15:00)
[2017-09-09] MEDS ORDERED: NALOXONE HCL 0.4 MG/ML AMP IV PUSH PRN (15:00)
--- NOTE | 2017-09-09 15:28 | HHI.HP ---
[facility] Rivera Frazier MD Admission Diagnosis hypocalcemia, hypomagnesemia, hypokalemia, leukocytosis Diagnoses: Travel History International Travel<30 Days: No Contact w/Intl Traveler <30 Da: No Traveled to Known Affected Are: No History of Present Illness 81 years old male with history of CHF hypertension diabetes mellitus chronic knee disease and dyslipidemia presented to the ED complaining of worsening abdominal pain and cramping in nature 10 out of 10 nausea vomiting and diarrhea started yesterday. In ED patient was found to have severe depletion of electrolytes with severe hypo-hypercholesterolemia corrected calcium 5.5, potassium 2.7, magnesium 0.4, he looks severely dehydrated area and in general his poor historian looks anxious but in general denied other complain Review of Systems All systems reviewed and was positive for what is mentioned in history of present illness otherwise negative Past Family Social History Past Medical History A. fib CVA 2015 Gout Hypertension Diabetes Chronic anemia disease CHF Kidney stone Cholecystectomy Pacemaker Past Surgical History As above Allergies: Coded Allergies: hydrochlorothiazide (Unverified Allergy, Severe, Rash, 09/09/17) diclofenac (Unverified Adverse Reaction, Severe, GI BLEED, 09/09/17) etodolac (Unverified Adverse Reaction, Severe, GI BLEED, 09/09/17) flurbiprofen (Unverified Adverse Reaction, Severe, GI BLEED, 09/09/17) ibuprofen (Unverified Adverse Reaction, Severe, GI BLEED, 09/09/17) indomethacin (Unverified Adverse Reaction, Severe, GI BLEED, 09/09/17) ketoprofen (Unverified Adverse Reaction, Severe, GI BLEED, 09/09/17) ketorolac (Unverified Adverse Reaction, Severe, GI BLEED, 09/09/17) naproxen (Unverified Adverse Reaction, Severe, GI BLEED, 09/09/17) oxaprozin (Unverified Adverse Reaction, Severe, GI BLEED, 09/09/17) Family History Review with the patient,not aware of significant medical history runs in his family Social History Stated he quit smoking very long time ago no drug or alcohol abuse Physical Exam Vital Signs Vital Signs Date Time Temp Pulse Resp B/P (MAP) Pulse Ox O2 Delivery O2 Flow Rate FiO2 09/09/17 14:05 69 26 180/90 (120) 98 Room Air 09/09/17 13:06 56 22 160/84 (109) 98 Room Air 09/09/17 11:39 97 Room Air 09/09/17 11:27 98.1 64 20 194/101 (132) 96 Physical Exam GENERAL: This is a well-nourished, well-developed patient, in no apparent distress. SKIN: No rashes, warm and dry HEAD: Atraumatic. Normocephalic. EYES: Pupils equal round and reactive. Extraocular motions intact. No scleral icterus. ENT: Nose without bleeding, or drainage, Airway patent. NECK: Trachea midline. Supple CARDIOVASCULAR: Regular rate and rhythm without murmurs, gallops, or rubs. RESPIRATORY: Fair air entry bilaterally. No wheezes, rales, or rhonchi. GASTROINTESTINAL: Abdomen soft, non-tender, nondistended. Positive bowel sounds MUSCULOSKELETAL: Extremities without clubbing, cyanosis, or edema. Pedal pulses appreciated NEUROLOGICAL: Awake and alert. Moves all extremity. Normal speech.no focal neurological deficit Laboratory Laboratory Tests Test 09/09/17 11:45 09/09/17 14:09 09/09/17 15:00 White Blood Count 13.4 Red Blood Count 4.46 Hemoglobin 13.1 Hematocrit 38.7 Mean Corpuscular Volume 86.9 Mean Corpuscular Hemoglobin 29.5 Mean Corpuscular Hemoglobin Concent 33.9 Red Cell Distribution Width 14.6 Platelet Count 229 Mean Platelet Volume 8.4 Neutrophils (%) (Auto) 77.9 Lymphocytes (%) (Auto) 14.8 Monocytes (%) (Auto) 6.6 Eosinophils (%) (Auto) 0.2 Basophils (%) (Auto) 0.5 Neutrophils # (Auto) 10.4 Lymphocytes # (Auto) 2.0 Monocytes # (Auto) 0.9 Eosinophils # (Auto) 0.0 Basophils # (Auto) 0.1 CBC Comment DIFF FINAL Differential Comment Prothrombin Time 14.1 Prothromb Time International Ratio 1.4 Activated Partial Thromboplast Time 27.8 Blood Urea Nitrogen 17 Creatinine 2.19 Random Glucose 154 Total Protein 7.0 Albumin 2.5 Calcium Level LESS THAN 5.0 Alkaline Phosphatase 131 Aspartate Amino Transf (AST/SGOT) 26 Alanine Aminotransferase (ALT/SGPT) 11 Total Bilirubin 0.7 Sodium Level 143 Potassium Level 2.7 Chloride Level 106 Carbon Dioxide Level 24.1 Anion Gap 13 Estimat Glomerular Filtration Rate 29 Lactic Acid Level 3.9 2.9 Protein Corrected Calcium 5.1 Magnesium Level 0.4 Lipase 46 Date/Time Source Procedure Growth Status 09/09/17 15:00 Stool Stool Pending Received Result Diagram: 09/09/17 1145 09/09/17 1145 Imaging Last Impressions Abdomen/Pelvis CT 09/09/17 1144 Signed Impressions: Service Date/Time: August 12:50 - CONCLUSION: 1. No dilated loops of small or large bowel. Sigmoid diverticulosis without radiographic evidence of diverticulitis. 2. There is a new moderate size left pleural effusion. 3. Please note that prior imaging studies had evaluated 2 lesions in the right kidney, only discernible on contrast enhanced images. Today's noncontrast CT does not provide interval assessment of these known lesions. Gomez Palacios MD Abdomen X-Ray 09/09/17 1141 Signed Impressions: Service Date/Time: August 11:54 - CONCLUSION: 1. No acute findings. No free air. MD Paul Contreras VTE Risk Assessment Caprini VTE Risk Assessment: Mod/High Risk (score >= 2) Caprini Risk Assessment Model Point Value = 1 Point Value = 2 Point Value = 3 Point Value = 5 Age 41-60 Minor surgery BMI > 25 kg/m2 Swollen legs Varicose veins or History of unexplained or recurrent spontaneous Oral contraceptives or hormone replacement Sepsis (< 1 month) Serious lung disease, including pneumonia (< 1 month) Abnormal pulmonary function Acute myocardial infarction Congestive heart failure (< 1 month) History of inflammatory bowel disease Medical patient at bed rest Age 61-74 Arthroscopic surgery Major open surgery (> 45 min) Laparoscopic surgery (> 45 min) Malignancy Confined to bed (> 72 hours) Immobilizing plaster cast Central venous access Age >= 75 History of VTE Family history of VTE Factor V Leiden Prothrombin [id number] Lupus anticoagulant Anticardiolipin antibodies Elevated serum homocysteine Heparin-induced thrombocytopenia Other congenital or acquired thrombophilia Stroke (< 1 month) Elective arthroplasty Hip, pelvis, or leg fracture Acute spinal cord injury (< 1 month) Prophylaxis Regimen Total Risk Factor Score Risk Level Prophylaxis Regimen 0-1 Low Early ambulation 2 Moderate Order ONE of the following: *Sequential Compression Device (SCD) *Heparin 5000 units SQ BID 3-4 Higher Order ONE of the following medications: *Heparin 5000 units SQ TID *Enoxaparin/Lovenox 40 mg SQ daily (WT < 150 kg, CrCl > 30 mL/min) *Enoxaparin/Lovenox 30 mg SQ daily (WT < 150 kg, CrCl > 10-29 mL/min) *Enoxaparin/Lovenox 30 mg SQ BID (WT < 150 kg, CrCl > 30 mL/min) AND/OR *Sequential Compression Device (SCD) 5 or more Highest Order ONE of the following medications: *Heparin 5000 units SQ TID (Preferred with Epidurals) *Enoxaparin/Lovenox 40 mg SQ daily (WT < 150 kg, CrCl > 30 mL/min) *Enoxaparin/Lovenox 30 mg SQ daily (WT < 150 kg, CrCl > 10-29 mL/min) *Enoxaparin/Lovenox 30 mg SQ BID (WT < 150 kg, CrCl > 30 mL/min) AND *Sequential Compression Device (SCD) Assessment and Plan Assessment and Plan 81 years old male with history of hypertension hyperlipidemia chronic kidney disease CHF presented with abdominal pain nausea vomiting and diarrhea Severe hypocalcemia 5.5 manifested with abdominal cramping nausea vomiting and diarrhea Severe electrolyte imbalance hypokalemia and hypomagnesemia 2.7 and 0.4 respectively Severe dehydration History of CHF Diabetes mellitus Hypertension 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, mostly on SHAINA creatinine 2.19 DVT prophylaxis Plan: Admit to ICU for close telemetry monitoring I ordered stat to gram of calcium gluconate to be infused with 100 cc of 5 dextrose over 30 minutes EKG reviewed showed atrial fibrillation with left anterior block, QT 500 Also ordered 4 mg of magnesium sulfate iv, total of 20 and EQ of iv potassium has been ordered For maintenance I ordered D5 half-normal saline with 40 and EQ of KCl along with 1 g of calcium gluconate to be infused at 84 cc/h BMP every 6 hours Close monitoring for any arrhythmia Transferred to room manager if needed Continue home medication for rest of medical problem Heparin and SCD for DVT prophylaxis Accu-Chek and insulin sliding scale, healthy heart diabetic diet CT abdomen personally reviewed by me showed no signs of dilated small bowel or colon loops, some diverticulosis without diverticulitis and moderate left oral effusion Discussed Condition With ED physician and patient and nurse Physician Certification 2 Midnight Certification Type: Admission for Inpatient Services Order for Inpatient Services The services are ordered in accordance with Medicare regulations or non- Medicare payer requirements, as applicable. In the case of services not specified as inpatient-only, they are appropriately provided as inpatient services in accordance with the 2-midnight benchmark. Estimated LOS (days): 2 days is the estimated time the patient will need to remain in the hospital, assuming treatment plan goals are met and no additional complications. Post-Hospital Plan: SNF Melba Shaw MD Sep 09, 2017 15:28
[2017-09-09] MEDS ORDERED: DUO NEB PRN (16:00)
[2017-09-09] MEDS: HEPARIN SODIUM - SQ 10,000 UNITS/ML VIAL SQ SCH (16:06)
[2017-09-09] MEDS: INSULIN ASPART SUPPLEMENTAL SCALE SQ SCH ×2 (17:02→20:31)
[2017-09-09] MEDS: CALCIUM GLUCONATE IV SCH (18:17)
[2017-09-09] MEDS: POTASSIUM CHLORIDE IV SCH (18:17)
[2017-09-09] MEDS: [UNRECOGNIZED DRUG - OTHER] IV SCH (18:17)
[2017-09-09 18:31] LABS: BICARBONATE 22.6 MEQ/L (21.0-32.0); BLOOD UREA NITROGEN 20 MG/DL (7-18); CHLORIDE 107 MEQ/L (98-107); CREATININE 2.34 MG/DL (0.60-1.30); GLOMERULAR FILTRATION RATE 27 ML/MIN (>89); GLUCOSE,RANDOM 180 MG/DL (74-106); MAGNESIUM 0.5 MG/DL (1.5-2.5); PHOSPHORUS 4.4 MG/DL (2.5-4.9); SODIUM (NA) 141 MEQ/L (136-145)
[2017-09-09 20:09] LABS: TOTAL PROTEIN 6.8 GM/DL (6.4-8.2)
[2017-09-09] MEDS ORDERED: CHLORHEXIDINE GLUCONATE 2 % 1 PACK (2 CLOTHS)(extra cloths) TOPICAL PRN (20:15)
[2017-09-09 20:26] LABS: CALCIUM LESS THAN 5.0 MG/DL (8.5-10.1)
[2017-09-09 20:29] LABS: CALCIUM-PROTEIN CORRECTED LESS THAN 5.1 MG/DL (8.5-10.1)
[2017-09-09] MEDS: ATORVASTATIN 20 MG TAB PO SCH (20:31)
[2017-09-09] MEDS: cloNIDine HCL 0.1 MG TAB PO SCH (20:31)
[2017-09-09] MEDS: PANTOPRAZOLE SOD 20 MG DELAYED RELEASE TAB PO SCH (20:31)
[2017-09-09] MEDS: SODIUM CHLORIDE 0.9% FLUSH 10 ML FLUSH IV FLUSH SCH (20:31)
[2017-09-09] MEDS: hydrALAZINE HCL 100 MG TAB PO SCH (20:31)
[2017-09-09] MEDS ORDERED: CALCIUM CHLORIDE INJ 1 GM in SODIUM CHLORIDE 0.9% INJ 90 ML IV ONE (21:00)
[2017-09-09] MEDS ORDERED: POTASSIUM CHLORIDE 25 MEQ EFFERVESCENT TAB PO ONE (21:00)
[2017-09-09] MEDS ORDERED: CALCIUM CARBONATE 1.25 GM (CA 500 MG) TAB PO SCH (21:15)
[2017-09-09] MEDS: MAGNESIUM SULFATE 1 GM PREMIX 100 ML IV SCH ×2 (21:54→22:00)
[2017-09-09] MEDS: BUDESONIDE-FORMOTEROL 160/4.5 MCG INHALER INH SCH (21:55)
[2017-09-10] VITALS (14 sets, daily range): BP systolic 94–176; BP diastolic 61–136; PULSE 46–92; RESP 18–25; TEMP 98.3–98.9; O2SAT 94–100
[2017-09-10] MEDS: MAGNESIUM SULFATE 1 GM PREMIX 100 ML IV SCH
[2017-09-10] MEDS: HEPARIN SODIUM - SQ 10,000 UNITS/ML VIAL SQ SCH ×4 (00:01→23:17)
[2017-09-10] MEDS: hydrALAZINE HCL 20 MG/ML VIAL IV PUSH PRN ×3 (03:50→23:14)
[2017-09-10] MEDS: SODIUM CHLORIDE 0.9% FLUSH 10 ML FLUSH IV FLUSH PRN ×2 (03:51→23:14)
[2017-09-10] MEDS: CHLORHEXIDINE GLUCONATE 2 % 1 PACK (2 CLOTHS)(taper/protocol) TOPICAL SCH (04:00)
[2017-09-10] MEDS: cloNIDine HCL 0.1 MG TAB PO SCH ×3 (05:29→20:32)
[2017-09-10] MEDS: hydrALAZINE HCL 100 MG TAB PO SCH ×3 (05:29→20:34)
[2017-09-10] MEDS: ISOSORBIDE MONONITRATE 30 MG CR TAB (IMDUR) PO SCH (05:30)
[2017-09-10] MEDS: CALCIUM GLUCONATE IV SCH (06:28)
[2017-09-10] MEDS: POTASSIUM CHLORIDE IV SCH (06:28)
[2017-09-10] MEDS: [UNRECOGNIZED DRUG - OTHER] IV SCH (06:28)
[2017-09-10 07:28] LABS: BICARBONATE 23.2 MEQ/L (21.0-32.0); CALCIUM 5.9 MG/DL (8.5-10.1); CREATININE 2.42 MG/DL (0.60-1.30); MAGNESIUM 1.7 MG/DL (1.5-2.5); PHOSPHORUS 3.3 MG/DL (2.5-4.9)
[2017-09-10 07:40] LABS: AUTOMATED NEUTROPHIL # 7.9 TH/MM3 (1.8-7.7); BASOPHIL # 0.1 TH/MM3 (0-0.2); BASOPHIL % 0.7 % (0.0-2.0); EOSINOPHIL # 0.1 TH/MM3 (0-0.4); EOSINOPHIL % 0.7 % (0.0-4.0); HEMATOCRIT 35.3 % (39.0-51.0); HEMOGLOBIN 12.2 GM/DL (13.0-17.0); LYMPH % 17.4 % (9.0-44.0); LYMPHOCYTE # 1.9 TH/MM3 (1.0-4.8); MEAN CELL VOLUME 86.7 FL (80.0-100.0); MEAN CORPUSCULAR HEMOGLOBIN 30.1 PG (27.0-34.0); MEAN CORPUSCULAR HGB CONC 34.7 % (32.0-36.0); MEAN PLATELET VOLUME 8.8 FL (7.0-11.0); MONO % 8.4 % (0.0-8.0); MONOCYTE # 0.9 TH/MM3 (0-0.9); NEUT % 72.8 % (16.0-70.0); PLATELET COUNT 205 TH/MM3 (150-450); RED BLOOD COUNT 4.07 MIL/MM3 (4.50-5.90); RED CELL DISTRIBUTION WIDTH 14.7 % (11.6-17.2); WHITE BLOOD COUNT 10.9 TH/MM3 (4.0-11.0)
[2017-09-10 07:50] LABS: TOTAL PROTEIN 6.6 GM/DL (6.4-8.2)
[2017-09-10 07:54] LABS: CALCIUM-PROTEIN CORRECTED 6.1 MG/DL (8.5-10.1)
[2017-09-10] MEDS: INSULIN ASPART SUPPLEMENTAL SCALE SQ SCH ×4 (08:00→20:32)
[2017-09-10] MEDS: PANTOPRAZOLE SOD 20 MG DELAYED RELEASE TAB PO SCH ×2 (08:53→20:32)
[2017-09-10] MEDS: ALLOPURINOL 100 MG TAB PO SCH (08:53)
[2017-09-10] MEDS: CHOLECALCIFEROL (VIT D3) 5000 UNIT CAP PO SCH (08:53)
[2017-09-10] MEDS: ASPIRIN EC 81 MG TABEC PO SCH (08:53)
[2017-09-10] MEDS: SODIUM CHLORIDE 0.9% FLUSH 10 ML FLUSH IV FLUSH SCH ×2 (08:54→20:33)
[2017-09-10] MEDS: BUDESONIDE-FORMOTEROL 160/4.5 MCG INHALER INH SCH ×2 (08:54→20:33)
[2017-09-10] MEDS ORDERED: POTASSIUM CHLORIDE 10 MEQ CONTROLLED RELEASE TAB PO ONE (09:30)
[2017-09-10] MEDS ORDERED: CALCIUM GLUCONATE INJ 2 GM in SODIUM CHLORIDE 0.9% INJ 100 ML IV ONE (09:30)
--- NOTE | 2017-09-10 12:01 | HHI.PR ---
Subjective Remarks Follow-up multiple electrolyte abnormalities/dehydration 09/10/17-patient seen and examined, tolerated by mouth this morning without any competition nausea and vomiting. denies any dizziness and currently afebrile Objective Vitals Vital Signs Date Time Temp Pulse Resp B/P (MAP) Pulse Ox O2 Delivery O2 Flow Rate FiO2 09/10/17 08:20 94 09/10/17 08:00 73 09/10/17 08:00 98.3 73 25 159/73 (101) 95 09/10/17 06:00 80 09/10/17 04:00 50 09/10/17 04:00 98.9 66 20 174/72 (106) 98 09/10/17 02:00 56 09/10/17 00:00 71 09/10/17 00:00 98.7 66 18 174/83 (113) 100 09/09/17 22:00 69 09/09/17 20:00 99.0 69 22 114/96 (102) 96 09/09/17 19:52 99.0 57 24 176/81 (112) 98 09/09/17 19:45 62 18 158/87 (110) 95 09/09/17 19:00 97 09/09/17 18:00 76 22 166/77 (106) 97 Room Air 09/09/17 17:00 60 22 184/87 (119) 97 Room Air 09/09/17 16:00 64 19 186/88 (120) 97 Room Air 09/09/17 15:05 65 24 182/80 (114) 97 Room Air 09/09/17 14:05 69 26 180/90 (120) 98 Room Air 09/09/17 13:06 56 22 160/84 (109) 98 Room Air I/O 09/09/17 09/09/17 09/09/17 09/10/17 09/10/17 09/10/17 07:00 15:00 23:00 07:00 15:00 23:00 Intake Total 1260 ml 900 ml Output Total 0 ml Balance 1260 ml 900 ml Intake Oral 700 ml IV Total 1260 ml 200 ml Output Urine Total 0 ml # Voids 1 # Bowel Movements 2 0 Result Diagram: 09/10/17 0610 09/10/17 0610 Imaging Last Impressions Abdomen/Pelvis CT 09/09/17 1144 Signed Impressions: Service Date/Time: August 12:50 - CONCLUSION: 1. No dilated loops of small or large bowel. Sigmoid diverticulosis without radiographic evidence of diverticulitis. 2. There is a new moderate size left pleural effusion. 3. Please note that prior imaging studies had evaluated 2 lesions in the right kidney, only discernible on contrast enhanced images. Today's noncontrast CT does not provide interval assessment of these known lesions. Gomez Palacios MD Abdomen X-Ray 09/09/17 1141 Signed Impressions: Service Date/Time: August 11:54 - CONCLUSION: 1. No acute findings. No free air. Cristobal Spears MD Objective Remarks GENERAL: NAD SKIN: Warm and dry. HEAD: Normocephalic. EYES: No scleral icterus. No injection or drainage. NECK: Supple, trachea midline. No JVD or lymphadenopathy. CARDIOVASCULAR: Regular rate and rhythm without murmurs, gallops, or rubs. RESPIRATORY: Breath sounds equal bilaterally. No accessory muscle use. GASTROINTESTINAL: Abdomen soft, non-tender, nondistended. MUSCULOSKELETAL: No cyanosis, or edema. BACK: Nontender without obvious deformity. No CVA tenderness. 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
[2017-09-10] MEDS: SODIUM CHLOR 0.9% 1000 ML INJ 1,000 ML IV SCH (12:45)
--- NOTE | 2017-09-10 14:20 | EKG ---
Date Performed: 09/09/2017 Time Performed: 12:12:19 PTAGE: 81 years EKG: LEFT ANTERIOR FASCICULAR BLOCK POSSIBLE ANTERIOR MYOCARDIAL INFARCTION Prolongation of the QT interval for the heart rate Nonspecific ST-T wave changes ABNORMAL ECG PREVIOUS TRACING : 05/19/2017 09.55 Since the prior tracing, there has been some variation in t he nonspecific ST-T wave changes and resolution of the atrial fibrillation. DOCTOR: Brianna Carlin Interpretating Date/Time 09/10/2017 14:19:20
--- NOTE | 2017-09-10 14:22 | EKG ---
Date Performed: 09/09/2017 Time Performed: 20:44:48 PTAGE: 81 years EKG: Probable Sinus rhythm with significant QT prolongation LEFT ANTERIOR FASCICULAR BLOCK ST DEVIATION AND MODERATE T-WAVE ABN ORMALITY, CONSIDER LATERAL ISCHEMIA ABNORMAL ECG PREVIOUS TRACING : 09/09/2017 12.12 T-wave amplitude is low, and I could not exclude wenckebach conduction. Since the prior tracing, there has been a slowing of the rate and an increase in the lat eral and inferior T-wave changes. There has also been a shift in the atrial focus. Clinical correlati on will be important to exclude drug effect, electrolyte imbalance, and myocardial disease with the c hanges described above. DOCTOR: Brianna Carlin Interpretating Date/Time 09/10/2017 14:21:58
[2017-09-10] MEDS: ATORVASTATIN 20 MG TAB PO SCH (20:32)
[2017-09-11] VITALS (14 sets, daily range): BP systolic 120–188; BP diastolic 76–89; PULSE 52–75; RESP 11–18; TEMP 97.5–98.7; O2SAT 92–99
[2017-09-11] MEDS: CHLORHEXIDINE GLUCONATE 2 % 1 PACK (2 CLOTHS)(taper/protocol) TOPICAL SCH (04:00)
[2017-09-11] MEDS: cloNIDine HCL 0.1 MG TAB PO SCH ×3 (05:36→21:04)
[2017-09-11] MEDS: ISOSORBIDE MONONITRATE 30 MG CR TAB (IMDUR) PO SCH (05:36)
[2017-09-11] MEDS: hydrALAZINE HCL 100 MG TAB PO SCH ×3 (05:36→21:04)
[2017-09-11] MEDS: CHOLECALCIFEROL (VIT D3) 5000 UNIT CAP PO SCH (10:07)
[2017-09-11] MEDS: SODIUM CHLORIDE 0.9% FLUSH 10 ML FLUSH IV FLUSH SCH ×2 (10:08→21:07)
[2017-09-11] MEDS: PANTOPRAZOLE SOD 20 MG DELAYED RELEASE TAB PO SCH ×2 (10:08→21:04)
[2017-09-11] MEDS: ALLOPURINOL 100 MG TAB PO SCH (10:08)
[2017-09-11] MEDS: HEPARIN SODIUM - SQ 10,000 UNITS/ML VIAL SQ SCH ×3 (10:08→23:09)
[2017-09-11] MEDS: ASPIRIN EC 81 MG TABEC PO SCH (10:08)
[2017-09-11] MEDS: INSULIN ASPART SUPPLEMENTAL SCALE SQ SCH ×4 (10:12→21:05)
[2017-09-11] MEDS: BUDESONIDE-FORMOTEROL 160/4.5 MCG INHALER INH SCH ×2 (10:12→21:04)
[2017-09-11] MEDS: SODIUM CHLOR 0.9% 1000 ML INJ 1,000 ML IV SCH (13:09)
--- NOTE | 2017-09-11 14:09 | HHI.PR ---
Subjective Remarks Follow up for abdominal pain, N/V, diarrhea and lab findings of severe hypokalemia, hypocalcemia, hypomagnesemia. Patient is currently doing well. Tolerating diet well. Hard of hearing. However, he reports no acute concerns. No fever, chills, abdominal pain. He wants to go to the floor. Objective Vitals Vital Signs Date Time Temp Pulse Resp B/P (MAP) Pulse Ox O2 Delivery O2 Flow Rate FiO2 09/11/17 08:12 96 Nasal Cannula 4.00 09/11/17 08:00 97.5 62 16 180/84 (116) 98 09/11/17 07:00 62 16 165/76 (105) 98 09/11/17 06:00 59 09/11/17 04:00 60 09/11/17 04:00 98.7 67 12 182/81 (114) 99 09/11/17 02:00 65 09/11/17 00:00 98.7 64 11 161/89 (113) 93 09/11/17 00:00 57 09/10/17 22:00 62 09/10/17 20:00 92 09/10/17 20:00 98.7 86 25 164/136 (145) 94 09/10/17 19:25 98 09/10/17 18:00 46 09/10/17 16:00 69 09/10/17 16:00 98.6 69 18 145/79 (101) 95 I/O 09/10/17 09/10/17 09/10/17 09/11/17 09/11/17 09/11/17 07:00 15:00 23:00 07:00 15:00 23:00 Intake Total 900 ml 500 ml 1910 ml 700 ml Output Total 0 ml 325 ml 800 ml Balance 900 ml 500 ml 1585 ml -100 ml Intake Oral 700 ml 850 ml 700 ml IV Total 200 ml 500 ml 1060 ml Output Urine Total 0 ml 325 ml 800 ml # Bowel Movements 0 0 0 Result Diagram: 09/10/17 0610 09/10/17 0610 Imaging Last Impressions Abdomen/Pelvis CT 09/09/17 1144 Signed Impressions: Service Date/Time: August 12:50 - CONCLUSION: 1. No dilated loops of small or large bowel. Sigmoid diverticulosis without radiographic evidence of diverticulitis. 2. There is a new moderate size left pleural effusion. 3. Please note that prior imaging studies had evaluated 2 lesions in the right kidney, only discernible on contrast enhanced images. Today's noncontrast CT does not provide interval assessment of these known lesions. Gomez Palacios MD Abdomen X-Ray 09/09/17 1141 Signed Impressions: Service Date/Time: August 11:54 - CONCLUSION: 1. No acute findings. No free air. Cristobal Spears MD Objective Remarks GENERAL: Alert, NAD. Hard of hearing. SKIN: Warm and dry. HEAD: Normocephalic. EYES: No scleral icterus. No injection or drainage. NECK: Supple, trachea midline. No JVD or lymphadenopathy. CARDIOVASCULAR: Regular rate and rhythm without murmurs, gallops, or rubs. RESPIRATORY: Breath sounds equal bilaterally. No accessory muscle use. GASTROINTESTINAL: Abdomen soft, non-tender, nondistended. MUSCULOSKELETAL: No cyanosis, or edema. BACK: Nontender without obvious deformity. No CVA tenderness. Procedures None. A/P Problem List: (1) Hypocalcemia ICD Code: E83.51 - Hypocalcemia Status: Acute (2) Hypomagnesemia ICD Code: E83.42 - Hypomagnesemia Status: Acute (3) Hypokalemia ICD Code: E87.6 - Hypokalemia Status: Acute Assessment and Plan Mr. Mcmahan is a 81 year old male with history of CHF, hypertension, diabetes , chronic kidney disease, dyslipidemia, presented via EMS for evaluation of abdominal pain, nausea, vomiting, diarrhea. He was found to have significant electrolyte deficiencies. - Abdominal pain - resolved. Likely due to hypocalcemia. - Tolerating diet well. - Hypokalemia - Hypocalcemia - Hypomagnesemia - Calcium 5.5, Potassium 2.7 and Mag 0.4 on admission - Replaced. Today, corrected calcium 6.4, Mag 1.2. - Will replace with 2g of Calcium Gluconate and 4 g of Mag sulfate all IV. - Acute kidney injury - CKD stage IV - Creatinine is somewhat improved. Creatinine 2.24 today. Baseline around 1.8 - 2.0. - Repeat BMP in the AM. - Hypertension - Chronic congestive heart failure mostly diastolic - Hyperlipidemia - Continue Aspirin, Lipitor, Hydralazine, Imdur - Diabetes mellitus - Patient takes Glipizide at home. - Currently on sliding scale insulin. Goal 140-180. - Will start Low dose Levemir 5 units QHS. Full code. Heparin SQ. Dieter Nguyen DO Sep 11, 2017 14:09
[2017-09-11 14:22] LABS: CREATININE 2.24 MG/DL (0.60-1.30)
[2017-09-11 14:42] LABS: TOTAL PROTEIN 6.1 GM/DL (6.4-8.2)
[2017-09-11 14:53] LABS: CALCIUM-PROTEIN CORRECTED 6.4 MG/DL (8.5-10.1)
[2017-09-11] MEDS: hydrALAZINE HCL 20 MG/ML VIAL IV PUSH PRN (15:47)
[2017-09-11] MEDS: SODIUM CHLORIDE 0.9% FLUSH 10 ML FLUSH IV FLUSH PRN (15:47)
[2017-09-11] MEDS: MAGNESIUM SULFATE 1 GM PREMIX 100 ML IV SCH ×4 (16:55→23:09)
[2017-09-11] MEDS ORDERED: CALCIUM GLUCONATE INJ 2 GM in SODIUM CHLORIDE 0.9% INJ 100 ML IV ONE (17:00)
[2017-09-11 19:24] LABS: BICARBONATE 19.8 MEQ/L (21.0-32.0); CALCIUM 6.3 MG/DL (8.5-10.1); CREATININE 2.2 MG/DL (0.60-1.30)
[2017-09-11 20:07] LABS: TOTAL PROTEIN 6.2 GM/DL (6.4-8.2)
[2017-09-11 20:28] LABS: CALCIUM-PROTEIN CORRECTED 6.7 MG/DL (8.5-10.1)
[2017-09-11] MEDS ORDERED: INSULIN DETEMIR 100 UNITS/ML VIAL SQ SCH (21:00)
[2017-09-11] MEDS: ATORVASTATIN 20 MG TAB PO SCH (21:05)
[2017-09-12] VITALS (9 sets, daily range): BP systolic 145–197; BP diastolic 72–84; PULSE 34–65; RESP 16–20; TEMP 97.3–98.3; O2SAT 88–95
[2017-09-12] MEDS: CHLORHEXIDINE GLUCONATE 2 % 1 PACK (2 CLOTHS)(taper/protocol) TOPICAL SCH (04:00)
[2017-09-12] MEDS ORDERED: CALCIUM GLUCONATE INJ 1 GM in SODIUM CHLORIDE 0.9% INJ 90 ML IV ONE (04:45)
[2017-09-12] MEDS: cloNIDine HCL 0.1 MG TAB PO SCH ×2 (05:11→13:32)
[2017-09-12] MEDS: hydrALAZINE HCL 100 MG TAB PO SCH ×2 (05:11→13:32)
[2017-09-12] MEDS: ISOSORBIDE MONONITRATE 30 MG CR TAB (IMDUR) PO SCH (06:09)
[2017-09-12] MEDS: INSULIN ASPART SUPPLEMENTAL SCALE SQ SCH ×2 (08:00→13:32)
[2017-09-12] MEDS: SODIUM CHLOR 0.9% 1000 ML INJ 1,000 ML IV SCH (08:09)
[2017-09-12] MEDS: CHOLECALCIFEROL (VIT D3) 5000 UNIT CAP PO SCH (08:11)
[2017-09-12] MEDS: ALLOPURINOL 100 MG TAB PO SCH (08:11)
[2017-09-12] MEDS: ASPIRIN EC 81 MG TABEC PO SCH (08:11)
[2017-09-12] MEDS: SODIUM CHLORIDE 0.9% FLUSH 10 ML FLUSH IV FLUSH SCH (08:12)
[2017-09-12] MEDS: PANTOPRAZOLE SOD 20 MG DELAYED RELEASE TAB PO SCH (08:12)
[2017-09-12] MEDS: BUDESONIDE-FORMOTEROL 160/4.5 MCG INHALER INH SCH (08:12)
[2017-09-12] MEDS: HEPARIN SODIUM - SQ 10,000 UNITS/ML VIAL SQ SCH (08:13)
[2017-09-12] MEDS: hydrALAZINE HCL 20 MG/ML VIAL IV PUSH PRN (08:18)
[2017-09-12 09:05] LABS: BICARBONATE 23.8 MEQ/L (21.0-32.0); CALCIUM 6.9 MG/DL (8.5-10.1); CREATININE 1.94 MG/DL (0.60-1.30)
[2017-09-12 09:22] LABS: CALCIUM-PROTEIN CORRECTED 7.6 MG/DL (8.5-10.1); TOTAL PROTEIN 5.8 GM/DL (6.4-8.2)
[2017-09-12] MEDS ORDERED: CALCIUM GLUCONATE INJ 1 GM in SODIUM CHLORIDE 0.9% INJ 100 ML IV ONE (11:00)
[2017-09-12] MEDS ORDERED: CALC12502 PO (13:21)
--- NOTE | 2017-09-12 13:23 | HHI.DS ---
Discharge Summary Admission Date Sep 09, 2017 at 14:09 Discharge Date: Sep 12, 2017 Admitting Diagnosis hypocalcemia, hypomagnesemia, hypokalemia, leukocytosis (1) Hypocalcemia ICD Code: E83.51 - Hypocalcemia Status: Acute (2) Hypomagnesemia ICD Code: E83.42 - Hypomagnesemia Status: Acute (3) Hypokalemia ICD Code: E87.6 - Hypokalemia Status: Acute Procedures None. Brief History - From Admission 81 years old male with history of CHF hypertension diabetes mellitus chronic knee disease and dyslipidemia presented to the ED complaining of worsening abdominal pain and cramping in nature 10 out of 10 nausea vomiting and diarrhea started yesterday. In ED patient was found to have severe depletion of electrolytes with severe hypo-hypercholesterolemia corrected calcium 5.5, potassium 2.7, magnesium 0.4, he looks severely dehydrated area and in general his poor historian looks anxious but in general denied other complain CBC/BMP: 09/10/17 0610 09/12/17 0820 Significant Findings Laboratory Tests Test 09/09/17 14:09 09/09/17 15:00 09/09/17 17:40 09/09/17 20:00 Lactic Acid Level 2.9 mmol/L (0.4-2.0) Blood Urea Nitrogen 20 MG/DL (7-18) Creatinine 2.34 MG/DL (0.60-1.30) Random Glucose 180 MG/DL (74-106) Calcium Level LESS THAN 5.0 MG/DL Magnesium Level 0.5 MG/DL (1.5-2.5) Potassium Level 3.2 MEQ/L (3.5-5.1) Estimat Glomerular Filtration Rate 27 ML/MIN (>89) Protein Corrected Calcium LESS THAN 5.1 MG/DL Test 09/10/17 06:10 09/11/17 13:13 09/11/17 13:16 09/11/17 18:43 Red Blood Count 4.07 MIL/MM3 (4.50-5.90) Hemoglobin 12.2 GM/DL (13.0-17.0) Hematocrit 35.3 % (39.0-51.0) Neutrophils (%) (Auto) 72.8 % (16.0-70.0) Monocytes (%) (Auto) 8.4 % (0.0-8.0) Neutrophils # (Auto) 7.9 TH/MM3 (1.8-7.7) Creatinine 2.42 MG/DL (0.60-1.30) 2.24 MG/DL (0.60-1.30) 2.20 MG/DL (0.60-1.30) Random Glucose 147 MG/DL (74-106) 179 MG/DL (74-106) 162 MG/DL (74-106) Calcium Level 5.9 MG/DL (8.5-10.1) 6.0 MG/DL (8.5-10.1) 6.3 MG/DL (8.5-10.1) Potassium Level 3.4 MEQ/L (3.5-5.1) Estimat Glomerular Filtration Rate 26 ML/MIN (>89) 28 ML/MIN (>89) 29 ML/MIN (>89) Protein Corrected Calcium 6.1 MG/DL (8.5-10.1) 6.4 MG/DL (8.5-10.1) 6.7 MG/DL (8.5-10.1) Magnesium Level 1.2 MG/DL (1.5-2.5) Blood Urea Nitrogen 19 MG/DL (7-18) 19 MG/DL (7-18) Total Protein 6.1 GM/DL (6.4-8.2) 6.2 GM/DL (6.4-8.2) Chloride Level 109 MEQ/L (98-107) Carbon Dioxide Level 20.0 MEQ/L (21.0-32.0) 19.8 MEQ/L (21.0-32.0) Parathyroid Hormone (Intact) 208.1 PG/ML (12.4-76.8) Test 09/12/17 07:26 09/12/17 08:20 Creatinine 1.94 MG/DL (0.60-1.30) Random Glucose 64 MG/DL (74-106) 72 MG/DL (74-106) Total Protein 5.8 GM/DL (6.4-8.2) Calcium Level 6.9 MG/DL (8.5-10.1) Chloride Level 109 MEQ/L (98-107) Estimat Glomerular Filtration Rate 34 ML/MIN (>89) Protein Corrected Calcium 7.6 MG/DL (8.5-10.1) Imaging Last Impressions Abdomen/Pelvis CT 09/09/17 1144 Signed Impressions: Service Date/Time: August 12:50 - CONCLUSION: 1. No dilated loops of small or large bowel. Sigmoid diverticulosis without radiographic evidence of diverticulitis. 2. There is a new moderate size left pleural effusion. 3. Please note that prior imaging studies had evaluated 2 lesions in the right kidney, only discernible on contrast enhanced images. Today's noncontrast CT does not provide interval assessment of these known lesions. Gomez Palacios MD Abdomen X-Ray 09/09/17 1141 Signed Impressions: Service Date/Time: August 11:54 - CONCLUSION: 1. No acute findings. No free air. Cristobal Spears MD PE at Discharge GENERAL: Alert, NAD. Hard of hearing. SKIN: Warm and dry. HEAD: Normocephalic. EYES: No scleral icterus. No injection or drainage. NECK: Supple, trachea midline. No JVD or lymphadenopathy. CARDIOVASCULAR: Regular rate and rhythm without murmurs, gallops, or rubs. RESPIRATORY: Breath sounds equal bilaterally. No accessory muscle use. GASTROINTESTINAL: Abdomen soft, non-tender, nondistended. MUSCULOSKELETAL: No cyanosis, or edema. BACK: Nontender without obvious deformity. No CVA tenderness. Pt update on day of discharge Follow-up for abdominal pain, hypocalcemia, hypomagnesemia, hypokalemia. Patient is currently doing well. Patient denies any chest pain, shortness of breath, fever or chills. Ambulating well and tolerating diet well. Hospital Course Mr. Mcmahan is a 81 year old male with history of CHF, hypertension, diabetes , chronic kidney disease, dyslipidemia, presented via EMS for evaluation of abdominal pain, nausea, vomiting, diarrhea. He was found to have significant electrolyte deficiencies. - Abdominal pain - resolved. Likely due to hypocalcemia. - Tolerating diet well. - Hypokalemia - Hypocalcemia - Hypomagnesemia - Calcium 5.5, Potassium 2.7 and Mag 0.4 on admission - Replaced with multiple doses of IV electrolytes. - On the day of discharge, potassium 3.7, corrected calcium 7.6 (patient received 1 more gram of calcium on the day of discharge), magnesium 2.0 - Acute kidney injury - CKD stage IV - Creatinine is somewhat improved. Creatinine 2.24 today. Baseline around 1.8 - 2.0. -Creatinine 1.94 today. - Hypertension - Chronic congestive heart failure mostly diastolic - Hyperlipidemia - Continue Aspirin, Lipitor, Hydralazine, Imdur - Diabetes mellitus - Patient takes Glipizide at home. - Currently on sliding scale insulin. Goal 140-180. - We continued Levemir 5 units daily at bedtime. Patient can continue his glipizide upon discharge - BMP, Mg level in one week after discharge. Pt Condition on Discharge: Good Discharge Disposition: Discharge Home Discharge Time: > 30 minutes Discharge Instructions DIET: Follow Instructions for: Diabetic Diet Activities you can perform: Regular-No Restrictions Follow up Referrals: PCP Follow-up - 1 Week New Orders: BASIC METABOLIC PROF - 1 Week MAGNESIUM (MG) - 1 Week New Medications: Calcium Carbonate (Calcium Carbonate) 500 Mg Calcium (1250 Mg) Tab 1250 MG PO BID for Calcium Supplement, #30 TAB 0 Refills 1,250 mg calcium carbonate (500 mg elemental calcium) Continued Medications: Albuterol 18 GM Inh (Ventolin Hfa 18 GM Inh) 90 Mcg/Act Aer 2 PUFF INH Q4-6H PRN for SHORTNESS OF BREATH, #1 INHALER 0 Refills Allopurinol (Allopurinol) 100 Mg Tab 100 MG PO DAILY for Gout, #30 TAB [address] (Adult Aspirin EC Low Strength) 81 Mg Tabec 81 MG PO DAILY for Blood Clot Prevention, #90 TAB 3 Refills Atorvastatin (Atorvastatin) 20 Mg Tab 20 MG PO HS for Cholesterol Management, #30 TAB 0 Refills Budesonide-Formoterol Inh (Symbicort Inh) 160-4.5 Mcg/Act Aero 1 PUFF INH Q12HR, #1 INHALER 0 Refills Cholecalciferol (Vitamin D3) 5,000 Unit Cap 5000 UNITS PO DAILY for Nutritional Supplement, #1 BOTTLE 0 Refills Clonidine (Catapres) 0.1 Mg Tab 0.1 MG PO Q8HR for htn, #90 TAB Furosemide (Furosemide) 40 Mg Tab 40 MG PO DAILY, #30 TAB 0 Refills Glipizide (Glucotrol) 5 Mg Tab 5 MG PO DAILYAC for 30 Days, TAB Hydralazine HCl (Hydralazine HCl) 50 Mg Tablet 100 MG PO Q8HR for htn, #90 TAB Isosorbide Mononitrate ER (Isosorbide Mononitrate ER) 30 Mg Jennifer 30 MG PO DAILY for Prevent Chest Pain, #30 TAB 0 Refills Omeprazole (Omeprazole) 20 Mg Tab 20 MG PO BID, #30 TAB 0 Refills Potassium Chloride ER (Potassium Chloride ER) 10 Meq Cap 10 MEQ PO DAILY for Electrolyte Replacement, #30 CAP 0 Refills Dieter Nguyen DO Sep 12, 2017 13:23
== END 2017-09-12 14:46 | disposition home or self-care (01) | DRG 641 ==
LOC: NEPC 11:21 → NEDA 14:09 → HIMN 19:40 → N04B 09-11 21:47
PROVIDERS: ADMIT Hospitalist; ATTEND Hospitalist
DX: E83.51 Hypocalcemia (principal); N17.9 Acute kidney failure, unspecified; N18.4 Chronic kidney disease, stage 4 (severe); E11.22 Type 2 diabetes mellitus with diabetic chronic kidney disease; I48.91 Unspecified atrial fibrillation; I13.0 Hypertensive heart and chronic kidney disease with heart failure and stage 1 through stage 4 chronic kidney disease, or unspecified chronic kidney disease; I50.30 Unspecified diastolic (congestive) heart failure; E86.0 Dehydration; E87.6 Hypokalemia; E78.5 Hyperlipidemia, unspecified; M10.9 Gout, unspecified; D72.829 Elevated white blood cell count, unspecified; E83.42 Hypomagnesemia; K57.30 Diverticulosis of large intestine without perforation or abscess without bleeding; M19.90 Unspecified osteoarthritis, unspecified site; H91.90 Unspecified hearing loss, unspecified ear; R11.2 Nausea with vomiting, unspecified; Z86.73 Personal history of transient ischemic attack (TIA), and cerebral infarction without residual deficits; Z87.891 Personal history of nicotine dependence; Z79.84 Long term (current) use of oral hypoglycemic drugs
CPT/HCPCS: 74018; 74176; 80048; 80053; 82947; 82948; 83605; 83690; 83735; 83970; 84100; 84155; 85025; 85610; 85730; 87493; 87506; 87641; 93005; 94664; 96365; J0360; J0610; J1644; J1815; J3475; J3480; J7030; J7040